=== PATIENT | female | born 1955 | race Caucasian/White ===

== ENCOUNTER → 2020-02-21 10:46 | Outpatient (BNVA) | payer BC, SELFPAY | PROVIDERS: Visit Provider Advanced Practice Midwife | DX: Z76.89 Persons encountering health services in other specified circumstances (principal) ==

== ENCOUNTER 2020-05-15 06:44 | Outpatient (REF) | payer MEDICARE, SELFPAY ==
--- NOTE | 2020-05-15 07:03 | XR_ITS ---
EXAMINATION: XR CERVICAL SPINE CLINICAL INFORMATION: Neck pain. COMPARISON: None TECHNIQUE: 6 views of the cervical spine, inclusive of flexion and extension views, were obtained. FINDINGS: There is maintained cervical lordosis. The vertebral heights, alignment and disc heights are normal. There is no visible acute fracture, dislocation or subluxation seen. The neural foramina are patent bilaterally. The prevertebral and paravertebral soft tissues are normal. XR/XR cervical spine w flex/ext IMPRESSION: Unremarkable cervical spine exam.
[2020-05-15 07:10] LABS: MANUAL DIFF FLAG NO
[2020-05-15 07:16] LABS: Glucose Urine UA NEG (NEG); Leukocyte Esterase Urine 1+ (NEG); Nitrite Urine NEG (NEG); PH 6.5 (5.0-8.0); Urine Blood TRACE (NEG); Urine Ketones NEG (NEG); Urine Protein NEG (NEG-TRACE)
[2020-05-15 07:17] LABS: Appearance Urine HAZY; Color Urine YELLOW
[2020-05-15 07:18] LABS: Basophils Absolute Auto 0.1 X10*3/uL (0.0-0.2); Basophils Percent Auto 0.9 % (0-2); Eosinophils Absolute Auto 0.1 X10*3/uL (0.0-0.4); Eosinophils Percent Auto 1.5 % (0-4); Hematocrit 37.8 % (37-47); Hemoglobin 11.9 g/dl (12.0-16.0); Imm Gran Abs Auto 0.03 X10*3/uL (0.00-0.03); Imm Gran Pct Auto 0.6 % (0.0-0.4); Immature Retic Fraction 10.3 % (3.0-15.9); Lymphocytes Absolute Auto 1.9 X10*3/uL (1.2-4.9); Lymphocytes Percent Auto 34.8 % (20-40); Mean Corpuscular HGB Conc 31.5 g/dl (31.0-35.0); Mean Corpuscular Hemoglobin 27.8 pg (27.0-33.0); Mean Corpuscular Volume 88.3 fL (80-98); Mean Platelet Volume 10.4 fL (9.4-12.3); Monocytes Absolute Auto 0.6 X10*3/uL (0.1-1.2); Monocytes Percent Auto 11.7 % (2-11); Neutrophils Absolute Auto 2.7 X10*3/uL (2.0-8.3); Neutrophils Percent Auto 50.5 % (45-73); Platelet Count 218 X10*3/uL (160-400); Red Blood Count 4.28 X10*6/uL (4.20-5.50); Red Cell Distribution Width 13.2 % (11.0-16.0); Retic HGB Equivalent 32.8 pg (30.0-35.0); Reticulocyte Percent 1.6 % (0.5-1.8); Reticulocytes Absolute 0.067 X10*6/uL (0.026-0.095); White Blood Count 5.3 X10*3/uL (4.8-10.8)
[2020-05-15 07:35] LABS: Bacteria Urine TRACE /LPF; RBC Urine 0-2 /HPF (0); Squamous Epithelial Cell Urine 3+ /LPF; WBC Urine 0-2 /HPF (0-4)
[2020-05-15 07:52] LABS: Alanine Aminotransferase 15 U/L (0-31); Albumin Level 4.5 g/dL (3.5-5.0); Alkaline Phosphatase 70 U/L (39-117); Anion Gap 12 (12-20); Aspartate Amino Transferase 13 U/L (5-31); Bilirubin Total 0.5 mg/dL (0.0-1.0); Blood Urea Nitrogen 16 mg/dL (9-16); Calcium 9.2 mg/dL (8.4-10.2); Carbon Dioxide 27 mmol/L (22-29); Chloride 106 mmol/L (96-108); Cholesterol 223 mg/dL; Estimated Glomerular Filt Rate > 60; Glucose Random 84 mg/dL (60-115); HDL Cholesterol 88 mg/dL; Iron 112 mcg/dL (30-160); LDL Cholesterol Calculated 122 mg/dl; Percent Iron Saturation 28 % (15-50); Potassium 4.3 mmol/l (3.3-5.1); Sodium 141 mmol/L (135-145); Total Iron Binding Capacity 404 mcg/dL (228-428); Total Protein 7.1 g/dL (6.5-8.0); Triglycerides 68 mg/dL; Unsaturated Iron Binding 292 ug/dL
[2020-05-15 08:02] LABS: Ferritin 69 ng/mL (10-250); Free T4 (Free Thyroxine) 1.04 ng/dL (0.71-1.85); Thyroid Stimulating Hormone 3.48 uIU/mL (0.32-4.0); Vitamin D 25-OH Total 99.9 ng/mL (>30)
[2020-05-15 08:23] LABS: Folate > 20.0 ng/mL (> or = 4.0); Vitamin B12 611 pg/mL (200-900)
== END 2020-05-15 06:45 | disposition home or self-care (01) ==
LOC: HO.LAB 06:44
PROVIDERS: Visit Provider Internal Medicine
DX: M54.2 Cervicalgia (principal); E78.00 Pure hypercholesterolemia, unspecified
CPT/HCPCS: 36415; 72052; 80053; 80061; 81001; 82306; 82607; 82728; 82746; 83540; 84439; 84443; 85025; 85045

== ENCOUNTER 2020-06-08 09:42 | Outpatient (REF) | payer MEDICARE, SELFPAY ==
[2020-06-11 01:47] LABS: HPV mRNA E6/E7 rflx Not Detected (Not Detected)
== END 2020-06-08 09:43 | disposition home or self-care (01) ==
LOC: HO.LAB 09:42
PROVIDERS: PCP Internal Medicine; Visit Provider Advanced Practice Midwife
DX: Z01.419 Encounter for gynecological examination (general) (routine) without abnormal findings (principal); Z78.0 Asymptomatic menopausal state; Z11.51 Encounter for screening for human papillomavirus (HPV)
CPT/HCPCS: 36415; 87624; 88142

== ENCOUNTER 2020-06-15 09:21 | Outpatient (REF) | payer MEDICARE, BC, SELFPAY ==
--- NOTE | ~2020-06-15 | MR_ITS ---
EXAMINATION: MR BRAIN WITHOUT CONTRAST CLINICAL INFORMATION: Headache. COMPARISON: None available. TECHNIQUE: Multiplanar, multisequence imaging of the brain was performed without intravenous contrast. FINDINGS: There is no acute infarction, mass, hemorrhage, or extra-axial collection. The ventricles, sulci, and basilar cisterns are normal in size and configuration. The cerebellar tonsils are normally positioned above the foramen magnum. The brain parenchyma signal is essentially normal. The flow voids of the major intracranial arteries appear intact. The bones and extracranial soft tissues are unremarkable. MR/MR head/brain wo con IMPRESSION: No acute infarct, mass lesion, intracranial hemorrhage, or evidence of hydrocephalus.
== END 2020-06-15 09:22 | disposition home or self-care (01) ==
LOC: HO.MRI 09:21
PROVIDERS: Visit Provider Internal Medicine
DX: R51.9 Headache, unspecified (principal)
CPT/HCPCS: 70551

== ENCOUNTER → 2020-06-16 15:00 | Outpatient (BNV) | payer MEDICARE, BC, SELFPAY | PROVIDERS: PCP Internal Medicine; Visit Provider Internal Medicine Medical Oncology | DX: D51.9 Vitamin B12 deficiency anemia, unspecified (principal); Z85.3 Personal history of malignant neoplasm of breast | CPT/HCPCS: 99213; 99214; 99443 ==

== ENCOUNTER 2020-09-04 11:31 | Outpatient (REF) | payer MEDICARE, SELFPAY | END 2020-09-04 11:32 | disposition home or self-care (01) | LOC: HO.LNP 11:31 | PROVIDERS: Visit Provider Hospitalist | DX: R30.0 Dysuria (principal) | CPT/HCPCS: 87086; 87147 ==

== ENCOUNTER 2020-09-06 12:30 | Emergency (ER) | payer MEDICARE, SELFPAY ==
--- NOTE | ~2020-09-06 | US_ITS ---
EXAMINATION: US ABDOMEN LIMITED CLINICAL INFORMATION: Right upper quadrant pain. Question acute cholecystitis.. COMPARISON: CT abdomen 09/14/2017 TECHNIQUE: Real-time imaging of the right upper quadrant abdominal viscera. FINDINGS: PANCREAS: Normal. LIVER: Normal. The liver is normal in size. The liver contour is normal. Parenchymal echogenicity is normal. No focal hepatic lesion. There is no intrahepatic biliary duct dilatation seen. GALLBLADDER: Normal. The gallbladder is physiologically distended without evidence of stones, sludge, polyps, wall thickening or pericholecystic fluid. COMMON BILE DUCT: Normal in caliber measuring 0.2 cm in diameter. RIGHT KIDNEY: Normal. No hydronephrosis. No renal calculi or focal parenchymal lesions. The kidney measures 10.2 cm in maximum dimension. FREE FLUID: None. US/US abdomen limited IMPRESSION: 1. No evidence of cholelithiasis or cholecystitis. 2. Otherwise unremarkable study.
[2020-09-06 12:33] VITALS: BP 135/77; PULSE 84; RESP 18; TEMP 36.8; O2SAT 100; BMI 26.9
[2020-09-06 12:53] LABS: Appearance Urine CLEAR; Color Urine YELLOW; Glucose Urine UA NEG (NEG); Leukocyte Esterase Urine NEG (NEG); Nitrite Urine NEG (NEG); PH 5.5 (5.0-8.0); Specific Gravity - Urine 1.025 (1.005-1.025); Urine Blood 1+ (NEG); Urine Ketones 5 MG/DL (NEG); Urine Protein NEG (NEG-TRACE)
[2020-09-06 13:07] LABS: Mucus Urine 1+ /LPF; Squamous Epithelial Cell Urine 1+ /LPF; WBC Urine 0-2 /HPF (0-4)
[2020-09-06 13:25] VITALS: BP 135/74; PULSE 80; RESP 18; O2SAT 100
--- NOTE | 2020-09-06 13:26 | ED.ABDPAIN ---
HPI - Abdominal Pain General Chief Complaint: Abdominal Pain Stated Complaint: abd pain Time Seen by Provider: 09/06/20 13:20 Source: patient Mode of arrival: ambulatory Limitations: no limitations History of Present Illness HPI narrative: 65-year-old female with a past medical history of right breast carcinoma status post lumpectomy status post chemotherapy/radiation, anemia, anxiety, high cholesterol, IBS, osteoarthritis Seen here at walk-in on September 04 for UTI symptoms and had a urine culture which showed contamination. She was given a prescription for Cipro but she did not start this. She was waiting for the urine culture to come back. The patient has had symptoms of intermittent abdominal pain, epigastric burning, indigestion, ?cotton mouth , nausea for 1-2 weeks. She feels like this is a reoccurrence of her GI Justin. She called her glove cuffer and ear nose and throat doctor and has appointment for September 29 (ENT) and 10/16(GI) as well as her PCP 10/28. She tells me she has continued symptoms and feels like it is getting worse so she came to the emergency department. She did restart some leftover nystatin on September 03 but feels like this has not helped her symptoms. She was seen at the walk-in on September 04 because she felt like she was having some lower pelvic pressure and some low back pain and felt like she might have a UTI. She feels like those symptoms today are resolved and denies any urinary symptoms, fevers, chills, vomiting, diarrhea, constipation. Related Data Home Medications Medication Instructions Recorded Confirmed cetirizine 10 mg capsule 10 mg PO DAILY PRN 05/14/20 09/04/20 cholecalciferol (vitamin D3) 50 50 mcg PO DAILY 05/14/20 09/04/20 mcg (2,000 unit) capsule cyanocobalamin (vitamin B-12) 1,000 mcg PO DAILY 05/14/20 09/04/20 1,000 mcg capsule folic acid 1 mg tablet 1 mg PO DAILY 05/14/20 09/04/20 inositol 324 mg tablet 4 tab PO DAILY 05/14/20 09/04/20 cimetidine 200 mg tablet 200 mg PO QIDACHS 09/04/20 09/04/20 Previous Rx's Medication Instructions Recorded lorazepam 0.5 mg tablet 0.5 mg PO BEDTIME PRN 30 Days #30 05/14/20 tab ciprofloxacin HCl 500 mg tablet 500 mg PO BID #14 tab 09/04/20 Allergies Allergy/AdvReac Type Severity Reaction Status Date / Time doxycycline [DOXYCYCLINE] Allergy Severe UNKNOWN, ? Verified 09/04/20 09:57 hearing problem poison teresa extract Allergy Severe SEVERE RASH Verified 09/04/20 09:57 [POISON TERESA] Sulfa (Sulfonamide Allergy Intermediate RASH PT Verified 09/04/20 09:57 Antibiotics) STATES [SULFA (SULFONAMIDE TOOK ANTIBIOTICS)] BACTRIM WITHOUT REACTION penicillin G Allergy Unknown rash Verified 09/04/20 09:57 Penicillins [PENICILLINS] Allergy Unknown RASH Verified 09/04/20 09:57 Review of Systems Review of Systems Yes all other systems are reviewed and are negative Constitutional: Reports no additional constitutional complaints, Denies body ache(s), Denies chills, Denies fever(s), Denies headache(s) and Denies weakness Eyes: Reports no additional eye complaints and Denies change in vision Reports system reviewed and no additional complaints, except as documented, Reports halitosis, Denies dizziness, Denies headache(s), Denies nasal congestion, Denies nasal discharge and Denies neck pain Cardiovascular: Reports no additional cardiovascular complaints, Denies chest pain, Denies leg edema and Denies dyspnea Respiratory: Reports no additional respiratory complaints, Denies cough and Denies dyspnea Gastrointestinal: Reports no additional gastrointestinal complaints, Reports abdominal pain, Denies diarrhea, Reports nausea and Denies vomiting Genitourinary: Reports no additional female genitourinary complaints and Denies urinary incontinence Musculoskeletal: Reports no additional musculoskeletal complaints, Denies back pain, Denies arthralgias, Denies joint swelling, Denies neck pain, Denies numbness and Denies tingling Skin/Breast: Reports system reviewed and no additional complaints, except as docu and Denies rash Reports system reviewed and no additional complaints, except as documented, Denies Abnormal speech present, Denies dizziness, Denies headache(s), Denies numbness, Denies tingling and Denies weakness Physical Exam Vital Signs: Vital Signs: Last Vital Signs Temp 98.2 F 09/06/20 12:33 Pulse 80 09/06/20 13:25 Resp 18 09/06/20 13:25 BP 135/74 09/06/20 13:25 Pulse Ox 100 09/06/20 13:25 Body Mass Index 26.9 Const: General: cooperative, healthy appearing, comfortable and no acute distress Orientation/consciousness: patient oriented x3 Limitations: no limitations HENMT: Head: Yes normal to inspection Ears: hearing grossly normal bilaterally and TM's normal bilaterally General nose exam: Normal external nose present Face and sinus: Yes normal facial exam Mouth: Normal oral and palatal mucosa present Mouth/tongue images: 1. white placques Throat: Yes posterior oropharynx normal, Yes tonsils normal and Yes uvula midline Eyes: General: appearance normal, both eyes and all related structures Pupils: Equal, round and reactive pupils present Neck: Neck: Yes normal visual inspection, Yes full ROM, Yes no lymphadenopathy and Yes no meningeal signs Chest: Chest palpation & inspection: normal inspection of the chest Resp: Effort & Inspection: normal respiratory effort Auscultation: clear to auscultation bilaterally Cardio: Rate: regular rate Rhythm: regular rhythm Peripheral pulses: Peripheral pulses 2+ throughout GI: Other: No rebound or guarding Patient does point to her epigastric and right upper quadrant area which she tells me she has some discomfort in this area however I am unable to elicit any real tenderness on exam. Inspection: Yes normal to inspection Palpation (GI): Soft to palpation Auscultation: normal bowel sounds Back/Spine/Pelvis: Thoracic/Lumbar Spine: thoracic and lumbar spine normal to inspection Skin: General skin exam: no rashes or lesions noted Neuro: General: patient oriented x3, no meningeal signs, no focal motor deficits and normal sensation to monofilament Cranial nerves: Yes Equal, round and reactive pupils present Cognition (Neuro): normal cognition Speech: No Abnormal speech present Gait exam (Neuro): Normal gait present Motor exam (neuro): 5/5 motor strength present throughout Extrem: General: Yes normal to inspection, Yes no pedal edema and Yes no calf tenderness Course Course Course Narrative: 65 year old female here with complaints of intermittent abdominal pain with associated nausea, halitosis for 1-2 weeks in the setting of a history of GI Justin. Did restart some nystatin p.o. 3 days ago but has having continued symptoms. Has follow-up appointments with her GI, ENT and PCP in September but feels like she cannot wait that long. On exam she does have some reports of tenderness in the epigastric and right upper quadrant area but no significant rebound or guarding. Had some UTI symptoms this week but they seem resolved. Will check labs, EKG due to age, UA, abdominal ultrasound. 1530-labs unremarkable. UA negative. EKG shows no ischemic changes. Abdominal ultrasound negative. Patient has a constellation of symptoms that she relates to her history of GI justin. She feels like she is having a recurrence. I do feel like this is less likely as the patient is not currently immunocompromised and has not had chemotherapy in greater than 10 years. She would like to be treated prophylactically while pending her appointment with GI and ear nose and throat. However after discussion my attending we do not feel like this is appropriate at this time. I did recommend that she call for sooner appointment than her scheduled appointments in September if she feel like she needs to be seen sooner. I do not feel like there is any acute abdominal pathology going on causing her symptoms. Her test today were reviewed with her. I did review worrisome signs and symptoms such as severe sudden abdominal pain with associated vomiting or fever. Comfortable discharge home. MDM - Abdominal Pain MDM Narrative Medical decision making narrative: Cholecystitis, gallstones, GERD, gastritis, UTI, GI Justin Medical Records Attestation: I reviewed the patient's medical records. Lab Data Attestation: I reviewed the patient's lab results. Result diagrams: 09/06/20 14:19 09/06/20 14:19 Labs: Lab Results 09/06/20 09/06/20 09/06/20 Range/Units 12:47 14:19 14:19 WBC 6.0 (4.8-10.8) X10*3/uL RBC 4.35 (4.20-5.50) X10*6/uL Hgb 12.7 (12.0-16.0) g/dl Hct 38.8 (37-47) % MCV 89.2 (80-98) fL MCH 29.2 (27.0-33.0) pg MCHC 32.7 (31.0-35.0) g/dl RDW 13.2 (11.0-16.0) % Plt Count 198 (160-400) X10*3/uL MPV 10.4 (9.4-12.3) fL Immature Gran % (Auto) 0.2 (0.0-0.4) % Neut % (Auto) 66.6 (45-73) % Lymph % (Auto) 22.2 (20-40) % Troup % (Auto) 9.8 (2-11) % Eos % (Auto) 0.5 (0-4) % Baso % (Auto) 0.7 (0-2) % Lymph # (Auto) 1.3 (1.2-4.9) X10*3/uL Troup # (Auto) 0.6 (0.1-1.2) X10*3/uL Eos # (Auto) 0.0 (0.0-0.4) X10*3/uL Baso # (Auto) 0.0 (0.0-0.2) X10*3/uL Abs Immat Gran (auto) 0.01 (0.00-0.03) X10*3/uL Absolute Neuts (auto) 4.0 (2.0-8.3) X10*3/uL Absolute Nucleated RBC 0.000 (0.0-0.012) X10*3/uL Nucleated RBC % (auto) 0.0 (0.0-0.2) /100WBC Sodium 140 (135-145) mmol/L Potassium 3.7 (3.3-5.1) mmol/L Chloride 107 (96-108) mmol/L Carbon Dioxide 22 (22-29) mmol/L Anion Gap 15 (12-20) BUN 12 (9-16) mg/dL Creatinine 0.82 (0.5-1.4) mg/dL Estim Creat Clear Calc 66.1 Estimated GFR > 60 Random Glucose 86 (60-115) mg/dL Calcium 9.4 (8.4-10.2) mg/dL Magnesium 2.1 (1.6-2.6) mg/dL Total Bilirubin 0.6 (0.0-1.0) mg/dL Direct Bilirubin 0.2 (0.0-0.5) mg/dL AST 14 (5-31) U/L ALT 17 (0-31) U/L Alkaline Phosphatase 67 (39-117) U/L Total Protein 7.1 (6.5-8.0) g/dL Albumin 4.6 (3.5-5.0) g/dL Lipase 56 (8-78) U/L Urine Color YELLOW Urine Appearance CLEAR Urine pH 5.5 (5.0-8.0) Ur Specific [place] 1.025 (1.005-1.025) Urine Protein NEG (NEG-TRACE) MG/DL Urine Glucose (UA) NEG (NEG) MG/DL Urine Ketones 5 (NEG) MG/DL Urine Blood 1+ H (NEG) Urine Nitrite NEG (NEG) Ur Leukocyte Esterase NEG (NEG) Urine RBC 1-4 (0) /HPF Urine WBC 0-2 (0-4) /HPF Ur Squamous Epith Cells 1+ /LPF Urine Bacteria NONE /LPF Urine Mucus 1+ /LPF 09/06/20 Range/Units 14:19 WBC (4.8-10.8) X10*3/uL RBC (4.20-5.50) X10*6/uL Hgb (12.0-16.0) g/dl Hct (37-47) % MCV (80-98) fL MCH (27.0-33.0) pg MCHC (31.0-35.0) g/dl RDW (11.0-16.0) % Plt Count (160-400) X10*3/uL MPV (9.4-12.3) fL Immature Gran % (Auto) (0.0-0.4) % Neut % (Auto) (45-73) % Lymph % (Auto) (20-40) % Troup % (Auto) (2-11) % Eos % (Auto) (0-4) % Baso % (Auto) (0-2) % Lymph # (Auto) (1.2-4.9) X10*3/uL Troup # (Auto) (0.1-1.2) X10*3/uL Eos # (Auto) (0.0-0.4) X10*3/uL Baso # (Auto) (0.0-0.2) X10*3/uL Abs Immat Gran (auto) (0.00-0.03) X10*3/uL Absolute Neuts (auto) (2.0-8.3) X10*3/uL Absolute Nucleated RBC (0.0-0.012) X10*3/uL Nucleated RBC % (auto) (0.0-0.2) /100WBC Sodium (135-145) mmol/L Potassium (3.3-5.1) mmol/L Chloride (96-108) mmol/L Carbon Dioxide (22-29) mmol/L Anion Gap (12-20) BUN (9-16) mg/dL Creatinine (0.5-1.4) mg/dL Estim Creat Clear Calc Estimated GFR Random Glucose (60-115) mg/dL Calcium (8.4-10.2) mg/dL Magnesium (1.6-2.6) mg/dL Total Bilirubin (0.0-1.0) mg/dL Direct Bilirubin (0.0-0.5) mg/dL AST (5-31) U/L ALT (0-31) U/L Alkaline Phosphatase (39-117) U/L Total Protein (6.5-8.0) g/dL Albumin (3.5-5.0) g/dL Lipase (8-78) U/L Urine Color STRAW Urine Appearance CLEAR Urine pH 6.0 (5.0-8.0) Ur Specific [place] 1.010 (1.005-1.025) Urine Protein NEG (NEG-TRACE) MG/DL Urine Glucose (UA) NEG (NEG) MG/DL Urine Ketones NEG (NEG) MG/DL Urine Blood 1+ H (NEG) Urine Nitrite NEG (NEG) Ur Leukocyte Esterase NEG (NEG) Urine RBC 1-4 (0) /HPF Urine WBC 0 (0-4) /HPF Ur Squamous Epith Cells 1+ /LPF Urine Bacteria NONE /LPF Urine Mucus /LPF Imaging Data US - abdomen: Attestation: I personally reviewed and interpreted this imaging study as follows: Radiologist's impression: [address] [id number] ReportSigned Patient: Keiry Martini MMR#: [id number]: 5Acct:[id number]/Sex: 65 / FADM Date: 09/06/20Loc: Mickie Srivastava: Ordering Physician: HALIMA ENGEL NP Date of Service: 09/06/20 Procedure(s): US abdomen limited Accession Number(s): [id number] cc: HALIMA ENGEL NP~ EXAMINATION: US ABDOMEN LIMITED CLINICAL INFORMATION: Right upper quadrant pain. Question acute cholecystitis.. COMPARISON: CT abdomen 09/14/2017 TECHNIQUE: Real-time imaging of the right upper quadrant abdominal viscera. FINDINGS: PANCREAS: Normal. LIVER: Normal. The liver is normal in size. The liver contour is normal. Parenchymal echogenicity is normal. No focal hepatic lesion. There is no intrahepatic biliary duct dilatation seen. GALLBLADDER: Normal. The gallbladder is physiologically distended without evidence of stones, sludge, polyps, wall thickening or pericholecystic fluid. COMMON BILE DUCT: Normal in caliber measuring 0.2 cm in diameter. RIGHT KIDNEY: Normal. No hydronephrosis. No renal calculi or focal parenchymal lesions. The kidney measures 10.2 cm in maximum dimension. FREE FLUID: None. US/US abdomen limited IMPRESSION: 1. No evidence of cholelithiasis or cholecystitis. 2. Otherwise unremarkable study. ECG Data Attestation: I personally reviewed and interpreted this ECG as follows: ECG interpretation date: 09/06/20 ECG interpretation time: 14:09 Interpretation: Sinus bradycardia with a rate of 57, nonspecific ST changes, normal WI, normal QRS, normal QTC Discharge Plan Discharge Clinical Impression: Abdominal pain Patient Disposition: Home, Self-Care Instructions: Abdominal Pain (ED) Additional Instructions: Call Dr Kamara's office tomorrow for a sooner appointment Your ultrasound, blood work and urine testing all looked excellent today. It sounds like you need a repeat endoscopy. Prescriptions: No Action cyanocobalamin (vitamin B-12) 1,000 mcg capsule 1,000 mcg PO DAILY RF: 0 cholecalciferol (vitamin D3) 50 mcg (2,000 unit) capsule 50 mcg PO DAILY RF: 0 inositol 324 mg tablet 4 tab PO DAILY RF: 0 folic acid 1 mg tablet 1 mg PO DAILY RF: 0 Zyrtec 10 mg capsule 10 mg PO DAILY PRN (Reason: Allergic Symptoms) RF: 0 lorazepam 0.5 mg tablet 0.5 mg PO BEDTIME PRN (Reason: agitation) 30 Days Qty: 30 RF: 0 cimetidine [Tagamet HB] 200 mg tablet 200 mg PO QIDACHS RF: 0 ciprofloxacin HCl [Cipro] 500 mg tablet 500 mg PO BID Qty: 14 RF: 0 Referrals: Josh Kamara [Physician] - 2 days Interventions: ED Discharge Assessment Last Done: 09/06/20 15:35 Discharge Date/Time: 09/06/20 15:35 [facility] Past Medical History Attestation statement: The following information was validated with the patient. Source: old records reviewed and nursing notes reviewed Medical History Anemia Anxiety Ascending aorta dilatation Hx of breast cancer Hypercholesterolemia Immunodeficiency disorder Irritable bowel syndrome Osteoarthritis Overweight (BMI 25.0-29.9) Vitamin B12 deficiency Surgical History History of arthroscopy of left knee Hx of section Hx of mastectomy Hx of tubal ligation Family History Family History Mother Diabetes Arthritis Father HTN (hypertension) Dementia COPD (chronic obstructive pulmonary disease) Skin cancer Social History Social History Alcohol intake: never Smoking Status: Never smoker Smoked in Last 30 Days: No Use of substances other than those prescribed or required for medical reasons: No Advance Directives: No Advance Directives Information Provided: Yes Sexual orientation: Straight/Heterosexual Gender identity: female
--- NOTE | 2020-09-06 13:43 | ECG_ITS ---
Test Reason : ABD PAIN Blood Pressure : / mmHG Vent. Rate : 057 BPM Atrial Rate : 057 BPM P-R Int : 142 ms QRS Dur : 090 ms QT Int : 458 ms P-R-T Axes : 043 -19 056 degrees QTc Int : 445 ms Sinus bradycardia RSR' or QR pattern in V1 suggests right ventricular conduction delay Otherwise normal EKG When compared with ECG of 05-JUN-2015 05:57, No significant change was found Referred By: Madeleine Chavez Electronically Signed By:DEVON PEACOCK
[2020-09-06 14:23] LABS: MANUAL DIFF FLAG NO
[2020-09-06 14:24] LABS: Basophils Percent Auto 0.7 % (0-2); Eosinophils Percent Auto 0.5 % (0-4); Hematocrit 38.8 % (37-47); Hemoglobin 12.7 g/dl (12.0-16.0); Imm Gran Abs Auto 0.01 X10*3/uL (0.00-0.03); Imm Gran Pct Auto 0.2 % (0.0-0.4); Lymphocytes Absolute Auto 1.3 X10*3/uL (1.2-4.9); Lymphocytes Percent Auto 22.2 % (20-40); Mean Corpuscular HGB Conc 32.7 g/dl (31.0-35.0); Mean Corpuscular Hemoglobin 29.2 pg (27.0-33.0); Mean Corpuscular Volume 89.2 fL (80-98); Mean Platelet Volume 10.4 fL (9.4-12.3); Monocytes Absolute Auto 0.6 X10*3/uL (0.1-1.2); Monocytes Percent Auto 9.8 % (2-11); Neutrophils Percent Auto 66.6 % (45-73); Platelet Count 198 X10*3/uL (160-400); Red Blood Count 4.35 X10*6/uL (4.20-5.50); Red Cell Distribution Width 13.2 % (11.0-16.0)
[2020-09-06 14:25] LABS: Glucose Urine UA NEG (NEG); Leukocyte Esterase Urine NEG (NEG); Nitrite Urine NEG (NEG); Urine Blood 1+ (NEG); Urine Ketones NEG (NEG); Urine Protein NEG (NEG-TRACE)
[2020-09-06 14:32] LABS: Appearance Urine CLEAR; Color Urine STRAW
[2020-09-06 14:53] LABS: Alanine Aminotransferase 17 U/L (0-31); Albumin Level 4.6 g/dL (3.5-5.0); Alkaline Phosphatase 67 U/L (39-117); Anion Gap 15 (12-20); Aspartate Amino Transferase 14 U/L (5-31); Bilirubin Direct 0.2 mg/dL (0.0-0.5); Bilirubin Total 0.6 mg/dL (0.0-1.0); Blood Urea Nitrogen 12 mg/dL (9-16); Calcium 9.4 mg/dL (8.4-10.2); Carbon Dioxide 22 mmol/L (22-29); Chloride 107 mmol/L (96-108); Creatinine Clr Calc Pharmacy 66.1; Estimated Glomerular Filt Rate > 60; Glucose Random 86 mg/dL (60-115); Lipase 56 U/L (8-78); Magnesium 2.1 mg/dL (1.6-2.6); Potassium 3.7 mmol/L (3.3-5.1); Sodium 140 mmol/L (135-145); Total Protein 7.1 g/dL (6.5-8.0)
[2020-09-06 14:54] LABS: Squamous Epithelial Cell Urine 1+ /LPF; WBC Urine 0 /HPF (0-4)
== END 2020-09-06 15:35 | disposition home or self-care (01) ==
PROVIDERS: Nurse Practitioner Family; Emergency Provider Emergency Medicine Emergency Medical Services; PCP Internal Medicine
DX: R10.13 Epigastric pain (principal); R11.0 Nausea; Z79.899 Other long term (current) drug therapy
CPT/HCPCS: 36415; 76705; 80048; 80076; 81001; 83690; 83735; 85025; 93005; 99284

== ENCOUNTER 2020-09-10 12:20 | Outpatient (REF) | payer MEDICARE, SELFPAY ==
--- NOTE | ~2020-09-10 | XR_ITS ---
EXAMINATION: BILATERAL HAND X-RAY CLINICAL INFORMATION: Pain COMPARISON: None TECHNIQUE: 3 views of each hand FINDINGS: Bone alignment is normal. No fracture or dislocation is seen. There is bilateral osteopenia. There is bilateral arthritis at the first PENITENTIARY joints, left greater than right. Joint spaces are otherwise normal. Soft tissues are normal. XR/XR hand RT min 3V IMPRESSION: Osteopenia. Bilateral arthritis at the first PENITENTIARY joints, left greater than right.
--- NOTE | ~2020-09-10 | XR_ITS ---
EXAMINATION: BILATERAL HAND X-RAY CLINICAL INFORMATION: Pain COMPARISON: None TECHNIQUE: 3 views of each hand FINDINGS: Bone alignment is normal. No fracture or dislocation is seen. There is bilateral osteopenia. There is bilateral arthritis at the first ALF joints, left greater than right. Joint spaces are otherwise normal. Soft tissues are normal. XR/XR hand LT min 3V IMPRESSION: Osteopenia. Bilateral arthritis at the first ALF joints, left greater than right.
[2020-09-10 14:22] LABS: Baso%MD 0.7 %; Eos%MD 1.2 %; Hematocrit 38.8 % (37-47); Hemoglobin 12.5 g/dl (12.0-16.0); IG%MD 0.3 %; Lymph%MD 31.1 %; Mean Corpuscular HGB Conc 32.2 g/dl (31.0-35.0); Mean Corpuscular Hemoglobin 28.9 pg (27.0-33.0); Mean Corpuscular Volume 89.8 fL (80-98); Mean Platelet Volume 10.4 fL (9.4-12.3); Mono%MD 9.6 %; Neut%MD 57.1 %; Platelet Count 223 X10*3/uL (160-400); Red Blood Count 4.32 X10*6/uL (4.20-5.50); Red Cell Distribution Width 13.3 % (11.0-16.0); White Blood Count 5.9 X10*3/uL (4.8-10.8)
[2020-09-10 14:41] LABS: C Reactive Protein 0.09 mg/dL (< or = 0.50); Rheumatoid Factor < 15.0 IU/mL (<15.0)
[2020-09-10 14:59] LABS: Thyroid Stimulating Hormone 1.43 uIU/mL (0.32-4.0)
[2020-09-10 15:20] LABS: Band Neutrophils Percent 0 % (3-5); Lymphocytes Absolute Manual 1.7 X10*3/uL (0.6-4.8); Lymphocytes Percent Manual 28 % (20-40); Monocytes Absolute Manual 0.5 X10*3/uL (0.0-1.2); Monocytes Percent Manual 9 % (2-11); Neutrophils Absolute Manual 3.7 X10*3/uL (2.2-7.9); Neutrophils Percent Manual 63 % (45-73); RBC Morphology NOTED
[2020-09-10 15:21] LABS: Acanthocytes 2+ (3-5) /OIF; Large Platelet PRESENT; Platelet Estimate NORMAL (NORMAL); Platelet Morphology Comment NOTED
[2020-09-10 15:39] LABS: Erythrocyte Sedimentation Rate 14 MM/HR (0-20)
[2020-09-11 05:26] LABS: Lyme Abs Screen <0.90 index
[2020-09-11 13:56] LABS: Anti Nuclear Antibody Screen NEGATIVE (NEGATIVE)
[2020-09-11 20:02] LABS: Cyclic Citrullinated Peptide <16 UNITS
== END 2020-09-10 12:21 | disposition home or self-care (01) ==
LOC: HO.LAB 12:20
PROVIDERS: PCP Internal Medicine; Visit Provider Student in an Organized Health Care Education/Training Program
DX: M25.50 Pain in unspecified joint (principal)
CPT/HCPCS: 36415; 73130; 84443; 85007; 85027; 85652; 86038; 86039; 86140; 86200; 86431; 86617; 86618; 99202

== ENCOUNTER 2020-09-16 08:43 | Outpatient (REF) | payer MEDICARE, SELFPAY | END 2020-09-16 08:44 | disposition home or self-care (01) | LOC: HO.LNP 08:43 | PROVIDERS: Visit Provider Internal Medicine | DX: R10.13 Epigastric pain (principal) | CPT/HCPCS: 87338 ==

== ENCOUNTER 2020-09-29 15:48 | Outpatient (REF) | payer MEDICARE, SELFPAY | END 2020-09-29 15:49 | disposition home or self-care (01) | LOC: HO.LNP 15:48 | PROVIDERS: Visit Provider Otolaryngology | DX: B37.0 Candidal stomatitis (principal) | CPT/HCPCS: 87102; 87106 ==

== ENCOUNTER 2020-10-05 11:24 | Day surgery (SDC) | payer MEDICARE, SELFPAY ==
--- NOTE | 2020-10-02 08:11 | P.CONAN_ITS ---
Documented by User: Donna Sofía 10/02/20 08:19 HPI - Anesthesia Eval Consult details Narrative: 65yo F for Upper Endoscopy PMFSH Active Problems Active Problems: All Active Problems (Updated 09/10/20 @ 12:23 by Adan Sanchez MD) Polyarthralgia (Acute) Epigastric abdominal pain (Acute) Dysuria (Acute) Right lower quadrant pain (Acute) Osteoarthritis (Acute) B12 deficiency (Acute) Occipital headache (Acute) Neck pain (Acute) Hx of breast cancer (Acute) Fatigue (Acute) Hypercholesterolemia (Acute) Overweight (BMI 25.0-29.9) (Acute) Past Medical History Medical History Anemia Anxiety Ascending aorta dilatation Hx of breast cancer Hypercholesterolemia Immunodeficiency disorder Irritable bowel syndrome Osteoarthritis Overweight (BMI 25.0-29.9) Vitamin B12 deficiency Family History Family History Mother Diabetes Arthritis Father HTN (hypertension) Dementia COPD (chronic obstructive pulmonary disease) Skin cancer Surgical History Surgical History History of arthroscopy of left knee Hx of section Hx of mastectomy Hx of tubal ligation Social History Social History Alcohol intake: never Patient Tobacco Use Status: Never used Tobacco Use of substances other than those prescribed or required for medical reasons: No Have you been hit, kicked, punched, or otherwise hurt by someone within the past year? If so, by whom?: No Are you DNR?: No Advance Directives: No Advance Directives Information Provided: Yes Sexual orientation: Straight/Heterosexual Gender identity: female Meds Allergies Allergy/AdvReac Type Severity Reaction Status Date / Time doxycycline [DOXYCYCLINE] Allergy Severe UNKNOWN, ? Verified 10/05/20 12:26 hearing problem poison teresa extract Allergy Severe SEVERE RASH Verified 10/05/20 12:26 [POISON TERESA] Sulfa (Sulfonamide Allergy Intermediate RASH PT Verified 10/05/20 12:26 Antibiotics) STATES [SULFA (SULFONAMIDE TOOK ANTIBIOTICS)] BACTRIM WITHOUT REACTION Penicillins [PENICILLINS] Allergy Unknown RASH Verified 10/05/20 12:26 Home Medications Medication Instructions Recorded Confirmed Last Taken Type cetirizine 10 mg capsule 10 mg PO DAILY PRN 05/14/20 09/09/20 Unknown History cholecalciferol (vitamin D3) 50 50 mcg PO DAILY 05/14/20 09/09/20 Unknown History mcg (2,000 unit) capsule cyanocobalamin (vitamin B-12) 1,000 mcg PO DAILY 05/14/20 09/09/20 Unknown History 1,000 mcg capsule folic acid 1 mg tablet 1 mg PO DAILY 05/14/20 09/09/20 Unknown History inositol 324 mg tablet 4 tab PO DAILY 05/14/20 09/09/20 Unknown History acetaminophen 650 mg 1,300 mg PO Q12H PRN 09/10/20 Unknown History tablet,extended release Exam Exam Date and Time: October 02, 2020 0811 Narrative Narrative: 06/2019 Mild dilated ascending aorta @ 3.9cm EF 60-65% Nml valves Nml RV sys function No pericardial effusion EKG 2020 Vent. Rate : 057 BPM Atrial Rate : 057 BPM P-R Int : 142 ms QRS Dur : 090 ms QT Int : 458 ms P-R-T Axes : 043 -19 056 degrees QTc Int : 445 ms Sinus bradycardia RSR' or QR pattern in V1 suggests right ventricular conduction delay Otherwise normal EKG When compared with ECG of 05-JUN-2015 05:57, No significant change was found Assessment and Plan Assessment Anesthesia Assessment: Chart Reviewed Documented by User: Ronnie Singleton MD 10/05/20 13:02 [facility] Past Medical History Medical History Anemia Anxiety Ascending aorta dilatation Hx of breast cancer Hypercholesterolemia Immunodeficiency disorder Irritable bowel syndrome Osteoarthritis Overweight (BMI 25.0-29.9) Vitamin B12 deficiency Family History Family History Mother Diabetes Arthritis Father HTN (hypertension) Dementia COPD (chronic obstructive pulmonary disease) Skin cancer Surgical History Surgical History History of arthroscopy of left knee Hx of section Hx of mastectomy Hx of tubal ligation Social History Social History Alcohol intake: never Patient Tobacco Use Status: Never used Tobacco Use of substances other than those prescribed or required for medical reasons: No Have you been hit, kicked, punched, or otherwise hurt by someone within the past year? If so, by whom?: No Are you DNR?: No Advance Directives: No Advance Directives Information Provided: Yes Sexual orientation: Straight/Heterosexual Gender identity: female Meds Allergies Allergy/AdvReac Type Severity Reaction Status Date / Time doxycycline [DOXYCYCLINE] Allergy Severe UNKNOWN, ? Verified 10/05/20 12:26 hearing problem poison teresa extract Allergy Severe SEVERE RASH Verified 10/05/20 12:26 [POISON TERESA] Sulfa (Sulfonamide Allergy Intermediate RASH PT Verified 10/05/20 12:26 Antibiotics) STATES [SULFA (SULFONAMIDE TOOK ANTIBIOTICS)] BACTRIM WITHOUT REACTION Penicillins [PENICILLINS] Allergy Unknown RASH Verified 10/05/20 12:26 Home Medications Medication Instructions Recorded Confirmed Last Taken Type cetirizine 10 mg capsule 10 mg PO DAILY PRN 05/14/20 09/09/20 Unknown History cholecalciferol (vitamin D3) 50 50 mcg PO DAILY 05/14/20 09/09/20 Unknown History mcg (2,000 unit) capsule cyanocobalamin (vitamin B-12) 1,000 mcg PO DAILY 05/14/20 09/09/20 Unknown History 1,000 mcg capsule folic acid 1 mg tablet 1 mg PO DAILY 05/14/20 09/09/20 Unknown History inositol 324 mg tablet 4 tab PO DAILY 05/14/20 09/09/20 Unknown History acetaminophen 650 mg 1,300 mg PO Q12H PRN 09/10/20 Unknown History tablet,extended release Exam Airway Mallampati Class: I TM Dist: >3cm Neck ROM: Full Loose/Missing/Broken Teeth: No Heart: RRR Lungs: NL Assessment and Plan Assessment Anesthesia Assessment: Anesthesia Plan Discussed and Chart Reviewed Final Anesthetic Review NPO: Yes ASA Class: III Final Preanesthetic Review: No Changes in Pt Med Stat, Meds/Allgs Chart Reviewed, Consent Obtained/Reviewed and Anes Risks/Benef Reviewed Patient Risk: Intermediate Procedure Risk: Low Anesthetic Plan Anesthetic Plan: MAC: Disposition: Standard PACU
[2020-10-05 12:23] VITALS: BP 116/68; PULSE 89; RESP 18; TEMP 36.7; O2SAT 99; BMI 27.3
[2020-10-05] MEDS: Lactated Ringers 1,000 ML 100 ML IVCONT (12:42)
[2020-10-05 14:13] VITALS: BP 103/57; PULSE 76; RESP 16; TEMP 36.2; O2SAT 99
--- NOTE | 2020-10-05 14:14 | P.BOP_ITS ---
Brief Operative Note Date of Service: 10/05/20 Pre-op diagnosis: GERD, abdominal pain Post-op diagnosis: other (Mild antral gastritis, Hiatal hernia, GERD, Gastric polyps) Procedure: EGD with biopsies Surgeon: Josh Kamara Anesthesia: MAC Was an Volunteer Services Director used for this Procedure?: No Estimated blood loss (mL): 4.0 Pathology: other (A. Gastric antrum B. EG Junction at 35cm C. Gastric polyps) Condition: stable Disposition: PACU
[2020-10-05 14:28] VITALS: BP 106/60; PULSE 67; RESP 18; O2SAT 100
--- NOTE | 2020-10-05 23:24 | OP_ITS ---
SURGEON: Josh Kamara MD INDICATIONS: The patient presents for evaluation of reflux and abdominal pain. Full consent has been obtained from her for this, including risks of bleeding and perforation. PREOPERATIVE DIAGNOSIS: POSTOPERATIVE DIAGNOSIS: PROCEDURE PERFORMED: Esophagogastroduodenoscopy with biopsy. ESTIMATED BLOOD LOSS: COMPLICATIONS: ANESTHESIA: Monitored anesthesia care. ASSISTANTS: SPECIMENS: PREOPERATIVE DIAGNOSES: Reflux and abdominal pain. POSTOPERATIVE DIAGNOSES: Reflux and abdominal pain, hiatal hernia, gastric polyps, mild gastritis. DESCRIPTION OF PROCEDURE: The patient was placed in the left lateral decubitus position. The Olympus video gastroscope was passed in the posterior oropharynx and upper esophagus under direct vision. The scope was passed slowly into the distal esophagus. The gastroesophageal junction appeared minimally irregular at 35 cm consistent with reflux, but no definitive evidence of Cardozo's esophagus and there was no esophagitis. The scope entered into the stomach. There was a small hiatal hernia. The scope was advanced to pylorus and duodenum was cannulated to the descending portion. The duodenum including the bulb appeared normal without mass or ulceration. The scope was withdrawn back in the stomach. The gastric antrum and body appeared normal other than some mild gastric erythema. Biopsies were obtained. There was good peristalsis. The scope was retroflexed visualizing the proximal stomach carefully, which appeared normal, without any sign of mass or ulceration, other than several hyperplastic appearing gastric polyps. Two of these were biopsied. The scope was straightened out and withdrawn back into the esophagus. Biopsies were obtained at the EG junction at 35 cm. Proximal to this, the esophageal mucosa appeared normal. Scope was withdrawn from the patient. She tolerated the procedure well and was returned to recovery area in stable condition. IMPRESSION: 1. Small hiatal hernia. 2. Gastric polyps. 3. Rule out gastritis. 4. Gastroesophageal reflux. PLAN: The results of biopsies will be checked. At this point, she has been feeling fairly well and definitely improved compared to about a month ago when she was seen originally in the ER. She has been advised to try to avoid aspirin and NSAIDs for at least a week, but long-term if possible. She may very well had either significant gastritis or ulcer disease initially that led to her ER visit with abdominal pain. At this point, I advised her that would be best to try to observe things off medication to see how she does and things do seem to be significantly better. However, I did advise her to resume pantoprazole if her reflux or abdominal pain worsens. She was given a prescription by Dr. Gonzalez recently for Diflucan, but I advised her that I do not think she needs to use that in my opinion. If things are stable, she will see me in 1 or 2 months for a followup visit. Even if H pylori is present in the gastric biopsies, I would not necessarily treat that depending upon her clinical course. This has been discussed with the patient and her in detail. MD AVINASH Squires/MICHEAL / [phone]
== END 2020-10-05 15:25 | disposition home or self-care (01) ==
PROVIDERS: PCP Internal Medicine; Visit Provider Internal Medicine
PROC: 0DJ08ZZ Inspection of Upper Intestinal Tract, Via Natural or Artificial Opening Endoscopic (ICD-10-PCS; CPT 43235; principal; 2020-10-05 12:40)
DX: K21.9 Gastro-esophageal reflux disease without esophagitis (principal); K29.50 Unspecified chronic gastritis without bleeding; K44.9 Diaphragmatic hernia without obstruction or gangrene; K58.9 Irritable bowel syndrome, unspecified; K31.7 Polyp of stomach and duodenum; D64.9 Anemia, unspecified; Z85.3 Personal history of malignant neoplasm of breast; Z90.11 Acquired absence of right breast and nipple; Z79.899 Other long term (current) drug therapy; Z88.0 Allergy status to penicillin; Z88.1 Allergy status to other antibiotic agents; Z88.2 Allergy status to sulfonamides
CPT/HCPCS: 43239; 88305; 88342

== ENCOUNTER → 2020-10-13 15:37 | Outpatient (BNVA) | payer MEDICARE, SELFPAY | PROVIDERS: PCP Physician Assistant; Visit Provider Student in an Organized Health Care Education/Training Program | DX: M25.50 Pain in unspecified joint (principal) | CPT/HCPCS: 99212 ==

== ENCOUNTER 2020-12-30 13:20 | Outpatient (REF) | payer MEDICARE, SELFPAY ==
--- NOTE | ~2020-12-30 | MM_ITS ---
EXAMINATION: MM SCREENING DIGITAL BREAST TOMOSYNTHESIS, LEFT CLINICAL INFORMATION: Right mastectomy for breast cancer, 2010. Due for yearly. COMPARISON: Mammography: 10/22/2019, 07/20/2018, 06/30/2017 TECHNIQUE: Digital breast tomosynthesis is performed in both the craniocaudal and mediolateral oblique views along with computer-aided detection (CAD). Synthesized 2D images are generated from the tomosynthesis. Additional exaggerated left CC view is provided. FINDINGS: There are scattered areas of fibroglandular density (ACR BI-RADS breast composition Category b). Breast tissue composition borders on heterogeneously dense. There are no significant masses, abnormal calcifications, or other abnormalities. Parenchymal pattern is similar to prior exams. The axilla and skin contours are unremarkable. No significant changes. MM/MM tomosynthesis screening LT IMPRESSION: No mammographic evidence of malignancy. ASSESSMENT: BI-RADS 1: Negative RECOMMENDATION: Routine annual mammography screening. This patient's information was entered into a reminder system with a target due date for their next mammogram.
== END 2020-12-30 13:21 | disposition home or self-care (01) ==
LOC: HO.MAMMO 13:20
PROVIDERS: Visit Provider Internal Medicine
DX: Z12.31 Encounter for screening mammogram for malignant neoplasm of breast (principal)
CPT/HCPCS: 77063; 77067

== ENCOUNTER 2021-06-09 09:31 | Outpatient (REF) | payer MEDICARE, SELFPAY ==
--- NOTE | ~2021-06-09 | MM_ITS ---
EXAMINATION: BONE DENSITOMETRY CLINICAL INDICATION: Asymptomatic menopausal state. COMPARISON: Previous BD dated 04/04/2019 and baseline BD dated 12/20/2007. TECHNIQUE: Using a [employer] DXA System (software version: 13.1) manufactured by [employer], dual-energy x-ray absorptiometry was performed of the lumbar spine and left hip. The images are of good technical quality. Summary results are attached. FINDINGS: AP SPINE L1-L4: Current: BMD 1.118 g/cm2, Z-score 0.8, T-score -0.5, normal, 3.6% increase from previous, 15.7% decrease from baseline (<5% change is not significant). Prior: BMD 1.079 g/cm2. Baseline: BMD 1.326 g/cm2. LEFT FEMUR, NECK: Current: BMD 0.724 g/cm2, Z-score -0.9, T-score -2.3, osteopenia. Prior: BMD 0.769 g/cm2. Baseline: BMD 0.888 g/cm2. LEFT FEMUR, TOTAL: Current: BMD 0.821 g/cm2, Z-score -0.4, T-score -1.5, osteopenia, 0.1% decrease from previous, 14.4% decrease from baseline (<5% change is not significant). Prior: BMD 0.822 g/cm2. Baseline: BMD 0.959 g/cm2. IDENTIFIED RISK FACTORS: Menopause. HISTORY OF FRACTURE: None listed. MEDICATIONS: Calcium supplements or multivitamin, vitamin D. MM/XR DEXA axial skeleton IMPRESSION: 1. DIAGNOSIS: Osteopenia based on the lowest T-score value of -2.3 in the femoral neck applying World Health Organization criteria. 2. 10-YEAR FRACTURE RISK PREDICTION, FRAX: Major osteoporotic fracture (clinical spine, forearm, hip or shoulder) 12.2%. Hip fracture 2.3%. 3. Treatment Recommendations: NOF guidelines recommend consideration for treatment in postmenopausal women and men age 50 and older presenting with the following: -A hip or vertebral (clinical or morphometric) fracture. -T-score less than or equal to -2.5 at the femoral neck or spine after appropriate evaluation to exclude secondary causes. -Low bone mass at the hip or spine and a 10-year fracture probability by FRAX of greater than or equal to 3% for hip fracture or greater than or equal to 20% for major osteoporotic fracture based on the [place] adapted WHO algorithm. 4. Other Recommendations: All treatment decisions require clinical judgment and consideration of individual patient factors, including patient preferences, comorbidities, previous drug use, risk factors not captured in the FRAX model (e.g. frailty, falls, vitamin D deficiency, increased bone turnover, interval significant decline in bone density) and possible under or overestimation of fracture risk by FRAX. Additional medical evaluation for secondary cause of low bone mineral density may be appropriate. FUTURE SCAN RECOMMENDATION: People with diagnosed cases of osteoporosis or at high risk for fracture should have regular bone mineral density tests. For patients eligible for Medicare, routine testing is allowed once every 2 years. The testing frequency can be increased to one year for patients who have rapidly progressing disease, those who are receiving or discontinuing medical therapy to restore bone mass, or have additional risk factors.
== END 2021-06-09 09:32 | disposition home or self-care (01) ==
LOC: HO.MAMMO 09:31
PROVIDERS: Visit Provider Internal Medicine
DX: Z13.820 Encounter for screening for osteoporosis (principal); M85.80 Other specified disorders of bone density and structure, unspecified site; Z78.0 Asymptomatic menopausal state; Z79.899 Other long term (current) drug therapy
CPT/HCPCS: 77080

== ENCOUNTER → 2021-06-14 09:27 | Outpatient (BNVA) | payer MEDICARE, SELFPAY | PROVIDERS: PCP Internal Medicine; Visit Provider Advanced Practice Midwife | DX: N95.2 Postmenopausal atrophic vaginitis (principal) | CPT/HCPCS: 99212 ==

== ENCOUNTER 2021-06-22 01:58 | Emergency (ER) | payer MEDICARE, SELFPAY ==
--- NOTE | ~2021-06-22 | CT_ITS ---
EXAMINATION: CT ABDOMEN AND PELVIS WITHOUT CONTRAST CLINICAL INFORMATION: Right lower pelvic pain COMPARISON: 09/14/2017 TECHNIQUE: Multidetector volumetric imaging was performed from the superior aspect of the liver through the pubic symphysis. Sagittal and coronal reformatted images were obtained on the technologist's workstation. This CT examination was performed using dose optimization techniques as appropriate, variously including the following: *Automated exposure control *Adjustment of mA and/or kV according to patient size (this includes techniques or standardized protocols for targeted exams where dose is matched to indication/reason for exam; i.e. extremities or head) *Use of iterative reconstruction technique DLP: 579 mGy-cm FINDINGS: LUNG BASES: The visualized lung bases are unremarkable. LIVER, GALLBLADDER, AND BILIARY TREE: The liver is normal in size, shape, and attenuation. No focal hepatic lesion or biliary ductal dilatation is present. The gallbladder is unremarkable with no evidence of radiopaque gallstones, gallbladder wall thickening, or obvious pericholecystic inflammatory changes. PANCREAS: Unremarkable. SPLEEN: Unremarkable. ADRENAL GLANDS: Unremarkable. KIDNEYS AND URETERS: The kidneys are normal in size, shape, and attenuation. No hydronephrosis, hydroureter, or calculi seen. No perinephric stranding. BLADDER: Unremarkable. GASTROINTESTINAL TRACT: The stomach is unremarkable. Normal caliber small bowel. No obstruction. Normal appendix. Colonic diverticulosis which is greatest at the sigmoid colon. No diverticulitis. No free air or free fluid. ABDOMINAL WALL: No significant hernia is appreciated. LYMPH NODES: Normal. VASCULAR: Unremarkable. PELVIC VISCERA: The uterus and adnexa are unremarkable. OSSEOUS STRUCTURES: Unremarkable. CT/CT abdomen pelvis wo con IMPRESSION: No acute findings of the abdomen or pelvis. No inflammatory changes. No hydronephrosis or nephrolithiasis. Normal appendix. Fleischner guidelines were followed.
[2021-06-22 02:05] VITALS: BP 148/65; PULSE 68; RESP 18; TEMP 36.5; O2SAT 100; BMI 27.4
[2021-06-22 02:14] LABS: Appearance Urine CLEAR; Color Urine STRAW; Glucose Urine UA NEG (NEG); Leukocyte Esterase Urine NEG (NEG); Nitrite Urine NEG (NEG); PH 6.5 (5.0-8.0); UACC Culture Trigger NO; Urine Blood TRACE (NEG); Urine Ketones NEG (NEG); Urine Protein NEG (NEG-TRACE)
[2021-06-22 02:20] LABS: Calcium Phosphate Crystals Ur TRACE /LPF; RBC Urine 0 /HPF (0); Squamous Epithelial Cell Urine TRACE /LPF; WBC Urine 0 /HPF (0-4)
--- NOTE | 2021-06-22 03:19 | PC.NURSE ---
Assumed care of pt at 0315. Pt resting in bed, in NAD, respirations even and non-labored. Dispo TBD
--- NOTE | 2021-06-22 04:39 | ED.FEMALEGU ---
HPI - Female Genitourinary General Chief complaint: Urogenital-Female Stated complaint: pelvic pain Time Seen by Provider: 06/22/21 02:25 Source: patient Mode of arrival: ambulatory History of Present Illness HPI Narrative: 66-year-old female with significant vaginal atrophy and dryness who states that she underwent a pelvic exam on 06/14 and then afterwards began experiencing lower pelvic discomfort but last night has become far worse and patient states that she got up to go to the bathroom and after she emptied her bladder she had significant right lower quadrant/pelvic pain and has been intense nature but not associated with fever, chills, nausea, vomiting the patient does report urinary frequency. She denies any other urinary symptoms such as pain or burning. Related Data Home Medications Medication Instructions Recorded Confirmed cholecalciferol (vitamin D3) 50 50 mcg PO DAILY 05/14/20 05/19/21 mcg (2,000 unit) capsule folic acid 1 mg tablet 1 mg PO DAILY 05/14/20 05/19/21 inositol 324 mg tablet 4 tab PO DAILY 05/14/20 05/19/21 acetaminophen 650 mg 1,300 mg PO Q12H PRN 09/10/20 05/19/21 tablet,extended release (Tylenol 8 Hour) calcium carbonate 600 mg calcium 600 mg PO DAILY 06/14/21 (1,500 mg) tablet Previous Rx's Medication Instructions Recorded lorazepam 0.5 mg tablet 0.5 mg PO BEDTIME PRN 30 Days #30 05/14/20 tab nystatin 100,000 unit/mL oral 1 ml PO DAILY PRN 20 Days #473 ml 09/09/20 suspension Allergies Allergy/AdvReac Type Severity Reaction Status Date / Time doxycycline [DOXYCYCLINE] Allergy Severe UNKNOWN, ? Verified 06/22/21 02:09 hearing problem poison teresa extract Allergy Severe SEVERE RASH Verified 06/22/21 02:09 [POISON TERESA] Sulfa (Sulfonamide Allergy Intermediate RASH PT Verified 06/22/21 02:09 Antibiotics) STATES [SULFA (SULFONAMIDE TOOK ANTIBIOTICS)] BACTRIM WITHOUT REACTION cortisone Allergy Unknown Hives Verified 06/22/21 02:09 Penicillins [PENICILLINS] Allergy Unknown RASH Verified 06/22/21 02:09 Review of Systems Review of Systems: Pertinent positives and negatives as stated in HPI 10 point review of systems is otherwise negative. [facility] Past Medical History Source: nursing notes reviewed Medical History Anemia Anxiety Ascending aorta dilatation Dysuria Epigastric abdominal pain Esophagitis Hx of breast cancer Hypercholesterolemia Immunodeficiency disorder Irritable bowel syndrome Osteoarthritis Overweight (BMI 25.0-29.9) Right lower quadrant pain Vitamin B12 deficiency Surgical History History of arthroscopy of left knee History of colonoscopy Hx of section Hx of mastectomy Hx of tubal ligation Family History Family History Mother Diabetes Arthritis Father HTN (hypertension) Dementia COPD (chronic obstructive pulmonary disease) Skin cancer Maternal Grandfather Glaucoma Social History Social History Housing: Apartment Alcohol intake: never Patient Tobacco Use Status: Never used Tobacco e-Cigarette/Vaping Use: Never Used Second Hand Smoke Exposure: No Advance Directives: No service: No Current occupational status: retired Sexual orientation: Straight/Heterosexual Gender identity: Female Physical Exam Vital Signs: Vital Signs: Last Vital Signs Temp 97.7 F 06/22/21 02:05 Pulse 68 06/22/21 02:05 Resp 18 06/22/21 02:05 BP 148/65 H 06/22/21 02:05 Pulse Ox 100 06/22/21 02:05 BMI result Body Mass Index 27.4 VITAL SIGNS: Reviewed. GENERAL: Well developed, well nourished, in no acute distress. HEAD: Normocephalic/atraumatic EYES: PERRLA, EOMI OROPHARYNX: no oral lesions noted, posterior pharynx clear LUNGS: Normal breath sounds. SpO2<100> CARDIOVASCULAR: Regular rate and rhythm without noted murmurs ABDOMEN: Soft, non-tender, non-distended with bowel sounds NEUROLOGIC: Alert and oriented x 4. Course Course Course Narrative: 66-year-old female with history and clinical presentation slightly suggestive of renal colic, less likely appendicitis and doubt perforation. Review of urinalysis negative for evidence of infection. Review of all investigations negative for acute findings, conducted PVR which was less than 100 no evidence of infection, renal stone, appendicitis. Diagnosis of exclusion at this time is interstitial cystitis which was discussed with patient at bedside. Combination analgesics were provided and then patient was discharged home in stable condition. MDM - Female Genitourinary Lab Data Labs: Lab Results 06/22/21 Range/Units 02:09 Urine Color STRAW Urine Appearance CLEAR Urine pH 6.5 (5.0-8.0) Ur Specific [place] 1.010 (1.005-1.025) Urine Protein NEG (NEG-TRACE) MG/DL Urine Glucose (UA) NEG (NEG) MG/DL Urine Ketones NEG (NEG) MG/DL Urine Blood TRACE (NEG) Urine Nitrite NEG (NEG) Ur Leukocyte Esterase NEG (NEG) Urine RBC 0 (0) /HPF Urine WBC 0 (0-4) /HPF Ur Squamous Epith Cells TRACE /LPF Calcium Phosphate Cryst TRACE /LPF Urine Bacteria NONE /LPF Discharge Plan Discharge Clinical Impression: Cystitis, interstitial Patient Disposition: Home, Self-Care Instructions: Pelvic Pain in Women (ED), Interstitial Cystitis (ED) Additional Instructions: Recommend [id number] Tylenol and ibuprofen as needed for pain control. I recommend using a heating pad as well. Please follow-up with your primary care provider and/or your engraver machine. Return to the ER for worsening symptoms. Prescriptions: No Action cholecalciferol (vitamin D3) 50 mcg (2,000 unit) capsule 50 mcg PO DAILY 0RF inositol 324 mg tablet 4 tab PO DAILY 0RF folic acid 1 mg tablet 1 mg PO DAILY 0RF lorazepam 0.5 mg tablet 0.5 mg PO BEDTIME PRN (Reason: agitation) 30 Days Qty: 30 0RF nystatin 100,000 unit/mL suspension 1 ml PO DAILY PRN (Reason: mouth irritation) 20 Days Qty: 473 0RF Rx Instructions: swish and swallow calcium carbonate 600 mg calcium (1,500 mg) tablet 600 mg PO DAILY 0RF acetaminophen [Tylenol 8 Hour] 650 mg tablet extended release 1,300 mg PO Q12H PRN (Reason: Pain) 0RF Referrals: Po,Willard Simpson MD [Primary Care Provider] - 2 days
[2021-06-22] MEDS: Acetaminophen 325 MG TABLET 975 MG PO (06:26)
[2021-06-22] MEDS: Ibuprofen 400 MG TABLET PO (06:26)
== END 2021-06-22 06:38 | disposition home or self-care (01) ==
PROVIDERS: Emergency Provider Student in an Organized Health Care Education/Training Program; PCP Internal Medicine
DX: N30.10 Interstitial cystitis (chronic) without hematuria (principal); R10.2 Pelvic and perineal pain
CPT/HCPCS: 74176; 81001; 99284

== ENCOUNTER 2021-07-12 08:58 | Outpatient (REF) | payer MEDICARE, SELFPAY ==
[2021-07-12 16:08] LABS: Appearance Urine CLEAR; Color Urine YELLOW; Glucose Urine UA NEG (NEG); Leukocyte Esterase Urine 3+ (NEG); Nitrite Urine NEG (NEG); PH 5.5 (5.0-8.0); UACC Culture Trigger YES; Urine Blood TRACE (NEG); Urine Ketones 15 MG/DL (NEG); Urine Protein NEG (NEG-TRACE)
[2021-07-12 16:32] LABS: Bacteria Urine 1+ /LPF; Squamous Epithelial Cell Urine 1+ /LPF
[2021-07-13 14:09] LABS: BV Int Neg Control Negative (Negative); BV Int Pos Control Positive (Positive)
== END 2021-07-12 08:59 | disposition home or self-care (01) ==
LOC: HO.LAB 08:58
PROVIDERS: PCP Internal Medicine; Visit Provider Advanced Practice Midwife
DX: R10.2 Pelvic and perineal pain (principal); N90.89 Other specified noninflammatory disorders of vulva and perineum; N89.8 Other specified noninflammatory disorders of vagina
CPT/HCPCS: 81001; 81003; 87086; 87147; 87480; 87510; 87660; 99212

== ENCOUNTER → 2021-07-19 11:07 | Outpatient (BNVA) | payer MEDICARE, SELFPAY | PROVIDERS: PCP Internal Medicine; Visit Provider Advanced Practice Midwife | DX: N30.10 Interstitial cystitis (chronic) without hematuria (principal); N90.89 Other specified noninflammatory disorders of vulva and perineum | CPT/HCPCS: 99212 ==

== ENCOUNTER → 2021-07-27 07:58 | Outpatient (BNVA) | payer MEDICARE, SELFPAY | PROVIDERS: Visit Provider Obstetrics & Gynecology | DX: L25.9 Unspecified contact dermatitis, unspecified cause (principal) | CPT/HCPCS: 99212 ==

== ENCOUNTER → 2021-09-20 08:59 | Outpatient (BNVA) | payer MEDICARE, SELFPAY | PROVIDERS: PCP Internal Medicine | DX: B37.3 Candidiasis of vulva and vagina (principal) | CPT/HCPCS: 99202 ==

== ENCOUNTER → 2021-10-13 07:38 | Outpatient (REF) | payer MEDICARE, SELFPAY ==
--- NOTE | 2021-10-13 07:41 | CA_ITS ---
Transthoracic Echocardiogram Patient (Last, First, Middle): Keiry Martini M Gender: Female Date of : 1955 Age: 66 Procedure Date: 10/13/2021 Procedure Type: Transthoracic Echocardiogram Location: OP Height: 162.56 cm Weight: 72.58 kg BSA: 1.78 m2 Heart Rate: 47 bpm BP: 117 / 60 mmHg Maintenance Operator: SB Referring MD: Willard Jerome MD [employer]: Duy Esteves MD Symptoms: I77.810 - Thoracic aortic ectasia Study Quality: Technically Difficult ECG Rhythm: Bradycardia Conclusions: - 1. Normal LV systolic function with normal filling pattern 2. Normal cardiac valvular Doppler 3. Normal RV systolic pressure 4. No pericardial effusion Findings Left Ventricle Normal left ventricular size, thickness, and systolic function. The visually estimated ejection fraction is between 60-65%. Spectral Doppler is indicative of a normal filling pattern. Peak GLS is -23%, within normal limits Right Ventricle Normal right ventricular cavity size and systolic function. Atria Both atria are normal in size. There is lipomatous hypertrophy of the interatrial septum. There is no evidence of interatrial shunt. Aortic Valve The aortic valve structure and function is likely normal. There is no aortic valve stenosis. There is no aortic valve regurgitation. Mitral Valve Normal mitral valve structure and function. There is trace mitral valve regurgitation. There is no mitral valve stenosis. Pulmonic Valve The pulmonic valve was not well visualized. Tricuspid Valve Likely normal tricuspid valve structure and function. There is trace tricuspid valve regurgitation. The right ventricular systolic pressure is normal. The right ventricular systolic pressure is 23 mmHg. Normal right atrial pressure. There is no evidence of pulmonary hypertension. Great Vessels The aorta was not well visualized. The pulmonary artery was not well visualized. Venous The inferior vena cava is normal in size and collapses greater than 50% with inspiration. Pericardium/Pleural There is no evidence of pericardial effusion. Prior Study Comparison Changes noted compared to prior study dated: 07/05/2019. ascending aorta not well visualized on this study. Consider alternative imaging such as CTA of thoracic aorta Measurements 2D Linear Measurements IVSd: 0.67 0.6-0.9/0.6-1.0 cm LVIDd: 4.55 3.9-5.3/4.2-5.9 cm LVIDd Index: 2.56 2.4-3.2/2.2-3.1 cm/m2 LVIDs: 2.73 2.0-3.6 cm LVPWd: 0.69 0.7-1.1 cm Ao Root: 3.00 2.1-3.5 cm LA Diam: 3.50 2.7-3.8/3.0-4.0 cm LAIDs Index: 1.97 1.5-2.3 cm/m2 LV Mass: 116.83 67-162/88-224 g LV Mass Index: 65.63 43-95/49-115 g/m2 LVOT Diam: 2.20 3.0+(-)1.3 cm 2D Systolic Function EF 4C: 66.30 >55% EF 2C: 66.20 >55% EF BiP: 65.10 >55% Mitral Valve MV Pk E: 0.95 MV PK A: 0.74 MV Decel Time: 228.00 E/A: 1.30 E'Lateral: 11.10 E'Medial: 9.03 E/E' Med: 10.50 E/E' Lat: 8.60 PHT: 67.00 MVA PHT: 3.28 Decel [place]: 4.16 Aortic Valve AoV Pk Harris: 1.26 AoV Mn Harris: 0.88 AoV VTI: 0.28 AoV Pk Grad: 6.00 Aov Mn Grad: 4.00 SAEED Cont.VTI: 2.73 LVOT LVOT Pk Harris: 1.03 LVOT Mn Harris: 0.60 LVOT VTI: 0.20 LVOT Pk Grad: 4.00 LVOT Mn Grad: 2.00 LVOT Diam: 2.20 LVOT Area: 3.80 Diastolic Function MV Pk E: 0.95 MV Pk A: 0.74 E/A: 1.30 E'Medial: 9.03 E/E' Med: 10.50 E' Laterial: 11.10 E/E' Lat: 8.60 Right Ventricle TAPSE (mm): 29.30 TVS' Harris: 12.10 Tricuspid Valve TR Pk Harris: 2.23 TR Pk Grad: 20.00 RA Press: 3.00 RVSP: 23.00 Great Vessels Aorta Ao Root-2D: 3.00 2.0-3.7 cm Sinus of Valsalva: 3.00 2.0-3.5 cm Ao Asc: 3.40 2.1-3.4 cm Ao Arch: 3.50 Ao Desc: 2.00 Abd Aorta: 1.81 Pulmonary Valve PV Pk Harris: 0.76 Peak PV Grad: 2.00 Updated in Other Vendor System with Status of Final Duy Esteves MD electronically signed on 10/13/2021 4:06:34 PM with status of Final
== END ==
LOC: HO.CARD 07:38
PROVIDERS: PCP Internal Medicine; Visit Provider Internal Medicine
DX: I77.810 Thoracic aortic ectasia (principal)
CPT/HCPCS: 93306; 93356

== ENCOUNTER → 2021-11-05 08:31 | Outpatient (BNVA) | payer MEDICARE, SELFPAY | PROVIDERS: PCP Internal Medicine | DX: B37.3 Candidiasis of vulva and vagina (principal); N39.0 Urinary tract infection, site not specified | CPT/HCPCS: Q3014 ==

== ENCOUNTER → 2021-11-19 09:21 | Outpatient (REF) | payer MEDICARE, SELFPAY ==
--- NOTE | 2021-11-19 09:24 | CA_ITS ---
Transthoracic Echocardiogram Limited Patient (Last, First, Middle): Keiry Martini M Gender: Female Date of : 1955 Age: 66 Procedure Date: 11/19/2021 Procedure Type: Transthoracic Echocardiogram Limited Location: OP Height: 162.56 cm Weight: 70.31 kg BSA: 1.76 m2 Heart Rate: bpm BP: 118 / 60 mmHg Admissions Clerk: Referring MD: Willard Jerome MD Symptoms: I77.810 - Thoracic aortic ectasia Study Quality: Fair ECG Rhythm: Sinus Conclusions: - Normal left ventricular size and systolic function. There is mildly increased left ventricular wall thickness. The visually estimated ejection fraction is between 60-65%. Findings Left Ventricle Normal left ventricular size and systolic function. There is mildly increased left ventricular wall thickness. The visually estimated ejection fraction is between 60-65%. There is no evidence of regional wall motion abnormalities. Diastolic function is indeterminate on the basis of available data. Right Ventricle Normal right ventricular cavity size and systolic function. Great Vessels There is mild dilatation of the sino tubular ridge measuring 3.70 cm and mild dilatation of the ascending aorta measuring 3.30 cm. Venous The inferior vena cava is normal in size and collapses greater than 50% with inspiration. Pericardium/Pleural There is no evidence of pericardial effusion. Prior Study Comparison No significant change compared to prior study dated: 10/13/2021. Measurements 2D Linear Measurements IVSd: 0.93 0.6-0.9/0.6-1.0 cm LVIDd: 4.34 3.9-5.3/4.2-5.9 cm LVIDd Index: 2.47 2.4-3.2/2.2-3.1 cm/m2 LVIDs: 2.85 2.0-3.6 cm LVPWd: 0.95 0.7-1.1 cm Ao Root: 3.70 2.1-3.5 cm LA Diam: 2.90 2.7-3.8/3.0-4.0 cm LAIDs Index: 1.65 1.5-2.3 cm/m2 LV Mass: 165.73 67-162/88-224 g LV Mass Index: 94.17 43-95/49-115 g/m2 Great Vessels Aorta Ao Root-2D: 3.70 2.0-3.[address] [place]: 3.70 1.7-3.4 cm Ao Asc: 3.30 2.1-3.4 cm Updated in Other Vendor System with Status of Final Ozzy Arroyo MD electronically signed on 11/21/2021 12:40:51 PM with status of Final
== END ==
LOC: HO.CARD 09:21
PROVIDERS: Visit Provider Internal Medicine
DX: I77.810 Thoracic aortic ectasia (principal)
CPT/HCPCS: 93308

== ENCOUNTER 2022-01-18 09:36 | Outpatient (REF) | payer MEDICARE, SELFPAY ==
--- NOTE | ~2022-01-18 | MM_ITS ---
EXAMINATION: MM SCREENING DIGITAL BREAST TOMOSYNTHESIS, LEFT CLINICAL INFORMATION: Screening. Asymptomatic. Right mastectomy, 2009. COMPARISON: Mammography: 12/30/2020 10/22/2019, 07/20/2018, 06/30/2017, 06/28/2016, 06/23/2015 TECHNIQUE: Digital breast tomosynthesis is performed in both the craniocaudal and mediolateral oblique views along with computer-aided detection (CAD). Synthesized 2D images are generated from the tomosynthesis. FINDINGS: There are scattered areas of fibroglandular density (ACR BI-RADS breast composition Category b). There are no significant masses, abnormal calcifications, or other abnormalities. Parenchymal pattern is similar to prior studies. Breast tissue composition borders on heterogeneously dense. There is no developing density or architectural abnormality. The axilla and skin contours are unremarkable. No significant changes. MM/MM tomosynthesis screening LT IMPRESSION: No mammographic evidence of malignancy. ASSESSMENT: BI-RADS 1: Negative RECOMMENDATION: Routine annual mammography screening. This patient's information was entered into a reminder system with a target due date for their next mammogram.
== END 2022-01-18 09:37 | disposition home or self-care (01) ==
LOC: HO.MAMMO 09:36
PROVIDERS: PCP Internal Medicine; Visit Provider Internal Medicine
DX: Z12.31 Encounter for screening mammogram for malignant neoplasm of breast (principal)
CPT/HCPCS: 77063; 77067

== ENCOUNTER 2022-01-20 06:33 | Outpatient (REF) | payer MEDICARE, SELFPAY ==
[2022-01-20 08:29] LABS: Cholesterol 233 mg/dL; HDL Cholesterol 83 mg/dL; LDL Cholesterol Calculated 137 mg/dl; Triglycerides 68 mg/dL
[2022-01-20 08:47] LABS: Free T4 (Free Thyroxine) 0.96 ng/dL (0.71-1.85); Vitamin D 25-OH Total 72.8 ng/mL (>30)
[2022-01-20 09:23] LABS: Folate > 20.0 ng/mL (> or = 4.0); Vitamin B12 613 pg/mL (200-900)
[2022-01-20 12:53] LABS: Alanine Aminotransferase 12 U/L (0-31); Albumin Level 4.5 g/dL (3.5-5.0); Alkaline Phosphatase 69 U/L (39-117); Anion Gap 18 (12-20); Aspartate Amino Transferase 16 U/L (5-31); Bilirubin Total 0.7 mg/dL (0.0-1.0); Blood Urea Nitrogen 13 mg/dL (9-16); Calcium 9.5 mg/dL (8.4-10.2); Carbon Dioxide 23 mmol/L (22-29); Chloride 105 mmol/L (96-108); Estimated Glomerular Filt Rate > 60; Glucose Random 83 mg/dL (60-115); Potassium 4.5 mmol/L (3.3-5.1); Sodium 141 mmol/L (135-145)
[2022-01-20 13:13] LABS: Vitamin D 25-OH Total 74.8 ng/mL (>30)
[2022-01-22 09:07] LABS: CA 27.29 19 U/mL (<38)
== END 2022-01-20 06:34 | disposition home or self-care (01) ==
LOC: HO.LAB 06:33
PROVIDERS: Absent Provider Internal Medicine Medical Oncology; PCP Internal Medicine; Visit Provider Internal Medicine
DX: E78.00 Pure hypercholesterolemia, unspecified (principal); Z85.3 Personal history of malignant neoplasm of breast
CPT/HCPCS: 36415; 80053; 80061; 82306; 82607; 82746; 84439; 84443; 86300

== ENCOUNTER → 2022-02-03 13:16 | Outpatient (BNVA) | payer MEDICARE, SELFPAY | PROVIDERS: PCP Internal Medicine; Visit Provider Obstetrics & Gynecology | DX: N95.2 Postmenopausal atrophic vaginitis (principal) | CPT/HCPCS: 99212 ==

== ENCOUNTER 2022-05-30 10:48 | Outpatient (REF) | payer MEDICARE, SELFPAY ==
[2022-05-30 11:48] LABS: Appearance Urine Clear; Color Urine Yellow; Glucose Urine UA Negative (Negative); Leukocyte Esterase Urine Small (1+) (Negative); Nitrite Urine Negative (Negative); PH 7.5 (5.0-9.0); Specific Gravity - Urine 1.015 (1.005-1.025); UMIC TRIGGER UACC YES; Urine Blood Negative (Negative); Urine Ketones Negative (Negative); Urine Protein Negative (Neg-Trace)
[2022-05-30 11:51] LABS: Bacteria Urine None Seen (None Seen); Hyaline Casts Urine 0-2 /LPF (0-2); Squamous Epithelial Cell Urine 0-2 /HPF (0-2); UACC Culture Trigger YES
== END 2022-05-30 10:49 | disposition home or self-care (01) ==
LOC: HO.LAB 10:48
PROVIDERS: PCP Internal Medicine; Visit Provider Internal Medicine
DX: N39.0 Urinary tract infection, site not specified (principal)
CPT/HCPCS: 81001; 87086

== ENCOUNTER → 2022-08-01 12:52 | Outpatient (BNVA) | payer MEDICARE, SELFPAY | PROVIDERS: PCP Internal Medicine; Visit Provider Surgery Vascular Surgery | DX: I73.00 Raynaud's syndrome without gangrene (principal) | CPT/HCPCS: 99202 ==

== ENCOUNTER 2022-08-25 11:56 | Outpatient (REF) | payer MEDICARE, SELFPAY ==
[2022-08-25 12:12] LABS: MANUAL DIFF FLAG NO
[2022-08-25 12:57] LABS: Basophils Percent Auto 0.6 % (0-2); Eosinophils Absolute Auto 0.1 X10*3/uL (0.0-0.4); Eosinophils Percent Auto 0.7 % (0-4); Hematocrit 37.7 % (37.0-47.0); Hemoglobin 12.1 g/dl (12.0-16.0); Imm Gran Abs Auto 0.03 X10*3/uL (0.00-0.03); Imm Gran Pct Auto 0.4 % (0.0-0.4); Lymphocytes Absolute Auto 1.9 X10*3/uL (1.2-4.9); Lymphocytes Percent Auto 27.8 % (20-40); Mean Corpuscular HGB Conc 32.1 g/dl (31.0-35.0); Mean Corpuscular Hemoglobin 28.1 pg (27.0-33.0); Mean Corpuscular Volume 87.5 fL (80.0-98.0); Mean Platelet Volume 10.9 fL (9.4-12.3); Monocytes Absolute Auto 0.8 X10*3/uL (0.1-1.2); Neutrophils Absolute Auto 4.1 x10*3/uL (2.0-8.3); Neutrophils Percent Auto 59.5 % (45-73); Platelet Count 247 X10*3/uL (160-400); Red Blood Count 4.31 X10*6/uL (4.20-5.50); Red Cell Distribution Width 13.2 % (11.0-16.0); White Blood Count 6.8 X10*3/uL (4.8-10.8)
[2022-08-25 13:30] LABS: Alanine Aminotransferase 11 U/L (0-31); Albumin Level 4.6 g/dL (3.5-5.0); Alkaline Phosphatase 74 U/L (39-117); Anion Gap 15 (12-20); Aspartate Amino Transferase 16 U/L (5-31); Bilirubin Total 0.6 mg/dL (0.0-1.0); Blood Urea Nitrogen 13 mg/dL (9-16); Calcium 10.2 mg/dL (8.4-10.2); Carbon Dioxide 24 mmol/L (22-29); Chloride 104 mmol/L (96-108); Cholesterol 278 mg/dL; Estimated Glomerular Filt Rate > 60; Glucose Random 84 mg/dL (60-115); HDL Cholesterol 91 mg/dL; LDL Cholesterol Calculated 172 mg/dl; Potassium 4.3 mmol/L (3.3-5.1); Sodium 139 mmol/L (135-145); Total Protein 7.1 g/dL (6.5-8.0); Triglycerides 75 mg/dL
[2022-08-25 14:02] LABS: Folate 15.6 ng/mL (> or = 4.0); Free T4 (Free Thyroxine) 0.92 ng/dL (0.71-1.85); Thyroid Stimulating Hormone 3.15 uIU/mL (0.32-4.0); Vitamin B12 614 pg/mL (200-900); Vitamin D 25-OH Total 85.5 ng/mL (>30)
== END 2022-08-25 11:57 | disposition home or self-care (01) ==
LOC: HO.LAB 11:56
PROVIDERS: PCP Internal Medicine; Visit Provider Internal Medicine
DX: E78.00 Pure hypercholesterolemia, unspecified (principal); M85.80 Other specified disorders of bone density and structure, unspecified site; E55.9 Vitamin D deficiency, unspecified
CPT/HCPCS: 36415; 80053; 80061; 82306; 82607; 82746; 84439; 84443; 85025

== ENCOUNTER → 2023-01-12 12:42 | Outpatient (REF) | payer MEDICARE, SELFPAY ==
--- NOTE | 2023-01-12 12:44 | CA_ITS ---
Transthoracic Echocardiogram Patient (Last, First, Middle): Keiry Martini M Gender: Female Date of : 1955 Age: 67 Procedure Date: 01/12/2023 Procedure Type: Transthoracic Echocardiogram Location: OP Height: 162.56 cm Weight: 76.66 kg BSA: 1.82 m2 Heart Rate: 54 bpm BP: 130 / 62 mmHg Tearoom Host: SB Referring MD: Willard Jerome MD Symptoms: I77.810 - Thoracic aortic ectasia Study Quality: Fair but adequate ECG Rhythm: Bradycardia Conclusions: - The left ventricular systolic function is hyperdynamic. The visually estimated ejection fraction is >70%. - No obvious valvular pathology seen on this study. Findings Left Ventricle Normal left ventricular cavity size. There is normal left ventricular wall thickness. The left ventricular systolic function is hyperdynamic. The visually estimated ejection fraction is >70%. There is no evidence of regional wall motion abnormalities. Diastolic function is normal for age. Right Ventricle Normal right ventricular cavity size and systolic function. Atria Both atria are normal in size. Aortic Valve There is a normal trileaflet aortic valve. There is no aortic valve stenosis. There is no aortic valve regurgitation. Mitral Valve The mitral valve appears normal. There is trace mitral valve regurgitation. There is no mitral valve stenosis. Pulmonic Valve The pulmonic valve is likely normal. Tricuspid Valve There is no tricuspid valve regurgitation. Tricuspid regurgitation envelope is inadequate for calculation of right ventricular systolic pressure. Great Vessels The asc aorta and aortic arch are normal in size. Venous The inferior vena cava is normal in size and collapses greater than 50% with inspiration. Pericardium/Pleural There is no evidence of pericardial effusion. Prior Study Comparison No significant change compared to prior study dated: 11/19/2021. Recommendations, Care & Conclusions No obvious valvular pathology seen on this study. Measurements 2D Linear Measurements IVSd: 0.85 0.6-0.9/0.6-1.0 cm LVIDd: 4.55 3.9-5.3/4.2-5.9 cm LVIDd Index: 2.50 2.4-3.2/2.2-3.1 cm/m2 LVIDs: 2.36 2.0-3.6 cm LVPWd: 0.74 0.7-1.1 cm LA Diam: 3.60 2.7-3.8/3.0-4.0 cm LAIDs Index: 1.98 1.5-2.3 cm/m2 LV Mass: 142.30 67-162/88-224 g LV Mass Index: 78.19 43-95/49-115 g/m2 LVOT Diam: 2.30 3.0+(-)1.3 cm 2D Systolic Function EF 4C: 71.60 >55% EF 2C: 74.80 >55% EF BiP: 73.70 >55% Mitral Valve MV Pk E: 0.99 MV PK A: 0.87 MV Decel Time: 228.00 E/A: 1.10 E'Lateral: 9.36 E'Medial: 7.72 E/E' Med: 12.80 E/E' Lat: 10.50 PHT: 67.00 MVA PHT: 3.28 Decel [place]: 4.32 Aortic Valve AoV Pk Harris: 1.41 AoV Pk Grad: 8.00 SAEED: 3.55 LVOT LVOT Pk Harris: 1.19 LVOT Mn Harris: 0.79 LVOT VTI: 0.28 LVOT Pk Grad: 6.00 LVOT Mn Grad: 3.00 LVOT Diam: 2.30 LVOT Area: 4.15 Diastolic Function MV Pk E: 0.99 MV Pk A: 0.87 E/A: 1.10 E'Medial: 7.72 E/E' Med: 12.80 E' Laterial: 9.36 E/E' Lat: 10.50 Right Ventricle TAPSE (mm): 29.10 TVS' Harris: 11.70 Tricuspid Valve RA Press: 3.00 Great Vessels Aorta Sinus of Valsalva: 3.10 2.0-3.5 cm Ao Asc: 3.40 2.1-3.4 cm Ao Arch: 3.60 Pulmonary Veins Pulm Vein S/D 0.90 Pulmonary Valve PV Pk Harris: 0.75 Peak PV Grad: 2.00 Updated in Other Vendor System with Status of Final Valentino Schmitz MD electronically signed on 01/13/2023 8:39:13 AM with status of Final
== END ==
LOC: HO.CARD 12:42
PROVIDERS: PCP Internal Medicine; Visit Provider Internal Medicine
DX: I77.810 Thoracic aortic ectasia (principal)
CPT/HCPCS: 93306

== ENCOUNTER → 2023-01-12 12:44 | Outpatient (BNV) | payer MEDICARE, SELFPAY | PROVIDERS: PCP Internal Medicine; Visit Provider Internal Medicine | DX: I77.810 Thoracic aortic ectasia (principal) | CPT/HCPCS: 93306 ==

== ENCOUNTER 2023-01-24 10:14 | Outpatient (REF) | payer MEDICARE, SELFPAY ==
[2023-01-24 13:13] LABS: Free T4 (Free Thyroxine) 0.89 ng/dL (0.71-1.85)
== END 2023-01-24 10:15 | disposition home or self-care (01) ==
LOC: HO.MAMMO 10:14
PROVIDERS: PCP Internal Medicine; Visit Provider Internal Medicine
DX: Z12.31 Encounter for screening mammogram for malignant neoplasm of breast (principal); R94.6 Abnormal results of thyroid function studies
CPT/HCPCS: 36415; 77063; 77067; 84439; 84443

== ENCOUNTER → 2023-01-24 10:30 | Outpatient (BNV) | payer MEDICARE, SELFPAY | PROVIDERS: PCP Internal Medicine; Visit Provider Radiology Diagnostic Radiology | DX: Z12.31 Encounter for screening mammogram for malignant neoplasm of breast (principal); Z90.11 Acquired absence of right breast and nipple | CPT/HCPCS: 77063; 77067 ==

== ENCOUNTER 2023-01-25 10:12 | Outpatient (AMB) | payer MEDICARE, SELFPAY ==
[2023-01-25 10:17] VITALS: BP 124/70; PULSE 75; O2SAT 99; BMI 29.3
--- NOTE | 2023-01-25 10:17 | MHC.PC.OV ---
Vital Signs 01/25/23 10:17 Height 5 ft 4 in Weight 171 lb BMI 29.3 BP 124/70 Blood Pressure Location Lt brachial Position Sitting Pulse 75 Pulse Source Pulse Oximeter Pulse Oximetry (%) 99 Oxygen Delivery Method Room Air Intake Visit Reasons: 5mth f/u Case Investigator: Not Required per policy Accompanied by: Self / Same As Patient Allergies doxycycline [DOXYCYCLINE] Allergy (Severe, Verified 01/25/23 10:18) UNKNOWN, ? hearing problem poison teresa extract [POISON TERESA] Allergy (Severe, Verified 01/25/23 10:18) SEVERE RASH Penicillins [PENICILLINS] Allergy (Unknown, Verified 01/25/23 10:18) RASH Medication List - Last Reconciled 01/25/23 by Willard Jerome MD acetaminophen ER (Tylenol 8 Hour) 1,300 mg PO Q12H PRN betamethasone valerate 0.1% 1 appl topical TID PRN calcium carbonate 600 mg PO DAILY cholecalciferol (vitamin D3) 50 mcg PO DAILY cyanocobalamin (vitamin B-12) 1,000 mcg PO DAILY estradiol 0.01%(0.1mg/gram) (Estrace) pea sized amount per urethra daily; 30 days ferrous sulfate (FeroSul) 325 mg PO DAILY fluconazole (Diflucan) 150 mg PO ONCE 1 day folic acid 1 mg PO DAILY garlic 50 mg PO DAILY halobetasol propionate 0.05% 1 appl topical DAILY inositol 4 tabs PO DAILY mastectomy bra (bra, mastectomy) As Directed [PROBIOTIC 2 caps PO BID] Tobacco use date assessed: 06/15/22 Fall risk assessment: No Falls in past year Last assessed Fall Risk: 01/25/23 Dental Screening Dental Screen Date: 01/25/23 Did you have a dental visit in the last 12 months?: Yes Did you have a dental problem in the last 6 months where you did not have access to dental care?: No Was dental information given to patient?: Patient has dentist HPI 5mth f/u HPI Details 67-year-old overweight female with hypercholesterolemia history of breast cancer ascending aorta dilatation Raynaud's coming in for follow-up. Last seen in July 2022. Colonoscopy is up-to-date mammogram is due this month Pap smear is upt o-date. Last echocardiogram December 2022 left ventricular ejection fraction is 70% problem if justin and recetnly found a probiotic that attacks this - (online call)- change in diet - gained weight and knows [facility] Medical History Yeast infection involving the vagina and surrounding area Esophagitis Epigastric abdominal pain Dysuria Right lower quadrant pain Neck pain Fatigue Osteoarthritis Vitamin B12 deficiency Hypercholesterolemia Overweight (BMI 25.0-29.9) Ascending aorta dilatation Immunodeficiency disorder Irritable bowel syndrome Anxiety Anemia Hx of breast cancer Surgical History H/O rotator cuff surgery History of colonoscopy History of arthroscopy of left knee Hx of tubal ligation Hx of section Hx of mastectomy Family History Mother Diabetes Arthritis Father HTN (hypertension) Dementia COPD (chronic obstructive pulmonary disease) Skin cancer Maternal Grandfather Glaucoma Social History Household Members: Spouse Housing: Apartment Are you a primary toddler caregiver to a significant other at home: No Do you presently have visiting nurse or other home services: No Alcohol intake: current Alcohol intake frequency: does not drink Patient Tobacco Use Status: Never used Tobacco Years Smoked: history of marijuana uses e-Cigarette/Vaping Use: Never Used Second Hand Smoke Exposure: No service: No Current occupational status: retired Sexual orientation: Straight/Heterosexual Gender identity: Female Cognitive needs: No Hearing needs: No Vision needs: Yes (glasses) Questionnaire PHQ-9 Over the last 2 weeks, how often have you been bothered by any of the following problems? 1. Little interest or pleasure in doing things: not at all 2. Feeling down, depressed, or hopeless: not at all 3. Trouble falling or staying asleep, or sleeping too much: not at all 4. Feeling tired or having little energy: not at all 5. Poor appetite or overeating: not at all 6. Feeling bad about yourself - or that you are a failure or have let yourself or your family down: not at all 7. Trouble concentrating on things, such as reading the newspaper or watching television: not at all 8. Moving or speaking so slowly that other people could have noticed. Or the opposite - being so fidgety or restless that you have been moving around a lot more than usual: not at all 9. Thoughts that you would be better off or of hurting yourself in some way: not at all Total score: 0 Depression Screening Interpretation: Negative 06304 - PHQ-9 Billing: Yes Source: Developed by Drs. Josh Vivar, Ernie Claudio and colleagues, with an educational brigette from [employer]. Thrive Questionnaire Date Thrive assessed: 06/15/22 AUDIT C Alcohol Use Questionnaire (AUDIT-C) 1. How often do you have a drink containing alcohol?: Monthly or less 2. How many drinks containing alcohol do you have on a typical day when you are drinking?: 1 or 2 3. How often do you have six or more drinks on one occasion?: Never Total Score: 1 Score Reviewed/Action Taken: No FLOWER-7 AMB Questionnaire FLOWER-7 Date FLOWER - 7 assessed: 05/20/22 Source: Developed by Drs. Josh Vivar, Becka Holder, Ernie Aguilera and colleagues, with an educational brigette from [employer]. Physical exam (Primary Care) Vital Signs: Last Vital Signs Pulse 75 01/25/23 10:17 BP 124/70 01/25/23 10:17 Pulse Ox 99 01/25/23 10:17 Oxygen Delivery Method Room Air 01/25/23 10:17 BMI result Body Mass Index 29.3 Tobacco/Smoking Status: Tobacco use Status Tobacco use date assessed 06/15/22 01/25/23 10:24 Patient Tobacco Use Status Never used Tobacco 01/25/23 10:24 e-Cigarette/Vaping Use Never Used 01/25/23 10:24 PHQ-9: PHQ-9 Score PHQ-9: Total score 0 01/25/23 10:24 Depression Screening Interpretation: Negative Thrive Assessment: Date of Thrive Assessment Date Thrive assessed 06/15/22 01/25/23 10:24 Const General: alert; No acute distress Eyes Conjunctivae: conjunctivae normal Resp Auscultation: clear to auscultation bilaterally Cardio Rate: regular rate Rhythm: regular rhythm GI Inspection: Yes normal to inspection Extrem General: Yes normal to inspection and No edema Assessment and Plan Assessment & Plan (1) Ascending aorta dilatation: Comment: 307 July 2018, echo 60-65% June 2019 65-70% grade 1 diastolic dysfunction mild dilatation ascending aorta 3.9 cm stressed negative June 2018, October 2021 3.7 to 3.8 cm Code(s): I77.810 - Thoracic aortic ectasia Plan: December 2022 echocardiogram same size at 3.4. 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 Avoid fried foods, chicken skin, eggs, butter margarine, pastries and meat. Be it pork or beef they have a lot of cholesterol LDL goal of less than 130 (4) Overweight (BMI 25.0-29.9): Code(s): E66.3 - Overweight Plan: Diet and exercise Orders: Orders Complete Blood Count Auto Diff 5 Months E78.00 - Pure hypercholesterolemia, unspecified Free T4 (Free Thyroxine) 5 Months E78.00 - Pure hypercholesterolemia, unspecified Vitamin B12 and Folate 5 Months E78.00 - Pure hypercholesterolemia, unspecified Magnesium 5 Months E78.00 - Pure hypercholesterolemia, unspecified Phosphorus 5 Months E78.00 - Pure hypercholesterolemia, unspecified Comprehensive Met. Panel 5 Months E78.00 - Pure hypercholesterolemia, unspecified Lipid Panel 5 Months E78.00 - Pure hypercholesterolemia, unspecified Thyroid Stimulating Hormone 5 Months E78.00 - Pure hypercholesterolemia, unspecified Coding Level of Care Code Est Pt Level 4 (56266) Diagnoses Ascending aorta dilatation I77.810 Hx of breast cancer Z85.3 Hypercholesterolemia E78.00 Overweight (BMI 25.0-29.9) E66.3
== END 2023-01-25 11:10 | disposition home or self-care (01) ==
PROVIDERS: Visit Provider Internal Medicine
DX: I77.810 Thoracic aortic ectasia (principal); Z85.3 Personal history of malignant neoplasm of breast; E78.00 Pure hypercholesterolemia, unspecified; E66.3 Overweight
CPT/HCPCS: 99214

== ENCOUNTER 2023-07-11 09:58 | Emergency (ER) | payer MEDICARE, SELFPAY ==
--- NOTE | ~2023-07-11 | US_ITS ---
EXAMINATION: US ABDOMEN LIMITED CLINICAL INFORMATION: Pain. COMPARISON: CT abdomen pelvis dated 06/22/2021. TECHNIQUE: Real-time imaging of the right upper quadrant abdominal viscera. FINDINGS: PANCREAS: Normal. LIVER: The liver is normal in size. The liver contour is normal. Parenchymal echogenicity is normal. No focal hepatic lesion. There is no intrahepatic biliary duct dilatation seen. GALLBLADDER: The gallbladder is physiologically distended without evidence of stones, sludge, polyps, wall thickening or pericholecystic fluid. COMMON BILE DUCT: Normal in caliber measuring 0.3 cm in diameter. RIGHT KIDNEY: No hydronephrosis. No renal calculi or focal parenchymal lesions. The kidney measures 10 cm in maximum dimension. FREE FLUID: None. US/US abdomen limited IMPRESSION: Normal right upper quadrant ultrasound.
[2023-07-11 10:21] VITALS: BP 139/76; PULSE 89; RESP 16; TEMP 37.1; O2SAT 100; BMI 28.8
[2023-07-11 10:36] LABS: MANUAL DIFF FLAG NO
[2023-07-11 10:43] LABS: Basophils Absolute Auto 0.1 X10*3/uL (0.0-0.2); Basophils Percent Auto 0.8 % (0-2); Eosinophils Percent Auto 0.5 % (0-4); Hemoglobin 12.4 g/dl (12.0-16.0); Imm Gran Abs Auto 0.04 X10*3/uL (0.00-0.03); Imm Gran Pct Auto 0.5 % (0.0-0.4); Lymphocytes Absolute Auto 1.6 X10*3/uL (1.2-4.9); Lymphocytes Percent Auto 20.2 % (20-40); Mean Corpuscular HGB Conc 32.6 g/dl (31.0-35.0); Mean Corpuscular Hemoglobin 28.1 pg (27.0-33.0); Mean Platelet Volume 10.1 fL (9.4-12.3); Monocytes Absolute Auto 0.6 X10*3/uL (0.1-1.2); Monocytes Percent Auto 8.1 % (2-11); Neutrophils Absolute Auto 5.4 x10*3/uL (2.0-8.3); Neutrophils Percent Auto 69.9 % (45-73); Platelet Count 245 X10*3/uL (160-400); Red Blood Count 4.42 X10*6/uL (4.20-5.50); Red Cell Distribution Width 13.1 % (11.0-16.0); White Blood Count 7.8 X10*3/uL (4.8-10.8)
[2023-07-11 10:49] LABS: Anion Gap 11 (12-20); Blood Urea Nitrogen 9 mg/dL (9-16); Calcium 9.7 mg/dL (8.4-10.2); Carbon Dioxide 26 mmol/L (22-29); Chloride 107 mmol/L (96-108); Creatinine Clr Calc Pharmacy 74.6; Estimated Glomerular Filt Rate > 60; Glucose Random 96 mg/dL (60-115); Potassium 4.1 mmol/L (3.3-5.1); Sodium 140 mmol/L (135-145)
[2023-07-11 16:53] LABS: Appearance Urine Clear; Color Urine Yellow; Glucose Urine UA Negative (Negative); Leukocyte Esterase Urine Negative (Negative); Nitrite Urine Negative (Negative); PH 5.5 (5.0-9.0); Specific Gravity - Urine 1.015 (1.005-1.025); UMIC TRIGGER UACC YES; Urine Blood Trace (Negative); Urine Ketones 40 mg/dL (Negative); Urine Protein Negative (Neg-Trace)
[2023-07-11 17:10] LABS: Bacteria Urine None Seen (None Seen); Hyaline Casts Urine 0-2 /LPF (0-2); Squamous Epithelial Cell Urine 0-2 /HPF (0-2); WBC Urine 0-5 /HPF (0-5)
[2023-07-11 18:47] VITALS: BP 128/75; PULSE 75; RESP 18; TEMP 36.6; O2SAT 100
--- NOTE | 2023-07-11 19:44 | ED.GENADULT ---
HPI - General Adult General Chief complaint: General Medical Stated complaint: Abd pain, chills, fatigue Time Seen by Provider: 07/11/23 18:55 Source: patient, RN notes reviewed and old records reviewed Mode of arrival: ambulatory Limitations: no limitations History of Present Illness HPI narrative: 68-year-old female with past medical history significant for history of breast cancer status post treatment 14 years ago, peptic ulcer disease, iron deficiency anemia presents for evaluation abdominal pain, diarrhea. She reports that her symptoms have been going on for about the last 4 or 5 days Patient reports that she had oral surgery about a week ago and was given a mouthwash to use afterwards which was antiseptic She did not get any systemic antibiotic pills. She reports that she has a frequent episode of oral candidiasis since being treated for cancer She feels as though she may have episode of candidiasis as she has a film on her tongue Patient reports that she sees her research aide next week Patient reports a history of section x2 but denies any other abdominal surgeries She reports that she had black stool for the last few days but has been taking iron pills No other complaints or concerns at this time Related Data Home Medications Medication Instructions Recorded Confirmed cholecalciferol (vitamin D3) 50 50 mcg PO DAILY 05/14/20 01/25/23 mcg (2,000 unit) capsule inositol 324 mg tablet 4 tab PO DAILY 05/14/20 01/25/23 acetaminophen 650 mg 1,300 mg PO Q12H PRN Pain 09/10/20 01/25/23 tablet,extended release (Tylenol 8 Hour) calcium carbonate 600 mg calcium 600 mg PO DAILY 06/14/21 01/25/23 (1,500 mg) tablet PROBIOTIC 2 cap PO BID 08/18/21 01/25/23 cyanocobalamin (vitamin B-12) 1,000 mcg PO DAILY 08/18/21 01/25/23 1,000 mcg capsule ferrous sulfate 325 mg (65 mg 325 mg PO DAILY 08/18/21 01/25/23 iron) tablet (FeroSul) garlic 100 mg tablet 50 mg PO DAILY 01/20/22 01/25/23 halobetasol propionate 0.05 % 1 appl topical DAILY 01/12/23 01/25/23 topical cream Previous Rx's Medication Instructions Recorded betamethasone valerate 0.1 % 1 appl topical TID PRN skin 07/12/21 topical cream irritation #45 grams estradiol 0.01% (0.1 mg/gram) See Rx Instructions .Route DAILY 11/05/21 vaginal cream (Estrace) complicated uti 30 days #42.5 grams fluconazole 150 mg tablet 150 mg PO ONCE 1 day #1 tab 05/30/22 (Diflucan) folic acid 1 mg tablet 1 mg PO DAILY #90 tabs 07/21/22 mastectomy bra (bra, mastectomy) #6 ea 01/12/23 nystatin 100,000 unit/mL oral 500,000 unit (5 mL) buccal QID 14 07/11/23 suspension days #280 mL Allergies Allergy/AdvReac Type Severity Reaction Status Date / Time doxycycline [DOXYCYCLINE] Allergy Severe UNKNOWN, ? Verified 01/25/23 10:18 hearing problem poison teresa extract Allergy Severe SEVERE RASH Verified 01/25/23 10:18 [POISON TERESA] Penicillins [PENICILLINS] Allergy Unknown RASH Verified 01/25/23 10:18 Review of Systems Constitutional: Constitutional: Denies body ache(s), Denies chills and Denies fever(s) Eyes: Eyes: Denies blurry vision ENT: Reports mouth lesions, Denies mouth pain, Reports odynophagia and Reports sore throat Cardiovascular: Cardiovascular: Denies chest pain and Denies dyspnea Respiratory: Respiratory: Denies cough and Denies dyspnea Gastrointestinal: Gastrointestinal: Denies abdominal pain, Denies melena, Denies hematochezia, Denies diarrhea, Reports loose stools, Denies nausea, Reports odynophagia and Denies vomiting Musculoskeletal: Musculoskeletal: Denies back pain Integumentary/Breasts: Skin/Breast: Denies rash PMF Past Medical History Medical History Yeast infection involving the vagina and surrounding area Esophagitis Epigastric abdominal pain Dysuria Right lower quadrant pain Neck pain Fatigue Osteoarthritis Vitamin B12 deficiency Hypercholesterolemia Overweight (BMI 25.0-29.9) Ascending aorta dilatation Immunodeficiency disorder Irritable bowel syndrome Anxiety Anemia Hx of breast cancer Surgical History H/O rotator cuff surgery History of colonoscopy History of arthroscopy of left knee Hx of tubal ligation Hx of section Hx of mastectomy Family History Family History Mother Diabetes Arthritis Father HTN (hypertension) Dementia COPD (chronic obstructive pulmonary disease) Skin cancer Maternal Grandfather Glaucoma Social History Social History Household Members: Spouse Housing: Apartment Are you a primary veterinarian laboratory animal care to a significant other at home: No Do you presently have visiting nurse or other home services: No Alcohol intake: current Alcohol intake frequency: does not drink Patient Tobacco Use Status: Never used Tobacco Years Smoked: history of marijuana uses e-Cigarette/Vaping Use: Never Used Second Hand Smoke Exposure: No Advance Directives: No Advance Directives Information Provided: No service: No Current occupational status: retired Sexual orientation: Straight/Heterosexual Gender identity: Female Cognitive needs: No Hearing needs: No Vision needs: Yes (glasses) Physical Exam ED Vital Signs: Vital Signs - 24 hr 07/11/23 10:21 07/11/23 18:47 Temperature 98.7 F 97.8 F Pulse Rate 89 75 Respiratory Rate 16 18 Blood Pressure 139/76 128/75 Pulse Oximetry 100 100 Oxygen Delivery Method Room Air Room Air BMI result Body Mass Index 28.8 Const General: healthy appearing, comfortable, no acute distress, alert and awake Nutritional Appearance: well nourished Orientation/consciousness: patient oriented x3 HENMT Other: There is a whitish to yellow film covering tongue, no evidence of retropharyngeal edema Head: Yes normocephalic and Yes atraumatic Eyes Eyelids: Yes eyelids normal Conjunctivae: conjunctivae normal Sclerae: sclerae normal Corneas: corneas normal Pupils: Equal, round and reactive pupils present EOM: EOMs intact bilaterally Neck Neck: Yes full ROM Resp Effort & Inspection: normal respiratory effort, able to speak in complete sentences and not labored GI Other: No tenderness in the right upper quadrant Inspection: No distended Palpation (GI): Soft to palpation, not firm, nontender, no guarding and not rigid Skin General skin exam: elasticity normal Neuro General: patient oriented x3 Cranial nerves: Yes Equal, round and reactive pupils present and Yes Bilaterally intact EOM present Cognition (Neuro): normal cognition Extrem Other: Moving all extremities well without any obvious deformities Medical Decision Making Medical Decision Making MDM Narrative: 60 old female presents for evaluation of multiple complaints. She complains of a white coating on her tongue which is evident on exam. She has a history of oral candidiasis. Also complains of epigastric/right upper quadrant abdominal pain with diarrhea. She has no significant tenderness to right upper quadrant. However given her reported symptoms and chills began ultrasound to rule out cholecystitis. She has no leukocytosis. I added on LFTs. Chemistries within normal limits Differential Diagnosis Differential Diagnoses: The differential diagnosis associated with the presentation includes Oral candidiasis Thrush Abdominal pain Biliary colic Cholelithiasis Acute cholecystitis Lab Data MDM Lab Attestation statement: I reviewed the patient's lab results. No leukocytosis or anemia. Normal platelet count. No electrolyte abnormalities. 07/11/23 10:32 07/11/23 10:32 Labs: Lab Results 07/11/23 07/11/23 Range/Units 10:32 16:43 WBC 7.8 (4.8-10.8) X10*3/uL RBC 4.42 (4.20-5.50) X10*6/uL Hgb 12.4 (12.0-16.0) g/dl Hct 38.0 (37.0-47.0) % MCV 86.0 (80.0-98.0) fL MCH 28.1 (27.0-33.0) pg MCHC 32.6 (31.0-35.0) g/dl RDW 13.1 (11.0-16.0) % Plt Count 245 (160-400) X10*3/uL MPV 10.1 (9.4-12.3) fL Immature Gran % (Auto) 0.5 H (0.0-0.4) % Neut % (Auto) 69.9 (45-73) % Lymph % (Auto) 20.2 (20-40) % [place] % (Auto) 8.1 (2-11) % Eos % (Auto) 0.5 (0-4) % Baso % (Auto) 0.8 (0-2) % Lymph # (Auto) 1.6 (1.2-4.9) X10*3/uL [place] # (Auto) 0.6 (0.1-1.2) X10*3/uL Eos # (Auto) 0.0 (0.0-0.4) X10*3/uL Baso # (Auto) 0.1 (0.0-0.2) X10*3/uL Abs Immat Gran (auto) 0.04 H (0.00-0.03) X10*3/uL Absolute Neuts (auto) 5.4 (2.0-8.3) x10*3/uL Absolute Nucleated RBC 0.000 (0.0-0.012) X10*3/uL Nucleated RBC % (auto) 0.0 (0.0-0.2) /100WBC Sodium 140 (135-145) mmol/L Potassium 4.1 (3.3-5.1) mmol/L Chloride 107 (96-108) mmol/L Carbon Dioxide 26 (22-29) mmol/L Anion Gap 11 L (12-20) BUN 9 (9-16) mg/dL Creatinine 0.72 (0.5-1.4) mg/dL Estim Creat Clear Calc 74.6 Estimated GFR > 60 Random Glucose 96 (60-115) mg/dL Calcium 9.7 (8.4-10.2) mg/dL Total Bilirubin 0.3 (0.0-1.0) mg/dL Direct Bilirubin 0.1 (0.0-0.5) mg/dL AST 14 (5-31) U/L ALT 10 (0-31) U/L Alkaline Phosphatase 78 (39-117) U/L Total Protein 7.4 (6.5-8.0) g/dL Albumin 4.3 (3.5-5.0) g/dL Lipase 33 (8-78) U/L Urine Color Yellow Urine Appearance Clear Urine pH 5.5 (5.0-9.0) Ur Specific [place] 1.015 (1.005-1.025) Urine Protein Negative (Neg-Trace) mg/dL Urine Glucose (UA) Negative (Negative) mg/dL Urine Ketones 40 (Negative) mg/dL Urine Blood Trace H (Negative) Urine Nitrite Negative (Negative) Ur Leukocyte Esterase Negative (Negative) Urine RBC 3-5 H (0-2) /HPF Urine WBC 0-5 (0-5) /HPF Ur Squamous Epith Cells 0-2 (0-2) /HPF Urine Bacteria None Seen (None Seen) Hyaline Casts 0-2 (0-2) /LPF Radiology Impression Discussion of test interpretation with radiology: I have reviewed the radiologist's reading. (Normal right upper quadrant ultrasound) Discharge Plan Discharge Clinical Impression: Candidiasis of mouth, Abdominal pain Patient Disposition: Home, Self-Care Instructions: Oral Candidiasis (ED) Additional Instructions: Your workup in the ER today was reassuring. Next this includes your blood work. You are not anemic. Your ultrasound did not show any evidence of gallstones or gallbladder thickening. You were given a dose of Diflucan to treat oral candidiasis. Take the nystatin as prescribed. Follow-up with your primary doctor Prescriptions: New nystatin 100,000 unit/mL suspension 500,000 unit buccal QID 14 Days Qty: 280 0RF Rx Instructions: Swish for several minutes and then swallow No Action betamethasone valerate 0.1 % cream 1 appl topical TID PRN (Reason: skin irritation) Qty: 45 0RF fluconazole [Diflucan] 150 mg tablet 150 mg PO ONCE 1 Days Qty: 1 0RF garlic 100 mg Tablet 50 mg PO DAILY folic acid 1 mg tablet 1 mg PO DAILY Qty: 90 4RF halobetasol propionate 0.05 % Cream 1 appl TOPICAL DAILY (DME) bra, mastectomy Crystals Qty: 6 6RF Rx Instructions: As Directed cholecalciferol (vitamin D3) 50 mcg (2,000 unit) capsule 50 mcg PO DAILY inositol 324 mg tablet 4 tab PO DAILY PROBIOTIC 2 cap PO BID cyanocobalamin (vitamin B-12) 1,000 mcg capsule 1,000 mcg PO DAILY ferrous sulfate [FeroSul] 325 mg (65 mg iron) tablet 325 mg PO DAILY calcium carbonate 600 mg calcium (1,500 mg) tablet 600 mg PO DAILY acetaminophen [Tylenol 8 Hour] 650 mg tablet extended release 1,300 mg PO Q12H PRN (Reason: Pain) estradiol [Estrace] 0.01 % (0.1 mg/gram) cream See Rx Instructions .Route DAILY 30 Days Qty: 42.5 0RF Rx Instructions: pea sized amount per urethra daily;
[2023-07-11 19:46] LABS: Alanine Aminotransferase 10 U/L (0-31); Albumin Level 4.3 g/dL (3.5-5.0); Alkaline Phosphatase 78 U/L (39-117); Aspartate Amino Transferase 14 U/L (5-31); Bilirubin Direct 0.1 mg/dL (0.0-0.5); Bilirubin Total 0.3 mg/dL (0.0-1.0); Lipase 33 U/L (8-78); Total Protein 7.4 g/dL (6.5-8.0)
[2023-07-11] MEDS: Fluconazole 150 MG TABLET PO (20:58)
== END 2023-07-11 21:01 | disposition home or self-care (01) ==
PROVIDERS: Physician Assistant; Emergency Provider Emergency Medicine; PCP Internal Medicine
DX: B37.0 Candidal stomatitis (principal); R10.9 Unspecified abdominal pain; Z79.899 Other long term (current) drug therapy
CPT/HCPCS: 36415; 76705; 80048; 80076; 81001; 83690; 85025; 99284

== ENCOUNTER 2023-07-25 09:23 | Outpatient (AMB) | payer MEDICARE, SELFPAY ==
[2023-07-25 09:25] VITALS: BP 122/66; PULSE 70; BMI 29.0
--- NOTE | 2023-07-25 09:25 | A.OFFPC_ITS ---
Vital Signs 07/25/23 09:25 Height 5 ft 4 in Weight 169 lb 0.4 oz BMI 29.0 BP 122/66 Blood Pressure Location Lt brachial Position Sitting Pulse 70 Pulse Source Pulse Oximeter Oxygen Delivery Method Room Air Intake Visit Reasons: 6 Months F/U-cholesterol Intake Note: Patient is here to follow up on 6 months Health And Safety Advisor Required: No Allergies doxycycline [DOXYCYCLINE] Allergy (Severe, Verified 07/25/23 09:44) UNKNOWN, ? hearing problem poison teresa extract [POISON TERESA] Allergy (Severe, Verified 07/25/23 09:44) SEVERE RASH Penicillins [PENICILLINS] Allergy (Unknown, Verified 07/25/23 09:44) RASH Medication List - Last Reconciled 07/25/23 by Willard Jerome MD betamethasone valerate 0.1% 1 appl topical TID PRN calcium carbonate 600 mg PO DAILY cholecalciferol (vitamin D3) 50 mcg PO DAILY estradiol 0.01%(0.1mg/gram) (Estrace) pea sized amount per urethra daily; 30 days fluconazole (Diflucan) 100 mg PO DAILY folic acid 1 mg PO DAILY garlic 50 mg PO DAILY inositol 4 tabs PO DAILY mastectomy bra (bra, mastectomy) As Directed mastectomy bra (bra, mastectomy) As Directed [PROBIOTIC 2 caps PO BID] Prosthesis, breast (Breast prosthesis) As Directed Tobacco use date assessed: 07/25/23 Fall risk assessment: No Falls in past year Last assessed Fall Risk: 07/25/23 HPI 6 Months F/U-cholesterol HPI Details 68-year-old overweight female with a his tory of breast cancer(right mastectomy chemo and radiation) March 2010 ascending aorta dilatation 3.4 cm December 2022 hypercholesterolemia coming in for follow-up. Last seen in December 2022. Mammogram is up-to-date bone density is due had it in June 2021 showing osteopenia. Patient follows up with Hematology-Oncology seen in June 2023. [facility] Medical History (Updated 07/25/23 @ 09:58 by Willard Jerome MD) Abdominal pain Yeast infection involving the vagina and surrounding area Esophagitis Epigastric abdominal pain Dysuria Right lower quadrant pain Neck pain Fatigue Osteoarthritis Vitamin B12 deficiency Hypercholesterolemia Overweight (BMI 25.0-29.9) Ascending aorta dilatation Immunodeficiency disorder Irritable bowel syndrome Anxiety Anemia Hx of breast cancer Surgical History H/O rotator cuff surgery History of colonoscopy History of arthroscopy of left knee Hx of tubal ligation Hx of section Hx of mastectomy Family History Mother Diabetes Arthritis Father HTN (hypertension) Dementia COPD (chronic obstructive pulmonary disease) Skin cancer Maternal Grandfather Glaucoma Social History Household Members: Spouse Housing: Apartment Are you a primary patient care director to a significant other at home: No Do you presently have visiting nurse or other home services: No Alcohol intake: current Alcohol intake frequency: does not drink Patient Tobacco Use Status: Never used Tobacco Years Smoked: history of marijuana uses e-Cigarette/Vaping Use: Never Used Second Hand Smoke Exposure: No service: No Current occupational status: retired Sexual orientation: Straight/Heterosexual Gender identity: Female Cognitive needs: No Hearing needs: No Vision needs: Yes (glasses) Questionnaire Thrive Questionnaire Date Thrive assessed: 06/15/22 FLOWER-7 AMB Questionnaire FLOWER-7 Date FLOWER - 7 assessed: 05/20/22 Source: Developed by Drs. Josh Vivar, Becka Holedr, Ernie Aguilera and colleagues, with an educational brigette from [employer]. Physical exam (Primary Care) Vital Signs: Oxygen Delivery Method Room Air 07/25/23 09:25 Tobacco/Smoking Status: Tobacco use Status Tobacco use date assessed 07/25/23 07/25/23 09:26 Patient Tobacco Use Status Never used Tobacco 07/25/23 09:26 e-Cigarette/Vaping Use Never Used 07/25/23 09:26 Thrive Assessment: Date of Thrive Assessment Date Thrive assessed 06/15/22 07/25/23 09:26 Const General: alert; No acute distress Eyes Conjunctivae: conjunctivae normal Resp Auscultation: clear to auscultation bilaterally Cardio Rate: regular rate Rhythm: regular rhythm GI Inspection: Yes normal to inspection Extrem General: Yes normal to inspection and No edema Assessment and Plan Assessment & Plan (1) Hx of breast cancer: Comment: March 2010 right modified radical mastectomy 1.5 cm grade 3 infiltrating ductal carcinoma with lymphovascular invasion estrogen and progesterone receptors negative but HER/abraham (+) 1 of 11 axillary nodes positive for Mets adeno CA 4.5 cm identified on MRI Code(s): Z85.3 - Personal history of malignant neoplasm of breast Plan: Patient continues to follow-up with Hematology-Oncology (2) Hypercholesterolemia: Code(s): E78.00 - Pure hypercholesterolemia, unspecified Plan: Avoid fried foods, chicken skin, eggs, butter margarine, pastries and meat. Be it pork or beef they have a lot of cholesterol LDL goal of less than 130 and triglyceride of less than 150 (3) Osteopenia: Comment: June 2021 Code(s): M85.80 - Other specified disorders of bone density and structure, unspecified site Plan: Bone density is due (4) Candidiasis of mouth: Comment: recurrent Code(s): B37.0 - Candidal stomatitis Plan: takes oral diflucan and nystatin swish and swallow as needed (5) Rotator cuff arthropathy of right shoulder: Comment: 02/17/2022 Dr. Luna Code(s): M12.811 - Other specific arthropathies, not elsewhere classified, right shoulder Orders: Orders XR DEXA axial skeleton Today M81.0 - Age-related osteoporosis without current pathological fracture, M85.80 - Other specified disorders of bone density and structure, unspecified site PT Evaluation and Treatment Today M12.811 - Other specific arthropathies, not elsewhere classified, right shoulder Coding Level of Care Code Est Pt Level 4 (59744) Diagnoses Hx of breast cancer Z85.3 Hypercholesterolemia E78.00 Osteopenia M85.80 Candidiasis of mouth B37.0 Rotator cuff arthropathy of right shoulder M12.811
== END 2023-07-25 10:10 | disposition home or self-care (01) ==
PROVIDERS: PCP Internal Medicine; Visit Provider Internal Medicine
DX: E78.00 Pure hypercholesterolemia, unspecified (principal); Z85.3 Personal history of malignant neoplasm of breast; M85.80 Other specified disorders of bone density and structure, unspecified site; B37.0 Candidal stomatitis; M12.811 Other specific arthropathies, not elsewhere classified, right shoulder
CPT/HCPCS: 99214

== ENCOUNTER 2023-08-10 10:27 | Outpatient (REF) | payer MEDICARE, SELFPAY ==
--- NOTE | ~2023-08-10 | MM_ITS ---
EXAMINATION: BONE DENSITOMETRY CLINICAL INDICATION: Age-related osteoporosis without current pathological fracture. COMPARISON: Previous BD dated 06/09/2021 and baseline BD dated 12/20/2007. TECHNIQUE: Using a [employer] DXA System (software version: 13.1) manufactured by [employer], dual-energy x-ray absorptiometry was performed of the lumbar spine and left hip. The images are of good technical quality. Summary results are attached. FINDINGS: LEFT FEMUR, NECK: Current: BMD 0.727 g/cm2, Z-score -0.9, T-score -2.2, osteopenia. Prior: BMD 0.724 g/cm2. Baseline: BMD 0.888 g/cm2. LEFT FEMUR, TOTAL: Current: BMD 0.782 g/cm2, Z-score -0.7, T-score -1.8, osteopenia, 4.8% decrease from previous, 18.5% decrease from baseline (<5% change is not significant). Prior: BMD 0.821 g/cm2. Baseline: BMD 0.959 g/cm2. AP SPINE L1-L4: Current: BMD 1.009 g/cm2, Z-score -0.2, T-score -1.4, osteopenia, 9.7% decrease from previous, 23.9% decrease from baseline (<5% change is not significant). Prior: BMD 1.118 g/cm2. Baseline: BMD 1.326 g/cm2. IDENTIFIED RISK FACTORS: Menopause, osteoporosis, glucocorticoid (chronic). HISTORY OF FRACTURE: None listed. MEDICATIONS: Vitamin D. MM/XR DEXA axial skeleton IMPRESSION: 1. DIAGNOSIS: Osteopenia based on the lowest T-score value of -2.2 in the femoral neck applying World Health Organization criteria. 2. 10-YEAR FRACTURE RISK PREDICTION, FRAX: Major osteoporotic fracture (clinical spine, forearm, hip or shoulder) 19.7%. Hip fracture 4.6%. 3. Treatment Recommendations: NOF guidelines recommend consideration for treatment in postmenopausal women and men age 50 and older presenting with the following: -A hip or vertebral (clinical or morphometric) fracture. -T-score less than or equal to -2.5 at the femoral neck or spine after appropriate evaluation to exclude secondary causes. -Low bone mass at the hip or spine and a 10-year fracture probability by FRAX of greater than or equal to 3% for hip fracture or greater than or equal to 20% for major osteoporotic fracture based on the [place] adapted WHO algorithm. 4. Other Recommendations: All treatment decisions require clinical judgment and consideration of individual patient factors, including patient preferences, comorbidities, previous drug use, risk factors not captured in the FRAX model (e.g. frailty, falls, vitamin D deficiency, increased bone turnover, interval significant decline in bone density) and possible under or overestimation of fracture risk by FRAX. Additional medical evaluation for secondary cause of low bone mineral density may be appropriate. FUTURE SCAN RECOMMENDATION: People with diagnosed cases of osteoporosis or at high risk for fracture should have regular bone mineral density tests. For patients eligible for Medicare, routine testing is allowed once every 2 years. The testing frequency can be increased to one year for patients who have rapidly progressing disease, those who are receiving or discontinuing medical therapy to restore bone mass, or have additional risk factors.
== END 2023-08-10 10:28 | disposition home or self-care (01) ==
LOC: HO.MAMMO 10:27
PROVIDERS: Absent Provider Internal Medicine Medical Oncology; PCP Internal Medicine; Visit Provider Internal Medicine
DX: Z13.820 Encounter for screening for osteoporosis (principal); M81.0 Age-related osteoporosis without current pathological fracture; M85.80 Other specified disorders of bone density and structure, unspecified site; Z78.0 Asymptomatic menopausal state
CPT/HCPCS: 77080

== ENCOUNTER 2023-12-27 11:27 | Emergency (ER) | payer MEDICARE, SELFPAY ==
[2023-12-27] VITALS (7 sets, daily range): BP systolic 115–150; BP diastolic 55–64; PULSE 57–83; RESP 12–19; TEMP 36.4–36.8; O2SAT 100; BMI 28.7
--- NOTE | ~2023-12-27 | XR_ITS ---
EXAMINATION: XR CHEST CLINICAL INFORMATION: Shortness of breath COMPARISON: Chest radiograph 06/05/2015 TECHNIQUE: Frontal view of the chest was obtained. FINDINGS: The lungs are adequately expanded. No focal consolidation. No pleural effusions, edema or pneumothorax. The cardio mediastinal silhouette is within normal limits. No acute osseous abnormality. XR/XR chest 1V IMPRESSION: No acute pulmonary disease. Electronically signed by: Amish Mendez MD 12/27/2023 01:33 PM EDT
--- NOTE | 2023-12-27 11:30 | ECG_ITS ---
Test Reason : SOB Blood Pressure : / mmHG Vent. Rate : 067 BPM Atrial Rate : 067 BPM P-R Int : 110 ms QRS Dur : 090 ms QT Int : 424 ms P-R-T Axes : 027 -33 039 degrees QTc Int : 448 ms Sinus rhythm with short NH Left axis deviation RSR' or QR pattern in V1 suggests right ventricular conduction delay Abnormal ECG When compared with ECG of 06-SEP-2020 14:09, No significant change was found Referred By: Shaista Cline Electronically Signed By:INDIRA SMALL
--- NOTE | 2023-12-27 11:30 | ED.GENADULT ---
HPI - General Adult General Chief complaint: General Medical Stated complaint: SOB-dizziness Time Seen by Provider: 12/27/23 14:34 History of Present Illness ED Provider: Wanda SALAZAR narrative: 68-year-old female with past medical history breast cancer status post radiation therapy ascending aorta dilation presenting for intermittent shortness of breath and palpitations. Patient states that she is experiencing approximately 6 weeks of intermittent shortness of breath primarily with exertion and palpitations. She denies chest pain, weakness, headaches, neck pain. She was told coming to the ED by her PCP who she has an upcoming upcoming appointment with. Related Data Home Medications ?Medication ?Instructions ?Recorded ?Confirmed cholecalciferol (vitamin D3) 50 50 mcg PO DAILY 05/14/20 07/25/23 mcg (2,000 unit) capsule inositol 324 mg tablet 4 tab PO DAILY 05/14/20 07/25/23 calcium carbonate 600 mg PO DAILY 06/14/21 07/25/23 PROBIOTIC 2 cap PO BID 08/18/21 07/25/23 garlic 100 mg tablet 50 mg PO DAILY 01/20/22 07/25/23 Previous Rx's ?Medication ?Instructions ?Recorded betamethasone valerate 0.1 % 1 appl topical TID PRN skin 07/12/21 topical cream irritation #45 grams estradiol 0.01% (0.1 mg/gram) See Rx Instructions .Route DAILY 11/05/21 vaginal cream (Estrace) complicated uti 30 days #42.5 grams folic acid 1 mg tablet 1 mg PO DAILY #90 tabs 07/21/22 Prosthesis, breast (Breast #1 ea 07/13/23 prosthesis) fluconazole 100 mg tablet 100 mg PO DAILY #7 tabs 07/13/23 (Diflucan) mastectomy bra (bra, mastectomy) #6 ea 07/13/23 mastectomy bra (bra, mastectomy) #6 ea 07/13/23 Allergies Allergy/AdvReac Type Severity Reaction Status Date / Time doxycycline [DOXYCYCLINE] Allergy Severe UNKNOWN, ? Verified 12/27/23 11:34 hearing problem poison teresa extract Allergy Severe SEVERE RASH Verified 12/27/23 11:34 [POISON TERESA] Penicillins [PENICILLINS] Allergy Unknown RASH Verified 12/27/23 11:34 Review of Systems Review of Systems: Patient endorses intermittent shortness of breath and palpitation She denies chest pain, abdominal pain, nausea, vomiting, head pain, fevers, chills, dysuria, hematuria Yes all other systems are reviewed and are negative PMFSH Past Medical History Medical History (Updated 12/27/23 @ 19:19 by Woody Muñoz MD) Abdominal pain Yeast infection involving the vagina and surrounding area Esophagitis Epigastric abdominal pain Dysuria Right lower quadrant pain Neck pain Fatigue Osteoarthritis Vitamin B12 deficiency Hypercholesterolemia Overweight (BMI 25.0-29.9) Ascending aorta dilatation Immunodeficiency disorder Irritable bowel syndrome Anxiety Anemia Hx of breast cancer Surgical History H/O rotator cuff surgery History of colonoscopy History of arthroscopy of left knee Hx of tubal ligation Hx of section Hx of mastectomy Family History Family History Mother Diabetes Arthritis Father HTN (hypertension) Dementia COPD (chronic obstructive pulmonary disease) Skin cancer Maternal Grandfather Glaucoma Social History Social History Household Members: Spouse Housing: Apartment Are you a primary furnace caretaker to a significant other at home: No Do you presently have visiting nurse or other home services: No Alcohol intake: current Alcohol intake frequency: does not drink Patient Tobacco Use Status: Never used Tobacco Years Smoked: history of marijuana uses Smoked in Last 30 Days: No e-Cigarette/Vaping Use: Never Used Second Hand Smoke Exposure: No Use of substances other than those prescribed or required for medical reasons: No Advance Directives: No Advance Directives Information Provided: No Do you have a plan to hurt others: No Plan service: No Current occupational status: retired Sexual orientation: Straight/Heterosexual Gender identity: Female Cognitive needs: No Hearing needs: No Vision needs: Yes (glasses) Physical Exam ED Vital Signs: Vital Signs - 24 hr 12/27/23 11:30 12/27/23 11:32 12/27/23 12:38 Temperature 98 F 98.2 F Pulse Rate 77 83 61 Respiratory Rate 19 16 Blood Pressure 150/63 H 130/61 115/64 Pulse Oximetry 100 100 Oxygen Delivery Method Room Air Room Air 12/27/23 13:57 12/27/23 13:58 12/27/23 14:06 Temperature Pulse Rate 66 79 77 Respiratory Rate 12 Blood Pressure 116/55 L 116/62 116/62 Pulse Oximetry 100 Oxygen Delivery Method Room Air 12/27/23 19:43 Temperature 97.6 F Pulse Rate 57 Respiratory Rate 15 Blood Pressure 120/55 L Pulse Oximetry 100 Oxygen Delivery Method Room Air BMI result Body Mass Index 28.7 No focal neurologic deficits appreciated, normal S1-S2 regular rate and rhythm, lungs clear to auscultation bilaterally, abdomen is soft nontender nondistended, no lower extremity edema patient Bedside echo showing 3.8 cm aortic root. Patient states that this is stable Course Course Course Narrative: This is an RME done by [facility]: Additional HPI, ROS, PE not included below will be deferred to primary provider. 68 year old female with hx of palpitations, breast cancer, AAA presenting with concerns of sob x few weeks. Denies cp, pain, nausea, vomiting, vision changes, hx of blood clots, smoking. Denies recent sick contacts. Appearance: Alert.? Oriented X3.? No acute cardiopulmonary distress.? Head: Normocephalic, atraumatic, no step-offs or deformities Neck: Normal inspection.? Neck supple.? CVS: Pulses normal.? Respiratory: No respiratory distress.? Abdomen: Soft and nontender.? Skin: ? Normal skin color. Extremities: 5/5 strength to bilateral upper and lower extremities Neuro: Oriented X 3.? No motor deficit.? No sensory deficit. Medical Decision Making Medical Decision Making [facility] Narrative: I am concerned for the following; electrolyte/metabolic disturbance, volume overload, allergies, asthma, arrhythmia Less likely PE, ACS/angina Patient's lab work was unremarkable and her bedside echo did not show a dilated IVC or enlarged RVs. The patient's aortic root is stable and she did not have a pericardial effusion nor does she have significant B-lines Patient's troponins are I instructed her to follow up with her pcp and gave her return precautions Differential Diagnosis Differential Diagnoses: The differential diagnosis associated with the presentation includes Allergies, asthma, palpitation, arrhythmia Lab Data [facility] Lab Attestation statement: I reviewed the patient's lab results. Normal BNP, H&H stable, BMP unremarkable 12/27/23 11:46 12/27/23 11:46 Labs: Lab Results 12/27/23 12/27/23 12/27/23 Range/Units 11:46 14:08 15:19 WBC 6.1 (4.8-10.8) X10*3/uL RBC 4.18 L (4.20-5.50) X10*6/uL Hgb 11.9 L (12.0-16.0) g/dl Hct 35.7 L (37.0-47.0) % MCV 85.4 (80.0-98.0) fL MCH 28.5 (27.0-33.0) pg MCHC 33.3 (31.0-35.0) g/dl RDW 13.3 (11.0-16.0) % Plt Count 245 (160-400) X10*3/uL MPV 10.3 (9.4-12.3) fL Immature Gran % (Auto) 0.7 H (0.0-0.4) % Neut % (Auto) 57.2 (45-73) % Lymph % (Auto) 29.0 (20-40) % Mccone % (Auto) 11.1 H (2-11) % Eos % (Auto) 1.3 (0-4) % Baso % (Auto) 0.7 (0-2) % Lymph # (Auto) 1.8 (1.2-4.9) X10*3/uL Mccone # (Auto) 0.7 (0.1-1.2) X10*3/uL Eos # (Auto) 0.1 (0.0-0.4) X10*3/uL Baso # (Auto) 0.0 (0.0-0.2) X10*3/uL Abs Immat Gran (auto) 0.04 H (0.00-0.03) X10*3/uL Absolute Neuts (auto) 3.5 (2.0-8.3) x10*3/uL Absolute Nucleated RBC 0.000 (0.0-0.012) X10*3/uL Nucleated RBC % (auto) 0.0 (0.0-0.2) /100WBC D-Dimer High Sensitivty < 150 NG/ML Sodium 139 (135-145) mmol/L Potassium 3.9 (3.3-5.1) mmol/L Chloride 108 (96-108) mmol/L Carbon Dioxide 21 L (22-29) mmol/L Anion Gap 14 (12-20) BUN 11 (9-16) mg/dL Creatinine 0.76 (0.5-1.4) mg/dL Estim Creat Clear Calc 70.6 Estimated GFR > 60 Random Glucose 93 (60-115) mg/dL Calcium 9.8 (8.4-10.2) mg/dL Magnesium 2.0 (1.6-2.6) mg/dL Total Bilirubin 0.4 (0.0-1.0) mg/dL AST 15 (5-31) U/L ALT 10 (0-31) U/L Alkaline Phosphatase 79 (39-117) U/L Troponin I High Sens < 2.7 (<3.5-17.0) ng/L B-Natriuretic Peptide 85 (<100) pg/mL Total Protein 7.1 (6.5-8.0) g/dL Albumin 4.2 (3.5-5.0) g/dL TSH 1.66 (0.32-4.0) uIU/mL Urine Color Yellow Urine Appearance Clear Urine pH 7.5 (5.0-9.0) Ur Specific [place] 1.010 (1.005-1.025) Urine Protein Negative (Neg-Trace) mg/dL Urine Glucose (UA) Negative (Negative) mg/dL Urine Ketones Trace (Negative) mg/dL Urine Blood Negative (Negative) Urine Nitrite Negative (Negative) Ur Leukocyte Esterase Trace H (Negative) Urine RBC 0-2 (0-2) /HPF Urine WBC 0-5 (0-5) /HPF Ur Squamous Epith Cells 0-2 (0-2) /HPF Urine Bacteria None Seen (None Seen) Hyaline Casts 0-2 (0-2) /LPF Influenza Type A (PCR) NEGATIVE (Negative) Influenza Type B (PCR) NEGATIVE (Negative) RSV RNA Qual (PCR) NEGATIVE (Negative) SARS-CoV-2 RNA (RT-PCR) NEGATIVE (Negative) 12/27/23 Range/Units 19:21 WBC (4.8-10.8) X10*3/uL RBC (4.20-5.50) X10*6/uL Hgb (12.0-16.0) g/dl Hct (37.0-47.0) % MCV (80.0-98.0) fL MCH (27.0-33.0) pg MCHC (31.0-35.0) g/dl RDW (11.0-16.0) % Plt Count (160-400) X10*3/uL MPV (9.4-12.3) fL Immature Gran % (Auto) (0.0-0.4) % Neut % (Auto) (45-73) % Lymph % (Auto) (20-40) % Mccone % (Auto) (2-11) % Eos % (Auto) (0-4) % Baso % (Auto) (0-2) % Lymph # (Auto) (1.2-4.9) X10*3/uL Mccone # (Auto) (0.1-1.2) X10*3/uL Eos # (Auto) (0.0-0.4) X10*3/uL Baso # (Auto) (0.0-0.2) X10*3/uL Abs Immat Gran (auto) (0.00-0.03) X10*3/uL Absolute Neuts (auto) (2.0-8.3) x10*3/uL Absolute Nucleated RBC (0.0-0.012) X10*3/uL Nucleated RBC % (auto) (0.0-0.2) /100WBC D-Dimer High Sensitivty NG/ML Sodium (135-145) mmol/L Potassium (3.3-5.1) mmol/L Chloride (96-108) mmol/L Carbon Dioxide (22-29) mmol/L Anion Gap (12-20) BUN (9-16) mg/dL Creatinine (0.5-1.4) mg/dL Estim Creat Clear Calc Estimated GFR Random Glucose (60-115) mg/dL Calcium (8.4-10.2) mg/dL Magnesium (1.6-2.6) mg/dL Total Bilirubin (0.0-1.0) mg/dL AST (5-31) U/L ALT (0-31) U/L Alkaline Phosphatase (39-117) U/L Troponin I High Sens < 2.7 (<3.5-17.0) ng/L B-Natriuretic Peptide (<100) pg/mL Total Protein (6.5-8.0) g/dL Albumin (3.5-5.0) g/dL TSH (0.32-4.0) uIU/mL Urine Color Urine Appearance Urine pH (5.0-9.0) Ur Specific [place] (1.005-1.025) Urine Protein (Neg-Trace) mg/dL Urine Glucose (UA) (Negative) mg/dL Urine Ketones (Negative) mg/dL Urine Blood (Negative) Urine Nitrite (Negative) Ur Leukocyte Esterase (Negative) Urine RBC (0-2) /HPF Urine WBC (0-5) /HPF Ur Squamous Epith Cells (0-2) /HPF Urine Bacteria (None Seen) Hyaline Casts (0-2) /LPF Influenza Type A (PCR) (Negative) Influenza Type B (PCR) (Negative) RSV RNA Qual (PCR) (Negative) SARS-CoV-2 RNA (RT-PCR) (Negative) Independent Interpretation I performed an independent interpretation of an: EKG and Plain X-Ray Interpretation: EKG similar to prior with no ischemic changes. Patient's x-ray not showing vascular congestion Radiology Impression Discussion of test interpretation with radiology: I have reviewed the radiologist's reading. Radiologist Impression: Negative chest x-ray Discharge Plan Discharge Clinical Impression: Palpitations Patient Disposition: Home, Self-Care Additional Instructions: Please follow-up with your primary care physician in regards to your recent visit to the emergency department. He should be seen in the next week If you develop any new or worsening symptoms please seek immediate medical attention or return to this emergency department Prescriptions: No Action betamethasone valerate 0.1 % cream 1 appl topical TID PRN (Reason: skin irritation) Qty: 45 0RF garlic 100 mg Tablet 50 mg PO DAILY folic acid 1 mg tablet 1 mg PO DAILY Qty: 90 4RF (DME) bra, mastectomy Crystals Qty: 6 3RF Rx Instructions: As Directed (DME) Breast prosthesis Kit Qty: 1 0RF Rx Instructions: As Directed (DME) bra, mastectomy Crystals Qty: 6 6RF Rx Instructions: As Directed fluconazole [Diflucan] 100 mg Tablet 100 mg PO DAILY Qty: 7 4RF cholecalciferol (vitamin D3) 50 mcg (2,000 unit) capsule 50 mcg PO DAILY inositol 324 mg tablet 4 tab PO DAILY PROBIOTIC 2 cap PO BID calcium carbonate 600 mg calcium (1,500 mg) tablet 600 mg PO DAILY estradiol [Estrace] 0.01 % (0.1 mg/gram) cream See Rx Instructions .Route DAILY 30 Days Qty: 42.5 0RF Rx Instructions: pea sized amount per urethra daily; Interventions: ED Discharge Assessment Last Done: 12/27/23 19:43 Discharge Date/Time: 12/27/23 19:47 Print Language: Lithuanian
[2023-12-27 11:51] LABS: MANUAL DIFF FLAG NO
[2023-12-27 12:01] LABS: D Dimer High Sensitivity < 150 NG/ML
[2023-12-27 12:07] LABS: Basophils Percent Auto 0.7 % (0-2); Eosinophils Absolute Auto 0.1 X10*3/uL (0.0-0.4); Eosinophils Percent Auto 1.3 % (0-4); Hematocrit 35.7 % (37.0-47.0); Hemoglobin 11.9 g/dl (12.0-16.0); Imm Gran Abs Auto 0.04 X10*3/uL (0.00-0.03); Imm Gran Pct Auto 0.7 % (0.0-0.4); Lymphocytes Absolute Auto 1.8 X10*3/uL (1.2-4.9); Mean Corpuscular HGB Conc 33.3 g/dl (31.0-35.0); Mean Corpuscular Hemoglobin 28.5 pg (27.0-33.0); Mean Corpuscular Volume 85.4 fL (80.0-98.0); Mean Platelet Volume 10.3 fL (9.4-12.3); Monocytes Absolute Auto 0.7 X10*3/uL (0.1-1.2); Monocytes Percent Auto 11.1 % (2-11); Neutrophils Absolute Auto 3.5 x10*3/uL (2.0-8.3); Neutrophils Percent Auto 57.2 % (45-73); Platelet Count 245 X10*3/uL (160-400); Red Blood Count 4.18 X10*6/uL (4.20-5.50); Red Cell Distribution Width 13.3 % (11.0-16.0); White Blood Count 6.1 X10*3/uL (4.8-10.8)
[2023-12-27 12:10] LABS: Alanine Aminotransferase 10 U/L (0-31); Albumin Level 4.2 g/dL (3.5-5.0); Alkaline Phosphatase 79 U/L (39-117); Anion Gap 14 (12-20); Aspartate Amino Transferase 15 U/L (5-31); Bilirubin Total 0.4 mg/dL (0.0-1.0); Blood Urea Nitrogen 11 mg/dL (9-16); Calcium 9.8 mg/dL (8.4-10.2); Carbon Dioxide 21 mmol/L (22-29); Chloride 108 mmol/L (96-108); Creatinine Clr Calc Pharmacy 70.6; Estimated Glomerular Filt Rate > 60; Glucose Random 93 mg/dL (60-115); Potassium 3.9 mmol/L (3.3-5.1); Sodium 139 mmol/L (135-145); Total Protein 7.1 g/dL (6.5-8.0)
[2023-12-27 12:14] LABS: Troponin-I High Sensitivity < 2.7 ng/L (<3.5-17.0)
--- NOTE | 2023-12-27 13:09 | PC.NURSE ---
Pt. on manager monitoring at this time.
[2023-12-27 14:17] LABS: Appearance Urine Clear; Color Urine Yellow; Glucose Urine UA Negative (Negative); Leukocyte Esterase Urine Trace (Negative); Nitrite Urine Negative (Negative); PH 7.5 (5.0-9.0); UMIC TRIGGER UACC YES; Urine Blood Negative (Negative); Urine Ketones Trace mg/dL (Negative); Urine Protein Negative (Neg-Trace)
[2023-12-27 14:27] LABS: Bacteria Urine None Seen (None Seen); Hyaline Casts Urine 0-2 /LPF (0-2); RBC Urine 0-2 /HPF (0-2); Squamous Epithelial Cell Urine 0-2 /HPF (0-2); WBC Urine 0-5 /HPF (0-5)
[2023-12-27 15:46] LABS: B Type Natriuretic Peptide 85 pg/mL (<100)
[2023-12-27 15:59] LABS: TSH reflex Free T4 1.66 uIU/mL (0.32-4.0)
[2023-12-27 16:02] LABS: Influenza A PCR NEGATIVE (Negative); Influenza B PCR NEGATIVE (Negative); Resp Syncy Virus RNA Qual PCR NEGATIVE (Negative); SARS COV2 PCR INHOUSE NEGATIVE (Negative)
[2023-12-27 20:06] LABS: Troponin-I High Sensitivity < 2.7 ng/L (<3.5-17.0)
== END 2023-12-27 19:47 | disposition home or self-care (01) ==
PROVIDERS: Physician Assistant; Emergency Provider Student in an Organized Health Care Education/Training Program; PCP Internal Medicine
DX: R00.2 Palpitations (principal); R06.02 Shortness of breath; E78.00 Pure hypercholesterolemia, unspecified; Z79.899 Other long term (current) drug therapy; Z03.818 Encounter for observation for suspected exposure to other biological agents ruled out
CPT/HCPCS: 0241U; 36415; 71045; 80053; 81001; 83735; 83880; 84443; 84484; 85025; 85379; 93005; 99283; 99284

== ENCOUNTER 2024-01-29 09:59 | Outpatient (REF) | payer MEDICARE, SELFPAY ==
--- NOTE | ~2024-01-29 | MM_ITS ---
EXAMINATION: MM SCREENING DIGITAL BREAST TOMOSYNTHESIS, BILATERAL CLINICAL INFORMATION: Screening. Asymptomatic. Status post right mastectomy. COMPARISON: Mammography: This study is compared with prior exams dating back to TECHNIQUE: Digital breast tomosynthesis is performed in both the craniocaudal and mediolateral oblique views along with computer-aided detection (CAD). Synthesized 2D images are generated from the tomosynthesis. FINDINGS: The breasts are heterogeneously dense, which may obscure small masses (ACR BI-RADS breast composition Category c). There are no significant masses, abnormal calcifications, or other abnormalities. MM/MM tomosynthesis screening LT IMPRESSION: No mammographic evidence of malignancy. ASSESSMENT: BI-RADS BI-RADS 1 - Negative RECOMMENDATION: Routine annual mammography screening. 1 year F/U This examination should not preclude the clinical evaluation of a suspicious palpable abnormality. This patient's information was entered into a reminder system with a target due date for their next mammogram. Electronically signed by: Stefania Woods DO 01/29/2024 03:10 PM EDT
== END 2024-01-29 10:00 | disposition home or self-care (01) ==
LOC: HO.MAMMO 09:59
PROVIDERS: PCP Internal Medicine; Referring Provider Internal Medicine Medical Oncology; Visit Provider Internal Medicine
DX: Z12.31 Encounter for screening mammogram for malignant neoplasm of breast (principal)
CPT/HCPCS: 77063; 77067

== ENCOUNTER → 2024-01-29 10:15 | Outpatient (BNV) | payer MEDICARE, SELFPAY | PROVIDERS: PCP Internal Medicine; Referring Provider Internal Medicine Medical Oncology; Visit Provider Internal Medicine | DX: Z12.31 Encounter for screening mammogram for malignant neoplasm of breast (principal) | CPT/HCPCS: 77063; 77067 ==

== ENCOUNTER 2024-01-31 09:22 | Outpatient (AMB) | payer MEDICARE, SELFPAY ==
--- NOTE | 2024-01-31 09:24 | MHC.PC.OV ---
Vital Signs 01/31/24 09:26 Height 5 ft 4 in Weight 75.75 kg BMI 28.7 BP 118/80 Blood Pressure Location Lt brachial Position Sitting Pulse 84 Pulse Source Pulse Oximeter Pulse Oximetry (%) 97 Oxygen Delivery Method Room Air Intake Visit Reasons: Cholesterol Intake Note: Patient here for a follow up Cholesteral Mobile Home Laborer Required: No Accompanied by: Self / Same As Patient Allergies doxycycline [DOXYCYCLINE] Allergy (Severe, Verified 01/31/24 09:27) UNKNOWN, ? hearing problem poison teresa extract [POISON TERESA] Allergy (Severe, Verified 01/31/24 09:27) SEVERE RASH Penicillins [PENICILLINS] Allergy (Unknown, Verified 01/31/24 09:27) RASH Tobacco use date assessed: 07/25/23 Fall risk assessment: No Falls in past year Last assessed Fall Risk: 01/31/24 Dental Screening Dental Screen Date: 01/31/24 Did you have a dental visit in the last 12 months?: Yes Did you have a dental problem in the last 6 months where you did not have access to dental care?: No Was dental information given to patient?: Patient has dentist HPI Cholesterol HPI Details 68-year-old overweight female with a history of breast cancer(right mastectomy March 2010) hypercholesterolemia osteopenia coming in for follow-up. Last seen in June 2023. Patient's last colonoscopy was 2018. Mammogram 01/19/2024 bone density 08/19/2023. Hematology-Oncology notes appreciated January 14 . Recently had some problems with shortness of breath on exertion in palpitations was referred to Cardiology. Patient had an ER visit in December 26 for shortness of breath dizziness diagnosis of palpitations. Echocardiogram December last yearThe left ventricular systolic function is hyperdynamic. The visually estimated ejection fraction is >70%. - No obvious valvular pathology seen on this study. has been walking Qd - but one day humid felt sob, haivng skipped beats feeling. Patient states that she has been feeling anxious regarding the political climate of the country. Count patient down that this is something that she should not internalized. PAtient will be seing Cardiology today. [facility] Medical History (Updated 01/31/24 @ 09:39 by Willard Jerome MD) Abdominal pain Yeast infection involving the vagina and surrounding area Esophagitis Epigastric abdominal pain Dysuria Right lower quadrant pain Neck pain Fatigue Osteoarthritis Vitamin B12 deficiency Hypercholesterolemia Overweight (BMI 25.0-29.9) Ascending aorta dilatation Immunodeficiency disorder Irritable bowel syndrome Anxiety Anemia Hx of breast cancer Surgical History H/O rotator cuff surgery History of colonoscopy History of arthroscopy of left knee Hx of tubal ligation Hx of section Hx of mastectomy Family History Mother Diabetes Arthritis Father HTN (hypertension) Dementia COPD (chronic obstructive pulmonary disease) Skin cancer Maternal Grandfather Glaucoma Social History Household Members: Spouse Housing: Apartment Are you a primary interior plant caretaker to a significant other at home: No Do you presently have visiting nurse or other home services: No Alcohol intake: current Alcohol intake frequency: does not drink Patient Tobacco Use Status: Never used Tobacco Years Smoked: history of marijuana uses e-Cigarette/Vaping Use: Never Used Second Hand Smoke Exposure: No service: No Current occupational status: retired Sexual orientation: Straight/Heterosexual Gender identity: Female Cognitive needs: No Hearing needs: No Vision needs: Yes (glasses) Questionnaire PHQ-9 Over the last 2 weeks, how often have you been bothered by any of the following problems? 1. Little interest or pleasure in doing things: not at all 2. Feeling down, depressed, or hopeless: not at all 3. Trouble falling or staying asleep, or sleeping too much: not at all 4. Feeling tired or having little energy: not at all 5. Poor appetite or overeating: not at all 6. Feeling bad about yourself - or that you are a failure or have let yourself or your family down: not at all 7. Trouble concentrating on things, such as reading the newspaper or watching television: not at all 8. Moving or speaking so slowly that other people could have noticed. Or the opposite - being so fidgety or restless that you have been moving around a lot more than usual: not at all 9. Thoughts that you would be better off or of hurting yourself in some way: not at all Total score: 0 Source: Developed by Drs. Josh Vivar, Becka Holder, Ernie Aguilera and colleagues, with an educational brigette from [employer]. Thrive Questionnaire Date Thrive assessed: 01/31/24 I am a: Patient What is your living situation today?: I have a steady place to live Within the past 12 months, did the food you bought not last and you didn't have the money to get more?: Never true Within the past 12 months, did you worry whether your food would run out before you got money to buy more?: Never true Do you have trouble paying for medicines?: No Do you have trouble getting transportation to medical appointments?: No Do you have trouble paying your heating and electricity bill?: No Do you have trouble taking care of your child, family member or friend?: No Do you have trouble with day-to-day activities such as bathing, preparing meals, shopping, managing finances, etc.?: No Are you currently unemployed and looking for a job?: No Are you interested in more education?: No Please select the resources that you would like help with: None Currently or been in a relationship where the following occur: No concerns reported THRIVE Score: 0 AUDIT C Alcohol Use Questionnaire (AUDIT-C) 1. How often do you have a drink containing alcohol?: Monthly or less 2. How many drinks containing alcohol do you have on a typical day when you are drinking?: 1 or 2 3. How often do you have six or more drinks on one occasion?: Never Total Score: 1 FLOWER-7 AMB Questionnaire FLOWER-7 Date FLOWER - 7 assessed: 01/31/24 Feeling nervous, anxious, or on edge: 0 = Not at all Not being able to stop or control worryin = Not at all Worrying too much about different things: 0 = Not at all Trouble relaxin = Not at all Being so restless that it is hard to sit still: 0 = Not at all Becoming easily annoyed or irritable: 0 = Not at all Feeling afraid as if something awful might happen: 0 = Not at all Total FLOWER-7 score (0-4 normal; 5-9 mild; 10-14 moderate; 15-21 severe): 0 Source: Developed by Drs. Josh Vivar, Becka Holder, Ernie Aguilera and colleagues, with an educational brigette from [employer]. Physical exam (Primary Care) Vital Signs: Last Vital Signs Pulse 84 01/31/24 09:26 BP 118/80 01/31/24 09:26 Pulse Ox 97 01/31/24 09:26 Oxygen Delivery Method Room Air 01/31/24 09:26 BMI result Body Mass Index 28.7 Tobacco/Smoking Status: Tobacco use Status Tobacco use date assessed 07/25/23 01/31/24 09:30 Patient Tobacco Use Status Never used Tobacco 01/31/24 09:30 e-Cigarette/Vaping Use Never Used 01/31/24 09:30 PHQ-9: PHQ-9 Score PHQ-9: Total score 0 01/31/24 09:42 Thrive Assessment: Date of Thrive Assessment Date Thrive assessed 01/31/24 01/31/24 09:30 Currently or been in a relationship where the following occur: No concerns reported Const General: alert; No acute distress Eyes Conjunctivae: conjunctivae normal Resp Auscultation: clear to auscultation bilaterally Cardio Rate: regular rate Rhythm: regular rhythm GI Inspection: Yes normal to inspection Extrem General: Yes normal to inspection and No edema Office Procedures Flu Questionnaire Does the patient have a severe egg allergy?: No Immunizations Fluarix Triv [id number] (PF) 45 mcg (15 mcg x 3)/0.5 mL IM syringe Performing Provider: Willard Jerome MD [facility] [place] [facility] Documented (not given) by: KAVITA Soto on 01/31/24 09:56 Reason Not Given: Not Given Coding Level of Care Code Est Pt Level 4 (91190) Diagnoses Hx of breast cancer Z85.3 Hypercholesterolemia E78.00 Overweight (BMI 25.0-29.9) E66.3 Palpitations R00.2 Assessment & Plan Assessment & Plan (1) Hx of breast cancer: Comment: March 2010 right modified radical mastectomy 1.5 cm grade 3 infiltrating ductal carcinoma with lymphovascular invasion estrogen and progesterone receptors negative but HER/abraham (+) 1 of 11 axillary nodes positive for Mets adeno CA 4.5 cm identified on MRI Code(s): Z85.3 - Personal history of malignant neoplasm of breast Category: Medical Plan: Patient continues to follow-up with Hematology-Oncology in up-to-date with mammogram. (2) Hypercholesterolemia: Code(s): E78.00 - Pure hypercholesterolemia, unspecified Category: Medical Plan: Avoid fried foods, chicken skin, eggs, butter margarine, pastries and meat. Be it pork or beef they have a lot of cholesterol LDL goal of less than 130 and triglyceride of less than 150. Patient declines any cholesterol medication (3) Overweight (BMI 25.0-29.9): Code(s): E66.3 - Overweight Category: Medical Plan: Diet and exercise (4) Palpitations: Code(s): R00.2 - Palpitations Category: Medical Plan: Patient was in the emergency room for this workup has been negative. Patient is scheduled to see Cardiology today Orders: Orders Influenza [id number] Immunization Today Z23 - Encounter for immunization Medications: New Fluarix Triv [id number] (PF) (flu vacc [id number] 6mos up(PF)) 0.5 mL IM ONCE 0.5 mL 0RF NS Z23 - Encounter for immunization
[2024-01-31 09:26] VITALS: BP 118/80; PULSE 84; O2SAT 97; BMI 28.7
== END 2024-01-31 09:53 | disposition home or self-care (01) ==
PROVIDERS: PCP Internal Medicine; Visit Provider Internal Medicine
DX: Z23 Encounter for immunization (principal)

== ENCOUNTER → 2024-01-31 09:22 | Outpatient (BNVA) | payer MEDICARE, SELFPAY | PROVIDERS: PCP Internal Medicine; Visit Provider Internal Medicine | DX: R00.2 Palpitations (principal); R06.02 Shortness of breath; E78.00 Pure hypercholesterolemia, unspecified; E66.3 Overweight; Z85.3 Personal history of malignant neoplasm of breast | CPT/HCPCS: 90471; 99212 ==

== ENCOUNTER 2024-01-31 13:22 | Outpatient (AMB) | payer MEDICARE, SELFPAY ==
--- NOTE | 2024-01-31 13:23 | MHC.OFFVIS ---
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 hearing problem poison teresa extract [POISON TERESA] Allergy (Severe, Verified 01/31/24 09:27) SEVERE RASH Penicillins [PENICILLINS] Allergy (Unknown, Verified 01/31/24 09:27) RASH Medication List - Last Reconciled 01/31/24 by Duy Esteves MD betamethasone valerate 0.1% 1 appl topical TID PRN calcium carbonate 600 mg PO DAILY cholecalciferol (vitamin D3) 50 mcg PO DAILY estradiol 0.01%(0.1mg/gram) (Estrace) pea sized amount per urethra daily; 30 days fluconazole (Diflucan) 100 mg PO DAILY PRN folic acid 1 mg PO DAILY garlic 50 mg PO DAILY inositol 4 tabs PO DAILY mastectomy bra (bra, mastectomy) As Directed mastectomy bra (bra, mastectomy) As Directed [PROBIOTIC 2 caps PO BID] Prosthesis, breast (Breast prosthesis) As Directed HPI Comments Details: Thank you for referring Keiry in cardiology consultation today for shortness of breath and palpitation. She is a pleasant 68-year-old female with possible mild thoracic aortic enlargement, question atrial fibrillation by EKG many years ago, no recurrence since then, breast cancer status post treatment. Most recent echocardiogram from last year showed normal LV systolic function and normal cardiac valvular Dopplers with maybe trivial mitral regurgitation. Patient is concerned about her heart health. Recently she said when she was walking in hot weather she had developed shortness of breath and subsequently a vagal reaction. She says she has had vasovagal reaction after blood draws and has had syncopal episodes related to it. She was also started noticing orthostatic lightheadedness especially when she gets up suddenly at nighttime. She drinks about a L of water a day. Does not much liberalize salt. Her she started noticing significant symptoms of skipped heartbeats and strong heartbeats, she calls them PVCs although there has been never been a diagnosis. She denies any prolonged irregular heartbeat or palpitations. No exertional chest pain. No orthopnea, PND, leg edema. [facility] Medical History Abdominal pain Yeast infection involving the vagina and surrounding area Esophagitis Epigastric abdominal pain Dysuria Right lower quadrant pain Neck pain Fatigue Osteoarthritis Vitamin B12 deficiency Hypercholesterolemia Overweight (BMI 25.0-29.9) Ascending aorta dilatation Immunodeficiency disorder Irritable bowel syndrome Anxiety Anemia Hx of breast cancer Surgical History H/O rotator cuff surgery History of colonoscopy History of arthroscopy of left knee Hx of tubal ligation Hx of section Hx of mastectomy Family History Mother Diabetes Arthritis Father HTN (hypertension) Dementia COPD (chronic obstructive pulmonary disease) Skin cancer Maternal Grandfather Glaucoma Social History Household Members: Spouse Housing: Apartment Are you a primary home health care physician to a significant other at home: No Do you presently have visiting nurse or other home services: No Alcohol intake: current Alcohol intake frequency: does not drink Patient Tobacco Use Status: Never used Tobacco Years Smoked: history of marijuana uses e-Cigarette/Vaping Use: Never Used Second Hand Smoke Exposure: No service: No Current occupational status: retired Sexual orientation: Straight/Heterosexual Gender identity: Female Cognitive needs: No Hearing needs: No Vision needs: Yes (glasses) Review of Systems Const Denies chills, Denies daytime sleepiness, Denies fatigue, Denies fever(s), Denies frequent falls, Denies poor appetite, Denies snoring, Denies stops breathing during sleep, Denies weakness, Denies weight gain and Denies weight loss Eyes Denies loss of vision ENT Denies dizziness and Denies hearing loss Card Denies chest pain, Denies claudication, Denies leg edema, Denies lightheadedness, Denies palpitations, Denies dyspnea, Denies dyspnea on exertion and Denies orthopnea Resp Denies cough, Denies excessive phlegm production, Denies dyspnea, Denies dyspnea on exertion, Denies snoring and Denies wheezing GI Denies abdominal pain, Denies hematochezia, Denies change in bowel habits, Denies nausea and Denies vomiting Denies urinary frequency and Denies dysuria Musc Denies arthralgias, Denies muscle weakness, Denies numbness and Denies other (frequent falls) Skin/Breast Denies nail changes and Denies rash Neuro Denies Abnormal speech present, Denies dizziness, Denies frequent falls, Denies loss of vision, Denies memory loss, Denies numbness and Denies weakness Psych Denies depression and Denies memory loss Endo Denies fatigue and Denies palpitations Robert/Lymph Reports easy bruising and Reports other (anemia) Aller/Immun Denies wheezing Physical Exam Vital Signs: Last Vital Signs Pulse 68 01/31/24 13:24 BP 122/68 01/31/24 13:24 BMI result Body Mass Index 29.1 Const General: cooperative, comfortable, no acute distress, alert and awake Nutritional Appearance: average body habitus Orientation/consciousness: patient oriented x3 Limitations: no limitations HEENT Head: Yes normocephalic and Yes atraumatic Neck Neck: Yes trachea midline, Yes supple and Yes no JVD Resp Effort & Inspection: normal respiratory effort Auscultation: clear to auscultation bilaterally Cardio Jugular venous distension: no JVD Palpation: normal PMI Rate: regular rate Rhythm: regular rhythm Heart sounds: S1 normal heart sound present, S2 normal heart sound present, no click, no gallops, no murmurs and no rubs GI Percussion: Yes normal to percussion Skin General skin exam: no rashes or lesions noted Neuro General: patient oriented x3 and no focal motor deficits Speech: No Abnormal speech present Extrem General: Yes no clubbing, cyanosis or edema Psych Appearance: grossly normal Assessment & Plan Assessment & Plan (1) Palpitations: Code(s): R00.2 - Palpitations Category: Medical Plan: Patient with symptoms of palpitation which are highly symptomatic although happening sporadically. Symptoms are not frequent. However she is bothered by the symptoms. Will suggest a treadmill stress test, see below to assess for structural heart disease. Her echocardiogram does not show any significant LV systolic RV systolic dysfunction. Most likely PACs or PVCs. However will obtain to week Holter monitor to further assess for it. She has had reported history of atrial fibrillation although there has been no clinical recurrence. Two week Holter monitor should further elucidate if any occurrence of atrial fibrillation. (2) SOB (shortness of breath) on exertion: Code(s): R06.02 - Shortness of breath Category: Medical Plan: Shortness of breath on exertion with normal echocardiogram. Myocardial ischemia needs to be ruled out. Will suggest a stress echocardiogram to assess for the same. Further treatment based on the finding. Will follow up in the clinic otherwise in 1 year's time, sooner p.r.n.. Medications: Changed From fluconazole (Diflucan) 100 mg PO DAILY 7 tabs 4RF To fluconazole (Diflucan) 100 mg PO DAILY PRN Coding Level of Care Code New Pt Level 4 (80157) Diagnoses Palpitations R00.2 SOB (shortness of breath) on exertion R06.02
[2024-01-31 13:24] VITALS: BP 122/68; PULSE 68; BMI 29.1
== END 2024-01-31 14:04 | disposition home or self-care (01) ==
PROVIDERS: PCP Internal Medicine; Visit Provider Internal Medicine Cardiovascular Disease
DX: R00.2 Palpitations (principal); R06.02 Shortness of breath
CPT/HCPCS: 99213

== ENCOUNTER 2024-02-02 07:51 | Outpatient (REF) | payer MEDICARE, SELFPAY ==
[2024-02-02 08:14] LABS: MANUAL DIFF FLAG NO
[2024-02-02 08:39] LABS: Basophils Absolute Auto 0.1 X10*3/uL (0.0-0.2); Eosinophils Absolute Auto 0.1 X10*3/uL (0.0-0.4); Eosinophils Percent Auto 1.8 % (0-4); Hematocrit 38.3 % (37.0-47.0); Hemoglobin 12.3 g/dl (12.0-16.0); Imm Gran Abs Auto 0.03 X10*3/uL (0.00-0.03); Imm Gran Pct Auto 0.6 % (0.0-0.4); Lymphocytes Absolute Auto 1.7 X10*3/uL (1.2-4.9); Lymphocytes Percent Auto 33.6 % (20-40); Mean Corpuscular HGB Conc 32.1 g/dl (31.0-35.0); Mean Platelet Volume 10.3 fL (9.4-12.3); Monocytes Absolute Auto 0.5 X10*3/uL (0.1-1.2); Monocytes Percent Auto 9.4 % (2-11); Neutrophils Absolute Auto 2.7 x10*3/uL (2.0-8.3); Neutrophils Percent Auto 53.6 % (45-73); Platelet Count 246 X10*3/uL (160-400); Red Cell Distribution Width 13.4 % (11.0-16.0); White Blood Count 5.1 X10*3/uL (4.8-10.8)
[2024-02-02 09:18] LABS: Alanine Aminotransferase 11 U/L (0-31); Albumin Level 4.4 g/dL (3.5-5.0); Alkaline Phosphatase 77 U/L (39-117); Anion Gap 12 (12-20); Aspartate Amino Transferase 15 U/L (5-31); Bilirubin Total 0.6 mg/dL (0.0-1.0); Blood Urea Nitrogen 12 mg/dL (9-16); Calcium 9.5 mg/dL (8.4-10.2); Carbon Dioxide 26 mmol/L (22-29); Chloride 107 mmol/L (96-108); Cholesterol 250 mg/dL (<200); Estimated Glomerular Filt Rate > 60; Glucose Random 89 mg/dL (60-115); HDL Cholesterol 94 mg/dL (>40); LDL Cholesterol Calculated 140 mg/dL (<100); Magnesium 2.1 mg/dL (1.6-2.6); Phosphorus 3.8 mg/dL (2.7-4.5); Potassium 4.1 mmol/L (3.3-5.1); Sodium 141 mmol/L (135-145); Total Protein 7.4 g/dL (6.5-8.0); Triglycerides 82 mg/dL (<150)
[2024-02-02 09:25] LABS: Free T4 (Free Thyroxine) 0.97 ng/dL (0.71-1.85); Thyroid Stimulating Hormone 3.96 uIU/mL (0.32-4.0)
[2024-02-02 09:36] LABS: Folate 9.9 ng/mL (> or = 4.0); Vitamin B12 377 pg/mL (200-900)
== END 2024-02-02 07:52 | disposition home or self-care (01) ==
LOC: HO.LAB 07:51
PROVIDERS: PCP Internal Medicine; Visit Provider Internal Medicine
DX: Z23 Encounter for immunization (principal); E78.00 Pure hypercholesterolemia, unspecified
CPT/HCPCS: 36415; 80053; 80061; 82607; 82746; 83735; 84100; 84439; 84443; 85025; 90471; 90656

== ENCOUNTER 2024-02-02 10:13 | Outpatient (AMB) | payer MEDICARE, SELFPAY ==
--- NOTE | 2024-02-02 10:18 | AM.OFFVISNUR ---
Intake Visit Reasons: flu shot Allergies doxycycline [DOXYCYCLINE] Allergy (Severe, Verified 01/31/24 09:27) UNKNOWN, ? hearing problem poison teresa extract [POISON TERESA] Allergy (Severe, Verified 01/31/24 09:27) SEVERE RASH Penicillins [PENICILLINS] Allergy (Unknown, Verified 01/31/24 09:27) RASH Office Procedures Flu Questionnaire Does the patient have a severe egg allergy?: No Does the patient have severe life threatening allergies?: No Does the patient have a fever or illness today?: No Has the patient ever had Guillain-Coram Syndrome?: No Has the patient ever had any past reaction to a flu shot?: No Assessment & Plan Assessment & Plan Orders: Orders Influenza [id number] Immunization Today Z23 - Encounter for immunization Medications: New Fluarix Triv [id number] (PF) (flu vacc [id number] 6mos up(PF)) 0.5 mL IM ONCE 0.5 mL 0RF NS Z23 - Encounter for immunization
== END 2024-02-02 10:20 | disposition home or self-care (01) ==
PROVIDERS: PCP Internal Medicine; Visit Provider Internal Medicine
DX: Z23 Encounter for immunization (principal)

== ENCOUNTER → 2024-03-25 10:55 | Outpatient (REF) | payer MEDICARE, SELFPAY ==
--- NOTE | 2024-03-25 11:00 | HM_ITS ---
* Total monitoring time 4 days. * Underlying rhythm is sinus with an average rate of 71/Min. * Rare supraventricular ectopy. * Rare ventricular ectopy. * No significant pauses or high-grade AV blocks. * Patient markers used with and without arrhythmia. * Diary symptoms of PVC related to PACs, PVC MTDD
--- NOTE | 2024-03-25 11:00 | CA_ITS ---
Acquisition Time: 2024-03-25 11:20:01 Total Exercise Time: 00:01:54 Test Indications: sob, palputations Medications: see h Protocol: MADIHA Max HR: 164 BPM 108% of Pred: 151 BPM Max BP: 152/080 mmHG Max Work Load: 4.3 METS Exercise stress Test with exercise 1 min 54 secs of Madiha Protocol, achieving 107% MPHR, with request to stop due to fatigue, with isolated PVCs and atrial runs, brief, with normotensive and brisk chronotropic response to exercise, without EKG changes meeting criteria for ischemia. Echo images obtained by tech at rest and immediately post peak exercise. Definity contrast used. Test reviewed with Dr. Schmitz. Referred By: Duy Esteves Overread By: PANDA SHELTON
== END ==
LOC: HO.CARD 10:55
PROVIDERS: PCP Internal Medicine; Visit Provider Internal Medicine Cardiovascular Disease
DX: R00.2 Palpitations (principal)
CPT/HCPCS: 93246; 93350; Q9957

== ENCOUNTER → 2024-03-25 11:00 | Outpatient (BNV) | payer MEDICARE, SELFPAY | PROVIDERS: PCP Internal Medicine; Visit Provider Nurse Practitioner Family | DX: I49.3 Ventricular premature depolarization (principal); I49.1 Atrial premature depolarization | CPT/HCPCS: 93016; 93018; 93244; 93350; 93352 ==

== ENCOUNTER 2024-05-23 09:22 | Outpatient (AMB) | payer MEDICARE, SELFPAY ==
--- NOTE | 2024-05-23 09:28 | A.OFFPC_ITS ---
Vital Signs 05/23/24 09:30 Height 5 ft 4 in Weight 174 lb BMI 29.9 BP 110/68 Blood Pressure Location Lt brachial Position Sitting Pulse 81 Pulse Source Pulse Oximeter Temp 97.1 F Temp Source Skin Pulse Oximetry (%) 96 Oxygen Delivery Method Room Air Intake Visit Reasons: Lower Back Pain after Chiro visit Intake Note: Patient is here to follow up on lower back pain after Chiropractor visit. Housing And Residence Life Director Required: No Rail Signal Designer: Not Required per policy Accompanied by: Self / Same As Patient Allergies doxycycline [DOXYCYCLINE] Allergy (Severe, Verified 05/23/24 09:29) UNKNOWN, ? hearing problem poison teresa extract [POISON TERESA] Allergy (Severe, Verified 05/23/24 09:29) SEVERE RASH Penicillins [PENICILLINS] Allergy (Unknown, Verified 05/23/24 09:29) RASH Medication List - Last Reconciled 05/23/24 by Paula Taveras PA-C betamethasone valerate 0.1% 1 appl topical TID PRN calcium carbonate 600 mg PO DAILY cholecalciferol (vitamin D3) 50 mcg PO DAILY estradiol 0.01%(0.1mg/gram) (Estrace) pea sized amount per urethra daily; 30 days fluconazole (Diflucan) 100 mg PO DAILY PRN folic acid 1 mg PO DAILY garlic 50 mg PO DAILY inositol 4 tabs PO DAILY mastectomy bra (bra, mastectomy) As Directed mastectomy bra (bra, mastectomy) As Directed [PROBIOTIC 2 caps PO BID] Prosthesis, breast (Breast prosthesis) As Directed Tobacco use date assessed: 05/23/24 Fall risk assessment: No Falls in past year Last assessed Fall Risk: 05/23/24 Dental Screening Dental Screen Date: 05/23/24 Did you have a dental visit in the last 12 months?: Yes Did you have a dental problem in the last 6 months where you did not have access to dental care?: No Was dental information given to patient?: Patient has dentist HPI Lower Back Pain after Chiro visit HPI Details 69-year-old female with past medical his tory of breast cancer (right mastectomy 03/2010), hypercholesterolemia, osteopenia seen 01/[address] Jerome coming in for acute problem.? In review of the notes, patient was seen by Cardiology 01/2024 shortness of breath and palpitations recommending 2 week Holter monitor and exercise stress test.? Stress test was completed 03/2024 was normal, Holter monitor was also normal. Patient tells us today she has been going to the chiropractor for the last 30 years without issue. Three weeks ago she had an adjustment from a different chiropractor than she normally sees and they did a hip and low back adjustment. Since the adjustment she has been having low back pain that radiates to the right hip and down the right leg. She does have a history of osteopenia and is concerned about possible fracture. She was seen by her routine chiropractor after this adjustment and was informed he did not do the adjustment appropriately. She has been unable to walk because it irritates the low back pain since the adjustment. [facility] Medical History Abdominal pain Yeast infection involving the vagina and surrounding area Esophagitis Epigastric abdominal pain Dysuria Right lower quadrant pain Neck pain Fatigue Osteoarthritis Vitamin B12 deficiency Hypercholesterolemia Overweight (BMI 25.0-29.9) Ascending aorta dilatation Immunodeficiency disorder Irritable bowel syndrome Anxiety Anemia Hx of breast cancer Surgical History H/O rotator cuff surgery History of colonoscopy History of arthroscopy of left knee Hx of tubal ligation Hx of section Hx of mastectomy Family History Mother Diabetes Arthritis Father HTN (hypertension) Dementia COPD (chronic obstructive pulmonary disease) Skin cancer Maternal Grandfather Glaucoma Social History (Updated 05/23/24 @ 09:34 by KAVITA Brush) Household Members: Spouse Housing: Apartment Are you a primary resident care spec to a significant other at home: No Do you presently have visiting nurse or other home services: No Alcohol intake: current Alcohol intake frequency: holidays/special occasions only Patient Tobacco Use Status: Never used Tobacco Years Smoked: history of marijuana uses e-Cigarette/Vaping Use: Never Used Second Hand Smoke Exposure: No service: No Current occupational status: retired Sexual orientation: Straight/Heterosexual Gender identity: Female Cognitive needs: No Hearing needs: No Vision needs: Yes (glasses) Questionnaire PHQ-9 Over the last 2 weeks, how often have you been bothered by any of the following problems? 1. Little interest or pleasure in doing things: not at all 2. Feeling down, depressed, or hopeless: not at all 3. Trouble falling or staying asleep, or sleeping too much: not at all 4. Feeling tired or having little energy: not at all 5. Poor appetite or overeating: not at all 6. Feeling bad about yourself - or that you are a failure or have let yourself or your family down: not at all 7. Trouble concentrating on things, such as reading the newspaper or watching television: not at all 8. Moving or speaking so slowly that other people could have noticed. Or the opposite - being so fidgety or restless that you have been moving around a lot more than usual: not at all 9. Thoughts that you would be better off or of hurting yourself in some way: not at all Total score: 0 Depression Screening Interpretation: Negative Depression Screening Done: Yes Source: Developed by Drs. Josh Vivar, Becka Holder, Ernie Aguilera and colleagues, with an educational brigette from [employer]. Thrive Questionnaire Date Thrive assessed: 05/23/24 I am a: Patient What is your living situation today?: I have a steady place to live Within the past 12 months, did the food you bought not last and you didn't have the money to get more?: Never true Within the past 12 months, did you worry whether your food would run out before you got money to buy more?: Never true Do you have trouble paying for medicines?: No Do you have trouble getting transportation to medical appointments?: No Do you have trouble paying your heating and electricity bill?: No Do you have trouble taking care of your child, family member or friend?: No Do you have trouble with day-to-day activities such as bathing, preparing meals, shopping, managing finances, etc.?: No Are you currently unemployed and looking for a job?: No Are you interested in more education?: No Please select the resources that you would like help with: None Currently or been in a relationship where the following occur: No concerns r eported THRIVE Score: 0 AUDIT C Alcohol Use Questionnaire (AUDIT-C) 1. How often do you have a drink containing alcohol?: Never Total Score: 0 FLOWER-7 AMB Questionnaire FLOWER-7 Date FLOWER - 7 assessed: 05/23/24 Feeling nervous, anxious, or on edge: 0 = Not at all Not being able to stop or control worryin = Not at all Worrying too much about different things: 0 = Not at all Trouble relaxin = Not at all Being so restless that it is hard to sit still: 0 = Not at all Becoming easily annoyed or irritable: 0 = Not at all Feeling afraid as if something awful might happen: 0 = Not at all Total FLOWER-7 score (0-4 normal; 5-9 mild; 10-14 moderate; 15-21 severe): 0 Source: Developed by Drs. Josh Vivar, Becka Holder, Ernie Aguilera and colleagues, with an educational brigette from [employer]. Review of Systems Const Denies body aches, Denies chills, Denies fever(s) and Denies poor appetite Eyes Reports no additional complaints ENT Reports no additional complaints Card Denies chest pain and Denies dyspnea Resp Denies dyspnea GI Details: No involuntary loss of stool Denies abdominal pain, Denies constipation, Denies diarrhea, Denies nausea and Denies vomiting Details: No involuntary loss of urine Musc Reports abnormal gait and Reports back pain (Radiates to right hip and down right leg) Skin/Breast Reports system reviewed and no additional complaints, except as documented Neuro Reports abnormal gait Psych Reports no additional complaints Physical exam (Primary Care) Vital Signs: Last Vital Signs Temp 97.1 F 05/23/24 09:30 Pulse 81 05/23/24 09:30 BP 110/68 05/23/24 09:30 Pulse Ox 96 05/23/24 09:30 Oxygen Delivery Method Room Air 05/23/24 09:30 BMI result Body Mass Index 29.9 Tobacco/Smoking Status: Tobacco use Status Tobacco use date assessed 05/23/24 05/23/24 09:35 Patient Tobacco Use Status Never used Tobacco 05/23/24 09:35 e-Cigarette/Vaping Use Never Used 05/23/24 09:35 PHQ-9: PHQ-9 Score PHQ-9: Total score 0 05/23/24 09:35 Depression Screening Interpretation: Negative Thrive Assessment: Date of Thrive Assessment Date Thrive assessed 05/23/24 05/23/24 09:35 Currently or been in a relationship where the following occur: No concerns reported Const General: cooperative, healthy appearing, comfortable and no acute distress Orientation/consciousness: patient oriented x3 HENMT Head: Yes normocephalic Ears: hearing grossly normal bilaterally General nose exam: Normal external nose present Eyes General: appearance normal, both eyes and all related structures Conjunctivae: conjunctivae normal Neck Neck: Yes full ROM and Yes no lymphadenopathy Resp Effort & Inspection: normal respiratory effort Auscultation: clear to auscultation bilaterally, no crackles, no rales, no rhonchi and no wheezes Cardio Rate: regular rate Rhythm: regular rhythm Back/Spine/Pelvis Other: Very mild tenderness to palpation over lumbar spine Skin General skin exam: no rashes or lesions noted Neuro General: patient oriented x3 Gait exam (Neuro): Normal gait present Extrem General: Yes normal to inspection, Yes full ROM and No edema Psych Affect: normal affect Attitude: cooperative Insight: Good insight present (Psych) Judgement: Good judgement present (Psych) Coding Level of Care Code Est Pt Level 3 (21493) Diagnoses Right hip pain M25.551 Low back pain M54.50 Assessment & Plan Assessment & Plan (1) Right hip pain: Code(s): M25.551 - Pain in right hip Category: Medical Plan: Patient having right hip pain since adjustment by chiropractor. We will order for hip x-ray to look for fracture. Advised patient if x-ray is negative likely muscular or nerve irritation to use heating pads, Tylenol and ibuprofen as needed for pain. (2) Low back pain: Code(s): M54.50 - Low back pain, unspecified Category: Medical Plan: Patient complaining of low back pain since chiropractor adjustment. She does have a history of osteopenia and is concerned for acute fracture. Ordered for lumbar spine x-ray for further evaluation. Advised patient if x-ray is negative likely muscular or nerve irritation to use heating pads, Tylenol and ibuprofen as needed for pain and activity as tolerated. Plan This note was constructed using voice recognition software. While every effort has been made to ensure accuracy and hydraulic modeling engineer, still areas may have been included sometimes these areas may affect the content or meeting of the given symptoms. Total time spent caring for the patient today was 20 minutes. This includes time spent before the visit reviewing the chart, time spent during the visit, and time spent after the visit and documentation. Orders: Orders XR hip RT min 2V Today M25.551 - Pain in right hip XR lumbar spine 2-3V Today M54.50 - Low back pain, unspecified
[2024-05-23 09:30] VITALS: BP 110/68; PULSE 81; TEMP 36.2; O2SAT 96; BMI 29.9
== END 2024-05-23 10:01 | disposition home or self-care (01) ==
PROVIDERS: PCP Internal Medicine
DX: M25.551 Pain in right hip (principal); M54.50 Low back pain, unspecified

== ENCOUNTER 2024-05-23 09:22 | Outpatient (REF) | payer MEDICARE, SELFPAY ==
--- NOTE | ~2024-05-23 | XR_ITS ---
EXAMINATION: XR HIP, RIGHT CLINICAL INFORMATION: M25.551 - Pain in right hip COMPARISON: None available. Correlation made with CT abdomen and pelvis 06/22/2021. TECHNIQUE: Two views of the right hip. FINDINGS: Normal bone mineralization. No fracture, dislocation, or suspicious bone lesion. Normal alignment of the right hip joint. Mild changes of osteoarthrosis within the right hip joint without significant joint space loss. Femoral head is normal in contour without evidence of AVN. Mild enthesopathy of the greater trochanter, and more significant enthesopathy of the gluteal insertions upon the iliac bone. No soft tissue abnormalities. XR/XR hip RT min 2V IMPRESSION: 1. No acute findings right hip. Mild osteoarthrosis. 2. Right Gluteal and greater trochanter enthesopathy. Electronically signed by: Mark Damico MD 05/23/2024 11:07 AM [facility]
--- NOTE | ~2024-05-23 | XR_ITS ---
EXAMINATION: XR LUMBOSACRAL SPINE CLINICAL INFORMATION: M54.50 - Low back pain, unspecified COMPARISON: None available. Correlation made with CT abdomen and pelvis 06/22/2021. TECHNIQUE: Three views of the lumbosacral spine. FINDINGS: There is normal bone mineralization. No fracture, compression deformity, subluxation, or suspicious bone lesion. There is a minimal right convex scoliosis of the thoracolumbar junction. There is a normal lordosis. There is normal sagittal alignment. Minimal disc space degeneration diffusely, most significant at L5-S1. Normal facet alignment. No pars defects. Mild facet degeneration L4-S1. Sacrum appears intact with SI joint mild degenerative changes. No soft tissue abnormalities. XR/XR lumbar spine 2-3V IMPRESSION: 1. No acute findings of the lumbar spine. 2. Mild degenerative spondylosis. Electronically signed by: Mark Damico MD 05/23/2024 11:09 AM [facility]
== END 2024-05-23 09:23 | disposition home or self-care (01) ==
LOC: HO.XRAY 09:22
PROVIDERS: PCP Internal Medicine
DX: M25.551 Pain in right hip (principal); M54.50 Low back pain, unspecified
CPT/HCPCS: 72100; 73502; 96127; 99212

== ENCOUNTER 2024-05-31 10:10 | Outpatient (REF) | payer MEDICARE, SELFPAY ==
--- OUTSIDE RECORDS SUMMARY | 2024-05-31 10:50 | XMS_ITS | Encounter Summary ---
Author Organization [facility] Address [phone] [place] [address] Care Team Providers Care Missing Persons Investigator Name Role Phone Jackeline Bourne APPAREL SALES LEADER Unavailable [phone] Willard Jerome MD Primary Care Provider [phone] Encounter Details Date Type Department Care Team (Late st Contact Info) Description 01/16/2020 Ancillary Orders [facility],Outside Imaging [address] [place] [address] System, Provider Not In, PhD Partners [address] [address] Social History Tobacco Use Types Packs/Day Years Used Date Smoking Tobacco: Never Assessed Sex and Gender Information Value Date Recorded Sex Assigned at Not on file Gender Identity Not on file Sexual Orientation Not on file documented as of this encounter Plan of Treatment Not on file documented as of this encounter Results * XR SPINE OUTSIDE(NO INTERPRETATION) (12/19/2019 12:00 AM EDT) Narrative SYSTEMGENERATED, DOCUMENTATION - 01/16/2020 1:50 PM EDT This study is for PACS storage only and not for interpretation. Provider Not In System PhD IMG OUTSIDE I MARIUSZ W/OUT INTERPRETATION documented in this encounter Visit Diagnoses Not on filedocumented in this encounter Care Teams Missing Persons Investigator Relationship Specialty Start Date End Date Willard Jerome MD [address] [place] [address] PCP - General 12/27/19 Jackeline Bourne NP [facility] [place] [phone] Historical LMR Provider 02/15/17 2 documented as of this encounter Additional Source Comments The information contained in this document represents components of the legal health record. It is not the complete legal health record.[facility]
--- OUTSIDE RECORDS SUMMARY | 2024-05-31 10:50 | XMS_ITS | Encounter Summary ---
Author Organization [facility] Address [phone] [facility] [place] [address] Care Team Providers Care Refinery Process Engineer Name Role Phone StefefnJackeline Damir ERVIN Unavailable [phone] PoWillard MD Primary Care Provider [phone] Encounter Details Date Type Department Care Team (Latest Contact Info) Description 07/27/2020 Ancillary Orders Virtual Department [address] [place] [address] Jo Ann Romo NP [address] [address] [email or web address] Pain in both hands; Hx of osteoarthritis Social History Tobacco Use Types Packs/Day Years Used Date Smoking Tobacco: Never Smokeless Tobacco: Never Sex and Gender Information Value Date Recorded Sex Assigned at Not on file Gender Identity Not on file Sexual Orientation Not on file documented as of this encounter Plan of Treatment Not on file documented as of this encounter Results * XR HAND 3 OR MORE VIEWS (BILATERAL) (07/28/2020 11:30 AM EDT) Anatomical Region Laterality Modality Hand Left Computed Radiogr aphy 07/28/2020 11:3 8 AM EDT Impressions 07/28/2020 11:39 AM EDT Moderate diffuse osteopenia without evidence of arthritis. Narrative 07/28/2020 11:39 AM EDT HISTORY: ??As above. COMPARISON: None. BILATERAL HAND RADIOGRAPH FINDINGS: 3 images obtained of each hand. Moderate diffuse osteopenia. No fracture or malalignment. Joint spaces are preserved. No erosions, destructive or suspicious bone lesions. No soft tissue swelling. Procedure Note Mao Starks MD - 07/28/2020 HISTORY: As above. COMPARISON: None. BILATERAL HAND RADIOGRAPH FINDINGS: 3 images obtained of each hand. Moderate diffuse osteopenia. No fracture or malalignment. Joint spaces arepreserved. No erosions, destructive or suspicious bone lesions. No softtissue swelling. IMPRESSION: Moderate diffuse osteopenia without evidence of arthritis. Jo Ann Romo NP IMG XR UPPER EXTREMI TY documented in this encounter Visit Diagnoses Diagnosis Pain in both hands Hx of osteoarthritis Pain in both hands Hx of osteoarthritis documented in this encounter Care Teams Refinery Process Engineer Relationship Specialty Start Date End Date Po, Willard Nash MD [address] [place] [address] PCP - General 12/27/19 Jackeline Bourne NP [address] [place] [phone] Historical LMR Provider 02/15/17 2 documented as of this encounter Additional Source Comments The information contained in this document represents components of the legal health record. It is not the complete legal health record.[facility]
--- OUTSIDE RECORDS SUMMARY | 2024-05-31 10:51 | XMS_ITS | Clinical Summary ---
Author Organization [facility] Address [phone] [facility] [place] [address] Care Team Providers Care Librarian Head Name Role Phone Willard Jerome MD Primary Care Provider [phone] Allergies Active Allergy Reactions Criticality Noted Date Comments Doxycycline Hyclate 09/29/2021 Penicillins Rash Medium 01/15/2020 Medications Medication Sig Dispensed Refills Start Date End Date Status Medication-Free TextIndications:Katelynn da peritonitis,Candex Take 1 capsule by mouth daily. Pure justin OTC Indications: Justin yeast infection of abdominal cavity lining, Candex Active folic acid (FOLVITE) 1 MG tablet Take 1 mg by mouth daily. Active ascorbic acid, vitamin C, (VITAMIN C) 250 MG tablet Take 250 mg by mouth daily. Active Medication-Free Text Take 4 capsules by mouth daily. Bone Grow Calcium + Vit C, D, K, Magnesium Active cholecalciferol (VITAMIN D3) 2,000 unit capsule Take 4,000 Units by mouth 2 (two) times a day. Active Medication-Free TextIndications:Promo wesly T cells Take 2 capsules by mouth 2 (two) times a day. IP-6 + Inositol Indications: Promotes T cells Active acetaminophen (TYLENOL) 325 mg tablet Take 650 mg by mouth every 6 (six) hours as needed for mild pain. 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 Not on alexx e 08/26/2022 Are you concerned about learning? Not on file 08/26/2022 No 08/26/2022 No 08/26/2022 Digital Access Answer Date Recorded No 09/24/2022 No 09/24/2022 No 09/24/2022 Reliable internet access at home? Not on file 09/24/2022 Device with a working camera? Not on file Sex and Gender Information Value Date Recorded Sex Assigned at Not on file Gender Identity Not on file Sexual Orientation Not on file Last Filed Vital Signs Vital Sign Reading Time Taken Comments Blood Pressure 128/76 03/14/2013 3:10 AM EST Pulse 84 03/14/2013 3:10 AM EST Temperature - - Respiratory Rate - - Oxygen Saturation - - Inhaled Oxygen Concentration - - Weight 72.1 kg (159 lb) 09/29/2021 11:23 AM EDT Height 162.6 cm (5' 4 ) 09/29/2021 11:23 AM EDT Body Mass Index 27.29 09/29/2021 11:23 AM EDT Plan of Treatment Health Maintenance Due Date Last Done Comments LIPID PANEL 1955 DEPRESSION SCREENING 1967 HEPATITIS B SCREENING 1973 HEPATITIS C SCREENING 1973 SCREENING FOR DIABETES 1990 MAMMOGRAM 1995 COLOGUARD 2000 FIT TEST 2000 FOBT 2000 SIGMOIDOSCOPY 2000 VIRTUAL COLONOSCOPY 2000 PNEUMOCOCCAL VACCINES (50+ years) (1 of 1 - PCV) 2005 ZOSTER VACCINES (1 of 2) 2005 OSTEOPOROSIS SCREENING INITI AL (ONE-TIME) 2020 INFLUENZA VACCINE (#1) 2023 0, 02/22/2019 COVID-19 VACCINE (3 - 2023-2 5 season) 2023 07/24/2020, 07/03/2020 COLONOSCOPY 02/06/2029 02/06/2019 COLORECTAL CANCER SCREENING 02/06/2029 Adult Td,Tdap Booster 12/17/2029 12/18/2019 , 11/28/2019 RSV VACCINE (1 - 1-dose 75+ series) 2030 SMOKING STATUS SCREENING (On ce After 26 Yrs) Completed 09/29/2021 HEPATITIS A VACCINES Aged Out No long er eligible based on patient's age to complete this topic HEPATITIS B VACCINES Aged Out No long er eligible based on patient's age to complete this topic HIB VACCINES Aged Out No longer eligi ble based on patient's age to complete this topic MENINGOCOCCAL VACCINES (ACWY) Aged Out No longer eligible based on patient's age to complete this topic Medical Devices Not on file Care Teams Librarian Head Relationship Specialty Start Date End Date Willard Jerome MD [address] [place] [address] PCP - General 12/27/19 Additional Source Comments The information contained in this document represents components of the legal health record. It is not the complete legal health record.[facility]
[2024-05-31 10:53] LABS: Appearance Urine Clear; Color Urine Yellow; Glucose Urine UA Negative (Negative); Leukocyte Esterase Urine Trace (Negative); Nitrite Urine Negative (Negative); UMIC TRIGGER UACC YES; Urine Blood Negative (Negative); Urine Ketones Negative (Negative); Urine Protein Negative (Neg-Trace)
[2024-05-31 11:15] LABS: Bacteria Urine None Seen (None Seen); Hyaline Casts Urine 0-2 /LPF (0-2); RBC Urine 0-2 /HPF (0-2); Squamous Epithelial Cell Urine 0-2 /HPF (0-2); WBC Urine 0-5 /HPF (0-5)
== END 2024-05-31 10:11 | disposition home or self-care (01) ==
LOC: HO.LAB 10:10
PROVIDERS: PCP Internal Medicine; Visit Provider Internal Medicine
DX: R39.9 Unspecified symptoms and signs involving the genitourinary system (principal)
CPT/HCPCS: 81001

== ENCOUNTER 2024-09-09 06:19 | Day surgery (SDC) | payer MEDICARE, SELFPAY ==
--- OUTSIDE RECORDS SUMMARY | 2024-08-02 13:50 | XMS_ITS | Encounter Summary ---
Author Organization [facility] Address [address] [place] [address] Phone Care Team Providers Care Poker Supervisor Name Role Phone Jackeline Bourne GEOGRAPHIC INFORMATION SYSTEMS ENGINEER Unavailable [phone] PoWillard MD Primary Care Provider Encounter Details Date Type Department Care Team (Latest Contact Info) Description 07/27/2020 Ancillary Orders Virtual Department [address] [place] [address] Jo Ann Romo NP [address] [address] [email or web address] Pain in both hands; Hx of osteoarthritis Social History Tobacco Use Types Packs/Day Years Used Date Smoking Tobacco: Never Smokeless Tobacco: Never Sex and Gender Information Value Date Recorded Sex Assigned at Not on file Gender Identity Not on file Sexual Orientation Not on file documented as of this encounter Plan of Treatment Upcoming Encounters Date Type Department Care Team (Late st Contact Info) Description 09/26/2024 10:00 AM EDT Office Visit [facility] [address] [place] [address] Arsenio Zambrano MD [address] [place] [address] [facility] [place] [address] documented as of this encounter Results * [...] osteoarthritis documented in this encounter Care Teams Poker Supervisor Relationship Specialty Start Date End Date Willard Jerome MD [address] [place] [address] PCP - General 12/27/19 Jackeline Bourne NP [address] [place] [phone] Historical LMR Provider 02/15/17 2 documented as of this encounter Additional Source Comments The information contained in this document represents components of the legal health record. It is not the complete legal health record.[facility]
--- OUTSIDE RECORDS SUMMARY | 2024-08-02 13:50 | XMS_ITS | Patient Health Record ---
[facility] Address [address] [place] [address] Care Team Providers Care Edi Manager Name Role Phone Willard Jerome Primary Care Provider Jorge Blackwell Unavailable [phone] Allergies Allergen (clinical drug ingredient) Drug/Non Drug Allergy documented on EMR Reaction Allergy Type Onset Date Status amoxicillin Amoxicillin Unknown Drug Allergy Act jeane Reason For Referral No Information Medications Medication SIG (Take, Route, Fr equency, Duration) Notes Start Date End Date Status Nystatin Not-Taking Calcium Active Inositol Active Vitamin D Active Nitro-Bid 2 % as directed Transder mal apply bid to toes for 30 days 06/09/2022 Active Antibiotic Not-Takin g Social History Tobacco Use: Social History Observation Description Date Details (start date - stop date) Never Smoker NA - NA Tobacco Use/Smoking Question Answer Notes Are you a: nonsmoker Additional Findings: Tobacco Non-User Current no n-smoker Alcohol Screen Question Answer Notes Did you have a drink contain ing alcohol in the past year? Yes How often did you have a dri nk containing alcohol in the past year? Monthly or less (1 point) How many drinks did you have on a typical day when you were drinking in the past year? 1 or 2 drinks (0 point) Points 1 Interpretation Negative Tobacco use other than smoking: Question Answer Notes Are you an other tobacco user? No Problems Problem Type SNOMED Code ICD Code Onset Dates Problem Status W/U Status Risk Notes Problem Acquired hammer toe of right foot (52163744432023 05) Other hammer toe(s) (acquired), right foot (M20.41) Active confirmed Problem Acquired hammer toe of left foot (99957183663972 03) Other hammer toe(s) (acquired), left foot (M20.42) Active confirmed Problem 840192583 Raynaud's disease without gangrene (I73.00) Active confirmed Plan Of Treatment No Information Insurance Providers Payer Name Payer Address Payer Phone Subscriber Number Group Number Insured Name Patient Relationship to Insured Coverage Start Date Coverage End Date Medicare National Govt Svcs Inc [address] [place] [address] [id number] Susanna yLowellKeiry Self - patient is the insured [employer] [address] [place] [address] [id number] 1 Susanna y, Keiry Self - patient is the insured Medical (General) History Medical History History ICD Code Anemia Arthritis Cancer Reflux ( GERD) Warts Measles Mumps Chicken pox Osteopenia vagal /fainting/blackouts Surgical History Surgery Date(Month/Year) section 1973, orthoscopy knee 1997 right mastectomy 2010 R rotator cuff tear repair 02/16/2022
--- OUTSIDE RECORDS SUMMARY | 2024-08-02 13:50 | XMS_ITS | Patient Health Record ---
Author Organization [facility] Address [address] [place] [address] Care Team Providers Care Social Sciences Instructor Name Role Phone Willard Jerome MD Primary Care Provider Josh Maldonado [phone] Allergies Allergen (clinical drug ingredient) Drug/Non Drug Allergy documented on EMR Reaction Allergy Type Onset Date Status PCN (uncoded) Unknown Allergy Active Reason For Referral No Information Medications Medication SIG (Take, Route, Fr equency, Duration) Notes Start Date End Date Status Franklin 3 Active Vitamin C Active Vitamin D 2000 UNIT 1 capsule Orally Onc e a day for 30 day(s) Active Inositol Active Garlic Active Immunizations Vaccine Route Administration Date Status Comme nts Influenza Unknown 01/30/2020 Administered Influenza Unknown 10/09/2018 Refused Problems Problem Type SNOMED Code ICD Code Onset Dates Problem Status W/U Status Risk Notes Problem 67294830 Epigastric pain (R10.13) Active confirmed Problem 060471680 Encounter for screening for malignant neoplasm of colon (Z12.11) Active confirmed Problem History of polyp of colon (situation) (754893612) Personal history of colonic polyps (Z86.010) Active confirmed Problem 778863076630311 Preprocedural examination (Z01.818) Active confirmed Problem 7144354 Chronic gastriti s without bleeding, unspecified gastritis type (K29.50) Active confirmed Problem 976158810 Gastroesophageal reflux disease, unspecified whether esophagitis present (K21.9) Active confirmed Vital Signs Blood pressure diastolic 00 mm Hg 05/09/2024 Height 64.75 in 05/09/2024 Blood pressure systolic 00 mm Hg 05/09/2024 Weight 176 lbs 05/09/2024 BMI 29.51 kg/m2 05/09/2024 Encounters Encounter Location Date Provider Diagnosis [facility] [address] [place] [address] 05/09/2024 Josh Kamara Encounter for screen ing for malignant neoplasm of colon Z12.11 ; Gastroesophageal reflux disease, unspecified whether esophagitis present K21.9 ; Preprocedural examination Z01.818 and Personal history of colonic polyps Z86.010 [facility] [address] [place] [address] 12/20/2023 Josh Kamara Assessments Encounter Date Diagnosis (ICD Code) Assessment Notes Treatment Notes Treatment Clinical Notes Section Notes 05/09/2024 Encounter for screening for malignant neoplasm of colon (ICD-10 - Z12.11) Stop the fish oil for 1 week before the colonoscopy Overall, Yamilka appears quite well. Her reflux seems to be very stable without any chronic acid suppression. Her previous upper endoscopy did not reveal any worrisome or significant findings. She is not having any worrisome upper GI complaints such as dysphagia or anorexia. As such, I advised her that I do not think she needs any further upper endoscopies at this time and she should just continue to use lasd-dqn-evonsi r antacids on a p.r.n. basis. I did recommend a followup colonoscopy for further screening given the history of tubular adenomas removed in 2019. We did review the rationale for that in regard to colon cancer prevention. Full consent is obtained for this, including risks of bleeding and perforation. The procedure will be done with monitored anesthesia care. She was given the below instructions regarding adjustment of her medication for the procedure. Yamilka was comfortable with this plan. Thank you again for allowing me to participate in Yamilka's care. I shall continue to keep you advised of her progress. 05/09/2024 Gastroesophageal reflux disease, unspecified whether esophagitis present (ICD-10 - K21.9) Overall, Yamilka appears quite well. Her reflux seems to be very stable without any chronic acid suppression. Her previous upper endoscopy did not reveal any worrisome or significant findings. She is not having any worrisome upper GI complaints such as dysphagia or anorexia. As such, I advised her that I do not think she needs any further upper endoscopies at this time and she should just continue to use gail-nxw-klyfeg r antacids on a p.r.n. basis. I did recommend a followup colonoscopy for further screening given the history of tubular adenomas removed in 2019. We did review the rationale for that in regard to colon cancer prevention. Full consent is obtained for this, including risks of bleeding and perforation. The procedure will be done with monitored anesthesia care. She was given the below instructions regarding adjustment of her medication for the procedure. Yamilka was comfortable with this plan. Thank you again for allowing me to participate in Yamilka's care. I shall continue to keep you advised of her progress. 05/09/2024 Preprocedural examination (ICD-10 - Z01.818) Overall, Yamilka appears quite well. Her reflux seems to be very stable without any chronic acid suppression. Her previous upper endoscopy did not reveal any worrisome or significant findings. She is not having any worrisome upper GI complaints such as dysphagia or anorexia. As such, I advised her that I do not think she needs any further upper endoscopies at this time and she should just continue to use oerh-tbl-umbgmv r antacids on a p.r.n. basis. I did recommend a followup colonoscopy for further screening given the history of tubular adenomas removed in 2019. We did review the rationale for that in regard to colon cancer prevention. Full consent is obtained for this, including risks of bleeding and perforation. The procedure will be done with monitored anesthesia care. She was given the below instructions regarding adjustment of her medication for the procedure. Yamilka was comfortable with this plan. Thank you again for allowing me to participate in Yamilka's care. I shall continue to keep you advised of her progress. 05/09/2024 Personal history of colonic polyps (ICD-10 - Z86.010) Overall, Yamilka appears quite well. Her reflux seems to be very stable without any chronic acid suppression. Her previous upper endoscopy did not reveal any worrisome or significant findings. She is not having any worrisome upper GI complaints such as dysphagia or anorexia. As such, I advised her that I do not think she needs any further upper endoscopies at this time and she should just continue to use svyp-wba-bbdtze r antacids on a p.r.n. basis. I did recommend a followup colonoscopy for further screening given the history of tubular adenomas removed in 2019. We did review the rationale for that in regard to colon cancer prevention. Full consent is obtained for this, including risks of bleeding and perforation. The procedure will be done with monitored anesthesia care. She was given the below instructions regarding adjustment of her medication for the procedure. Yamilka was comfortable with this plan. Thank you again for allowing me to participate in Yamilka's care. I shall continue to keep you advised of her progress. Plan Of Treatment Pending Test Test Name Order Date H PYLORI AG, STOOL 09/15/2020 Future Test Test Name Order Date COLONOSCOPY 10/09/2018 UPPER GI ENDOSCOPY 10/01/2020 COLONOSCOPY 05/09/2024 Next Appt Details Provider Name:Josh Kamara , 09/09/2024 07:30:00 AM, [address] [place] [address] , [place], [place], [id number], Insurance Providers Payer Name Payer Address Payer Phone Subscriber Number Group Number Insured Name Patient Relationship to Insured Coverage Start Date Coverage End Date MEDICARE OF [place] [address] [place] [address] [phone] [id number] YAMILKA REYES Self - patient is the insured [employer] ATT[employer] CLAIMS [address] [place] [address] [id number] YAMILKA REYES Self - patient is the insured Medical (General) History Medical History History ICD Code Colonoscopy 05-06-2009 and in 2002 except for diverticulosis and internal hemorrhoids Breast cancer-- right mastec lee, lymph node dissection, chemotherapy and radiation treatment--[id number] GERD--EGD's in 1999 and 2004-bx neg for celiac disease, small HH Denies NC,DM,CVA,Lung disease,renal dise ase Fibromyalgia Colonoscopy in 01/2019 with small tubula r adenomas removed Stool specimen was negative for H. pylor i antigen in Aug, 2020 Shanon parapsilosis 09/29/2020--Dr. Hudson knapp EGD-09/2020 small HH without esophagitis nor Cardozo's, mild gastritis-neg. Hylori, gastric polyps slightly enlarged heart valve - dr. cindy ceballos Surgical History Surgery Date(Month/Year) Breast cancer with right mastectomy as a molly 2 C-sections Left knee surgery
--- OUTSIDE RECORDS SUMMARY | 2024-08-02 13:50 | XMS_ITS | Encounter Summary ---
Author Organization [facility] Address [address] [place] [address] Phone Care Team Providers Care End Stapler Name Role Phone Jackeline Bourne LOFTSMAN/WOMAN Unavailable [phone] PoWillard MD Primary Care Provider [phone] Encounter Details Date Type Department Care Team (Late st Contact Info) Description 01/16/2020 Ancillary Orders [facility],Outside Imaging [address] [place] [address] System, Provider Not In, PhD [address] [address] Social History Tobacco Use Types Packs/Day Years Used Date Smoking Tobacco: Never Assessed Sex and Gender Information Value Date Recorded Sex Assigned at Not on file Gender Identity Not on file Sexual Orientation Not on file documented as of this encounter Plan of Treatment Upcoming Encounters Date Type Department Care Team (Late Contact Info) Description 09/26/2024 10:00 AM EDT Office Visit [facility] [address] [place] [address] Arsenio Zambrano MD [address] [place] [address] [facility] [place] [address] documented as of this encounter Results * XR SPINE OUTSIDE(NO INTERPRETATION) (12/19/2019 12:00 AM EDT) Narrative SYSTEMGENERATED, DOCUMENTATION - 01/16/2020 1:50 PM EDT This study is for PACS storage only and not for interpretation. Provider Not In System PhD IMG OUTSIDE I MARIUSZ W/OUT INTERPRETATION documented in this encounter Visit Diagnoses Not on filedocumented in this encounter Care Teams End Stapler Relationship Specialty Start Date End Date Willard Jerome MD [address] [place] [address] PCP - General 12/27/19 Jackeline Bourne NP [facility] [place] [address] Historical LMR Provider 02/15/17 2 documented as of this encounter Additional Source Comments The information contained in this document represents components of the legal health record. It is not the complete legal health record.[facility]
--- OUTSIDE RECORDS SUMMARY | 2024-08-02 13:51 | XMS_ITS ---
Author Organization [facility] Address [address] [place] [address] Care Team Providers Care Condominium Property Manager Name Role Phone Willard Jerome MD Primary Care Provider Josh Maldonado [phone] Allergies Allergen (clinical drug ingredient) Drug/Non Drug Allergy documented on EMR Reaction Allergy Type Onset Date Status PCN (uncoded) Unknown Allergy Active REASON FOR VISIT Patient presents today for a colon recall/egd? Medications Medication SIG (Take, Route, Fr equency, Duration) Notes Start Date End Date Status Wynne 3 Active Vitamin C Active Vitamin D 2000 UNIT 1 capsule Orally Onc e a day for 30 day(s) Active Inositol Active Garlic Active Problems Problem Type SNOMED Code ICD Code Onset Dates Problem Status W/U Status Risk Notes Problem History of polyp of colon (situation) (134133957) Personal history of colonic polyps (Z86.010) Active confirmed Vital Signs Blood pressure systolic 00 mm Hg 05/09/19 25 Blood pressure diastolic 00 mm Hg 025 Height 64.75 in 05/09/2024 Weight 176 lbs 05/09/2024 BMI 29.51 kg/m2 05/09/2024 Encounters Encounter Location Date Provider Diagnosis [facility] [address] [place] [address] 05/09/2024 Josh Kamara Encounter for screen ing for malignant neoplasm of colon Z12.11 ; Gastroesophageal reflux disease, unspecified whether esophagitis present K21.9 ; Preprocedural examination Z01.818 and Personal history of colonic polyps Z86.010 Assessments Encounter Date Diagnosis (ICD Code) Assessment [...] and she should just continue to use hddx-fmj-tmtond r antacids on a p.r.n. basis. I [...] and she should just continue to use trcv-cam-qweatt r antacids on a p.r.n. basis. I [...] and she should just continue to use tixn-tsq-ulzqci r antacids on a p.r.n. basis. I [...] and she should just continue to use evsc-sdl-sjlxew r antacids on a p.r.n. basis. I [...] advised of her progress. Plan Of Treatment Treatment Notes Assessment Notes Encounter for screening for malignant neoplasm of colon Stop the fish oil for 1 week before the colonoscopy Future Test Test Name Order Date COLONOSCOPY 05/09/2024 Next Appt Details Follow Up: prn, Reason: Provider Name:Josh Antunez Asad , 09/09/2024 07:30:00 AM, [address] [place] [address] , [place], [place], [phone], Progress Notes * YAMILKA CURRIE MDOB: (69 yo F)Acc No.[id number]:05/09/2024 Progress Notes Patient:?BUCK CURRIE Inocencio Antunez Provider:?Josh Kamara MD :1955???Age:69 Y???Sex:Female D ate:05/09/2024 Address:[address], [facility] Pcp:Willard Jerome MD Subjective: * Chief Complaints: * ???Patient presents today fo r a colon recall/egd? * HPI: ???incontinence:? I saw Yamilka in consultation today in regard to her underlying history of gastroesophageal reflux, personal history of tubular adenomas of the colon, and need for colorectal cancer screening. ?I last saw Yamilka in 2020 for followup after her upper endoscopy and intermittent reflux. Since that time she has been doing well. She describes occasional symptoms of reflux which respond well to mxdp-dze-fibfbhj medication. She has not needed to be on any daily acid suppression. She enjoys a good appetite and denies any significant heartburn, dysphagia, early satiety, nausea, nor vomiting. She denies any abdominal pain, jaundice, nor unintentional weight loss. There is no known family history of colorectal cancer. She reports that her bowel movements have been regular and without any signs of bleeding. Her last colonoscopy in 2019 revealed some small tubular adenomas that were removed. * ROS:?General/Constitutional:?Change in appetite?denies.?Chills?denies.?Fatigue?denies.?Ophthalmologic:?Patient denies? Negative..?ENT:?Patient denies?Negative..?Respiratory:?Patient denies?No coughing/hemoptysis..?Cardiovascular:?Patient denies? No chest pain/orthopnea..?Gastrointestinal:?Comments?See HPI for details.?Genitourinary:?Patient denies? No dysuria/hematuria..?Musculoskeletal:?Patient denies? No specific arthralgias/myalgias..?Skin:?Patient denies?No rash/pruritus..?Neurologic:?Patient denies? No headaches/seizures..?Psychiatric:?Patient denies?Negative..? * Medical History:? * Surgical History:?Breast can cer with right mastectomy as above 2 C-sections Left knee surgery * Hospitalization/Major Diagno stic Procedure:?No Hospitalization History. * Family History:?Father: dece ased, diverticulitis with colon resection, diagnosed with HTN (hypertension).?Mother: .? There is no family history of colorectal cancer nor ulcer disease. * Social History:?Tobacco Use:?Tobacco Use/Smoking?Are you a: nonsmoker.?Drugs/Alcohol:?Alcohol Screen?Points: 1, Interpretation: Negative.?Miscellaneous:?Marital status: . Occupation: retired. ???She does not smoke nor use any significant amounts of alcohol. * Medications:?TakingInositol Garlic Vitamin C Wynne 3 Vitamin D 2000 UNIT Capsule 1 capsule Orally Once a dayTaking Inositol Taking Garlic Taking Vitamin C Taking Wynne 3 Taking Vitamin D 2000 UNIT Capsule 1 capsule Orally Once a dayDiscontinuedMulti Vitamin/Minerals - Tablet as directed Orally QDPantoprazole Sodium 40 MG Tablet Delayed Release TAKE 1 TABLET BY MOUTH EVERY DAY Orally Once a dayMedication List reviewed and reconciled with the patientDiscontinued Multi Vitamin/Minerals - Tablet as directed Orally QDDiscontinued Pantoprazole Sodium 40 MG Tablet Delayed Release TAKE 1 TABLET BY MOUTH EVERY DAY Orally Once a dayMedication List reviewed and reconciled with the patient * Allergies:?PCNyes[Allergies Verified] Objective: * Vitals:?Wt: 176 lbs, Ht: 64. 75 in, BMI:29.51 Index, BP: 00/00 mm Hg. * Examination: ???General Examination: ?GENERAL APPEARANCE:?pleasant, well nourished, well developed, in no acute distress.?EYES:?sclera non-icteric.?ORAL CAVITY:?mucosa moist.?NECK/THYROID:?no cervical lymphadenopathy, neck supple.?SKIN:?nonjaundiced, no spider angiomata..?HEART:?S1, S2 normal.?LUNGS:?clear to auscultation bilaterally.?ABDOMEN:?normal bowel sounds, no guarding or rigidity, no hepatosplenomegaly, no masses palpable, soft, nontender, nondistended..?EXTREMITIES:?no edema.?NEUROLOGIC:?alert and oriented.? Assessment: * Assessment: 1.?Gastroesophageal reflux d isease, unspecified whether esophagitis present - K21.9 (Primary)?2.?Encounter for screening for malignant neoplasm of colon - Z12.11?3.?Preprocedural examination - Z01.818?4.?Personal history of colonic polyps - Z86.010? Overall, Yamilka appears qu ite well. Her reflux seems to be very [...] and she should just continue to use oxlc-isw-sxbwbut antacids on a p.r.n. basis. I did [...] to keep you advised of her progress. Plan: * Treatment: Notes: Stop the fish oil for 1 week before the colonoscopy??2.?Personal history of colonic polyps?Procedure: COLONOSCOPY (Ordered for 05/09/2024)* with MACsched for 09/09/24 at 7:30 ammiralax * Procedure Codes:?3017F COLOR ECTAL CA SCREEN DOC [id number] TOBACCO [id number] BP SCR NOT PRFRM REC REASON NOS * Preventive Medicine:? ??Counseling:?Care goal follow-up plan:?Above Normal BMI Follow-up?Giving encouragement to exercise,?BMI management provided?Yes.? ??Urinary Incontinence:?Urinary Incontinence?Assessment:?Absent,?Plan of care documented:?No, reason not specified.? ??Screenings:?Fall Risk Screening?Fall Risk Assessment:?No falls in the past year,?Screening:?No falls in the past year,?Assessment:?Not performed, no reason specified,?Plan of Care:?Not documented, no reason specified.? * Follow Up:?prn * * Sign off status: Completed true * Provider:?Josh Kamara MD Date:? 025 Generated for Jaycob frey/Brett/Meñoitting on:?08/02/2024 01:50 PM EDT History and Physical Notes * HPI (History of Present Illness) Category Sub-Category Detail Notes Category Not es incontinence I saw Yamilka in consultation today in regard to her underlying history of gastroesophageal reflux, personal history of tubular adenomas of the colon, and need for colorectal cancer screening. I last saw Yamilka in 2020 for followup after her upper endoscopy and intermittent reflux. Since that time she has been doing well. She describes occasional symptoms of reflux which respond well to fbvd-hjq-fagmffw medication. She has not needed to be on any daily acid suppression. She enjoys a good appetite and denies any significant heartburn, dysphagia, early satiety, nausea, nor vomiting. She denies any abdominal pain, jaundice, nor unintentional weight loss. There is no known family history of colorectal cancer. She reports that her bowel movements have been regular and without any signs of bleeding. Her last colonoscopy in 2019 revealed some small tubular adenomas that were removed. Examination Category Sub-Category Detail Notes Category Not es General Examination GENERAL APPEARANCE: pleasant , well nourished, well developed, in no acute distress EYES: sclera non-icteric NECK/THYROID: no cervical lymphade nopathy, neck supple HEART: S1, S2 normal LUNGS: clear to auscultatio n bilaterally ABDOMEN: normal bowel sounds, no guarding or rigidity, no hepatosplenomegaly, no masses palpable, soft, nontender, nondistended. NEUROLOGIC: alert and oriented SKIN: nonjaundiced, no spi iban angiomata. EXTREMITIES: no edema ORAL CAVITY: mucosa moist
--- OUTSIDE RECORDS SUMMARY | 2024-08-02 13:51 | XMS_ITS | Clinical Summary ---
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 Encounters Date Type Department Care Team Description 06/25/2024 Orders Only [facility] Orthopedics & Sports Medicine [address] [place] [id number] Padma Marrero MA Left knee pain (Primary Dx) from Last 3 Months Social History Tobacco Use Types Packs/Day Years [...] 09/29/2021 11:23 AM EDT Plan of Treatment Upcoming Encounters Date Type Department Care Team (Late st Contact Info) Description 09/26/2024 10:00 AM EDT Office Visit [facility] Orthopedics & Sports Medicine [address] [place] [address] Arsenio Zambrano MD [address] [place] [address] Orthopedics & Sports Medicine, [place] [address] Health Maintenance Due Date Last Done Comments LIPID PANEL 1955 DEPRESSION SCREENING 1967 HEPATITIS C SCREENING 1973 SCREENING FOR DIABETES 1990 MAMMOGRAM 1995 COLOGUARD 2000 COLONOSCOPY 2000 COLORECTAL CANCER SCREENING 2000 FIT TEST 2000 FOBT 2000 SIGMOIDOSCOPY 2000 VIRTUAL COLONOSCOPY 2000 PNEUMOCOCCAL VACCINES (50+ years) (1 of 1 - PCV) 2005 ZOSTER VACCINES (1 of 2) 2005 OSTEOPOROSIS SCREENING INITI AL (ONE-TIME) 2020 INFLUENZA VACCINE (#1) 2023 0, 02/22/2019 COVID-19 VACCINE (3 - 2023-2 5 season) 2023 07/24/2020, 07/03/2020 Adult Td,Tdap Booster 12/17/2029 12/18/2019 , 11/28/2019 [...] Medical Devices Not on file Care Teams Staff Engineer Relationship Specialty Start Date End Date Willard Jerome MD [address] [place] [id number] PCP - General 12/27/19 Additional Source Comments The information contained in this document represents components of the legal health record. It is not the complete legal health record.[facility]
--- OUTSIDE RECORDS SUMMARY | 2024-08-02 13:51 | XMS_ITS ---
Author [facility] Address [address] [place] [address] Care Team Providers Care Direct Care Specialist Name Role Phone Willard Jerome Primary Care Provider Jorge Blackwell Unavailable [phone] Allergies Allergen (clinical drug ingredient) Drug/Non Drug Allergy documented on EMR Reaction Allergy Type Onset Date Status amoxicillin Amoxicillin Unknown Drug Allergy Act jeane REASON FOR VISIT Last Visit PCP 02/20, Skin problem Medications Medication SIG (Take, Route, Fr equency, Duration) Notes Start Date End Date Status Nystatin Not-Taking Calcium Active Inositol Active Nitro-Bid 2 % as directed Transder mal apply bid to toes for 30 days 06/09/2022 Active Antibiotic Not-Takin g Vitamin D Active Social History Tobacco Use: Social History Observation [...] Are you an other tobacco user? 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 Assessments Encounter Date Diagnosis (ICD Code) Assessment Notes Treatment Notes Treatment Clinical Notes Section Notes 03/15/2023 Skin disease (ICD-10 - L98.9) 03/15/2023 Pain in left toe(s) (ICD-10 - M79.675) 03/15/2023 Pain in right toe(s) (ICD-10 - M79.674) 03/15/2023 Raynaud's disease without gangrene (ICD-10 - I73.00) 03/15/2023 Ingrowing nail (ICD-10 - L60.0) 03/15/2023 Eccrine poroma (ICD-10 - 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pt couldn't tolerate the nitrobid--caused skin rxn.?Severity/Quality:?moderate.?Ingrown toenail:?Nature:?tenderness.?Location:?Great toe, Right foot.?Duration:?several weeks.?Onset/Cause:?unknown.?Course:?intermittent.?Aggrevated by:?any pressure.? * ROS:?General/Constitutional:?Nausea?denies.?Vomiting?denies.?Hunger Thirst?denies.?Loss appetite?denies.?Chills?denies.?Fatigue?denies.?Fever?denies.?Night Sweats?denies.?Unexplained weight loss?denies.?Unexplained weight gain?denies.?HEENTM:?Dentures?denies.?Dizziness?denies.?Glasses/contacts?denies.?Retinopathy?de nies.?Blurred/double vision?denies.?TMJ?denies.?Discharge/drainage?denies.?Implants?denies.?Sore throat?denies.?Dental implants?denies.?Hard of hearing ?denies.?Difficulty chewing/swallowing/speaking?denies.?Nose bleeds?denies.?Sore mouth?denies.?Respiratory:?On Oxygen?denies.?Pneumonia/pleurisy?denies.?Bronchitis?denies.?Emphysema?denies.?C oughing?denies.?Cough blood?denies.?Shortness of breath?denies.?Wheezing?denies.?Cardiovascular:?Pacemaker?denies.?MVP?denies.?WPW?denies.?CHF?denies.?Heart attack?denies.?Septal defect?denies.?Rapid beat?denies.?Chest pain ?denies.?Atrial Fib.?denies.?Murmur/Palpitations?denies.?Gastrointestinal:?Hemorrhoids?denies.?Stomach/Abdominal pain?denies.?Dark blood stool?denies.?Irritable bowel ?denies.?Constipation?denies.?Diarrhea?denies.?Hematology:?Swelling?denies.?Clots?denies.?Varicose Veins?denies.?Bruising?denies.?Bleeding problem?denies.?Genitourinary:?Blood urine?denies.?Frequent/Painfu/urination/bladder control?denies.?Kidney stones?denies.?Infection (UTI)?denies.?Nephropathy?denies.?sex trans dis (STD)?denies.?Prostate?denies.?Musculoskeletal:?Hammertoes?denies.?Bunions?denies.?Back Pain?denies.?Muscle Cramps/ Resting?denies.?Muscle cramps / walking?denies.?Generalized aches and pains?denies.?Weakness?denies.?Integ.:?Gunter?denies.?Scars?denies.?Corns/calluses?denies.?Ingrown nails?denies.?Painful nails?denies.?Open Sores?denies.?Rashes?denies.?Neurologic:?Difficulty sleeping?denies.?Brain disorder?denies.?Numbness?denies.?Balance trouble?denies.?Confusion?denies.?Fainting/blackouts?denies.?Tingling?denies.?Tr emors?denies.? * Medical History:? * Surgical History:? s ection 1974,76orthoscopy knee 1998right mastectomy 2010R rotator cuff tear repair 02/16/2022 * Hospitalization/Major Diagno stic Procedure:?Denies Past Hospitalization * Family History:?Mother: dece ased, diagnosed with Family history of arthritis, Diabetic - NIDDM.?Father: , cancer skin, diagnosed with Family history of arthritis, Unspecified essential hypertension.? * Social History:?Tobacco Use:?Tobacco Use/Smoking?Are you a:?nonsmoker ?Additional Findings: Tobacco Non-User?Current non-smoker ?Tobacco use other than smoking?Are you an other tobacco user??No ???Drugs/Alcohol:?Drugs?Have you used drugs other than those for medical reasons in the past 12 months??No ?Alcohol Screen?Did you have a drink containing alcohol in the past year??Yes ?How often did you have a drink containing alcohol in the past year??Monthly or less (1 point) ?How many drinks did you have on a typical day when you were drinking in the past year??1 or 2 drinks (0 point) ?Points?1 ?Interpretation?Negative ???Miscellaneous:?Caffeine: yes, frequency:, 3 cups per day. ?Children: yes, 2. ?Exercise: yes, walking,Streching, PT R shoulder. ?Marital status: . 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 * Medications:?TakingCalcium I nositol Vitamin D Nitro-Bid 2 % Ointment as directed Transdermal apply bid to toesTaking Calcium Taking Inositol Taking Vitamin D Taking Nitro-Bid 2 % Ointment as directed Transdermal apply bid to toesNot-Taking/PRNAntibiotic Nystatin Medication List reviewed and reconciled with the patientNot-Taking/PRN Antibiotic Not-Taking/PRN Nystatin Medication List reviewed and reconciled with the patient * Allergies:?Amoxicillinyes[Al tom Verified] Objective: * Vitals:?Ht: 5ft 3in, Wt:167, BMI:29.58, Shoe size:9.5, BP:120/68 mm Hg. * Examination: ???General Examination: ?GENERAL APPEARANCE:?pleasant, alert, well nourished, well developed, well hydrated, with good attention to hygene/body habitus, and in no acute distress.?ORIENTED:?person,place, and time.?Neurological: ?SENSORY:?neurological exam reveals intact sensorium, pain sensation normal, vibration sensation intact, pinprick sensation is normal in the lower extremities, anesthesia, burning, tingling, B/L.?Vascular: ?DP PULSES:? 05/04, B/L.?PT PULSES:? 05/04, B/L.?CAPILLARY FILL TIME:? delayed, all digits, B/L.?SKIN TEMPERTURE GRADIENT OF THE LOWER EXTERMITIES:? decreased, cool to cold, proximal to distal, B/L.?HAIR GROWTH/TEXTURE/ELASTICITY/TURGOR:? decreased, B/L.?Dermatologic: ?SKIN FINDINGS:? Skin exam reveals Keratotic lesion(s) located at, Dorsal, PIPJ, T9, SUB MTH (s), 2, 5 with multiple eccrine poroma chong.?Orthopedic: ?MUSCLE STRENGTH:?5/5 all groups in a symmetrical fashion , B/L.?DIGITAL DEFORMITIES:? Digital contracture, PIPJ, 2-5 B/L, reducable with WB, or to push-up test, no over, nor underlapping.? 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 Plan: * Treatment: * Procedure Codes:? * Preventive Medicine:? ??Counseling:?Discussion:?-14: Office or other outpatient visit for the evaluation and management of an established patient, which required a medically appropriate history and/or examination and MODERATE level of DECISION MAKING for: 1 OR MORE CHRONIC PROBLEM(S) THATS WORSENING, 2 STABLE CHRONIC PROBLEMS, A NEWLY DIAGNOSED PROBLEM WITH UNCERTAIN PROGNOSIS, AN ACUTE COMPLICATED INJURY WITH MULTIPLE TREATMENT OPTIONS, OR AN ACUTE PROBLEM WITH ACCOMPANYING SYSTEMIC SYMPTOMS, THAT POSE(S) A MODERATE RISK OF MORBIDITY. THIS CONDITION MAY ALSO INCLUDE RX DRUG MANAGEMENT, OR A DECISON FOR MINOR SURGERY. The visit on the day of the encounter encompassed interpreting the data and educating the patient as to the nature of their condition, treatment options available according to their individual PMH, meds, allergies, and overall health/living conditions, as well as any potential risks or complications that may occur from a failure to adhere to, and participate in, the recommended course of therapy. The discussion included a complete verbal, and/or written explanation of the examination results, any x-rays taken, the proposed diagnosis, and outline of the treatment plan. A schedule for future care needs was also explained. The patient verbalized an understanding of the instructions at this time and agreed to be an active participant in their treatment. If the patient should think of any questions or concerns after the visit, I have encouraged the patient to call the office; pt to use vaseline to ing nail t5 and call prn na, continue with tx for raynauds.? * Follow Up:?prn * Images: * Sign off status: Completed true * Provider:?Jorge Lozano DPM Date:? 023 Generated for Jaycob frey/Brett/Monse on:?08/02/2024 01:50 PM EDT History and Physical Notes * HPI (History of Present Illness) Category Sub-Category Detail Notes Category Not es Ingrown toenail Duration: several weeks Nature: tenderness Location: Great toe, Right adam t Aggravated by: any pressure Onset/Cause: unknown Course: intermittent Skin problems Nature: aching, tender, tender, ach ing Location: Bottom, Forefoot, B/ L Duration: unknown Onset/Cause: unknown Course: worse Aggravated by: any pressure Treatments: pt couldn't tolerate the nitrobid--caused skin rxn Severity/Quality: moderate Examination Category Sub-Category Detail Notes Category Not es Neurological SENSORY: neurological exa m reveals intact sensorium, pain sensation normal, vibration sensation intact, pinprick sensation is normal in the lower extremities, anesthesia, burning, tingling, B/L Dermatologic SKIN FINDINGS: Skin exam reveal s Keratotic lesion(s) located at, Dorsal, PIPJ, T9, SUB MTH (s), 2, 5 with multiple eccrine poroma chong Orthopedic DIGITAL DEFORMITIES: Digital con tracture, PIPJ, 2-5 B/L, reducable with WB, or to push-up test, no over, nor underlapping MUSCLE STRENGTH: 5/5 all groups in a symmetrical fashion , B/L General Examination GENERAL APPEARANCE: pleasant , alert, well nourished, well developed, well hydrated, with good attention to hygene/body habitus, and in no acute distress ORIENTED: person,place, and ti me Vascular DP PULSES (B): 1/4, B/L PT PULSES (B): 1/4, B/L CAPILLARY FILL TIME: delayed, all digits , B/L TEMPERTURE GRADIENT (C): decreased, cool to cold, proximal to distal, B/L TROPHIC CONDITION-TEXTURE/ELASTICITY/TURGOR/HAIR GROWTH (B): decreased, B/L
--- OUTSIDE RECORDS SUMMARY | 2024-08-02 13:51 | XMS_ITS ---
Author Organization [facility] Address [address] [place] [phone] Care Team Providers Care Child Care Director Name Role Phone Willard Jerome MD Primary Care Provider Josh Maldonado [phone] REASON FOR VISIT clearing throat/mucus in throat/ heartburn Medications Medication SIG (Take, Route, Frequency, Duration) Notes Start Date End Date Status Pantoprazole Sodium 40 MG TAKE 1 TABLET BY MOUTH EVERY DAY Orally Once a day for 90 days Active Encounters Encounter Location Date Provider Diagnosis [facility] [address] [place] [phone] 12/20/2023 Josh Kamara Plan Of Treatment Medication Medication Name Sig Start Date Stop Date Notes Pantoprazole Sodium 40 MG TAKE 1 TABLET BY MOUTH EVERY DAY Orally Once a day for 90 days Next Appt Details Provider Name:Josh Kamara , 09/09/2024 07:30:00 AM, [address] [place] [address], [phone], Progress Notes * YAMILKA CURRIE MDOB: (68 yo F)Acc No.[id number]:12/20/2023 Patient:?BUCK CURRIE :1955???Age:68 Y???Sex:Female Address:[address], [place] [address] * Refills? Refill Pantoprazole Sodium Tablet Delayed Release, 40 MG, Orally, 90 Tablet, TAKE 1 TABLET BY MOUTH EVERY DAY, Once a day, 90 days, Refills=3 * true * Date:? Generated for Jaycob frey/Brett/Monse on:?08/02/2024 01:50 PM EDT
[2024-09-05 13:13] VITALS: BMI 29.5
--- NOTE | 2024-09-06 09:02 | P.CONAN_ITS ---
Documented by User: Donna Gore NP 09/06/24 09:09 HPI - Anesthesia Eval Consult details Narrative: 69yo F for Colonoscopy [facility] [place] Cardiology eval for palps, ? TAA - nml echo stress PMFSH Active Problems Active Problems: All Active Problems Low back pain (Acute) Right hip pain (Acute) SOB (shortness of breath) on exertion (Acute) Palpitations (Acute) Osteopenia (Acute) Raynauds disease (Acute) Preop exam for internal medicine (Acute) Atrophic vaginitis (Acute) TSH elevation (Acute) Left sided abdominal pain (Acute) Rotator cuff arthropathy of right shoulder (Acute) Shanon parapsilosis infection (Acute) Contact dermatitis (Acute) Adult general medical exam (Acute) Post-menopausal (Acute) Hearing impairment (Acute) Polyarthralgia (Acute) Osteoarthritis (Acute) B12 deficiency (Acute) Occipital headache (Acute) Yeast infection involving the vagina and surrounding area (Acute) Ascending aorta dilatation (Acute) Hx of breast cancer (Acute) Hypercholesterolemia (Acute) Overweight (BMI 25.0-29.9) (Acute) Past Medical History Medical History (Updated 09/09/24 @ 06:35 by Ciarra Black RN) GERD (gastroesophageal reflux disease) Abdominal pain Yeast infection involving the vagina and surrounding area Esophagitis Epigastric abdominal pain Dysuria Right lower quadrant pain Neck pain Fatigue Osteoarthritis Vitamin B12 deficiency Hypercholesterolemia Overweight (BMI 25.0-29.9) Ascending aorta dilatation Immunodeficiency disorder Irritable bowel syndrome Anxiety Anemia Hx of breast cancer Family History Family History Mother Diabetes Arthritis Father HTN (hypertension) Dementia COPD (chronic obstructive pulmonary disease) Skin cancer Maternal Grandfather Glaucoma Surgical History Surgical History History of esophagogastroduodenoscopy (EGD) H/O rotator cuff surgery History of colonoscopy History of arthroscopy of left knee Hx of tubal ligation Hx of section Hx of mastectomy Social History Social History Household Members: Spouse Housing: Apartment Are you a primary career professional to a significant other at home: No Do you presently have visiting nurse or other home services: No Alcohol intake: current Alcohol intake frequency: holidays/special occasions only Patient Tobacco Use Status: Never used Tobacco Years Smoked: history of marijuana uses e-Cigarette/Vaping Use: Never Used Second Hand Smoke Exposure: No Use of substances other than those prescribed or required for medical reasons: Yes Substance Use Type Other:: gummies for sleep/pain Are you DNR?: No Advance Directives: No Advance Directives Information Provided: Yes service: No Current occupational status: retired Sexual orientation: Straight/Heterosexual Gender identity: Female Cognitive needs: No Hearing needs: No Vision needs: Yes (glasses) Meds Allergies Allergy/AdvReac Type Severity Reaction Status Date / Time doxycycline [DOXYCYCLINE] Allergy Severe UNKNOWN, ? Verified 07/11/24 10:01 hearing problem poison teresa extract Allergy Severe SEVERE RASH Verified 07/11/24 10:01 [POISON TERESA] Penicillins [PENICILLINS] Allergy Unknown RASH Verified 07/11/24 10:01 Home Medications ?Medication ?Instructions ?Recorded ?Confirmed ?Last Taken ?Type cholecalciferol (vitamin D3) 50 50 mcg PO DAILY 05/14/20 09/05/24 09/02/24 History mcg (2,000 unit) capsule inositol 324 mg tablet 4 tab PO DAILY 05/14/20 09/05/24 09/02/24 History calcium carbonate 600 mg PO DAILY 06/14/21 09/05/24 09/02/24 History PROBIOTIC 2 cap PO BID 08/18/21 07/11/24 Unknown History garlic 100 mg tablet 50 mg PO DAILY 01/20/22 09/05/24 09/02/24 History fluconazole 100 mg tablet 100 mg PO DAILY PRN candisiasis 01/31/24 09/05/24 Unknown History (Diflucan) famotidine 20 mg tablet 20 mg PO DAILY 09/09/24 09/09/24 Unknown History Exam Height,Weight and Vital Signs: Height 5 ft 4.75 in Weight 79.832 kg Narrative Narrative: Stress ECHO 2023 Protocol: TA Max HR: 164 BPM 108% of Pred: 151 BPM Max BP: 152/080 mmHG Max Work Load: 4.3 METS Exercise stress Test with exercise 1 min 54 secs of Ta Protocol, achieving 107% MPHR, with request to stop due to fatigue, with isolated PVCs and atrial runs, brief, with normotensive and brisk chronotropic response to exercise, without EKG changes meeting criteria for ischemia. Echo images obtained by tech at rest and immediately post peak exercise. Definity contrast used. Test reviewed with Dr. Schmitz. Exercise stress echocardiogram reviewed. At rest, there is normal LVEF and wall motion. Images obtained after peak exercise do no show any evidence of wall motion abnormality. There is normal decrease in end-systolic volumes. No evidence of exercise induced diastolic dysfunction or pulmonary hypertension. Overall, study does not show any ischemia, diastolic dysfunction or pulmonary hypertension at the attained workload. Holter 2023 * Total monitoring time 4 days. * Underlying rhythm is sinus with an average rate of 71/Min. * Rare supraventricular ectopy. * Rare ventricular ectopy. * No significant pauses or high-grade AV blocks. * Patient markers used with and without arrhythmia. * Diary symptoms of PVC related to PACs, PVC EKG 2023 Vent. Rate : 067 BPM Atrial Rate : 067 BPM P-R Int : 110 ms QRS Dur : 090 ms QT Int : 424 ms P-R-T Axes : 027 -33 039 degrees QTc Int : 448 ms Sinus rhythm with short PA Left axis deviation RSR' or QR pattern in V1 suggests right ventricular conduction delay Abnormal ECG When compared with ECG of 06-SEP-2020 14:09, No significant change was found Assessment and Plan Assessment Anesthesia Assessment: Chart Reviewed Documented by User: John Weiss MD 09/09/24 07:32 [facility] Past Medical History Medical History (Updated 09/09/24 @ 06:35 by Ciarra Black RN) GERD (gastroesophageal reflux disease) Abdominal pain Yeast infection involving the vagina and surrounding area Esophagitis Epigastric abdominal pain Dysuria Right lower quadrant pain Neck pain Fatigue Osteoarthritis Vitamin B12 deficiency Hypercholesterolemia Overweight (BMI 25.0-29.9) Ascending aorta dilatation Immunodeficiency disorder Irritable bowel syndrome Anxiety Anemia Hx of breast cancer Family History Family History Mother Diabetes Arthritis Father HTN (hypertension) Dementia COPD (chronic obstructive pulmonary disease) Skin cancer Maternal Grandfather Glaucoma Family history of problems with anesthesia: No Surgical History Surgical History History of esophagogastroduodenoscopy (EGD) H/O rotator cuff surgery History of colonoscopy History of arthroscopy of left knee Hx of tubal ligation Hx of section Hx of mastectomy History of Problems with Anesthesia: No Social History Social History Household Members: Spouse Housing: Apartment Are you a primary career professional to a significant other at home: No Do you presently have visiting nurse or other home services: No Alcohol intake: current Alcohol intake frequency: holidays/special occasions only Patient Tobacco Use Status: Never used Tobacco Years Smoked: history of marijuana uses e-Cigarette/Vaping Use: Never Used Second Hand Smoke Exposure: No Use of substances other than those prescribed or required for medical reasons: Yes Substance Use Type Other:: gummies for sleep/pain Are you DNR?: No Advance Directives: No Advance Directives Information Provided: Yes service: No Current occupational status: retired Sexual orientation: Straight/Heterosexual Gender identity: Female Cognitive needs: No Hearing needs: No Vision needs: Yes (glasses) Meds Allergies Allergy/AdvReac Type Severity Reaction Status Date / Time doxycycline [DOXYCYCLINE] Allergy Severe UNKNOWN, ? Verified 07/11/24 10:01 hearing problem poison teresa extract Allergy Severe SEVERE RASH Verified 07/11/24 10:01 [POISON TERESA] Penicillins [PENICILLINS] Allergy Unknown RASH Verified 07/11/24 10:01 Home Medications ?Medication ?Instructions ?Recorded ?Confirmed ?Last Taken ?Type cholecalciferol (vitamin D3) 50 50 mcg PO DAILY 05/14/20 09/05/24 09/02/24 History mcg (2,000 unit) capsule inositol 324 mg tablet 4 tab PO DAILY 05/14/20 09/05/24 09/02/24 History calcium carbonate 600 mg PO DAILY 06/14/21 09/05/24 09/02/24 History PROBIOTIC 2 cap PO BID 08/18/21 07/11/24 Unknown History garlic 100 mg tablet 50 mg PO DAILY 01/20/22 09/05/24 09/02/24 History fluconazole 100 mg tablet 100 mg PO DAILY PRN candisiasis 01/31/24 09/05/24 Unknown History (Diflucan) famotidine 20 mg tablet 20 mg PO DAILY 09/09/24 09/09/24 Unknown History Exam Airway Mallampati Class: II TM Dist: <=3cm Neck ROM: Full Loose/Missing/Broken Teeth: No Heart: ok Lungs: ok Assessment and Plan Assessment Anesthesia Assessment: Anesthesia Plan Discussed Final Anesthetic Review Family History of Problems with Anesthesia: No History of Problems with Anesthesia: No NPO: Yes ASA Class: III Final Preanesthetic Review: No Changes in Pt Med Stat, Meds/Allgs Chart Reviewed, Consent Obtained/Reviewed and Anes Risks/Benef Reviewed Patient Risk: Intermediate Procedure Risk: Low Anesthetic Plan Anesthetic Plan: MAC: and Agree w/ Assess. and Plan Disposition: Standard PACU
[2024-09-09 06:36] VITALS: BMI 29.2
[2024-09-09 06:43] VITALS: BP 124/68; PULSE 79; RESP 15; TEMP 36.4; O2SAT 99
[2024-09-09] MEDS: Lactated Ringers 1,000 ML 100 ML IVCONT (06:55)
--- NOTE | 2024-09-09 08:29 | P.BOP_ITS ---
Brief Operative Note Date of Service: 09/09/24 Pre-op diagnosis: Screening Post-op diagnosis: other (Diverticulosis) Procedure: Colonoscopy to the cecum Surgeon: Josh Kamara MD Anesthesia: MAC Was an Laboratory Technician used for this Procedure?: No Estimated blood loss (mL): 0 Pathology: none sent Condition: stable Disposition: PACU
[2024-09-09 08:30] VITALS: BP 87/46; PULSE 60; RESP 16; TEMP 36.5; O2SAT 98
[2024-09-09 08:40] VITALS: BP 95/51; PULSE 69; RESP 20; O2SAT 100
--- NOTE | 2024-09-09 09:44 | OP_ITS ---
DATE OF SERVICE: 09/09/2024 SURGEON: Josh Kamara MD INDICATIONS: The patient presents for evaluation of colorectal cancer screening and personal history of tubular adenoma of the colon. Full consent has been obtained from her for this, including risks of bleeding and perforation. PREOPERATIVE DIAGNOSIS: POSTOPERATIVE DIAGNOSIS: Colorectal cancer screening and personal history of tubular adenoma of the colon, diverticulosis, internal hemorrhoids. PROCEDURE PERFORMED: Colonoscopy to the cecum. ESTIMATED BLOOD LOSS: COMPLICATIONS: ANESTHESIA: Medication used, monitored anesthesia care. ASSISTANTS: SPECIMENS: PREOPERATIVE DIAGNOSES: Colorectal cancer screening and personal history of tubular adenoma of the colon. DESCRIPTION OF PROCEDURE: The patient was placed in the left lateral decubitus position. The digital rectal exam revealed no abnormalities. The Olympus video pediatric colonoscope was entered into the rectum and advanced easily to the cecum. Once in the cecum, I did identify normal-appearing cecal pouch with appendiceal orifice and a normal-appearing ileocecal valve. There was transillumination of light deep in the right lower quadrant the entire cecum and ileocecal valve appeared normal. The scope was slowly withdrawn assessing all mucosal surfaces carefully. Preparation was excellent. I did not visualize any sign of polyps, colitis, nor angiodysplasia. There was a mild amount of sigmoid diverticulosis. In the rectum, scope was retroflexed visualizing internal hemorrhoids, but no other pathology. The rectal mucosa appeared normal. Scope was straightened and withdrawn from the patient. She tolerated the procedure well and was returned to the recovery area in stable condition. IMPRESSION: 1. Diverticulosis. 2. Internal hemorrhoids. PLAN: Given her previous history of tubular adenoma, I would recommend a followup coloscopy in 5 years. She will otherwise see me on a p.r.n. basis. MD AVINASH Squires/MICHEAL / [id number]
== END 2024-09-09 09:08 | disposition home or self-care (01) ==
PROVIDERS: PCP Internal Medicine; Visit Provider Internal Medicine
PROC: 0DJD8ZZ Inspection of Lower Intestinal Tract, Via Natural or Artificial Opening Endoscopic (ICD-10-PCS; CPT 45378; principal; 2024-09-09 07:30)
DX: Z12.11 Encounter for screening for malignant neoplasm of colon (principal); Z86.0101 Personal history of adenomatous and serrated colon polyps; K57.30 Diverticulosis of large intestine without perforation or abscess without bleeding; K64.8 Other hemorrhoids; K21.9 Gastro-esophageal reflux disease without esophagitis; Z85.3 Personal history of malignant neoplasm of breast; Z90.11 Acquired absence of right breast and nipple; Z92.21 Personal history of antineoplastic chemotherapy; Z92.3 Personal history of irradiation; Z79.899 Other long term (current) drug therapy; M79.7 Fibromyalgia; Z98.890 Other specified postprocedural states; Z88.0 Allergy status to penicillin
CPT/HCPCS: G0105; J2003; J2704

== ENCOUNTER 2024-09-30 14:00 | Outpatient (REF) | payer MEDICARE, SELFPAY ==
[2024-09-30 14:17] LABS: MANUAL DIFF FLAG NO
[2024-09-30 14:56] LABS: Basophils Percent Auto 0.2 % (0-2); Eosinophils Percent Auto 0.2 % (0-4); Hematocrit 36.7 % (37.0-47.0); Hemoglobin 12.1 g/dl (12.0-16.0); Imm Gran Abs Auto 0.17 X10*3/uL (0.00-0.03); Imm Gran Pct Auto 1.6 % (0.0-0.4); Immature Retic Fraction 12.1 % (3.0-15.9); Lymphocytes Absolute Auto 2.2 X10*3/uL (1.2-4.9); Lymphocytes Percent Auto 20.7 % (20-40); Mean Corpuscular Hemoglobin 28.1 pg (27.0-33.0); Mean Corpuscular Volume 85.3 fL (80.0-98.0); Mean Platelet Volume 10.4 fL (9.4-12.3); Monocytes Absolute Auto 1.2 X10*3/uL (0.1-1.2); Monocytes Percent Auto 11.4 % (2-11); Neutrophils Percent Auto 65.9 % (45-73); Platelet Count 301 X10*3/uL (160-400); Red Cell Distribution Width 13.5 % (11.0-16.0); Retic HGB Equivalent 32.7 pg (30.0-35.0); Reticulocyte Percent 1.7 % (0.5-1.8); Reticulocytes Absolute 0.072 X10*6/uL (0.026-0.095); White Blood Count 10.7 X10*3/uL (4.8-10.8)
[2024-09-30 15:00] LABS: Appearance Urine Clear; Color Urine Yellow; Glucose Urine UA Negative (Negative); Leukocyte Esterase Urine Small (1+) (Negative); Nitrite Urine Negative (Negative); PH 6.5 (5.0-9.0); Specific Gravity - Urine 1.015 (1.005-1.025); UMIC TRIGGER UACC YES; Urine Blood Trace (Negative); Urine Ketones Negative (Negative); Urine Protein Negative (Neg-Trace)
[2024-09-30 15:02] LABS: Bacteria Urine 1+ (None Seen); Hyaline Casts Urine 0-2 /LPF (0-2); RBC Urine 0-2 /HPF (0-2); Squamous Epithelial Cell Urine 0-2 /HPF (0-2); UACC Culture Trigger YES; WBC Urine 21-50 /HPF (0-5)
--- OUTSIDE RECORDS SUMMARY | 2024-09-30 15:19 | XMS_ITS | Data Portability ---
Author Organization [facility], [facility] Address [address] [place] [address] Assessment No assessment recorded. Plan of Treatment Reminders Order Date Submit Date Provider Last Modified By Organization Details Last Modified Time Details Appointments PT INITIAL EVAL 2024 01:30P M Hector Lennon, PT Not available Not available Not available PT FOLLOW-UP 2024 09:30A M Marlene Cherry, AIRCRAFT PAINTER APPRENTICE Not available Not available Not available PT FOLLOW-UP 2024 08:00A M Hector Lennon, PT Not available Not available Not available PT FOLLOW-UP 2024 09:30A M Marlene Cherry, AIRCRAFT PAINTER APPRENTICE Not available Not available Not available PT FOLLOW-UP 2024 09:30A M Marlene Cherry, AIRCRAFT PAINTER APPRENTICE Not available Not available Not available PT FOLLOW-UP 2024 09:30A M Marlene Cherry, AIRCRAFT PAINTER APPRENTICE Not available Not available Not available PT FOLLOW-UP 2024 09:30A M Marlene Cherry, AIRCRAFT PAINTER APPRENTICE Not available Not available Not available PT FOLLOW-UP 2024 10:00A M Hector Lennon, PT Not available Not available Not available PT FOLLOW-UP 2024 10:00A M Marlene Cherry, AIRCRAFT PAINTER APPRENTICE Not available Not available Not available PT FOLLOW-UP 2024 10:00A M Marlene Cherry, AIRCRAFT PAINTER APPRENTICE Not available Not available Not available PT FOLLOW-UP 2024 10:00A M Marlene Cherry, AIRCRAFT PAINTER APPRENTICE Not available Not available Not available PT FOLLOW-UP 2024 10:00A M Marlene Cherry, AIRCRAFT PAINTER APPRENTICE Not available Not available Not available PT FOLLOW-UP 2024 10:00A M Marlene Cherry, AIRCRAFT PAINTER APPRENTICE Not available Not available Not available Lab None recorded. Referral None recorded. Procedures None recorded. Surgeries None recorded. Imaging XR, knee, 4 or more view - new eval left knee pain room 1 2024 025 [email or web address] [facility], [address], [facility] [address], [place], [address], 08/13/2024 12:51:04 MRI, knee, w/o contrast - Left knee mri no contrast r/o MMT 2024 025 [facility] ([facility]), [address], [place], [address], 08/15/2024 12:28:49 Medication Orders None recorded. Patient TargetsNo targets recorded. Patient InstructionsNo instructions recorded. Reason for Referral None Reported. Results Created Date Observation Date Name Description Value Unit Range Abnormal Flag Note LastModifiedBy Organization Detail LastModifiedTime 08/10/1908/09/2024 XR, knee, 4 or more view [email or web address] ?Encry pted=s hAaTro YD8dLq bEUv6g %2BXZw aYqtaq 0bqfl% 2Fg9IQ a4ajBk vP9nXo QUaueC m3YtLR FvZlgJ [place] HZtai3 5m6439 AC0KqY 3iDUKG hKiQtr MwF INTERFACE [facility] [address], [place], [address], 08/09/2024 10:40:49 08/10/19 25 08/09/2024 XR, knee, 4 or more view [email or web address] ?Encry pted=s hAaTro YD8dLq bEUv6g %2BXZw aYqtaq 0bqfl% 2Fg9IQ a4ajBk vP9nXo QUaueC m3YtLR FvZlgJ JJ8mAn HZtai3 1i1063 AC0KqY 3iDUKG hKiQtr MwF INTERFACE [facility] [address], [place], [address], 08/09/2024 10:40:50 08/16/19 25 08/15/2024 MRI, knee, w/o contr ast [facility] Access ion Number : [id number] Patien t Name: Sp Mccabe en Medica l Record Number : [id number] Date of : 1954 Date of Exam: 2024 Referr ing Physic aysha: Rj Pascual en NEOS [address], [address] [facility], [place] [address] Exam: MR Knee (C-) CPT 21950 - Left Room Descri ption: [facility] Verio 3.0T MR Knee (C-) CPT 05575 CLINIC AL INDICA TION: Reason For Exam: M25.36 2 - Other instab ility, left knee, , Left knee mri no contra st r/o MMT Reason For Exam: M25.36 2 - Other instab ility, left knee, , Left knee mri no contra st r/o MMT Left latera l knee pain. Prior histor y of knee arthro scopy in the TECHNI QUE: MRI of the left knee was perfor med withou t intrav enous contra st. COMPAR ADRIEN: None FINDIN GS: Joint effusi on: No joint effusi on is presen t. Hoffa' s fat pad is unrema rkable . Mckeon' s cyst. Menisc i: Discoi d latera l menisc us. No eviden ce of menisc al tear. Tendon s and ligame nts: The ACL and PCL are intact . The collat eral ligame nts are intact . The ilioti bial band is unrema rkable . The extens or mechan ism is intact . Tendin osis of the medial gastro cnemiu s at its femora l insert ion with some surrou nding soft tissue edema. Articu lar cartil age: The articu lar cartil age is normal in thickn ess. No focal defect s are seen. Bone: The bone and bone marrow are normal limits . IMPRES FLOYD: Discoi d latera l menisc us. No eviden ce of menisc al tear or ligame ntous injury Medial gastro cnemiu s tendin osis at the femora l insert ion with surrou nding edema I, Rajesh Loja rd, MD, have review ed the images and report and concur with the reside nt, Esme spears, domingo clement. Electr onical ly Signed By: Rajesh [email or web address] [facility] ([facility]) [address] [place], [address], 08/16/2024 11:25:15 08/16/1908/15/2024 imagi ng inter preta tion No observ ation record ed. [email or web address] 1 [facility] [address] [place], [address], 08/19/2024 09:55:59 Result Notes None recorded. Problems Name Problem SNOMED Code Status Onset Date Resolution Date Notes Provider Name and Address Organization Details Recorded Time Pain of left knee joint 7433944811839 07 Active 2024 KAYLIA L'HEUREUX [facility], [facility] 5 10:30:31 Instability of joint of left knee 7123402360629 106 Active 2024 KAYLIA L'HEUREUX [facility], [facility] 5 11:06:40 Problem Notes None recorded. Medical Equipment None Reported. Allergies Allergen ID Allergen Name Allergen Category Reaction Reaction Severity Criticality Documentation Date Start Date Code Code System Note Provider Name and Address Organization Details Recorded Time 735211 Product containin g penicilli n (product) medicatio n Not available Not available Not available 08/09/2024 50153 8001 SNOMED KAYLIA L'HEUREUX [facility], [facility] 5 10:26:45 54126 doxycycli ne hyclate medicatio n Not available Not available Not available 07/03/20232020 12583 RxNorm Not Available [facility] 12:08:38 Medications Name Sig Start Date Stop Date Status Note LastModified by Organization Details LastModified Time fluconazole 100 mg tablet TAKE 1 TABLET BY MOUTH EVERY DAY active Not Available Not Available No t Available clotrimazol e 10 mg elizabet DISSOLVE 1 TABLET BY MOUTH 3 TIMES A DAY active Not Available Not Available No t Available nystatin 100,000 unit/mL oral suspension TAKE 5 MLS BUCCALLY 4 TIMES A DAY FOR 14 DAYS SWISH FOR SEVERAL MINUTES AND THEN SWALLOW active Not Available Not Available No t Available clobetasol 0.05 % topical cream APPLY TO AFFECTED AREA TWICE A DAY 2024 active Not Available Not Available Not Avai lable triamcinolo ne acetonide 0.1 % topical cream APPLY ONCE DAILY TO AFFECTED AREAS OF RASH ON TRUNK FOR 2-3 WEEKS. active Not Available Not Available No t Available pseudoephed rine-guaife nesin ER 80-700 mg tablet,exte nded release Q4-6H 08/09 completed Statu s: 'Curr ent'; Not Available Not Available Not Available triamcinolo ne acetonide 0.1 % topical ointment APPLY LESS THAN A LENTIL SIZE TO THE AFFECTED AREA 3 NIGHTS PER WEEK 08/09 completed Not Available Not Available Not Available estradiol 0.01% (0.1 mg/gram) vaginal cream APPLY SMALL PEA SIZE OF CREAM EXTERNALL Y TO AFFECTED AREA LABIA AND VAGINAL OPENING 3 NIGHTS A WEEK. active Not Available Not Available No t Available Restasis 0.05 % eye drops in a dropperette INSTILL 1 DROP INTO BOTH EYES TWICE A DAY active Not Available Not Available No t Available oxycodone HCl-oxycodo ne-ASA as directed 1 TABLET Q 4 HOURS PRN PAIN DO NOT DRIVE WHILE TAKING THIS MEDICATIO N 08/09 completed Statu s: 'Curr ent'; Not Available Not Available Not Available Xdemvy 0.25 % eye drops active Not Available Not Available Not Available Vitals Date Recorded Body height Body mass index (BMI) Body weight Provider Name and Address Organization Details Last Updated DateTime 08/09/2024 162.56 cm 30.9 kg/m2 19123.63 g YSABEL BARBOSA [place] - [facility] 08/09/2024 10:26:31 Social History Question Answer Notes LastModified by Organizat ion Details LastModified Time Tobacco Smoking Status Never Smoker YSABEL fitzgerald [place] - [facility] 08/09/2024 10:29:45 What Is Your Relationship Status? [email or web address] Information not available 08/09/2024 Sex: Unknown Functional Status Question Answer Note LastModified by Organizat ion Details LastModified Time Do you use any illicit or recreational drugs? No Information not available 08/09/2024 Do you or have you ever used any other forms of tobacco or nicotine? No Information not available 08/09/2024 What is your level of alcohol consumption? None Information not available 08/09/2024 Mental Status None recorded. Family History Nothing Reported. Medical History Condition Response Allergies/Hayfever N Coronary Artery Disease N Anxiety/Depression N Breathing or lung disorders N Emphysema N Nerve Disorders N Thyroid Problems N COPD N Pacemaker N Anemia Y Kidney/Bladder Problems N Vascular Disease N Heart Trouble N Heart Attack ([place]) N Gastrointestinal Disease N Cholesterol N Diabetes N Autoimmune disease N Inflammatory Joint disease N Bleeding Disorder N Orthotics N Arthritis Y Seizures/Epilepsy N Blood Clot N AIDS/HIV N Congestive Heart Failure (CHF) N Acid Reflux (GERD) N Cancer Y Stroke N Asthma N Circulation Problems N Peripheral Vascular Disease N Sleep Apnea N Hepatitis N Heart Disease N Rheumatoid Arthritis N Arrhythmia N Pulmonary Embolism N Headaches N Fibromyalgia N Hypertension N Osteoporosis N Gynecological HistoryNo gynecological history recorded. Obstetrics History GPAL:G 0 P 0 0 0 0 Past Encounters Encounter ID Performer Location Encounter Start Date Encounter Closed Date Diagnosis/Indication Diagnosis SNOMED-CT Code Diagnosis ICD10 Code Diagnosis Note [id number] [facility] [address] [place] [address] 08/09/2024 09:41:20 08/26/2024 13:52:43 Pain of left knee joint 7465723411 65866 M25.562 Instabilit y of joint of left knee 5325250251 063411 M25.362 Reviewed patient's imaging and exam findings in detail with her. She has no substantia l degenerati ve changes noted on her radiograph s. Had an acute onset with tearing sensation to the left knee with subsequent positive provocativ e testing and increased pain with twisting and pivoting activities raising concern for medial meniscus tear. She is focally tender along the medial meniscus. Recommende d hinged knee brace for stability purposes to prevent any future buckling episodes. Follow-up for MRI review to review results and to discuss further treatment options. In the meantime encouraged low-impact exercise program with swimming or stationary biking. Use hinged knee brace with increased activity. Oral anti-infla mmatories over-the-c ounter as needed. All questions and concerns were addressed and answered. Health Concerns Section Related Observation LastModified by Organization Detai ls LastModified Time None Recorded Concern Status LastModified by Organization Details LastModified Time None Recorded Advance Directives Directive None Recorded Payers Encounter Date Sequence Insurance Name Policy Number Policy Fall Covered Member ID Fall Member ID Guarantor Name 08/09/2024 2 [place] [id number] Keiry Martini [id number] Keiry Martini 08/09/2024 1 [place] [employer] Keiry Martini [id number] Keiry Martini Notes Date Note Type Note Provider Name and Address Organization Details Recorded Time 08/09/2024 text/html I am seeing the patient under the general supervision of Dr. Cortes who was available but who did not see the patient. HPI:Patient is a 69 year old female who presents today with chief complaint of left knee pain. She reports pain starting 2 months ago when she stood up from a seated position and she felt a tearing sensation to the knee. She feels like it was deep within the joint. She describes a tightness in the knee. She localizes the pain to the anterior knee. She has difficulty flexing the knee and crossing her leg over her other leg. Denies any catching, locking or buckling. She has pain which is worse with getting up from a seated or sedentary position. Stairs also bother her. She has no pain with walking in a straight line. She does have increased pain with twisting and pivoting. DIAGNOSTIC IMAGIN view left knee radiographs were ordered, obtained and independently reviewed by myself during today's visit at [facility] and demonstrate well-preserved tricompartmental joint spaces. No fracture or dislocation. Patella tracking centrally in the groove. Impression:Normal left knee radiographs Kathy Pascual PA-C [address] [facility] [address], [place], [address], [facility] - [facility] 08/09/2024 11:52:29 OBGyn Episode No OBEpisode recorded.
[2024-09-30 16:25] LABS: Folate 12.5 ng/mL (> or = 4.0); Vitamin B12 434 pg/mL (200-900)
[2024-09-30 17:17] LABS: Alanine Aminotransferase 18 U/L (0-31); Albumin Level 4.6 g/dL (3.5-5.0); Alkaline Phosphatase 75 U/L (39-117); Anion Gap 15 (12-20); Aspartate Amino Transferase 15 U/L (5-31); Bilirubin Total 0.3 mg/dL (0.0-1.0); Blood Urea Nitrogen 17 mg/dL (9-16); Calcium 9.5 mg/dL (8.4-10.2); Carbon Dioxide 24 mmol/L (22-29); Chloride 106 mmol/L (96-108); Estimated Glomerular Filt Rate > 60; Glucose Random 98 mg/dL (60-115); Iron 78 mcg/dL (30-160); Percent Iron Saturation 21 % (15-50); Potassium 3.5 mmol/L (3.3-5.1); Sodium 141 mmol/L (135-145); Total Iron Binding Capacity 380 mcg/dL (228-428); Total Protein 7.4 g/dL (6.5-8.0); Unsaturated Iron Binding 302 ug/dL
[2024-09-30 17:34] LABS: Ferritin 65 ng/mL (10-250); Free T4 (Free Thyroxine) 0.96 ng/dL (0.71-1.85); Thyroid Stimulating Hormone 3.68 uIU/mL (0.32-4.0); Vitamin D 25-OH Total 46.6 ng/mL (>30)
== END 2024-09-30 14:01 | disposition home or self-care (01) ==
LOC: HO.LAB 14:00
PROVIDERS: PCP Internal Medicine; Visit Provider Internal Medicine
DX: E78.00 Pure hypercholesterolemia, unspecified (principal); R30.0 Dysuria; R39.9 Unspecified symptoms and signs involving the genitourinary system
CPT/HCPCS: 36415; 80053; 81001; 81003; 82306; 82607; 82728; 82746; 83540; 84439; 84443; 85025; 85045; 87086; 87088; 87186

== ENCOUNTER 2024-10-10 10:50 | Outpatient (REF) | payer MEDICARE, SELFPAY ==
[2024-10-10 11:35] LABS: Appearance Urine Clear; Color Urine Yellow; Glucose Urine UA Negative (Negative); Leukocyte Esterase Urine Negative (Negative); Nitrite Urine Negative (Negative); Specific Gravity - Urine 1.015 (1.005-1.025); Urine Blood Negative (Negative); Urine Ketones Negative (Negative); Urine Protein Negative (Neg-Trace)
--- OUTSIDE RECORDS SUMMARY | 2024-10-10 12:45 | XMS_ITS | Data Portability ---
Author Organization [facility], [facility] Address [address] [place] [address] Assessment No assessment recorded. Plan of Treatment Reminders Order Date Submit Date Provider Last Modified By Organization Details Last Modified Time Details Appointments PT INITIAL EVAL 2024 01:30P M Hector Lennon, PT Not available Not available Not available PT FOLLOW-UP 2024 09:30A M Marlene Cherry, IMPORT SPECIALIST Not available Not available Not available PT FOLLOW-UP 2024 08:00A M Hector Lennon, PT Not available Not available Not available PT FOLLOW-UP 2024 09:30A M Marlene Cherry, IMPORT SPECIALIST Not available Not available Not available PT FOLLOW-UP 2024 09:30A M Marlene Cherry, IMPORT SPECIALIST Not available Not available Not available PT FOLLOW-UP 2024 09:30A M Marlene Cherry, IMPORT SPECIALIST Not available Not available Not available PT FOLLOW-UP 2024 09:30A M Marlene Cherry, IMPORT SPECIALIST Not available Not available Not available PT FOLLOW-UP 2024 10:00A M Hector Lennon, PT Not available Not available Not available PT FOLLOW-UP 2024 10:00A M Marlene Cherry, IMPORT SPECIALIST Not available Not available Not available PT FOLLOW-UP 2024 10:00A M Marlene Cherry, IMPORT SPECIALIST Not available Not available Not available PT FOLLOW-UP 2024 10:00A M Marlene Cherry, IMPORT SPECIALIST Not available Not available Not available PT FOLLOW-UP 2024 10:00A M Marlene Cherry, IMPORT SPECIALIST Not available Not available Not available PT FOLLOW-UP 2024 10:00A M Marlene Cherry, IMPORT SPECIALIST Not available Not available Not available Lab None recorded. Referral None recorded. Procedures None recorded. Surgeries None recorded. Imaging XR, knee, 4 or more view - new eval left knee pain room 1 2024 025 [email or web address] [facility] Office, [address], [facility] [address], [place], [address], 08/13/2024 12:51:04 MRI, knee, w/o contrast - Left knee mri no contrast r/o MMT 2024 025 [facility] ([facility]), [address], [place], [address], 08/15/2024 12:28:49 Medication Orders None recorded. Patient TargetsNo targets recorded. Patient InstructionsNo instructions recorded. Reason for Referral None Reported. Results Created Date Observation Date Name Description Value Unit Range Abnormal Flag Note LastModifiedBy Organization Detail LastModifiedTime 08/10/1908/09/2024 XR, knee, 4 or more view [email or web address] ?Encry pted=s hAaTro YD8dLq bEUv6g %2BXZw aYqtaq 0bqfl% 2Fg9IQ a4ajBk vP9nXo QUaueC m3YtLR FvZlgJ JJ8Gays HZtai3 0p0556 AC0KqY 3iDUKG hKiQtr MwF INTERFACE [facility] [address], [place], [address], 08/09/2024 10:40:49 08/10/19 25 08/09/2024 XR, knee, 4 or more view [email or web address] ?Encry pted=s hAaTro YD8dLq bEUv6g %2BXZw aYqtaq 0bqfl% 2Fg9IQ a4ajBk vP9nXo QUaueC m3YtLR FvZlgJ JJ8mAn HZtai3 7f0013 AC0KqY 3iDUKG hKiQtr MwF INTERFACE [facility] [address], [place], [address], 08/09/2024 10:40:50 08/16/19 25 08/15/2024 MRI, knee, w/o contr ast [facility] Access ion Number : [id number] Patien t Name: Sp Mccabe en Medica l Record Number : [id number] Date of : 1954 Date of Exam: 2024 Referr ing Physic aysha: Rj Pascual en NEOS [address], [address] [facility], [place] [address] Exam: MR Knee (C-) CPT 66121 - Left Room Descri ption: [facility] Verio 3.0T MR Knee (C-) CPT 88487 CLINIC AL INDICA TION: Reason For Exam: [...] Electr onical ly Signed By: Rajesh [email or web address] [facility] ([facility]) [address] [place], [address], 08/16/2024 11:25:15 08/16/1908/15/2024 imagi ng inter preta tion No observ ation record ed. [email or web address] 1 [facility] [address] [place], [address], 08/19/2024 09:55:59 Result Notes None recorded. Problems Name Problem SNOMED Code Status Onset Date Resolution Date Notes Provider Name and Address Organization Details Recorded Time Pain of left knee joint 0273897601608 07 Active 2024 KAYLIA L'HEUREUX [facility], [facility] 5 10:30:31 Instability of joint of left knee 3588298370557 106 Active 2024 KAYLIA L'HEUREUX [facility] 5 11:06:40 Problem Notes None recorded. Medical Equipment None Reported. Allergies Allergen ID Allergen Name Allergen Category Reaction Reaction Severity Criticality Documentation Date Start Date Code Code System Note Provider Name and Address Organization Details Recorded Time 009042 Product containin g penicilli n (product) medicatio n Not available Not available Not available 08/09/2024 35268 8001 SNOMED KAYLIA L'HEUREUX [facility] 5 10:26:45 12468 doxycycli ne hyclate medicatio n Not available Not available Not available 07/03/20232020 21912 RxNorm Not Available [facility] 12:08:38 Medications Name Sig Start Date Stop [...] Updated DateTime 08/09/2024 162.56 cm 30.9 kg/m2 87122.63 g YSABEL BARBOSA [place] - [facility] 08/09/2024 10:26:31 Social History Question Answer Notes LastModified by Organizat ion Details LastModified Time Tobacco Smoking Status Never Smoker YSABEL fitzgerald [place] - [facility] 08/09/2024 10:29:45 What Is Your Relationship Status? [...] Disease N Heart Trouble N Heart Attack ([place]) N Gastrointestinal Disease N Cholesterol N Diabetes N Autoimmune disease N Bleeding Disorder N Inflammatory Joint disease N Orthotics N Arthritis Y Seizures/Epilepsy N [...] SNOMED-CT Code Diagnosis ICD10 Code Diagnosis Note [id number] D[facility] [address] [place] [address] 08/09/2024 09:41:20 08/26/2024 13:52:43 Pain of left knee joint 8249794116 94844 M25.562 Instabilit y of joint of left knee 5756272390 885716 M25.362 Reviewed patient's imaging and exam findings [...] Recorded Advance Directives Directive None Recorded Payers Insurance Date Sequence Insurance Name Policy Number Policy Fall Covered Member ID Fall Member ID Guarantor Name 08/26/2024 2 [place] [id number] Keiry Martini [id number] Keiry Martini 08/07/2024 1 [place] [employer] Keiry Martini [id number] Keiry Martini Notes Date Note Type [...] reviewed by myself during today's visit at [facility] and demonstrate well-preserved tricompartmental joint spaces. No fracture or dislocation. Patella tracking centrally in the groove. Impression:Normal left knee radiographs Kathy Pascual PA-C [address] [facility] [address], [place], [address], [facility] - [facility] 08/09/2024 11:52:29 OBGyn Episode No OBEpisode recorded.
== END 2024-10-10 10:51 | disposition home or self-care (01) ==
LOC: HO.LAB 10:50
PROVIDERS: PCP Internal Medicine; Visit Provider Internal Medicine
DX: R30.0 Dysuria (principal); E78.00 Pure hypercholesterolemia, unspecified
CPT/HCPCS: 81003

== ENCOUNTER 2024-10-17 16:02 | Outpatient (AMB) | payer MEDICARE, SELFPAY ==
[2024-10-17 16:09] VITALS: BP 102/78; PULSE 69; O2SAT 99; BMI 30.2
--- NOTE | 2024-10-17 16:09 | A.OFFPC_ITS ---
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 hearing problem poison teresa extract (POISON TERESA) Allergy (Severe, Verified 10/17/24 16:09) SEVERE RASH Penicillins (PENICILLINS) Allergy (Unknown, Verified 10/17/24 16:09) RASH Medication List - Last Reconciled 10/17/24 by Willard Jerome MD betamethasone valerate 0.1% 1 appl topical TID PRN calcium carbonate 600 mg PO DAILY cholecalciferol (vitamin D3) 50 mcg PO DAILY estradiol 0.01%(0.1mg/gram) (Estrace) pea sized amount per urethra daily; 30 days famotidine 20 mg PO DAILY garlic 50 mg PO DAILY inositol 4 tabs PO DAILY mastectomy bra (bra, mastectomy) As Directed mastectomy bra (bra, mastectomy) As Directed [PROBIOTIC 2 caps PO BID] Prosthesis, breast (Breast prosthesis) As Directed Tobacco use date assessed: 10/17/24 Fall risk assessment: No Falls in past year Last assessed Fall Risk: 10/17/24 Dental Screening Dental Screen Date: 10/17/24 Did you have a dental visit in the last 12 months?: Yes Did you have a dental problem in the last 6 months where you did not have access to dental care?: No Was dental information given to patient?: Patient has dentist HPI Annual PE HPI Details R knee injection Dr. Zambrano [facility] Medical History (Updated 10/17/24 @ 16:29 by Willard Jerome MD) GERD (gastroesophageal reflux disease) Abdominal pain Yeast infection involving the vagina and surrounding area Esophagitis Epigastric abdominal pain Dysuria Right lower quadrant pain Neck pain Fatigue Osteoarthritis Vitamin B12 deficiency Hypercholesterolemia Overweight (BMI 25.0-29.9) Ascending aorta dilatation Immunodeficiency disorder Irritable bowel syndrome Anxiety Anemia Hx of breast cancer Surgical History History of esophagogastroduodenoscopy (EGD) H/O rotator cuff surgery History of colonoscopy History of arthroscopy of left knee Hx of tubal ligation Hx of section Hx of mastectomy Family History Mother Diabetes Arthritis Father HTN (hypertension) Dementia COPD (chronic obstructive pulmonary disease) Skin cancer Maternal Grandfather Glaucoma Social History (Updated 10/17/24 @ 16:36 by Willard Jerome MD) Household Members: Spouse Housing: Apartment Are you a primary director of health care marketing to a significant other at home: No Do you presently have visiting nurse or other home services: No Alcohol intake: current Alcohol intake frequency: holidays/special occasions only Comment: 2x a year 2 drinks Patient Tobacco Use Status: Never used Tobacco Years Smoked: history of marijuana uses e-Cigarette/Vaping Use: Never Used Second Hand Smoke Exposure: No service: No Current occupational status: retired Sexual orientation: Straight/Heterosexual Gender identity: Female Cognitive needs: No Hearing needs: No Vision needs: Yes (glasses) Questionnaire PHQ-9 Over the last 2 weeks, how often have you been bothered by any of the following problems? 1. Little interest or pleasure in doing things: not at all 2. Feeling down, depressed, or hopeless: not at all 3. Trouble falling or staying asleep, or sleeping too much: not at all 4. Feeling tired or having little energy: not at all 5. Poor appetite or overeating: not at all 6. Feeling bad about yourself - or that you are a failure or have let yourself or your family down: not at all 7. Trouble concentrating on things, such as reading the newspaper or watching television: not at all 8. Moving or speaking so slowly that other people could have noticed. Or the opposite - being so fidgety or restless that you have been moving around a lot more than usual: not at all 9. Thoughts that you would be better off or of hurting yourself in some way: not at all Total score: 0 Depression Screening Interpretation: Negative Depression Screening Done: Yes Source: Developed by Drs. Josh Vivar, Becka Holder, Ernie Aguilera and colleagues, with an educational brigette from [employer]. Thrive Questionnaire Date Thrive assessed: 10/17/24 I am a: Patient What is your living situation today?: I have a steady place to live Within the past 12 months, did the food you bought not last and you didn't have the money to get more?: Never true Within the past 12 months, did you worry whether your food would run out before you got money to buy more?: Never true Do you have trouble paying for medicines?: No Do you have trouble getting transportation to medical appointments?: No Do you have trouble paying your heating and electricity bill?: No Do you have trouble taking care of your child, family member or friend?: No Do you have trouble with day-to-day activities such as bathing, preparing meals, shopping, managing finances, etc.?: No Are you currently unemployed and looking for a job?: No Are you interested in more education?: No Please select the resources that you would like help with: None Currently or been in a relationship where the following occur: No concerns reported THRIVE Score: 0 AUDIT C Alcohol Use Questionnaire (AUDIT-C) 1. How often do you have a drink containing alcohol?: Never 3. How often do you have six or more drinks on one occasion?: Never Total Score: 0 FLOWER-7 AMB Questionnaire FLOWER-7 Date FLOWER - 7 assessed: 10/17/24 Feeling nervous, anxious, or on edge: 0 = Not at all Not being able to stop or control worryin = Not at all Worrying too much about different things: 0 = Not at all Trouble relaxin = Not at all Being so restless that it is hard to sit still: 0 = Not at all Becoming easily annoyed or irritable: 0 = Not at all Feeling afraid as if something awful might happen: 0 = Not at all Total FLOWER-7 score (0-4 normal; 5-9 mild; 10-14 moderate; 15-21 severe): 0 Source: Developed by Drs. Josh Vivar, Becka Holder, Ernie Aguilera and colleagues, with an educational brigette from [employer]. Review of Systems Const Denies poor appetite and Denies weakness Eyes Denies no additional complaints ENT Reports Normal hearing present, Denies dizziness, Denies nasal congestion, Denies tinnitus and Denies sore throat Card Denies chest pain, Denies syncope, Denies rapid heart rate and Denies dyspnea Resp Denies cough and Denies dyspnea GI Denies change in stool character, Reports constipation, Denies diarrhea, Denies nausea and Denies vomiting Denies urinary frequency, Denies difficulty voiding and Denies dysuria Neuro Reports Normal hearing present, Denies confusion, Denies dizziness, Denies syncope and Denies weakness Psych Denies confusion Physical exam (Primary Care) Vital Signs: Last Vital Signs Pulse 69 10/17/24 16:09 BP 102/78 10/17/24 16:09 Pulse Ox 99 10/17/24 16:09 Oxygen Delivery Method Room Air 10/17/24 16:09 BMI result Body Mass Index 30.2 Tobacco/Smoking Status: Tobacco use Status Tobacco use date assessed 10/17/24 10/17/24 16:14 Patient Tobacco Use Status Never used Tobacco 10/17/24 16:36 e-Cigarette/Vaping Use Never Used 10/17/24 16:36 PHQ-9: PHQ-9 Score PHQ-9: Total score 0 10/17/24 16:28 Depression Screening Interpretation: Negative Thrive Assessment: Date of Thrive Assessment Date Thrive assessed 10/17/24 10/17/24 16:14 Currently or been in a relationship where the following occur: No concerns reported Const General: No confusion Orientation/consciousness: No confusion HENMT Head: Yes normocephalic Ears: external ears normal and TM's normal bilaterally Face and sinus: Yes normal facial exam Mouth: moist mucous membranes Throat: Yes tonsils normal Eyes Conjunctivae: conjunctivae normal Pupils: Equal, round and reactive pupils present and Pupil accommodation reflex normal Direct Ophthalmoscopy: normal light reflex Neck Neck: No lymphadenopathy Thyroid: Thyroid normal Chest Chest palpation & inspection: normal inspection of the chest Resp Effort & Inspection: normal respiratory effort and no audible wheezes Auscultation: clear to auscultation bilaterally, no crackles, no wheezes and lung sounds not diminished Cardio Rate: regular rate Rhythm: regular rhythm Peripheral pulses: radial pulses present and dorsalis pedis present GI Palpation (GI): no masses Auscultation: normal bowel sounds and normoactive bowel sounds Rectal Exam - Female: deferred Skin General skin exam: no rashes or lesions noted Rashes: no rashes Neuro General: No confusion Cranial nerves: Yes Equal, round and reactive pupils present and Yes Normal hearing present Cognition (Neuro): normal cognition Gait exam (Neuro): Normal gait present Motor exam (neuro): 5/5 motor strength present throughout Deep tendon reflexes (DTR's): Right brachioradialis reflex intensity grade: 2+, Left brachioradialis reflex intensity grade: 2+, Right patellar reflex intensity grade: 2+ and Left patellar reflex intensity grade: 2+ Extrem General: No edema Coding Level of Care Code Est Pt Prev Care >65y(82077) Diagnoses Annual physical exam Z00.00 Hx of breast cancer Z85.3 Overweight (BMI 25.0-29.9) E66.3 Osteopenia M85.80 Assessment & Plan Assessment & Plan (1) Annual physical exam: Code(s): Z00.00 - Encounter for general adult medical examination without abnormal findings Category: Medical Plan: Patient is advised to eat healthy, keep well hydrated, keep active and have adequate sleep. 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 estrogen and progesterone receptors negative but HER/abraham (+) 1 of 11 axillary nodes positive for Mets adeno CA 4.5 cm identified on MRI Code(s): Z85.3 - Personal history of malignant neoplasm of breast Category: Medical Plan: Continue to follow-up with Hematology-Oncology and up-to-date with mammogram (3) Overweight (BMI 25.0-29.9): Code(s): E66.3 - Overweight Category: Medical (4) Osteopenia: Comment: June 2021, July 2023 Code(s): M85.80 - Other specified disorders of bone density and structure, unspecified site Category: Medical Plan History of Present Illness The patient is a 69-year-old female presenting for an annual physical examination and wellness visit. She has a history of obesity and hypercholesterolemia, with her last cholesterol test in January 2024 showing an LDL of 140 mg/dL and total cholesterol of 250 mg/dL. The patient was diagnosed with breast cancer in 2009, and her last mammogram was conducted in December 2023. In August 2024, a colonoscopy revealed diverticular disease and internal hemorrhoids, with a recommendation for a follow-up in five years. She experiences orthopnea and follows up with hematology oncology, last seen on July 11, 2024. The patient reports right hip pain and low back pain, with imaging showing degenerative spondylosis and right hip enthesopathy with mild osteoarthritis. She received a cortisone injection in her knee for suspected cartilage tear, which has improved her symptoms. A Holter monitor in March showed sinus rhythm with premature ventricular contractions, and a stress test indicated normal ejection fraction without ischemia. Recent blood work on September 30, 2024, showed normal blood count, low normal potassium, and normal renal and liver function. The patient has a history of acid reflux, managed with [id number] medications, and a recent urinary tract infection that is resolving. She also reports hearing loss, specifically sound sensitivity deafness, and minor c ataracts noted during her recent eye examination. Health Maintenance - Colonoscopy in August 2024 showing diverticular disease and internal hemorrhoids, with a five-year follow-up recommended - Mammogram last conducted in December 2023 - Bone density screening in July 2023 - Regular follow-up with hematology oncology, last seen July 11, 2024 - Blood work on September 30, 2024, showing normal blood count and renal function - Vitamin D supplementation of 2000 IU daily - Engages in regular exercise, including biking at the [employer] Social History - Exercise: Engages in biking at the [employer] every other day and performs daily exercises - Alcohol use: Consumes alcohol infrequently, approximately twice a year - Smoking: Denies smoking history - Hearing: Reports sound sensitivity deafness and difficulty affording hearing aids Review of Systems - Cardiovascular: Reports palpitations, denies chest pain, syncope, or orthopnea - Respiratory: Denies dyspnea, cough, or wheezing - Gastrointestinal: Reports acid reflux, denies nausea, vomiting, or dysphagia - Genitourinary: Reports urinary frequency, denies dysuria or hematuria - Neurological: Denies dizziness, headaches, or balance issues - Musculoskeletal: Reports right hip pain, denies joint swelling or stiffness - Sensory: Reports hearing loss, denies visual disturbances Physical Exam General: Cooperative, healthy appearing, comfortable, no acute distress and well developed Orientation: Patient oriented x3 Limitations: No limitations Head: Normal to inspection Ears: Hearing grossly normal bilaterally, but patient reports sound sensitivity and difficulty hearing in noisy environments Nose: Normal external nose present Face and sinus: Normal facial exam Eyes: Appearance normal, both eyes and all related structures; patient reports minor cataracts Neck: Normal visual inspection and Yes full ROM Respiratory: Normal respiratory effort and able to speak in complete sentences. Clear to auscultation bilaterally Cardiovascular: Regular rate and rhythm. Normal S1 and S2; patient reports heart skips a lot but no chest pain or passing out GI: Normal to inspection. Soft to palpation and nontender; patient reports acid reflux and takes [id number] medication like Pepcid Skin: No rashes or lesions noted Neuro: Patient oriented x3 Extremities: Normal to inspection; patient reports right hip pain and low back pain, recent cortisone shot in knee, and degenerative spondylosis in lumbar spine. Results - Labs: Normal blood count, low normal potassium, normal renal and liver function (September 30, 2024) - Imaging: X-ray showing degenerative spondylosis and right hip enthesopathy with mild osteoarthritis - Cardiac: Holter monitor showing sinus rhythm with premature ventricular contractions, stress test with normal ejection fraction and no ischemia Plan The patient will continue to manage hypercholesterolemia with lifestyle modifications and regular monitoring of lipid levels. A follow-up mammogram is recommended to monitor for any recurrence of breast cancer. The patient should adhere to the five-year follow-up plan for colonoscopy to monitor diverticular disease and internal hemorrhoids. Orthopnea management will include regular follow-up with hematology oncology. The patient is advised to continue vitamin D supplementation and monitor potassium levels due to the low normal reading. For the right hip pain and low back pain, physical therapy and weight management are recommended to alleviate symptoms and prevent further degeneration. The patient should continue using [id number] medications for acid reflux and monitor urinary symptoms to ensure resolution of the urinary tract infection. Hearing aids should be considered for managing hearing loss, and regular eye examinations are advised to monitor cataracts. Patient was informed and verbally consented to the use of an ambient scribe for clinic note documentation during this visit. Discussion Notes During the visit, I discussed the importance of managing hypercholesterolemia through lifestyle changes and regular monitoring. We reviewed the need for follow-up mammograms and colonoscopies to monitor for breast cancer recurrence and diverticular disease, respectively. I advised the patient to continue vitamin D supplementation and monitor potassium levels. We discussed the management of orthopnea with regular follow-ups and the importance of physical therapy and weight management for hip and back pain. I recommended [id number] medications for acid reflux and monitoring urinary symptoms. We also discussed the potential benefits of hearing aids and regular eye examinations for cataracts. Patient Instructions - Continue lifestyle modifications to manage cholesterol levels. - Schedule follow-up mammogram and colonoscopy as recommended. - Take vitamin D supplements as prescribed and monitor potassium levels. - Engage in physical therapy and weight management for hip and back pain. - Use [id number]-[id number] medications for acid reflux and monitor urinary symptoms. - Consider hearing aids and schedule regular eye exams.
--- OUTSIDE RECORDS SUMMARY | 2024-10-17 16:56 | XMS_ITS | Data Portability ---
Author Organization [facility] Surgeons [facility], [facility] Address [address] [place] [address] Assessment No assessment recorded. Plan of Treatment Reminders Order Date Submit Date Provider Last Modified By Organization Details Last Modified Time Details Appointments PT INITIAL EVAL 2024 01:30P M Hector Lennon, PT Not available Not available Not available PT FOLLOW-UP 2024 09:30A M Marlene Cherry, CTRS Not available Not available Not available PT FOLLOW-UP 2024 08:00A M Hector Lennon, PT Not available Not available Not available PT FOLLOW-UP 2024 09:30A M Marlene Cherry, CTRS Not available Not available Not available PT FOLLOW-UP 2024 09:30A M Marlene Cherry, CTRS Not available Not available Not available PT FOLLOW-UP 2024 09:30A M Marlene Cherry, CTRS Not available Not available Not available PT FOLLOW-UP 2024 09:30A M Marlene Cherry, CTRS Not available Not available Not available PT FOLLOW-UP 2024 10:00A M Hector Lennon, PT Not available Not available Not available PT FOLLOW-UP 2024 10:00A M Marlene Cherry, CTRS Not available Not available Not available PT FOLLOW-UP 2024 10:00A M Marlene Cherry, CTRS Not available Not available Not available PT FOLLOW-UP 2024 10:00A M Marlene Cherry, CTRS Not available Not available Not available PT FOLLOW-UP 2024 10:00A M Marlene Cherry, CTRS Not available Not available Not available PT FOLLOW-UP 2024 10:00A M Marlene Cherry, CTRS Not available Not available Not available Lab None recorded. Referral None recorded. Procedures None recorded. Surgeries None recorded. Imaging XR, knee, 4 or more view - new eval left knee pain room 1 2024 025 [email or web address] [facility], [address], [facility] [address], [place], [address], 08/13/2024 12:51:04 MRI, knee, w/o contrast - Left knee mri no contrast r/o MMT 2024 025 [facility] ([employer]), [address], [place], [address], 08/15/2024 12:28:49 Medication Orders None recorded. Patient TargetsNo targets recorded. Patient InstructionsNo instructions recorded. Reason for Referral None Reported. Results Created Date Observation Date Name Description Value Unit Range Abnormal Flag Note LastModifiedBy Organization Detail LastModifiedTime 08/10/1908/09/2024 XR, knee, 4 or more view [email or web address]:/ [email or web address] ?Encry pted=s hAaTro YD8dLq bEUv6g %2BXZw aYqtaq 0bqfl% 2Fg9IQ a4ajBk vP9nXo QUaueC m3YtLR FvZlgJ JJ8Ashburn HZtai3 7d1025 AC0KqY 3iDUKG hKiQtr MwF INTERFACE [facility] [address], [place], [address], 08/09/2024 10:40:49 08/10/19 25 08/09/2024 XR, knee, 4 or more view http:/ [email or web address] ?Encry pted=s hAaTro YD8dLq bEUv6g %2BXZw aYqtaq 0bqfl% 2Fg9IQ a4ajBk vP9nXo QUaueC m3YtLR FvZlgJ JJ8mAn HZtai3 8i2011 AC0KqY 3iDUKG hKiQtr MwF INTERFACE [facility] [address], [place], [address], 08/09/2024 10:40:50 08/16/19 25 08/15/2024 MRI, knee, w/o contr ast [facility] Access ion Number : [id number] Patien t Name: Sp Mccabe en Medica l Record Number : [id number] Date of : 1954 Date of Exam: 2024 Referr ing Physic aysha: Rj Pascual en NEOS [address], [address] [facility], [place] [address] Exam: MR Knee (C-) CPT 70993 - Left Room Descri ption: [facility] Verio 3.0T MR Knee (C-) CPT 12789 CLINIC AL INDICA TION: Reason For Exam: [...] concur with the reside nt, Esme spears, dominog clement. Electr onical ly Signed By: Rajesh [email or web address] [facility] ([facility]) [address] [place], [address], 08/16/2024 11:25:15 08/16/19 25 08/15/2024 imagi ng inter preta tion No observ ation record ed. [email or web address] 1 [facility] [address] [place], [address], 08/19/2024 09:55:59 Result Notes Documentation Provider Name and Address Organization Details Recorded Time Xr, Knee, 4 Or More View : [email or web address] Encrypted=kmXvRdaAF5zHueU Uv6g%7INDqiMylzw7lkdt%2Fg 0XXr8ydFrsO8hCmWUjdoYt6Tc MFMeMohOCW5iIaRBuzb62x400 1EX6KfL7cBEWEgEtInpGuV Not Available [facility] 08/09/2024 10:40:49 Xr, Knee, 4 Or More View : [email or web address] Encrypted=wvVjYluCX4uTyiL Uv6g%5YTUkqOofsu5jgdo%2Fg 4KBz3dePvsZ8nMbGFpfyIp9Rv ABWfRynMSE2rHqFHyam77w311 7LW5ZsK4pNCFFhVfInrUgP Not Available [facility] 08/09/2024 10:40:51 Mri, Knee, W/o Contrast : [facility] Accession Number: [id number] Patient Name: Keiry Martini Date of : 1955 Date of Exam: 08-15-2024 Referring Physician: Kathy Pascual [address], [address] [place], [place] [address] Exam: MR Knee (C-) CPT 34971 - Left Room Description: [facility] 3.0T MR Knee (C-) CPT 07655 CLINICAL INDICATION: Reason For Exam: M25.362 - Other instability, left knee, , Left knee mri no contrast r/o MMT Reason For Exam: M25.362 - Other instability, left knee, , Left knee mri no contrast r/o MMT Left lateral knee pain. Prior history of knee arthroscopy in the TECHNIQUE: MRI of the left knee was performed without intravenous contrast. COMPARISON: None FINDINGS: Joint effusion: No joint effusion is present. Hoffa's fat pad is unremarkable. Mckeon's cyst. Menisci: Discoid lateral meniscus. No evidence of meniscal tear. Tendons and ligaments: The ACL and PCL are intact. The collateral ligaments are intact. The iliotibial band is unremarkable. The extensor mechanism is intact. Tendinosis of the medial gastrocnemius at its femoral insertion with some surrounding soft tissue edema. Articular cartilage: The articular cartilage is normal in thickness. No focal defects are seen. Bone: The bone and bone marrow are normal limits. IMPRESSION: Discoid lateral meniscus. No evidence of meniscal tear or ligamentous injury Medial gastrocnemius tendinosis at the femoral insertion with surrounding edema I, Rajesh Machado MD, have reviewed the images and report and concur with the resident, Esme Clemonss, findings. Electronically Signed By: Rajesh Pascual PA-C [address], [place], [address], [facility] - [facility] 08/16/2024 11:25:15 Problems Name Problem SNOMED Code Status Onset Date Resolution Date Notes Provider Name and Address Organization Details Recorded Time Pain of left knee joint 7772718283092 07 Active 2024 YSABEL fitzgerald [place] - [facility] 10:30:31 Instability of joint of left knee 0027822147899 106 Active 2024 KAYLIA L'HEUREUX [facility], [facility] 5 11:06:40 Problem Notes None recorded. Medical Equipment None Reported. Allergies Allergen ID Allergen Name Allergen Category Reaction Reaction Severity Criticality Documentation Date Start Date Code Code System Note Provider Name and Address Organization Details Recorded Time 381078 Product containin g penicilli n (product) medicatio n Not available Not available Not available 08/09/2024 14059 8001 SNOMED JESSICAYLORESTES L'HEUREUX [facility], [facility] 5 10:26:45 10560 doxycycli ne hyclate medicatio n Not available Not available Not available 07/03/20232020 32802 RxNorm Not Available [facility] 4 12:08:38 Medications Name Sig Start Date Stop [...] Updated DateTime 08/09/2024 162.56 cm 30.9 kg/m2 65030.63 g KAABDIAZIZ L'HEUREUX [facility] 08/09/2024 10:26:31 Social History Question Answer Notes LastModified by [employer] Details LastModified Time Tobacco Smoking Status Never Smoker KAABDIAZIZ L'HEUREUX [facility] 08/09/2024 10:29:45 What Is Your Relationship Status? Information not available 08/09/2024 Sex: Unknown Functional Status Question Answer Note LastModified by [employer] Details LastModified Time Do you use any [...] Response Allergies/Hayfever N Coronary Artery Disease N Breathing or lung disorders N Anxiety/Depression N Emphysema N Nerve Disorders N Thyroid Problems N COPD N Pacemaker N Anemia Y Kidney/Bladder Problems N Vascular Disease N Heart Trouble N Heart Attack ([place]) N Gastrointestinal Disease N Cholesterol N Diabetes [...] SNOMED-CT Code Diagnosis ICD10 Code Diagnosis Note [id number] Kathy Pascual PA-C [facility] [address] [place] [address] 08/09/2024 09:41:20 08/26/2024 13:52:43 Pain of left knee joint 2425139763 61930 M25.562 Instabilit y of joint of left knee 2667917000 240333 M25.362 Reviewed patient's imaging and exam findings [...] Name 08/26/2024 2 [place] [id number] Keiry Martini [id number] Keiry Martini 08/07/2024 1 [place] [employer] Keiry Martini [id number] Keiry Martini Notes Date Note Type [...] reviewed by myself during today's visit at [facility] and demonstrate well-preserved tricompartmental joint spaces. No fracture or dislocation. Patella tracking centrally in the groove. Impression:Normal left knee radiographs Kathy Pascual PA-C [address] [facility] [address], [place], [address], [facility] - [facility] 08/09/2024 11:52:29 OBGyn Episode No OBEpisode recorded.
== END 2024-10-17 16:51 | disposition home or self-care (01) ==
PROVIDERS: PCP Internal Medicine; Visit Provider Internal Medicine
DX: Z00.00 Encounter for general adult medical examination without abnormal findings (principal); Z85.3 Personal history of malignant neoplasm of breast; E66.3 Overweight; M85.80 Other specified disorders of bone density and structure, unspecified site

== ENCOUNTER → 2024-10-17 16:02 | Outpatient (BNVA) | payer MEDICARE, SELFPAY | PROVIDERS: PCP Internal Medicine; Visit Provider Internal Medicine | DX: Z00.00 Encounter for general adult medical examination without abnormal findings (principal); E66.3 Overweight; Z68.30 Body mass index [BMI] 30.0-30.9, adult; M85.80 Other specified disorders of bone density and structure, unspecified site; Z85.3 Personal history of malignant neoplasm of breast; Z71.3 Dietary counseling and surveillance | CPT/HCPCS: 99397 ==

== ENCOUNTER 2024-11-14 10:57 | Outpatient (REF) | payer MEDICARE, SELFPAY ==
--- OUTSIDE RECORDS SUMMARY | 2024-11-14 11:51 | XMS_ITS | Data Portability ---
Author Organization [place] - Reynaldo Zelaya [facility] Surgeons [facility], [facility] Address [address] [place] [address] Assessment No assessment recorded. Plan of Treatment Reminders Order Date Submit Date Provider Last Modified By Organization Details Last Modified Time Details Appointments None recorded. Lab None recorded. Referral None recorded. Procedures None recorded. Surgeries None recorded. Imaging XR, knee, 4 or more view - [facility] left knee pain room 1 2024 025 [facility], [address], [place], [address], 5 12:51:04 MRI, knee, w/o contrast - Left knee mri no contrast r/o MMT 2024 025 [facility] ([facility]), [address], [place], [address], 5 12:28:49 Medication Orders None recorded. Patient TargetsNo targets recorded. Patient InstructionsNo instructions recorded. Reason for Referral None Reported. Results Created Date Observation Date Name Description Value Unit Range Abnormal Flag Note LastModifiedBy Organization Detail LastModifiedTime 08/10/19 25 08/09/2024 XR, knee, 4 or more view http:/ [email or web address] ?Encry pted=s hAaTro YD8dLq bEUv6g %2BXZw aYqtaq 0bqfl% 2Fg9IQ a4ajBk vP9nXo QUaueC m3YtLR FvZlgJ JJ8mAn HZtai3 9h4917 AC0KqY 3iDUKG hKiQtr MwF INTERFACE [facility] [address], [place], [address], 08/09/2024 10:40:49 08/10/19 25 08/09/2024 XR, knee, 4 or more view http:/ [email or web address] ?Encry pted=s hAaTro YD8dLq bEUv6g %2BXZw aYqtaq 0bqfl% 2Fg9IQ a4ajBk vP9nXo QUaueC m3YtLR FvZlgJ JJ8mAn HZtai3 8u2803 AC0KqY 3iDUKG hKiQtr MwF INTERFACE [facility] [address], [place], [address], 08/09/2024 10:40:50 08/16/19 25 08/15/2024 MRI, knee, w/o contr ast [facility] Access ion Number : [id number] Patien t Name: Sp Mccabe en Medica l Record Number : [id number] Date of : 1954 Date of Exam: 2024 Referr ing Physic aysha: Rj Pascual en NEOS [address], [address] [facility] [address] Exam: MR Knee (C-) CPT 07569 - Left Room Descri ption: [facility] Verio 3.0T MR Knee (C-) CPT 84260 CLINIC AL INDICA TION: Reason For Exam: [...] images and report and concur with the honey nt, Esme spears, domingo clement. Electr onical ly Signed By: Rajesh [email or web address] [facility] ([facility]) [address], [place], [address], 08/16/2024 11:25:15 08/16/19 25 08/15/2024 imagi ng inter preta tion No observ ation record ed. nas 1 [facility] [address], [place], [address], 08/19/2024 09:55:59 Result Notes Documentation Provider Name and Address Organization Details Recorded Time Xr, Knee, 4 Or More View : [email or web address] Encrypted=yrDrUsqXD0eJyhE Uv6g%6WQGviGzepe3xnby%2Fg 3RPa2odDfkC2rSwKItrqOc0Kx JZYrMkkJKA3dDtBSeje96q298 3YV2WtD7lVQJCdUeTxzMoF Not Available [facility] 08/09/2024 10:40:49 Xr, Knee, 4 Or More View : [email or web address] Encrypted=vdMmYzjIT4jFvhQ Uv6g%7JYCacAizhq2rium%2Fg 9WCb2vbBajX9hNlEFsafOg7Tg XXCbAvjEPX5xJfXRfcw38g182 9AY2DkZ1pVMTVpBbWsnLnP Not Available [facility] 08/09/2024 10:40:51 Mri, Knee, W/o Contrast : [facility] Accession Number: [id number] Patient Name: Keiry Martini Date of : 1955 Date of Exam: 08-15-2024 Referring Physician: Kathy Pascual [address] [place], [place] [address], [address] [place] [address] Exam: MR Knee (C-) CPT 87114 - Left Room Description: [facility] 3.0T MR Knee (C-) CPT 24999 CLINICAL INDICATION: Reason For Exam: M25.362 - [...] report and concur with the resident, Esme Thornton, findings. Electronically Signed By: Rajesh Pascual PA-C [address] [facility] [address], [place], [address], [facility] 08/16/2024 11:25:15 Problems Name Problem SNOMED Code Status Onset Date Resolution Date Notes Provider Name and Address Organization Details Recorded Time Pain of left knee joint 9872050601636 07 Active 2024 KAYLIA L'HEUREUX [facility] 5 10:30:31 Instability of joint of left knee 9082744013386 106 Active 2024 KAYLIA L'HEUREUX [facility] 5 11:06:40 Problem Notes None recorded. Medical Equipment None Reported. Allergies Allergen ID Allergen Name Allergen Category Reaction Reaction Severity Criticality Documentation Date Start Date Code Code System Note Provider Name and Address Organization Details Recorded Time 656391 Product containin g penicilli n (product) medicatio n Not available Not available Not available 08/09/2024 79037 8001 SNOMED KAYLIA L'HEUREUX [facility], [facility] [place] [facility] 5 10:26:45 75890 doxycycli ne hyclate medicatio n Not available Not available Not available 07/03/20232020 37920 RxNorm Not Available [facility] 4 12:08:38 Medications Name Sig Start Date [...] Available clobetasol 0.05 % topical cream APPLY THIN FILM TO AFFECTED AREA 3 TIMES A WEEK. active Not Available Not Available No t Available sulfamethox azole 800 mg-trimetho prim 160 mg tablet TAKE 1 TABLET BY MOUTH TWICE A DAY active Not Available Not Available No t Available triamcinolo ne acetonide 0.1 % topical cream APPLY ONCE DAILY TO AFFECTED AREAS OF RASH ON TRUNK FOR 2-3 WEEKS. active Not Available Not Available No t Available pseudoephed rine-guevefe nesin ER 80-700 mg tablet,exte nded release [...] Not Available Not Available No t Available nitrofurant oin monohydrate /macrocryst als 100 mg capsule TAKE 1 TABLET ORALLY EVERY 12 HOURS FOR 7 DAYS MUST ADMINISTE R WITH A MEAL/FOOD active Not Available Not Available No t [...] Updated DateTime 08/09/2024 162.56 cm 30.9 kg/m2 97513.63 g YSABEL BARBOSA [facility] 08/09/2024 10:26:31 Social History Question Answer Notes LastModified by [employer] Details LastModified Time Tobacco Smoking Status Never Smoker YSABEL fitzgerald [facility] [place] [facility] 08/09/2024 10:29:45 What Is Your Relationship Status? Information not available 08/09/2024 Sex: Unknown Functional Status Question Answer Note LastModified by [employer] Details LastModified Time Do you use any illicit or recreational drugs? No Information not available 08/09/2024 Do you or have you ever used any other forms of tobacco or nicotine? No Information not available 08/09/2024 What is your level of alcohol consumption? None Information not available 08/09/2024 Mental Status None recorded. Family History Nothing Reported. Medical History Condition Response Coronary Artery Disease N Anxiety/Depression N Emphysema N COPD N Pacemaker N Vascular Disease N Heart Trouble N Gastrointestinal Disease N Autoimmune disease N Inflammatory Joint disease N Orthotics N Arthritis Y Blood Clot N Acid Reflux (GERD) N Cancer Y Stroke N Circulation Problems N Rheumatoid Arthritis N Arrhythmia N Headaches N Fibromyalgia N Allergies/Hayfever N Breathing or lung disorders N Nerve Disorders N Thyroid Problems N Kidney/Bladder Problems N Anemia Y Heart Attack ([place]) N Cholesterol N Diabetes N Bleeding Disorder N Seizures/Epilepsy N AIDS/HIV N Congestive Heart Failure (CHF) N Asthma N Peripheral Vascular Disease N Sleep Apnea N Hepatitis N Heart Disease N Pulmonary Embolism N Hypertension N Osteoporosis N Gynecological HistoryNo gynecological history recorded. Obstetrics History GPAL:G 0 P 0 0 0 0 Past Encounters Encounter ID Performer Location Encounter Start Date Encounter Closed Date Diagnosis/Indication Diagnosis SNOMED-CT Code Diagnosis ICD10 Code Diagnosis Note [id number] Kathy Pascual PA-C [facility] [address] [place] [address] 08/09/2024 09:41:20 08/26/2024 13:52:43 Pain of left knee joint 8550063656 12670 M25.562 Instabilit y of joint of left knee 3577170560 905311 M25.362 Reviewed patient's imaging and exam findings [...] Member ID Fall Member ID Guarantor Name 11/05/2024 2 [place] [id number] Keiry Martini [id number] Keiry Antunez Sadieonur 08/07/2024 1 [place] [employer] Keiry Martini [id number] Keiry Antunez Sadieonur Notes Date Note Type Note Provider Name [...] by myself during today's visit at [facility] and demonstrate well-preserved tricompartmental joint spaces. No fracture or dislocation. Patella tracking centrally in the groove. Impression:Normal left knee radiographs Kathy Pascual PA-C [address], [place], [address], [facility] - [facility] 08/09/2024 11:52:29 OBGyn Episode No OBEpisode recorded.
== END 2024-11-14 10:58 | disposition home or self-care (01) ==
LOC: HO.LNP 10:57
PROVIDERS: Visit Provider Otolaryngology
DX: B37.9 Candidiasis, unspecified (principal)
CPT/HCPCS: 87102; 87106

== ENCOUNTER 2025-01-06 10:06 | Outpatient (REF) | payer MEDICARE, SELFPAY ==
[2025-01-06 11:12] LABS: Appearance Urine Clear; Glucose Urine UA Negative (Negative); PH 6.5 (5.0-9.0); Specific Gravity - Urine 1.015 (1.005-1.025)
--- OUTSIDE RECORDS SUMMARY | 2025-01-06 11:55 | XMS_ITS | Clinical Summary ---
Author Organization [facility] Address [address] [place] [address] Phone Care Team Providers Care Photography Intern Name Role Phone Willard Jerome MD Primary Care Provider [phone] Allergies Active Allergy Reactions Criticality Noted Date Comments Doxycycline Hyclate 09/29/2021 Penicillins Rash Medium 01/15/2020 Medications Medication-Free TextIndications :Justin peritonitis,Can dex Take 1 capsule by mouth daily. Pure [...] 2 (two) times a day. Active Medication-Free TextIndications :Promotes T cells Take 2 capsules by mouth 2 (two) times a day. IP-6 + Inositol Indications: Promotes T cells Active acetaminophen (TYLENOL) 325 mg tablet Take 650 mg by mouth every 6 (six) hours as needed for mild pain. Active estradioL (ESTRACE) 0.01 % (0.1 mg/gram) vaginal cream APPLY SMALL PEA SIZE OF CREAM EXTERNALLY TO AFFECTED AREA LABIA AND VAGINAL OPENING 3 NIGHTS A WEEK. 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 Not on alexx e 08/26/2022 Are you concerned about learning? Not on file 08/26/2022 No 08/26/2022 No 08/26/2022 Digital Access Answer Date Recorded No 09/24/2022 No 09/24/2022 Reliable internet access at home? Not on file 09/24/2022 Device with a working camera? Not on file Comments Unknown Sex and Gender Information Value Date Recorded Sex Assigned at Not on file Legal Sex Female 9:55 PM EDT Gender Identity Not on file Sexual Orientation Not on file Last Filed Vital Signs Vital Sign Reading Time Taken Comments Blood Pressure 128/76 03/14/2013 3:10 AM EST Pulse 84 03/14/2013 3:10 AM EST Temperature - - Respiratory Rate - - Oxygen Saturation - - Inhaled Oxygen Concentration - - Weight 82.6 kg (182 lb) 09/26/2024 10:02 AM EDT Height 165.1 cm (5' 5 ) 09/26/2024 10:02 AM EDT Body Mass Index 30.29 09/26/2024 10:02 AM EDT Plan of Treatment Health Maintenance [...] VACCINES (1 of 2) 2005 OSTEOPOROSIS SCREENING INITIAL (ONE-TIME) 2020 INFLUENZA VACCINE (#1) 2024 4, 03/01/2023, 02/22/2022, Additional history exists COVID-19 VACCINE (2023- season) 2024 02/13/2024, 02/16/2023, 09/02/2022, Additional history exists Adult Td,Tdap Booster 12/17/2029 12/18/2019, 020 RSV VACCINE (1 - 1-dose 75+ series) 2030 SMOKING STATUS SCREENING (Once After 26 Yrs) Completed 09/29/2021 HEPATITIS A VACCINES Aged Out No long er eligible based on patient's age to complete this topic HIB VACCINES Aged Out No longer eligi ble based on patient's age to complete this topic MENINGOCOCCAL VACCINES (ACWY) Aged Out No longer eligible based on patient's age to complete this topic MENINGOCOCCAL VACCINES (B) Aged Out N o longer eligible based on patient's age to complete this topic Medical Devices Not on file Insurance [facility] MEDEX SUPPLEMENT MEDICARE PART A & B Abundance Generation CROSS MEDEX SUPPLEMENT MEDICARE PART A & B Abundance Generation CROSS MEDEX SUPPLEMENT MEDICARE PART A & B Abundance Generation CROSS MEDEX SUPPLEMENT MEDICARE PART A & B BLUE CROSS MEDEX SUPPLEMENT MEDICARE PART A & B [employer] MEDEX SUPPLEMENT MEDICARE PART A & B [employer] MEDEX SUPPLEMENT MEDICARE PART A & B [employer] MEDEX SUPPLEMENT MEDICARE PART A & B [employer] MEDEX SUPPLEMENT MEDICARE PART A & B Care Teams Photography Intern Relationship Specialty Start Date End Date Willard Jerome MD [address] [place] [address] [place] [id number] PCP - General 12/27/19 Additional Source Comments The information contained in this document represents components of the legal health record. It is not the complete legal health record.[facility]
--- OUTSIDE RECORDS SUMMARY | 2025-01-06 11:55 | XMS_ITS | Encounter Summary ---
Author Organization [facility] Address [address] [place] [address] Phone Care Team Providers Care Stone Processing Machine Operator Name Role Phone Jackeline Bourne STAFF OCCUPATIONAL THERAPIST Unavailable [phone] PoWillard MD Primary Care Provider [phone] Encounter Details Date Type Department Care Team (Latest Contact Info) Description 07/27/2020 Ancillary Orders Virtual Department 30 [place] [address] Jo Ann Romo NP [address] [address] jo [email or web address] Pain in both hands; Hx of osteoarthritis Social History Tobacco Use Types Packs/Day Years Used Date Smoking Tobacco: Never Smokeless Tobacco: Never Comments Unknown Sex and Gender Information Value [...] arthritis. Narrative 07/28/2020 11:39 AM EDT HISTORY: As above. COMPARISON: None. BILATERAL HAND [...] Moderate diffuse osteopenia without evidence of arthritis. us Jo Ann Romo NP IMG XR UPPER EXTREMITY Final R esult documented in this encounter Visit Diagnoses Diagnosis Pain in both hands Hx of osteoarthritis Pain in both hands Hx of osteoarthritis documented in this encounter Care Teams Stone Processing Machine Operator Relationship Specialty Start Date End Date Justus, Willard Nash MD [address] [place] [address] [place] [phone] PCP - General 12/27/19 Jackeline Bourne NP [address] [place] [phone] Historical LMR Provider 02/15/17 2 documented as of this encounter Additional Source Comments The information contained in this document represents components of the legal health record. It is not the complete legal health record.[facility]
--- OUTSIDE RECORDS SUMMARY | 2025-01-06 11:55 | XMS_ITS | Encounter Summary ---
Author Organization [facility] Address [address] [facility] [address] [place] [address] Phone Care Team Providers Care Flag Signaler Name Role Phone Jackeline Bourne WELCOME WAGON HOST/HOSTESS Unavailable [phone] Willard Jerome MD Primary Care Provider [phone] Encounter Details Date Type Department Care Team (Late st Contact Info) Description 01/16/2020 Ancillary Orders [facility],Outside Imaging 30 [place] [address] System, Provider Not In, [facility] [address] [address] Social History Tobacco Use Types Packs/Day Years Used Date Smoking Tobacco: Never Assessed Comments Unknown Sex and Gender Information Value [...] PACS storage only and not for interpretation. us Provider Not In System PhD IMG OUTSIDE IMAGING W /OUT INTERPRETATION Final Result documented in this encounter Visit Diagnoses Not on filedocumented in this encounter Care Teams Flag Signaler Relationship Specialty Start Date End Date Willard Jerome MD [address] [place] [address] PCP - General 12/27/19 Jackeline Bourne NP [address] [place] [phone] Historical LMR Provider 02/15/17 2 documented as of this encounter Additional Source Comments The information contained in this document represents components of the legal health record. It is not the complete legal health record.[facility]
== END 2025-01-06 10:07 | disposition home or self-care (01) ==
LOC: HO.LAB 10:06
PROVIDERS: PCP Internal Medicine; Visit Provider Internal Medicine
DX: R30.0 Dysuria (principal)
CPT/HCPCS: 81003

== ENCOUNTER 2025-01-08 10:17 | Outpatient (REF) | payer MEDICARE, SELFPAY ==
[2025-01-08 10:37] LABS: MANUAL DIFF FLAG NO
[2025-01-08 11:13] LABS: Hematocrit 38.3 % (37.0-47.0); Hemoglobin 12.2 g/dl (12.0-16.0); Imm Gran Abs Auto 0.03 X10*3/uL (0.00-0.03); Imm Gran Pct Auto 0.4 % (0.0-0.4); Lymphocytes Absolute Auto 1.6 X10*3/uL (1.2-4.9); Mean Corpuscular HGB Conc 31.9 g/dl (31.0-35.0); Mean Corpuscular Hemoglobin 28.0 pg (27.0-33.0); Mean Corpuscular Volume 88.0 fL (80.0-98.0); NRBC Abs Auto 0.000 X10*3/uL (0.0-0.012); NRBC Pct Auto 0.0 /100WBC (0.0-0.2); Platelet Count 244 X10*3/uL (160-400); Red Blood Count 4.35 X10*6/uL (4.20-5.50); White Blood Count 6.8 X10*3/uL (4.8-10.8)
[2025-01-08 11:55] LABS: Alanine Aminotransferase 12 U/L (0-31); Albumin Level 4.4 g/dL (3.5-5.0); Alkaline Phosphatase 66 U/L (39-117); Anion Gap 13 (12-20); Aspartate Amino Transferase 18 U/L (5-31); Blood Urea Nitrogen 11 mg/dL (9-16); Calcium 9.4 mg/dL (8.4-10.2); Carbon Dioxide 24 mmol/L (22-29); Chloride 108 mmol/L (96-108); Estimated Glomerular Filt Rate > 60; Iron 90 mcg/dL (30-160); Percent Iron Saturation 27 % (15-50); Potassium 4.3 mmol/L (3.3-5.1); Sodium 141 mmol/L (135-145); Total Iron Binding Capacity 339 mcg/dL (228-428); Total Protein 7.3 g/dL (6.5-8.0); Unsaturated Iron Binding 249 ug/dL
[2025-01-08 12:13] LABS: Ferritin 64 ng/mL (10-250)
--- OUTSIDE RECORDS SUMMARY | 2025-01-08 12:32 | XMS_ITS | Clinical Summary ---
Author Organization [facility] Address [address] [place] [address] Phone Care Team Providers Care Classification And Treatment Director Name Role Phone Willard Jerome MD Primary Care Provider [phone] Allergies Active Allergy Reactions Criticality Noted Date [...] topic Medical Devices Not on file Insurance [facility] MEDEX SUPPLEMENT MEDICARE PART A & B [employer] MEDEX SUPPLEMENT MEDICARE PART A & B [employer] MEDEX SUPPLEMENT MEDICARE PART A & B [employer] MEDEX SUPPLEMENT MEDICARE PART A & B BLUE CROSS MEDEX SUPPLEMENT MEDICARE PART A & B for; to (do) Centers MEDEX SUPPLEMENT MEDICARE PART A & B for; to (do) Centers MEDEX SUPPLEMENT MEDICARE PART A & B for; to (do) Centers MEDEX SUPPLEMENT MEDICARE PART A & B for; to (do) Centers MEDEX SUPPLEMENT MEDICARE PART A & B Care Teams Classification And Treatment Director Relationship Specialty Start Date End Date Willard Jerome MD [address] [place] [address] [place] [phone] PCP - General 12/27/19 Additional Source Comments The information contained in this document represents components of the legal health record. It is not the complete legal health record.[facility]
--- OUTSIDE RECORDS SUMMARY | 2025-01-08 12:32 | XMS_ITS | Encounter Summary ---
Author Organization [facility] Address [address] [place] [address] Phone Care Team Providers Care Information Systems Analyst Name Role Phone Jackeline Bourne PORTRAIT CONSULTANT Unavailable [phone] PoWillard MD Primary Care Provider [phone] Encounter Details Date Type Department Care Team (Latest Contact Info) Description 07/27/2020 Ancillary Orders Virtual Department 30 [place] [address] Jo Ann Romo NP [address] [address] jo [email or web address] Pain in both hands; Hx of osteoarthritis [...] lesions. No soft tissue swelling. Procedure Note aMo Starks MD - 07/28/2020 HISTORY: As above. [...] osteoarthritis documented in this encounter Care Teams Information Systems Analyst Relationship Specialty Start Date End Date Justus, Willard Nash MD [address] [place] [address] [place] [phone] PCP - General 12/27/19 Jackeline Bourne NP [address] [place] [phone] Historical LMR Provider 02/15/17 2 documented as of this encounter Additional Source Comments The information contained in this document represents components of the legal health record. It is not the complete legal health record.[facility]
--- OUTSIDE RECORDS SUMMARY | 2025-01-08 12:32 | XMS_ITS | Encounter Summary ---
Author Organization [facility] Address [address] [facility] [address] [place] [address] Phone Care Team Providers Care Pipe And Boiler Covers Supervisor Name Role Phone Jackeline Bourne SITE HEAD Unavailable [phone] Willard Jerome MD Primary Care Provider [phone] Encounter Details Date Type Department Care Team (Late st Contact Info) Description 01/16/2020 Ancillary Orders [facility],Outside Imaging 30 [place] [address] System, Provider Not In, [facility] [address] [address] Social History Tobacco Use Types Packs/Day Years [...] on filedocumented in this encounter Care Teams Pipe And Boiler Covers Supervisor Relationship Specialty Start Date End Date Willard Jerome MD [address] [place] [address] PCP - General 12/27/19 Jackeline Bourne NP [address] [place] [phone] Historical LMR Provider 02/15/17 2 documented as of this encounter Additional Source Comments The information contained in this document represents components of the legal health record. It is not the complete legal health record.[facility]
== END 2025-01-08 10:18 | disposition home or self-care (01) ==
LOC: HO.LAB 10:17
PROVIDERS: PCP Internal Medicine; Visit Provider Internal Medicine Medical Oncology
DX: Z85.3 Personal history of malignant neoplasm of breast (principal)
CPT/HCPCS: 36415; 80053; 82728; 83540; 85025

== ENCOUNTER 2025-01-16 15:37 | Outpatient (AMB) | payer MEDICARE, SELFPAY ==
--- NOTE | 2025-01-16 15:39 | A.OFFPC_ITS ---
Vital Signs 01/16/25 15:41 Height 5 ft 4 in Weight 177 lb 4 oz BMI 30.4 BP 112/74 Blood Pressure Location Lt brachial Position Sitting Pulse 69 Pulse Source Pulse Oximeter Temp 97.3 F Temp Source Temporal Artery Scan Pulse Oximetry (%) 97 Oxygen Delivery Method Room Air Intake Visit Reasons: f/u Allergies doxycycline (DOXYCYCLINE) Allergy (Severe, Verified 01/16/25 15:39) UNKNOWN, ? hearing problem poison teresa extract (POISON TERESA) Allergy (Severe, Verified 01/16/25 15:39) SEVERE RASH Penicillins (PENICILLINS) Allergy (Unknown, Verified 01/16/25 15:39) RASH Medication List - Last Reconciled 01/16/25 by Willard Jerome, betamethasone valerate 0.1% 1 appl topical TID PRN calcium carbonate 600 mg PO DAILY cholecalciferol (vitamin D3) 50 mcg PO DAILY estradiol 0.01%(0.1mg/gram) (Estrace) pea sized amount per urethra daily; 30 days famotidine 20 mg PO DAILY fluconazole 100 mg PO DAILY garlic 50 mg PO DAILY inositol 4 tabs PO DAILY mastectomy bra (bra, mastectomy) As Directed mastectomy bra (bra, mastectomy) As Directed nystatin 5 mL PO 3XD [PROBIOTIC 2 caps PO BID] Prosthesis, breast (Breast prosthesis) As Directed [synbiotic ] Tobacco use date assessed: 01/16/25 Fall risk assessment: No Falls in past year Last assessed Fall Risk: 01/16/25 Dental Screening Dental Screen Date: 01/16/25 Did you have a dental visit in the last 12 months?: Yes Did you have a dental problem in the last 6 months where you did not have access to dental care?: No Was dental information given to patient?: Patient has dentist HPI f/u HPI Details concern on shanon and ent has been treating-was started with diet, fluconazole, nystatin, -troches for the tongue. heat sensitivity of tongue, cause thirst. states once q 6 months having hypopigmentation. [facility] Medical History GERD (gastroesophageal reflux disease) Abdominal pain Yeast infection involving the vagina and surrounding area Esophagitis Epigastric abdominal pain Dysuria Right lower quadrant pain Neck pain Fatigue Osteoarthritis Vitamin B12 deficiency Hypercholesterolemia Overweight (BMI 25.0-29.9) Ascending aorta dilatation Immunodeficiency disorder Irritable bowel syndrome Anxiety Anemia Hx of breast cancer Surgical History History of esophagogastroduodenoscopy (EGD) H/O rotator cuff surgery History of colonoscopy History of arthroscopy of left knee Hx of tubal ligation Hx of section Hx of mastectomy Family History Mother Diabetes Arthritis Father HTN (hypertension) Dementia COPD (chronic obstructive pulmonary disease) Skin cancer Maternal Grandfather Glaucoma Social History Household Members: Spouse Housing: Apartment Are you a primary neurocritical care physician to a significant other at home: No Do you presently have visiting nurse or other home services: No Alcohol intake: current Alcohol intake frequency: holidays/special occasions only Comment: 2x a year 2 drinks Patient Tobacco Use Status: Never used Tobacco Years Smoked: history of marijuana uses e-Cigarette/Vaping Use: Never Used Second Hand Smoke Exposure: No service: No Current occupational status: retired Sexual orientation: Straight/Heterosexual Gender identity: Female Cognitive needs: No Hearing needs: No Vision needs: Yes (glasses) Questionnaire PHQ-9 Over the last 2 weeks, how often have you been bothered by any of the following problems? 1. Little interest or pleasure in doing things: not at all 2. Feeling down, depressed, or hopeless: not at all 3. Trouble falling or staying asleep, or sleeping too much: not at all 4. Feeling tired or having little energy: not at all 5. Poor appetite or overeating: not at all 6. Feeling bad about yourself - or that you are a failure or have let yourself or your family down: not at all 7. Trouble concentrating on things, such as reading the newspaper or watching television: not at all 8. Moving or speaking so slowly that other people could have noticed. Or the opposite - being so fidgety or restless that you have been moving around a lot more than usual: not at all 9. Thoughts that you would be better off or of hurting yourself in some way: not at all Total score: 0 Source: Developed by Drs. Josh Vivar, Becka B.Ernie Ortiz and colleagues, with an educational brigette from [employer]. Thrive Questionnaire Date Thrive assessed: 10/17/24 I am a: Patient What is your living situation today?: I have a steady place to live Within the past 12 months, did the food you bought not last and you didn't have the money to get more?: Never true Within the past 12 months, did you worry whether your food would run out before you got money to buy more?: Never true Do you have trouble paying for medicines?: No Do you have trouble getting transportation to medical appointments?: No Do you have trouble paying your heating and electricity bill?: No Do you have trouble taking care of your child, family member or friend?: No Do you have trouble with day-to-day activities such as bathing, preparing meals, shopping, managing finances, etc.?: No Are you currently unemployed and looking for a job?: No Are you interested in more education?: I choose not to answer this question Please select the resources that you would like help with: None Currently or been in a relationship where the following occur: No concerns reported THRIVE Score: 0 AUDIT C Alcohol Use Questionnaire (AUDIT-C) 1. How often do you have a drink containing alcohol?: Monthly or less 2. How many drinks containing alcohol do you have on a typical day when you are drinking?: 1 or 2 3. How often do you have six or more drinks on one occasion?: Never Total Score: 1 FLOWER-7 AMB Questionnaire FLOWER-7 Date FLOWER - 7 assessed: 10/17/24 Feeling nervous, anxious, or on edge: 0 = Not at all Not being able to stop or control worryin = Not at all Worrying too much about different things: 0 = Not at all Trouble relaxin = Not at all Being so restless that it is hard to sit still: 0 = Not at all Becoming easily annoyed or irritable: 0 = Not at all Feeling afraid as if something awful might happen: 0 = Not at all Total FLOWER-7 score (0-4 normal; 5-9 mild; 10-14 moderate; 15-21 severe): 0 Source: Developed by Drs. Josh Vivar, Ernie Claudio and colleagues, with an educational brigette from [employer]. Physical exam (Primary Care) Vital Signs: Last Vital Signs Temp 97.3 F 01/16/25 15:41 Pulse 69 01/16/25 15:41 BP 112/74 01/16/25 15:41 Pulse Ox 97 01/16/25 15:41 Oxygen Delivery Method Room Air 01/16/25 15:41 BMI result Body Mass Index 30.4 Tobacco/Smoking Status: Tobacco use Status Tobacco use date assessed 01/16/25 01/16/25 15:45 Patient Tobacco Use Status Never used Tobacco 01/16/25 15:45 e-Cigarette/Vaping Use Never Used 01/16/25 15:45 PHQ-9: PHQ-9 Score PHQ-9: Total score 0 01/16/25 16:09 Thrive Assessment: Date of Thrive Assessment Date Thrive assessed 10/17/24 01/16/25 15:45 Currently or been in a relationship where the following occur: No concerns reported Const General: alert; No acute distress Eyes Conjunctivae: conjunctivae normal Resp Auscultation: clear to auscultation bilaterally Cardio Rate: regular rate Rhythm: regular rhythm GI Inspection: Yes normal to inspection Extrem General: Yes normal to inspection and No edema Coding Level of Care Code Est Pt Level 4 (23222) Complex EM visit Add On G2211 Diagnoses Hx of breast cancer Z85.3 Ascending aorta dilatation I77.810 Hypercholesterolemia E78.00 Assessment & Plan Assessment & Plan (1) Hx of breast cancer: Comment: March 2010 right modified radical mastectomy 1.5 cm grade 3 infiltrating ductal carcinoma with lymphovascular invasion estrogen and progesterone receptors negative but HER/abraham (+) 1 of 11 axillary nodes positive for Mets adeno CA 4.5 cm identified on MRI Code(s): Z85.3 - Personal history of malignant neoplasm of breast Category: Medical Plan: Continue to follow-up with Hematology-Oncology and mammogram (2) Ascending aorta dilatation: Comment: 3.07 July 2018, echo 60-65% June 2019 65-70% grade 1 diastolic dysfunction mild dilatation ascending aorta 3.9 cm stressed negative June 2018October 2021 3.7 to 3.8 cm Code(s): I77.810 - Thoracic aortic ectasia Category: Medical Plan: Continue to monitor. (3) Hypercholesterolemia: Code(s): E78.00 - Pure hypercholesterolemia, unspecified Category: Medical Plan: Avoid fried foods, chicken skin, eggs, butter margarine, pastries and meat. Be it pork or beef they have a lot of cholesterol Plan History of Present Illness The patient is a 69-year-old female presenting for a follow-up visit and management of chronic conditions. The patient has a history of hypercholesterolemia, with the last cholesterol test in January 2024 showing an LDL of 140 mg/dL. There is no new cholesterol testing available at this time. The patient was diagnosed with breast cancer in 2009 and continues to follow up with hematology oncology. She had a mammogram in July 2023 and is advised to continue with annual screenings. The patient has an ascending aortic dilatation measured at 3.8 cm, which is considered mild. The last echocardiogram was performed in 2022, and a new one is planned to monitor the condition. 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 She experiences symptoms such as a coated tongue and digestive issues, which recur approximately every six months. The patient has tried dietary modifications and probiotics to manage the condition. The patient experiences leg cramps, particularly at night, and has been unable to tolerate magnesium supplements due to adverse effects. A blood test for magnesium levels has been requested to further investigate this issue. Health Maintenance - Annual mammogram recommended - Bone density test conducted in July 2023 - Colonoscopy last performed in 2018 Social History Review of Systems - Gastrointestinal: Reports digestive issues related to Shanon infection. - Musculoskeletal: Reports leg cramps, particularly at night. - Dermatological: Reports coated tongue and sensitivity changes. Physical Exam Results - Labs: Blood work from January 08 shows normal blood count, electrolytes, renal function, and blood sugar. - Labs: Last cholesterol test in January 2024 with LDL of 140 mg/dL. - Imaging: Last echocardiogram performed in 2022. Plan Patient was informed and verbally consented to the use of an ambient scribe for clinic note documentation during this visit. 1. Hypercholesterolemia The patient's hypercholesterolemia is being monitored, with the last LDL level recorded at 140 mg/dL in January 2024. There is no new cholesterol testing available at this time, and further management will be based on future test results. 2. History Of Breast Cancer The patient has a history of breast cancer diagnosed in 2009 and continues to follow up with hematology oncology. She is advised to continue with annual mammograms, with the last one performed in July 2023. 3. Ascending Aortic Dilatation The patient has an ascending aortic dilatation measured at 3.8 cm, which is considered mild. A new echocardiogram is planned to monitor the condition, as the last one was performed in 2022. 4. 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 She experiences symptoms such as a coated tongue and digestive issues, which recur approximately every six months. The patient has tried dietary modifications and probiotics to manage the condition. 5. Leg Cramps The patient experiences leg cramps, particularly at night, and has been unable to tolerate magnesium supplements due to adverse effects. A blood test for magnesium levels has been requested to further investigate this issue. Discussion Notes During the visit, we discussed the management of the patient's hypercholesterolemia, with plans to monitor cholesterol levels and adjust treatment as necessary based on future results. We also reviewed the patient's history of breast cancer and the importance of continuing annual mammograms. The patient was informed about the mild ascending aortic dilatation and the need for a follow-up echocardiogram. For the Shanon infection, we discussed the current treatment regimen and the potential need for further evaluation by an drilling and production superintendent. The patient was advised to monitor leg cramps and follow up on magnesium levels. Patient Instructions - Continue with annual mammograms and follow up with hematology oncology. - Monitor cholesterol levels and follow up with any new test results. - Schedule and attend the echocardiogram to monitor aortic dilatation. - Follow the current treatment plan for Shanon infection and consider seeing an drilling and production superintendent for further evaluation. - Monitor leg cramps and follow up on magnesium level testing. Orders: Orders Comprehensive Met. Panel Today E78.00 - Pure hypercholesterolemia, unspecified Free T4 (Free Thyroxine) Today E78.00 - Pure hypercholesterolemia, unspecified Vitamin B12 and Folate Today E78.00 - Pure hypercholesterolemia, unspecified Thyroid Stimulating Hormone Today E78.00 - Pure hypercholesterolemia, unspecified Magnesium Today B37.3 - Candidiasis of vulva and vagina CA echo transthoracic complete Today I77.810 - Thoracic aortic ectasia Lipid Panel Today E78.00 - Pure hypercholesterolemia, unspecified Vitamin D 25-OH Total Today E78.00 - Pure hypercholesterolemia, unspecified Referrals Allergy & Immunology Referral B37.3 - Candidiasis of vulva and vagina
[2025-01-16 15:41] VITALS: BP 112/74; PULSE 69; TEMP 36.3; O2SAT 97; BMI 30.4
--- OUTSIDE RECORDS SUMMARY | 2025-01-16 16:54 | XMS_ITS | Clinical Summary ---
Author Organization [facility] Address [address] [place] [address] Phone Care Team Providers Care Fence Installer Foreman Name Role Phone Willard Jerome MD Primary Care Provider [phone] Allergies Active Allergy Reactions Criticality Noted Date [...] topic Medical Devices Not on file Insurance [facility] MEDEX SUPPLEMENT MEDICARE PART A & B [employer] MEDEX SUPPLEMENT MEDICARE PART A & B [employer] MEDEX SUPPLEMENT MEDICARE PART A & B [employer] MEDEX SUPPLEMENT MEDICARE PART A & B [employer]UE [employer] MEDEX SUPPLEMENT MEDICARE PART A & B [employer] MEDEX SUPPLEMENT MEDICARE PART A & B [employer] MEDEX SUPPLEMENT MEDICARE PART A & B [employer] MEDEX SUPPLEMENT MEDICARE PART A & B [employer] MEDEX SUPPLEMENT MEDICARE PART A & B Care Teams Fence Installer Foreman Relationship Specialty Start Date End Date Willard Jerome MD [address] [place] [address] [place] [phone] PCP - General 12/27/19 Additional Source Comments The information contained in this document represents components of the legal health record. It is not the complete legal health record.[facility]
--- OUTSIDE RECORDS SUMMARY | 2025-01-16 16:54 | XMS_ITS | Encounter Summary ---
Author Organization [facility] Address [address] [place] [address] Phone Care Team Providers Care Inbound Sales Consultant Name Role Phone Jackeline Bourne MILL HELPER Unavailable [phone] PoWillard MD Primary Care Provider [phone] Encounter Details Date Type Department Care Team (Latest Contact Info) Description 07/27/2020 Ancillary Orders Virtual Department 30 [place] [address] Jo Ann Romo NP [address] [address] [email or web address] Pain in both hands; Hx of osteoarthritis [...] osteoarthritis documented in this encounter Care Teams Inbound Sales Consultant Relationship Specialty Start Date End Date Justus, Willard Nash MD [address] [place] [address] [place] [phone] PCP - General 12/27/19 Jackeline Bourne NP [address] [place] [phone] Historical LMR Provider 02/15/17 2 documented as of this encounter Additional Source Comments The information contained in this document represents components of the legal health record. It is not the complete legal health record.[facility]
--- OUTSIDE RECORDS SUMMARY | 2025-01-16 16:54 | XMS_ITS | Encounter Summary ---
Author Organization [facility] Address [address] [facility] [address] [place] [address] Phone Care Team Providers Care Mold Stacker Name Role Phone Jackeline Bourne FLUXER Unavailable [phone] Willard Jerome MD Primary Care Provider [phone] Encounter Details Date Type Department Care Team (Late st Contact Info) Description 01/16/2020 Ancillary Orders [facility],Outside Imaging [address] [place] [address] System, Provider Not In, [facility] [address] [address] Social History Tobacco Use Types Packs/Day Years [...] on filedocumented in this encounter Care Teams Mold Stacker Relationship Specialty Start Date End Date Willard Jerome MD [address] [place] [address] PCP - General 12/27/19 Jackeline Bourne NP [address] [place] [phone] Historical LMR Provider 02/15/17 2 documented as of this encounter Additional Source Comments The information contained in this document represents components of the legal health record. It is not the complete legal health record.[facility]
== END 2025-01-16 16:34 | disposition home or self-care (01) ==
LOC: HO.HMCH 15:38
PROVIDERS: PCP Internal Medicine; Visit Provider Internal Medicine
DX: Z85.3 Personal history of malignant neoplasm of breast (principal); I77.810 Thoracic aortic ectasia; E78.00 Pure hypercholesterolemia, unspecified

== ENCOUNTER → 2025-01-16 15:37 | Outpatient (BNVA) | payer MEDICARE, SELFPAY | PROVIDERS: PCP Internal Medicine; Visit Provider Internal Medicine | DX: I77.810 Thoracic aortic ectasia (principal); E78.00 Pure hypercholesterolemia, unspecified; Z85.3 Personal history of malignant neoplasm of breast | CPT/HCPCS: 96127; 99212 ==

== ENCOUNTER 2025-01-23 09:43 | Outpatient (AMB) | payer MEDICARE, SELFPAY ==
--- NOTE | 2025-01-23 09:51 | A.OFFVIS_ITS ---
Vital Signs 01/23/25 10:02 Height 5 ft 4 in Weight 178 lb 12.718 oz BMI 30.7 BP 115/74 Blood Pressure Location Lt brachial Position Sitting Pulse 64 Pulse Source Pulse Oximeter Pulse Oximetry (%) 99 Oxygen Delivery Method Room Air Intake Visit Reasons: Joint Pain/Ref By Dr. Alfaro Intake Note: Patient presents for joint pain. Patient c/o of neck pain, bilateral shoulder pa in, Rt elbow pain, biteral hand pain, RT hip pain, LF knee pain, RT ankle pain and bilateral feet pain. Patient has had these symptoms for a year. Patient stated she takes tylenol and is a shorth term. Takes emu cream for pain. Allergies doxycycline (DOXYCYCLINE) Allergy (Severe, Verified 01/23/25 10:01) UNKNOWN, ? hearing problem poison catracho extract (POISON CATRACHO) Allergy (Severe, Verified 01/23/25 10:01) SEVERE RASH Penicillins (PENICILLINS) Allergy (Unknown, Verified 01/23/25 10:01) RASH Medication List - Last Reconciled 01/23/25 by Jaja Wyman MD betamethasone valerate 0.1% 1 appl topical TID PRN calcium carbonate 600 mg PO DAILY cholecalciferol (vitamin D3) 50 mcg PO DAILY estradiol 0.01%(0.1mg/gram) (Estrace) pea sized amount per urethra daily; 30 days famotidine 20 mg PO DAILY fluconazole 100 mg PO DAILY garlic 50 mg PO DAILY inositol 4 tabs PO DAILY mastectomy bra (bra, mastectomy) As Directed mastectomy bra (bra, mastectomy) As Directed nystatin 5 mL PO 3XD [PROBIOTIC 2 caps PO BID] Prosthesis, breast (Breast prosthesis) As Directed [synbiotic ] HPI Comments Details: Patient is a 69 y.o. female with breast cancer status post radiation therapy (about 15 years ago, underwent lumpectomy, and Chemo with Taxol and Herceptin), ascending aorta dilation, Chronic esophageal candidiasis here today for evaluation of polyarthralgias. Has been evaluated in this practice back in 2010 but at that time labs were normal and there was no evidence of synovitis and so she was diagnosed with degenerative joint disease. Since then patient has been noticing a progression of her joint disease over the years. Current complaints include - Bilateral hands. 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 Has AM stiffness that lasts about 1 hour. Does hand exercises that help with her hands - Toes. Feet change color with the cold. Happens sporadically with the fingers as well - Neck and back pain with stiffness and muscle tension. Sees a chiropractor which helps but sometimes feels her body is out of alignment - Knees. Mainly the left knee. Has been evaluated by ortho and there is evidence of osteoarthritis but not significant. Currently in PT Notices worsening her symptoms with the change in weather or on hot/humid days Gets rashes at the side of her breasts bilaterally, prone to gettign hives. Alpine Patroller gave topical steroids Family history of EDS, osteoarthritis [facility] Medical History (Updated 01/23/25 @ 11:24 by Jaja Wyman MD) Polyarticular osteoarthritis GERD (gastroesophageal reflux disease) Abdominal pain Yeast infection involving the vagina and surrounding area Esophagitis Epigastric abdominal pain Dysuria Right lower quadrant pain Neck pain Fatigue Osteoarthritis Vitamin B12 deficiency Hypercholesterolemia Overweight (BMI 25.0-29.9) Ascending aorta dilatation Immunodeficiency disorder Irritable bowel syndrome Anxiety Anemia Hx of breast cancer Surgical History History of esophagogastroduodenoscopy (EGD) H/O rotator cuff surgery History of colonoscopy History of arthroscopy of left knee Hx of tubal ligation Hx of section Hx of mastectomy Family History Mother Diabetes Arthritis Father HTN (hypertension) Dementia COPD (chronic obstructive pulmonary disease) Skin cancer Maternal Grandfather Glaucoma Social History Household Members: Spouse Housing: Apartment Are you a primary resident care provider to a significant other at home: No Do you presently have visiting nurse or other home services: No Alcohol intake: current Alcohol intake frequency: holidays/special occasions only Comment: 2x a year 2 drinks Patient Tobacco Use Status: Never used Tobacco Years Smoked: history of marijuana uses e-Cigarette/Vaping Use: Never Used Second Hand Smoke Exposure: No service: No Current occupational status: retired Sexual orientation: Straight/Heterosexual Gender identity: Female Cognitive needs: No Hearing needs: No Vision needs: Yes (glasses) Review of Systems Const Details: Review of Systems Constitutional: Denies fever, chills, weight loss ENT: Denies vision changes, eye pain or eye redness, dental caries, dry mouth GI: Denies nausea, vomiting, diarrhea, abdominal pain, change in BM Pulm: Denies SOB, COBIAN, hemoptysis, wheezing Cards: Denies chest pain, palpitations Skin: Denies nail changes, photosensitivity, DRUM SANDER SETTER: Denies headaches, weakness, paresthesias, recurrent falls MSK: as per HPI All other systems reviewed and are unremarkable except noted above Physical Exam Exam Exam: Vital signs reviewed Physical Examination CONSTITUITIONAL Patient alert and cooperative. Well appearing and in no apparent painful distress MSK Hands * Right Hand: Able to make a fist. No swelling or tenderness to palpation of the MCPs, PIPs or DIPs. * Left Hand: Able to make a fist. No swelling or tenderness to palpation of the MCPs, PIPs or DIPs. * Herbedens nodes noted bilaterally * Positive 1st CMC grind tests Wrists * Right Wrist: Full ROM to flexion and extension. No swelling or TTP * Left Wrist: Full ROM to flexion and extension. No swelling or TTP Elbows * Right Elbow: Full ROM. No swelling or TTP. No TTP of the medial epicondyle. No TTP of the lateral epicondyle * Left Elbow: Full ROM. No swelling or TTP. No TTP of the medial epicondyle. No TTP of the lateral epicondyle Shoulders * Right shoulder: Full ROM. No swelling noted. TTP of the AC joint. No TTP of the subacromial bursa. No TTP of the posterior shoulder * Left shoulder: Full ROM. No swelling noted. No TTP of the AC joint. No TTP of the subacromial bursa. No TTP of the posterior shoulder Hips * Right hip: Good ROM. No pain elicited with hip flexion/internal rotation/external rotation * Left hip: Good ROM. No pain elicited with hip flexion/internal rotation/external rotation Hip bursa: No tenderness to palpation bilaterally Knees * Right knee: Full ROM. No swelling noted. No TTP of the knee joint line. No TTP of pes anserine bursa * Left knee: Full ROM. No swelling noted. No TTP of the knee joint line. TTP of pes anserine bursa. Ankles * Right ankle: Good ankle dorsiflexion and plantar flexion. No swelling. No TTP of the ankle joint. TTP over the lateral malleolus * Left ankle: Good ankle dorsiflexion and plantar flexion. No swelling. No TTP of the ankle joint Feet * Right foot: Negative squeeze test * Left foot: Negative squeeze test Tender points? * No tenderness to palpation of the bilateral trapezius, supraspinatus, anterior costochondral junctions, bilateral suboccipital muscle insertions SKIN No rashes Normal nailfold capillaroscopy Vital Signs: Last Vital Signs Pulse 64 01/23/25 10:02 BP 115/74 01/23/25 10:02 Pulse Ox 99 01/23/25 10:02 Oxygen Delivery Method Room Air 01/23/25 10:02 BMI result Body Mass Index 30.7 Results Reviewed Results Reviewed: Laboratory Tests 07/11/24 09/30/24 01/08/25 10:11 14:16 10:35 WBC 6.8 RBC 4.35 Hgb 12.2 Hct 38.3 Plt Count 244 ESR 26 H Sodium 141 Potassium 4.3 D Chloride 108 Carbon Dioxide 24 BUN 11 Creatinine 0.70 AST 18 ALT 12 25-OH Vitamin D Total 46.6 Laboratory Tests 07/11/24 10:11 Rheumatoid Factor < 13.0 JANN Screen NEGATIVE XR L Spine 05/2024 FINDINGS: There is normal bone mineralization. No fracture, compression deformity, subluxation, or suspicious bone lesion. There is a minimal right convex scoliosis of the thoracolumbar junction. There is a normal lordosis. There is normal sagittal alignment. Minimal disc space degeneration diffusely, most significant at L5-S1. Normal facet alignment. No pars defects. Mild facet degeneration L4-S1. Sacrum appears intact with SI joint mild degenerative changes. No soft tissue abnormalities. IMPRESSION: 1. No acute findings of the lumbar spine. 2. Mild degenerative spondylosis. XR Right Hip 05/2024 FINDINGS: Normal bone mineralization. No fracture, dislocation, or suspicious bone lesion. Normal alignment of the right hip joint. Mild changes of osteoarthrosis within the right hip joint without significant joint space loss. Femoral head is normal in contour without evidence of AVN. Mild enthesopathy of the greater trochanter, and more significant enthesopathy of the gluteal insertions upon the iliac bone. No soft tissue abnormalities. IMPRESSION: 1. No acute findings right hip. Mild osteoarthrosis. 2. Right Gluteal and greater trochanter enthesopathy. XR Bilateral Hands 08/2020 FINDINGS: Bone alignment is normal. No fracture or dislocation is seen. There is bilateral osteopenia. There is bilateral arthritis at the first SNF joints, left greater than right. Joint spaces are otherwise normal. Soft tissues are normal. XR/XR hand LT min 3V IMPRESSION: Osteopenia. Bilateral arthritis at the first SNF joints, left greater than right. DEXA 07/2023 FINDINGS: LEFT FEMUR, NECK: Current: BMD 0.727 g/cm2, Z-score -0.9, T-score -2.2, osteopenia. Prior: BMD 0.724 g/cm2. Baseline: BMD 0.888 g/cm2. LEFT FEMUR, TOTAL: Current: BMD 0.782 g/cm2, Z-score -0.7, T-score -1.8, osteopenia, 4.8% decrease from previous, 18.5% decrease from baseline (<5% change is not significant). Prior: BMD 0.821 g/cm2. Baseline: BMD 0.959 g/cm2. AP SPINE L1-L4: Current: BMD 1.009 g/cm2, Z-score -0.2, T-score -1.4, osteopenia, 9.7% decrease from previous, 23.9% decrease from baseline (<5% change is not significant). Prior: BMD 1.118 g/cm2. Baseline: BMD 1.326 g/cm2. FRAX 17/08 Assessment & Plan Assessment & Plan (1) Polyarticular osteoarthritis: Code(s): M15.9 - Polyosteoarthritis, unspecified Category: Medical Plan: #Polyarticular OA Patient is a 69-year-old female with a history of breast cancer now in remission. She was never on any hormone receptor replacement therapies such as tamoxifen. Here today for evaluation of polyarthralgias. Patient previously evaluated by Rheumatology in 2020 and there was no evidence of any autoimmune or connective tissue disorder. Again today on examination there is no evidence of synovitis and normal capillary dermoscopy. Her bilateral 1st CMC joints have a positive grind test indicative of osteo arthritis, she has crepitations on her knees and tenderness to palpation of the AC joint on the right shoulder (which was previously operated on for rotator cuff and biceps tendon repair) Recommending continued use of topical diclofenac, reviewed correct use, and copper compression gloves. No indication for immunosuppressive treatment. She did mention that she is concerned that she may have Dirk-Danlos syndrome however Rheumatology does not diagnosed Dirk-Danlos syndrome as this is a genetic disorder and she should seek genetic counseling for this Plan - Topical diclofenac 1% qid - Copper compression gloves - RTC prn (2) Osteopenia: Comment: DEXA 07/2023: AP Spine -1.4, Left femur neck -2.2, Left femur total -1.8. FRAX 19.7/4.6 DEXA 06/2021: AP Spine -0.5, Left femur neck -2.3, Left femur total -1.5. FRAX 12.2/2.3 Code(s): M85.80 - Other specified disorders of bone density and structure, unspecified site Category: Medical Qualifiers: Osteopenia location: multiple sites Qualified Code(s): M85.89 - Other specified disorders of bone density and structure, multiple sites Plan: #Osteopenia Patient with osteopenia as diagnosed on DEXA scan in 2021. Currently on vitamin-D and calcium supplementation and doing exercises. However despite this her repeat bone density in 2023 showed worsening bone density and elevated FRAX index. Based on this patient should be on bone strengthening agents such as alendronate however given her history of candidal esophageal infestation we will need to confirm with her GI if we can proceed with alendronate. Patient will confirms this and get back to us. If she can take alendronate I advised her to have either her primary or her OBGYN prescribe her alendronate if she can not take it then we will start either Prolia or IV Reclast Plan - Recommending alendronate but she will need to get approval from her GI - Continue Vit D and Calcium supplementation - Weight bearing exercises Plan I spent 60 minutes reviewing the record (Heme/ Onc notes and Rheum notes) and labs, taking a history, examining the patient, discussing the treatment plan, ordering diagnostic work up and documenting in the medical record Coding Level of Care Code New Pt Level 5 (48853) Diagnoses Polyarticular osteoarthritis M15.9 Osteopenia of multiple sites M85.89 Osteopenia location: multiple sites
[2025-01-23 10:02] VITALS: BP 115/74; PULSE 64; O2SAT 99; BMI 30.7
--- OUTSIDE RECORDS SUMMARY | 2025-01-23 11:32 | XMS_ITS | Clinical Summary ---
Author Organization [facility] Address [address] [place] [address] Phone Care Team Providers Care Human Relations Professor Name Role Phone Willard Jerome MD Primary Care Provider [phone] Allergies Active Allergy Reactions Criticality Noted Date [...] Devices Not on file Insurance [facility] MEDEX SUPPLEMENT MEDICARE PART A & B [employer] CROSS MEDEX SUPPLEMENT MEDICARE PART A & B [employer] CROSS MEDEX SUPPLEMENT MEDICARE PART A & B [employer] CROSS MEDEX SUPPLEMENT MEDICARE PART A & B [employer] MEDEX SUPPLEMENT MEDICARE PART A & B [employer] MEDEX SUPPLEMENT MEDICARE PART A & B [employer] MEDEX SUPPLEMENT MEDICARE PART A & B [employer] MEDEX SUPPLEMENT MEDICARE PART A & B [employer] MEDEX SUPPLEMENT MEDICARE PART A & B Care Teams Human Relations Professor Relationship Specialty Start Date End Date Willard Jerome MD [address] [place] [address] [place] [phone] PCP - General 12/27/19 Additional Source Comments The information contained in this document represents components of the legal health record. It is not the complete legal health record.[facility]
--- OUTSIDE RECORDS SUMMARY | 2025-01-23 11:32 | XMS_ITS | Encounter Summary ---
Author Organization [facility] Address [address] [place] [address] Phone Care Team Providers Care Dehydration Plant Operator Name Role Phone Jackeline Bourne BUSINESS UNIT MANAGER Unavailable [phone] PoWillard MD Primary Care Provider [phone] Encounter Details Date Type Department Care Team (Latest Contact Info) Description 07/27/2020 Ancillary Orders Virtual Department [address] [place] [address] Jo Ann Romo NP [address] [address] [email or web address] Pain in both hands; Hx of osteoarthritis [...] osteoarthritis documented in this encounter Care Teams Dehydration Plant Operator Relationship Specialty Start Date End Date Justus, Willard Nash MD [address] [place] [address] [place] [phone] PCP - General 12/27/19 Jackeline Bourne NP [address] [place] [phone] Historical LMR Provider 02/15/17 2 documented as of this encounter Additional Source Comments The information contained in this document represents components of the legal health record. It is not the complete legal health record.[facility]
--- OUTSIDE RECORDS SUMMARY | 2025-01-23 11:32 | XMS_ITS | Encounter Summary ---
Author Organization [facility] Address [address] [facility] [address] [place] [address] Phone Care Team Providers Care Hvac Sheet Metal Installer Name Role Phone Jackeline Bourne SERVER ASSISTANT Unavailable [phone] Willard Jerome MD Primary Care Provider [phone] Encounter Details Date Type Department Care Team (Late st Contact Info) Description 01/16/2020 Ancillary Orders [facility],Outside Imaging [address] [place] [address] System, Provider Not In, [facility] [address] [address] Social History Tobacco Use Types Packs/Day Years [...] on filedocumented in this encounter Care Teams Hvac Sheet Metal Installer Relationship Specialty Start Date End Date Willard Jerome MD [address] [place] [address] PCP - General 12/27/19 Jackeline Bourne NP [address] [place] [phone] Historical LMR Provider 02/15/17 2 documented as of this encounter Additional Source Comments The information contained in this document represents components of the legal health record. It is not the complete legal health record.[facility]
== END 2025-01-23 11:05 | disposition home or self-care (01) ==
LOC: HO.RHES 09:44
PROVIDERS: PCP Internal Medicine; Visit Provider Student in an Organized Health Care Education/Training Program
DX: M15.9 Polyosteoarthritis, unspecified (principal); M85.89 Other specified disorders of bone density and structure, multiple sites
CPT/HCPCS: 99205

== ENCOUNTER → 2025-01-23 09:43 | Outpatient (BNVA) | payer MEDICARE, SELFPAY | PROVIDERS: PCP Internal Medicine; Visit Provider Student in an Organized Health Care Education/Training Program | DX: M15.9 Polyosteoarthritis, unspecified (principal); M85.89 Other specified disorders of bone density and structure, multiple sites | CPT/HCPCS: 99202 ==

== ENCOUNTER 2025-01-30 06:59 | Outpatient (REF) | payer MEDICARE, SELFPAY ==
--- OUTSIDE RECORDS SUMMARY | 2025-01-30 07:01 | XMS_ITS | Encounter Summary ---
Author Organization [facility] Address [address] [place] [address] Phone Care Team Providers Care Supervisor Dock Name Role Phone Jackeline Bourne TECHNICAL PLANNER Unavailable [phone] PoWillard MD Primary Care Provider [phone] Encounter Details Date Type Department Care Team (Latest Contact Info) Description 07/27/2020 Ancillary Orders Virtual Department [address] [place] [address] Jo Ann Romo NP [address] [address] [email or web address] Pain in both hands; Hx of osteoarthritis [...] osteoarthritis documented in this encounter Care Teams Supervisor Dock Relationship Specialty Start Date End Date Justus, Willard Nash MD [address] [place] [address] [place] [phone] PCP - General 12/27/19 Jackeline Bourne NP [address] [place] [phone] Historical LMR Provider 02/15/17 2 documented as of this encounter Additional Source Comments The information contained in this document represents components of the legal health record. It is not the complete legal health record.[facility]
--- OUTSIDE RECORDS SUMMARY | 2025-01-30 07:02 | XMS_ITS | Clinical Summary ---
Author Organization [facility] Address [address] [place] [address] Phone Care Team Providers Care Head Of Digital Advertising & Integration Name Role Phone Willard Jerome MD Primary Care Provider [phone] Allergies Active Allergy Reactions Criticality Noted Date [...] Medical Devices Not on file Insurance [facility] MEDEX SUPPLEMENT MEDICARE PART A & B [employer] CROSS MEDEX SUPPLEMENT MEDICARE PART A & B [employer] CROSS MEDEX SUPPLEMENT MEDICARE PART A & B [employer] CROSS MEDEX SUPPLEMENT MEDICARE PART A & B [employer] MEDEX SUPPLEMENT MEDICARE PART A & B [employer] MEDEX SUPPLEMENT MEDICARE PART A & B [employer] MEDEX SUPPLEMENT MEDICARE PART A & B [employer] MEDEX SUPPLEMENT MEDICARE PART A & B [employer] MEDEX SUPPLEMENT MEDICARE PART A & B Care Teams Head Of Digital Advertising & Integration Relationship Specialty Start Date End Date Willard Jerome MD [address] [place] [address] [place] [phone] PCP - General 12/27/19 Additional Source Comments The information contained in this document represents components of the legal health record. It is not the complete legal health record.[facility]
--- OUTSIDE RECORDS SUMMARY | 2025-01-30 07:02 | XMS_ITS | Encounter Summary ---
Author Organization [facility] Address [address] [facility] [address] [place] [address] Phone Care Team Providers Care Billboard Erector Helper Name Role Phone Jackeline Bourne TOLL MECHANIC Unavailable [phone] Willard Jerome MD Primary Care Provider [phone] Encounter Details Date Type Department Care Team (Late st Contact Info) Description 01/16/2020 Ancillary Orders [facility],Outside Imaging [address] [place] [address] System, Provider Not In, [facility] [address] [address] Social History Tobacco Use Types Packs/Day Years [...] on filedocumented in this encounter Care Teams Billboard Erector Helper Relationship Specialty Start Date End Date Willard Jerome MD [address] [place] [address] PCP - General 12/27/19 Jackeline Bourne NP [address] [place] [phone] Historical LMR Provider 02/15/17 2 documented as of this encounter Additional Source Comments The information contained in this document represents components of the legal health record. It is not the complete legal health record.[facility]
[2025-01-30 08:03] LABS: Alanine Aminotransferase 16 U/L (0-31); Albumin Level 4.3 g/dL (3.5-5.0); Alkaline Phosphatase 69 U/L (39-117); Anion Gap 11 (12-20); Aspartate Amino Transferase 20 U/L (5-31); Blood Urea Nitrogen 13 mg/dL (9-16); Calcium 9.3 mg/dL (8.4-10.2); Carbon Dioxide 26 mmol/L (22-29); Chloride 107 mmol/L (96-108); Cholesterol 274 mg/dL (<200); Estimated Glomerular Filt Rate > 60; HDL Cholesterol 87 mg/dL (>40); Magnesium 2.3 mg/dL (1.6-2.6); Potassium 4.0 mmol/L (3.3-5.1); Sodium 140 mmol/L (135-145); Total Protein 7.2 g/dL (6.5-8.0); Triglycerides 57 mg/dL (<150)
[2025-01-30 08:22] LABS: Folate 12.4 ng/mL (> or = 4.0); Vitamin B12 356 pg/mL (200-900)
[2025-01-30 08:26] LABS: Free T4 (Free Thyroxine) 0.97 ng/dL (0.71-1.85); Thyroid Stimulating Hormone 3.71 uIU/mL (0.32-4.0)
== END 2025-01-30 07:00 | disposition home or self-care (01) ==
LOC: HO.LAB 06:59
PROVIDERS: PCP Internal Medicine; Visit Provider Internal Medicine
DX: E78.00 Pure hypercholesterolemia, unspecified (principal); B37.31 Acute candidiasis of vulva and vagina; Z13.21 Encounter for screening for nutritional disorder
CPT/HCPCS: 36415; 80053; 80061; 82306; 82607; 82746; 83735; 84439; 84443

== ENCOUNTER 2025-02-03 10:25 | Outpatient (REF) | payer MEDICARE, SELFPAY ==
--- OUTSIDE RECORDS SUMMARY | 2025-02-03 12:14 | XMS_ITS | Encounter Summary ---
Author Organization [facility] Address [address] [place] [address] Phone Care Team Providers Care Ground Systems Engineer Name Role Phone Jakceline Bourne CHIEF COMPLIANCE OFFICER Unavailable [phone] PoWillard MD Primary Care Provider [phone] Encounter Details Date Type Department Care Team (Latest Contact Info) Description 07/27/2020 Ancillary Orders Virtual Department [address] [place] [address] Jo Ann Romo NP [address] [address] [email or web address] Pain in both hands; Hx of osteoarthritis [...] osteoarthritis documented in this encounter Care Teams Ground Systems Engineer Relationship Specialty Start Date End Date Justus, Willard Nash MD [address] [place] [address] [place] [phone] PCP - General 12/27/19 Jackeline Bourne NP [address] [place] [phone] Historical LMR Provider 02/15/17 2 documented as of this encounter Additional Source Comments The information contained in this document represents components of the legal health record. It is not the complete legal health record.[facility]
--- OUTSIDE RECORDS SUMMARY | 2025-02-03 12:14 | XMS_ITS | Clinical Summary ---
Author Organization [facility] Address [address] [place] [address] Phone Care Team Providers Care System Dispatcher Name Role Phone Willard Jerome MD Primary Care Provider [phone] Allergies Active Allergy Reactions Criticality Noted Date [...] topic Medical Devices Not on file Insurance [facility] MEDEX SUPPLEMENT MEDICARE PART A & B Member Subscriber Plan / Payer (Ef fective 2020-Present) Name:Keiry Martini Member ID:[id number] Relation to Subscriber:Self Name:Keiry Martini Subscriber ID:[id number] Payer ID:[id number] Group ID:Not on file Type:Medicare Address: [facility] [employer] [facility] [address] [facility] [place] [address] [employer] MEDEX SUPPLEMENT MEDICARE PART A & B [employer] MEDEX SUPPLEMENT MEDICARE PART A & B [employer] MEDEX SUPPLEMENT MEDICARE PART A & B [employer] MEDEX SUPPLEMENT MEDICARE PART A & B [employer] MEDEX SUPPLEMENT MEDICARE PART A & B [employer] MEDEX SUPPLEMENT MEDICARE PART A & B [employer] MEDEX SUPPLEMENT MEDICARE PART A & B [employer] MEDEX SUPPLEMENT MEDICARE PART A & B Care Teams System Dispatcher Relationship Specialty Start Date End Date Willard Jerome MD [address] [place] [address] [place] [phone] PCP - General 12/27/19 Additional Source Comments The information contained in this document represents components of the legal health record. It is not the complete legal health record.[facility]
--- OUTSIDE RECORDS SUMMARY | 2025-02-03 12:14 | XMS_ITS | Encounter Summary ---
Author Organization [facility] Address [address] [place] [address] Phone Care Team Providers Care Correctional Corporal Name Role Phone Jackeline Bourne MEDICAL CODING INSTRUCTOR Unavailable [phone] Willard Jerome MD Primary Care Provider [phone] Encounter Details Date Type Department Care Team (Late st Contact Info) Description 01/16/2020 Ancillary Orders [facility],Outside Imaging [address] [place] [address] System, Provider Not In, [facility] [address] [address] Social History Tobacco Use Types Packs/Day Years [...] on filedocumented in this encounter Care Teams Correctional Corporal Relationship Specialty Start Date End Date Willard Jerome MD [address] [place] [address] PCP - General 12/27/19 Jackeline Bourne NP [address] [place] [phone] Historical LMR Provider 02/15/17 2 documented as of this encounter Additional Source Comments The information contained in this document represents components of the legal health record. It is not the complete legal health record.[facility]
== END 2025-02-03 10:26 | disposition home or self-care (01) ==
LOC: HO.MAMMO 10:25
PROVIDERS: PCP Internal Medicine; Visit Provider Internal Medicine
DX: Z12.31 Encounter for screening mammogram for malignant neoplasm of breast (principal)
CPT/HCPCS: 77063; 77067

== ENCOUNTER → 2025-02-03 10:30 | Outpatient (BNV) | payer MEDICARE, SELFPAY | PROVIDERS: PCP Internal Medicine; Visit Provider Internal Medicine | DX: Z12.31 Encounter for screening mammogram for malignant neoplasm of breast (principal) | CPT/HCPCS: 77063; 77067 ==

== ENCOUNTER → 2025-02-14 10:47 | Outpatient (REF) | payer MEDICARE, SELFPAY ==
--- NOTE | 2025-02-14 10:49 | CA_ITS ---
Transthoracic Echocardiogram Patient (Last, First, Middle): Keiry Martini M Gender: F Date of : 1955 Age: 69 Procedure Date: 02/14/2025 Procedure Type: Transthoracic Echocardiogram Location: OP Height: 162.56 cm Weight: 80.29 kg BSA: 1.86 m2 Heart Rate: bpm BP: 122 / 60 mmHg Frame Straightener: Referring MD: Willard Jerome MD Symptoms: I77.810 - Thoracic aortic ectasia Study Quality: Good ECG Rhythm: Sinus Conclusions: - Normal left ventricular size, thickness, systolic function, and wall motion. The visually estimated ejection fraction is between 60-65%. Diastolic function is normal for age. - Normal right ventricular cavity size and systolic function. - There is mild dilatation of the ascending aorta measuring 3.40 cm. Findings Left Ventricle Normal left ventricular size, thickness, systolic function, and wall motion. The visually estimated ejection fraction is between 60-65%. Diastolic function is normal for age. Right Ventricle Normal right ventricular cavity size and systolic function. Atria The left atrium is normal in size. The right atrium is normal in size. Aortic Valve Normal aortic valve structure and function. There is no aortic valve stenosis. There is no aortic valve regurgitation. Mitral Valve Normal mitral valve structure and function. There is no mitral valve regurgitation. There is no mitral valve stenosis. Pulmonic Valve The pulmonic valve is normal. There is no pulmonic valve regurgitation. Tricuspid Valve Normal tricuspid valve structure. There is no tricuspid valve regurgitation. Normal right atrial pressure. There is no evidence of pulmonary hypertension. Great Vessels There is mild dilatation of the ascending aorta measuring 3.40 cm. The visualized portions of the pulmonary artery and branches are normal. Venous The inferior vena cava is normal in size and collapses greater than 50% with inspiration. Pericardium/Pleural There is no evidence of pericardial effusion. Prior Study Comparison Changes noted compared to prior study dated: 01/12/2023. Mild dilatation of ascending aorta 3.4 cm. Measurements 2D Linear Measurements IVSd: 0.83 0.6-0.9/0.6-1.0 cm LVIDd: 4.28 3.9-5.3/4.2-5.9 cm LVIDd Index: 2.30 2.4-3.2/2.2-3.1 cm/m2 LVIDs: 2.79 2.0-3.6 cm LVPWd: 0.94 0.7-1.1 cm Ao Root: 3.40 2.1-3.5 cm LA Diam: 2.90 2.7-3.8/3.0-4.0 cm LAIDs Index: 1.56 1.5-2.3 cm/m2 LV Mass: 148.88 67-162/88-224 g LV Mass Index: 80.04 43-95/49-115 g/m2 LVOT Diam: 2.10 3.0+(-)1.3 cm 2D Systolic Function EF 4C: 64.20 >55% EF 2C: 74.00 >55% EF BiP: 69.80 >55% Mitral Valve MV Pk E: 0.99 MV PK A: 0.84 MV Decel Time: 224.00 E/A: 1.20 E'Lateral: 8.05 E'Medial: 9.14 E/E' Med: 10.90 E/E' Lat: 12.30 PHT: 66.00 MVA PHT: 3.33 Decel M[place]go: 4.43 Aortic Valve AoV Pk Harris: 1.42 AoV Mn Harris: 0.92 AoV VTI: 0.35 AoV Pk Grad: 8.00 Aov Mn Grad: 4.00 SAEED Cont.VTI: 2.24 LVOT LVOT Pk Harris: 0.91 LVOT Mn Harris: 0.58 LVOT VTI: 0.23 LVOT Pk Grad: 3.00 LVOT Mn Grad: 2.00 LVOT Diam: 2.10 LVOT Area: 3.46 Diastolic Function MV Pk E: 0.99 MV Pk A: 0.84 E/A: 1.20 E'Medial: 9.14 E/E' Med: 10.90 E' Laterial: 8.05 E/E' Lat: 12.30 Right Ventricle TAPSE (mm): 32.00 TVS' Harris: 10.00 Tricuspid Valve TR Pk Harris: 2.15 TR Pk Grad: 18.00 RA Press: 3.00 RVSP: 21.00 Great Vessels Aorta Ao Root-2D: 3.40 2.0-3.7 cm Ao Asc: 3.40 2.1-3.4 cm Pulmonary Veins Pulm Vein S/D 1.10 Pulmonary Valve PV Pk Harris: 0.79 Peak PV Grad: 2.00 Updated in Other Vendor System with Status of Final Ozzy Arroyo MD electronically signed on 02/16/2025 8:00:29 PM with status of Final
== END ==
LOC: HO.CARD 10:47
PROVIDERS: PCP Internal Medicine; Visit Provider Internal Medicine
DX: I77.810 Thoracic aortic ectasia (principal)
CPT/HCPCS: 93306

== ENCOUNTER → 2025-02-14 10:49 | Outpatient (BNV) | payer MEDICARE, SELFPAY | PROVIDERS: PCP Internal Medicine; Visit Provider Internal Medicine Cardiovascular Disease | DX: I77.810 Thoracic aortic ectasia (principal) | CPT/HCPCS: 93306 ==

== ENCOUNTER 2025-02-24 06:53 | Outpatient (REF) | payer MEDICARE, SELFPAY ==
--- OUTSIDE RECORDS SUMMARY | 2025-02-24 06:56 | XMS_ITS | Encounter Summary ---
Author Organization [facility] Address [address] [place] [address] Phone Care Team Providers Care Biodiesel Operations Manager Name Role Phone Jackeline Bourne PICKLING SOLUTION MAKER Unavailable [phone] PoWillard MD Primary Care Provider [phone] Encounter Details Date Type Department Care Team (Latest Contact Info) Description 07/27/2020 Ancillary Orders Virtual Department [address] [place] [address] Jo Ann Romo NP [address] [address] [email or web address] Pain in both hands; Hx of osteoarthritis [...] osteoarthritis documented in this encounter Care Teams Biodiesel Operations Manager Relationship Specialty Start Date End Date Justus, Willard Nash MD [address] [place] [address] [place] [phone] PCP - General 12/27/19 Jackeline Bourne NP [address] [place] [phone] Historical LMR Provider 02/15/17 2 documented as of this encounter Additional Source Comments The information contained in this document represents components of the legal health record. It is not the complete legal health record.[facility]
--- OUTSIDE RECORDS SUMMARY | 2025-02-24 06:56 | XMS_ITS | Encounter Summary ---
Author Organization [facility] Address [address] [address] [address] [place] [address] Phone Care Team Providers Care Field Installer Name Role Phone Jackeline Bourne SUPERINTENDENT NONSELLING Unavailable Willard Jerome MD Primary Care Provider [phone] Encounter Details Date Type Department Care Team (Late st Contact Info) Description 01/16/2020 Ancillary Orders [facility],Outside Imaging 30 [place] [address] System, Provider Not In, [facility] [address] [address] Social History Tobacco Use Types Packs/Day Years [...] on filedocumented in this encounter Care Teams Field Installer Relationship Specialty Start Date End Date Willard Jerome MD [address] [place] [address] PCP - General 12/27/19 Jackeline Bourne NP [address] [place] [phone] Historical LMR Provider 02/15/17 2 documented as of this encounter Additional Source Comments The information contained in this document represents components of the legal health record. It is not the complete legal health record.[facility]
--- OUTSIDE RECORDS SUMMARY | 2025-02-24 06:56 | XMS_ITS | Clinical Summary ---
Author Organization [facility] Address [address] [place] [address] Phone Care Team Providers Care Labeling Specialist Name Role Phone Willard Jerome MD Primary Care Provider [phone] Allergies Active Allergy Reactions Criticality Noted Date [...] 03/01/2023, 02/22/2022, Additional history exists COVID-19 VACCINE (2024-26 season) 2024 02/13/2024, 02/16/2023, 09/02/2022, Additional history [...] topic Medical Devices Not on file Insurance [facility] MEDEX SUPPLEMENT MEDICARE PART A & B [employer] MEDEX SUPPLEMENT MEDICARE PART A & B [employer] MEDEX SUPPLEMENT MEDICARE PART A & B [employer] MEDEX SUPPLEMENT MEDICARE PART A & B [employer] MEDEX SUPPLEMENT MEDICARE PART A & B [employer] MEDEX SUPPLEMENT MEDICARE PART A & B [employer] MEDEX SUPPLEMENT MEDICARE PART A & B [employer] MEDEX SUPPLEMENT MEDICARE PART A & B [employer] MEDEX SUPPLEMENT MEDICARE PART A & B Care Teams Labeling Specialist Relationship Specialty Start Date End Date Willard Jerome MD [address] [place] [address] [place] [phone] PCP - General 12/27/19 Additional Source Comments The information contained in this document represents components of the legal health record. It is not the complete legal health record.[facility]
[2025-02-24 07:09] LABS: MANUAL DIFF FLAG NO
[2025-02-24 07:46] LABS: Hematocrit 37.3 % (37.0-47.0); Hemoglobin 11.8 g/dl (12.0-16.0); Imm Gran Abs Auto 0.02 X10*3/uL (0.00-0.03); Imm Gran Pct Auto 0.3 % (0.0-0.4); Lymphocytes Absolute Auto 1.6 X10*3/uL (1.2-4.9); Mean Corpuscular HGB Conc 31.6 g/dl (31.0-35.0); Mean Corpuscular Hemoglobin 28.2 pg (27.0-33.0); Mean Corpuscular Volume 89.2 fL (80.0-98.0); NRBC Abs Auto 0.000 X10*3/uL (0.0-0.012); NRBC Pct Auto 0.0 /100WBC (0.0-0.2); Platelet Count 251 X10*3/uL (160-400); Red Blood Count 4.18 X10*6/uL (4.20-5.50); White Blood Count 5.7 X10*3/uL (4.8-10.8)
[2025-02-24 07:56] LABS: Appearance Urine Clear; Glucose Urine UA Negative (Negative); PH 8.0 (5.0-9.0); Specific Gravity - Urine 1.015 (1.005-1.025)
[2025-02-24 08:17] LABS: Alanine Aminotransferase 14 U/L (0-31); Albumin Level 4.4 g/dL (3.5-5.0); Alkaline Phosphatase 79 U/L (39-117); Anion Gap 11 (12-20); Aspartate Amino Transferase 19 U/L (5-31); Blood Urea Nitrogen 13 mg/dL (9-16); Calcium 9.2 mg/dL (8.4-10.2); Carbon Dioxide 28 mmol/L (22-29); Chloride 107 mmol/L (96-108); Estimated Glomerular Filt Rate > 60; Magnesium 2.1 mg/dL (1.6-2.6); Potassium 4.2 mmol/L (3.3-5.1); Sodium 142 mmol/L (135-145); Total Protein 7.1 g/dL (6.5-8.0)
[2025-02-24 08:41] LABS: Free T4 (Free Thyroxine) 0.96 ng/dL (0.71-1.85); Thyroid Stimulating Hormone 3.67 uIU/mL (0.32-4.0)
[2025-02-25 09:19] LABS: Lyme Abs Screen <0.90 index
== END 2025-02-24 06:54 | disposition home or self-care (01) ==
LOC: HO.LAB 06:53
PROVIDERS: PCP Internal Medicine; Visit Provider Internal Medicine
DX: R00.2 Palpitations (principal); I77.810 Thoracic aortic ectasia; R06.02 Shortness of breath; R30.0 Dysuria
CPT/HCPCS: 36415; 80053; 81003; 83735; 84439; 84443; 85025; 86617; 86618; 93005; 99212

== ENCOUNTER 2025-02-24 10:44 | Outpatient (AMB) | payer MEDICARE, SELFPAY ==
--- NOTE | 2025-02-24 11:23 | A.OFFVIS_ITS ---
Vital Signs 02/24/25 11:25 Height 5 ft 4 in Weight 178 lb 9.191 oz BMI 30.6 BP 120/72 Blood Pressure Location Lt brachial Position Sitting Pulse 67 Intake Visit Reasons: 1 yr f/up Intake Note: 1 year follow-up [facility] ekg feeling good had echo order by pcp Building Supervisor Required: No Allergies doxycycline (DOXYCYCLINE) Allergy (Severe, Verified 01/23/25 10:01) UNKNOWN, ? hearing problem poison teresa extract (POISON TERESA) Allergy (Severe, Verified 01/23/25 10:01) SEVERE RASH Penicillins (PENICILLINS) Allergy (Unknown, Verified 01/23/25 10:01) RASH Medication List - Last Reconciled 02/24/25 by Duy Esteves MD betamethasone valerate 0.1% 1 appl topical TID PRN calcium carbonate 600 mg PO DAILY cholecalciferol (vitamin D3) 50 mcg PO DAILY estradiol 0.01%(0.1mg/gram) (Estrace) pea sized amount per urethra daily; 30 days famotidine 20 mg PO DAILY fluconazole 100 mg PO DAILY PRN garlic 50 mg PO DAILY inositol 4 tabs PO DAILY mastectomy bra (bra, mastectomy) As Directed mastectomy bra (bra, mastectomy) As Directed nystatin 5 mL PO 3XD [PROBIOTIC 2 caps PO BID] Prosthesis, breast (Breast prosthesis) As Directed [synbiotic ] HPI Comments Details: Keiry comes for follow-up. Overall she has been doing well. She occasionally still feels palpitations and sometimes strong heartbeat but they happens very infrequently. She is not very bothered by the symptoms. She had a recent echocardiogram which showed ascending aorta size at 3.4 cm which was which was reported as mildly dilated although this appears to be within normal limits. She denies any other complaints. She is not able to exercise much because of her left knee issue. However with whatever exertional she does she has no active cardiac symptoms. [facility] Medical History Polyarticular osteoarthritis GERD (gastroesophageal reflux disease) Abdominal pain Yeast infection involving the vagina and surrounding area Esophagitis Epigastric abdominal pain Dysuria Right lower quadrant pain Neck pain Fatigue Osteoarthritis Vitamin B12 deficiency Hypercholesterolemia Overweight (BMI 25.0-29.9) Ascending aorta dilatation Immunodeficiency disorder Irritable bowel syndrome Anxiety Anemia Hx of breast cancer Surgical History History of esophagogastroduodenoscopy (EGD) H/O rotator cuff surgery History of colonoscopy History of arthroscopy of left knee Hx of tubal ligation Hx of section Hx of mastectomy Family History Mother Diabetes Arthritis Father HTN (hypertension) Dementia COPD (chronic obstructive pulmonary disease) Skin cancer Maternal Grandfather Glaucoma Social History Household Members: Spouse Housing: Apartment Are you a primary resident care spec to a significant other at home: No Do you presently have visiting nurse or other home services: No Alcohol intake: current Alcohol intake frequency: holidays/special occasions only Comment: 2x a year 2 drinks Patient Tobacco Use Status: Never used Tobacco Years Smoked: history of marijuana uses e-Cigarette/Vaping Use: Never Used Second Hand Smoke Exposure: No service: No Current occupational status: retired Sexual orientation: Straight/Heterosexual Gender identity: Female Cognitive needs: No Hearing needs: No Vision needs: Yes (glasses) Review of Systems Const Denies chills, Denies fatigue, Denies fever(s), Denies frequent falls, Denies weakness, Denies weight gain and Denies weight loss ENT Denies dizziness Card Denies chest pain, Denies leg edema, Denies lightheadedness, Denies palpitations, Denies dyspnea, Denies dyspnea on exertion, Denies orthopnea and Denies other (loss of consciousness) Resp Denies cough, Denies dyspnea and Denies dyspnea on exertion GI Denies hematochezia and Denies change in stool character Musc Denies abnormal gait, Denies muscle weakness, Denies numbness, Denies radiating pain into limb and Denies tingling Neuro Denies Abnormal speech present, Denies abnormal gait, Denies dizziness, Denies frequent falls, Denies numbness, Denies tingling and Denies weakness Endo Denies fatigue and Denies palpitations Physical Exam Vital Signs: Last Vital Signs Pulse 67 02/24/25 11:25 BP 120/72 02/24/25 11:25 BMI result Body Mass Index 30.6 Const General: cooperative, comfortable, no acute distress, alert and awake Nutritional Appearance: average body habitus Orientation/consciousness: patient oriented x3 Limitations: no limitations HEENT Head: Yes normocephalic and Yes atraumatic Neck Neck: Yes trachea midline, Yes supple and Yes no JVD Resp Effort & Inspection: normal respiratory effort Auscultation: clear to auscultation bilaterally Cardio Jugular venous distension: no JVD Palpation: normal PMI Rate: regular rate Rhythm: regular rhythm Heart sounds: S1 normal heart sound present, S2 normal heart sound present, no click, no gallops, no murmurs and no rubs GI Percussion: Yes normal to percussion Skin General skin exam: no rashes or lesions noted Neuro General: patient oriented x3 and no focal motor deficits Speech: No Abnormal speech present Extrem General: Yes no clubbing, cyanosis or edema Psych Appearance: grossly normal Office Procedures EKG Details: EKG shows normal sinus rhythm with low-voltage QRS with nonspecific T-wave changes [id number], Complete Assessment & Plan Assessment & Plan (1) Palpitations: Code(s): R00.2 - Palpitations Category: Medical Plan: Palpitations with very infrequent episodes. Patient at this point in time has no significant limiting symptoms and would avoid any pharmacotherapy. Most likely related to extra systoles such as PACs and PVCs. Stress mitigation strategies were discussed. Avoidance of stimulants was discussed. (2) Ascending aorta dilatation: Comment: 3.07 July 2018, echo 60-65% June 2019 65-70% grade 1 diastolic dysfunction mild dilatation ascending aorta 3.9 cm stressed negative June 2018, October 2021 3.7 to 3.8 cm Code(s): I77.810 - Thoracic aortic ectasia Category: Medical Plan: Ascending aorta measured at 3.4 cm on this study. This appears to be within normal limits. In the past has been measured at 3.9 cm. It has overall remained stable are within normal limits. At this point time can repeat echocardiogram every 3 years. No restriction to activity level. No medical therapy per se. Will follow up in the clinic in 3 years' time, sooner PRN. Thank you for allowing me to partake in her care Coding Level of Care Code Est Pt Level 3 (46091) Complex EM visit Add On G2211 Diagnoses Palpitations R00.2 Ascending aorta dilatation I77.810 CPT Codes EKG - CPT: 30983-[id number], Complete ([id number])
[2025-02-24 11:25] VITALS: BP 120/72; PULSE 67; BMI 30.6
== END 2025-02-24 11:50 | disposition home or self-care (01) ==
LOC: HO.HCS 10:46
PROVIDERS: PCP Internal Medicine; Visit Provider Internal Medicine Cardiovascular Disease
DX: R00.2 Palpitations (principal); I77.810 Thoracic aortic ectasia
CPT/HCPCS: 93010; 99213; G2211

== ENCOUNTER 2025-03-24 07:03 | Outpatient (AMB) | payer MEDICARE, SELFPAY ==
[2025-03-24 07:08] VITALS: BP 120/80; PULSE 73; TEMP 36.6; O2SAT 99; BMI 30.9
--- NOTE | 2025-03-24 07:08 | AM.OFFWIN_ITS ---
Intake Vital Signs 03/24/25 07:08 Height 5 ft 4 in Weight 180 lb BMI 30.9 BP 120/80 Blood Pressure Location Lt brachial Position Sitting Pulse 73 Pulse Source Pulse Oximeter Temp 98 F Temp Source Oral Pulse Oximetry (%) 99 Oxygen Delivery Method Room Air Intake Visit Reasons: EP-?shingles Intake Note: Patient presents c/o itchy rash on left lower arm & hand x1 week - ? shingles Patient Tobacco Use Status: Never used Tobacco Allergies doxycycline (DOXYCYCLINE) Allergy (Severe, Verified 03/24/25 07:10) UNKNOWN, ? hearing problem poison teresa extract (POISON TERESA) Allergy (Severe, Verified 03/24/25 07:10) SEVERE RASH Penicillins (PENICILLINS) Allergy (Unknown, Verified 03/24/25 07:10) RASH HPI HPI Comments History of Present Illness Details 70-year-old female presents to walk-in [facility] with a very itchy rash on the left arm and hand x 1 week. She describes intense pruritus, burning, and small clear-fluid?filled blisters. No associated systemic symptoms (denies fever, chills, malaise). Denies any new cosmetic products, detergents, medications, or environmental exposures. Her daughter and (both nurses) advised evaluation due to concern for possible shingles. [facility] Medical History (Updated 03/24/25 @ 07:22 by Kristen Quinn NP) Rash and other nonspecific skin eruption Polyarticular osteoarthritis GERD (gastroesophageal reflux disease) Abdominal pain Yeast infection involving the vagina and surrounding area Esophagitis Epigastric abdominal pain Dysuria Right lower quadrant pain Neck pain Fatigue Osteoarthritis Vitamin B12 deficiency Hypercholesterolemia Overweight (BMI 25.0-29.9) Ascending aorta dilatation Immunodeficiency disorder Irritable bowel syndrome Anxiety Anemia Hx of breast cancer Surgical History History of esophagogastroduodenoscopy (EGD) H/O rotator cuff surgery History of colonoscopy History of arthroscopy of left knee Hx of tubal ligation Hx of section Hx of mastectomy Family History Mother Diabetes Arthritis Father HTN (hypertension) Dementia COPD (chronic obstructive pulmonary disease) Skin cancer Maternal Grandfather Glaucoma Social History Household Members: Spouse Housing: Apartment Are you a primary critical care transport nurse to a significant other at home: No Do you presently have visiting nurse or other home services: No Alcohol intake: current Alcohol intake frequency: holidays/special occasions only Comment: 2x a year 2 drinks Patient Tobacco Use Status: Never used Tobacco Years Smoked: history of marijuana uses e-Cigarette/Vaping Use: Never Used Second Hand Smoke Exposure: No service: No Current occupational status: retired Sexual orientation: Straight/Heterosexual Gender identity: Female Cognitive needs: No Hearing needs: No Vision needs: Yes (glasses) Review of Systems Const All systems reviewed & are unremarkable except as noted in HPI and below Physical Exam Vital Signs: Last Vital Signs Temp 98 F 03/24/25 07:08 Pulse 73 03/24/25 07:08 BP 120/80 03/24/25 07:08 Pulse Ox 99 03/24/25 07:08 Oxygen Delivery Method Room Air 03/24/25 07:08 BMI result Body Mass Index 30.9 Const General: no acute distress Orientation/consciousness: patient oriented x3 Skin Other: Skin: Two Small Clustered vesicular lesions on an erythematous base distributed along the left arm/hand. One vesicle intact, other already crusting. No purulence. No surrounding cellulitis. Neuro General: patient oriented x3, gait normal and moves all extremities Psych Speech and movement: Normal speech and movement present Assessment & Plan Assessment & Plan (1) Rash and other nonspecific skin eruption: Code(s): R21 - Rash and other nonspecific skin eruption Plan: DDx: Contact dermatitis, bullous impetigo (less likely), HSV, allergic reaction. Start Valacyclovir 500 mg BID x 5 days. Cautioned Patient that medication might not work due to being more that 72 hours after the initial symptoms. Symptom relief: Calamine, or cool compresses. Avoid scratching; keep lesions clean/dry. Consider Shingrix vaccine in the future after recovery Medications: New valacyclovir 500 mg PO BID 10 tabs 0RF R21 - Rash and other nonspecific skin eruption Coding Level of Care Code Est Pt Level 4 (86071) Diagnoses Rash and other nonspecific skin eruption R21 Time Spent (min) 20
--- OUTSIDE RECORDS SUMMARY | 2025-03-24 07:09 | XMS_ITS | Clinical Summary ---
Author Organization [facility] Address [address] [place] [address] Phone Care Team Providers Care Group Underwriter Name Role Phone Willard Jerome MD Primary Care Provider [phone] Allergies Active Allergy Reactions Criticality Noted Date [...] topic Medical Devices Not on file Insurance [facility] MEDEX SUPPLEMENT MEDICARE PART A & B [employer] MEDEX SUPPLEMENT MEDICARE PART A & B [employer] MEDEX SUPPLEMENT MEDICARE PART A & B [employer] MEDEX SUPPLEMENT MEDICARE PART A & B [employer] MEDEX SUPPLEMENT MEDICARE PART A & B [employer] MEDEX SUPPLEMENT MEDICARE PART A & B [employer] MEDEX SUPPLEMENT MEDICARE PART A & B [employer] MEDEX SUPPLEMENT MEDICARE PART A & B [employer] MEDEX SUPPLEMENT MEDICARE PART A & B Care Teams Group Underwriter Relationship Specialty Start Date End Date Willard Jerome MD [address] [place] [address] [place] [phone] PCP - General 12/27/19 Additional Source Comments The information contained in this document represents components of the legal health record. It is not the complete legal health record.[facility]
--- OUTSIDE RECORDS SUMMARY | 2025-03-24 07:09 | XMS_ITS | Encounter Summary ---
Author Organization [facility] Address [address] [place] [address] Phone Care Team Providers Care Technology Strategist Name Role Phone Jackeline Bourne CLOTH EXAMINER HAND Unavailable [phone] PoWillard MD Primary Care Provider [phone] Encounter Details Date Type Department Care Team (Latest Contact Info) Description 07/27/2020 Ancillary Orders Virtual Department [address] [place] [address] Jo Ann Romo NP [address] [address] [email or web address] Pain in both hands; Hx of osteoarthritis [...] osteoarthritis documented in this encounter Care Teams Technology Strategist Relationship Specialty Start Date End Date Justus, Willard Nash MD [address] [place] [address] [place] [phone] PCP - General 12/27/19 Jackeline Bourne NP [address] [place] [phone] Historical LMR Provider 02/15/17 2 documented as of this encounter Additional Source Comments The information contained in this document represents components of the legal health record. It is not the complete legal health record.[facility]
--- OUTSIDE RECORDS SUMMARY | 2025-03-24 07:09 | XMS_ITS | Encounter Summary ---
Author Organization [facility] Address [address] [place] [address] Phone Care Team Providers Care Clearance Representative Name Role Phone Jackeline Bourne IT INTERN Unavailable [phone] Willard Jerome MD Primary Care Provider [phone] Encounter Details Date Type Department Care Team (Late st Contact Info) Description 01/16/2020 Ancillary Orders [facility],Outside Imaging [address] [place] [address] System, Provider Not In, [facility] [address] [address] Social History Tobacco Use Types Packs/Day Years [...] on filedocumented in this encounter Care Teams Clearance Representative Relationship Specialty Start Date End Date Willard Jerome MD [address] [place] [address] PCP - General 12/27/19 Jackeline Bourne NP [address] [place] [phone] Historical LMR Provider 02/15/17 2 documented as of this encounter Additional Source Comments The information contained in this document represents components of the legal health record. It is not the complete legal health record.[facility]
== END 2025-03-24 08:31 | disposition home or self-care (01) ==
PROVIDERS: PCP Internal Medicine; Visit Provider Nurse Practitioner Family
DX: R21 Rash and other nonspecific skin eruption (principal)

== ENCOUNTER → 2025-03-24 07:03 | Outpatient (BNVA) | payer MEDICARE, SELFPAY | PROVIDERS: PCP Internal Medicine; Visit Provider Nurse Practitioner Family | DX: R21 Rash and other nonspecific skin eruption (principal) | CPT/HCPCS: 99212 ==

== ENCOUNTER 2025-04-12 09:07 | Outpatient (AMB) | payer MEDICARE, SELFPAY ==
--- OUTSIDE RECORDS SUMMARY | 2025-04-12 09:09 | XMS_ITS | Encounter Summary ---
Author Organization [facility] Address [address] [place] [address] Phone Care Team Providers Care Solvent Plant Operator Name Role Phone Jackeline Bourne CREDIT CARD ASSOCIATE Unavailable [phone] Po, Willard Nash MD Primary Care Provider [phone] Encounter Details Date Type Department Care Team (Latest Contact Info) Description 07/27/2020 Ancillary Orders Virtual Department [address] [place] [address] Jo Ann Romo NP [address] [address] [email or web address] Pain in both hands; Hx of osteoarthritis [...] Care Team (Late st Contact Info) Description 04/17/2025 2:30 PM EST Office Visit [facility] & Sports Medicine [address] [place] [address] Genaro Islas PA-C [address] [place] [address] Orthopedics & Sports Medicine, [facility] [place] [address] documented as of this encounter [...] osteoarthritis documented in this encounter Care Teams Solvent Plant Operator Relationship Specialty Start Date End Date Willard Jerome MD 2 [facility] [address] [place] [phone] PCP - General 12/27/19 Jackeline Bourne NP [address] [place] [phone] Historical LMR Provider 02/15/17 2 documented as of this encounter Additional Source Comments The information contained in this document represents components of the legal health record. It is not the complete legal health record.[facility]
--- OUTSIDE RECORDS SUMMARY | 2025-04-12 09:09 | XMS_ITS | Encounter Summary ---
Author Organization [facility] Address [address] [place] [address] Phone Care Team Providers Care Machinery Engineer Name Role Phone Jackeline Bourne REVIEW TRAINER Unavailable [phone] PoWillard MD Primary Care Provider [phone] Encounter Details Date Type Department Care Team (Late Contact Info) Description 01/16/2020 Ancillary Orders [facility],Outside Imaging [address] [place] [address] System, Provider Not In, [facility] [address] [address] Social History Tobacco Use Types Packs/Day Years Used Date Smoking Tobacco: Never Assessed Comments Unknown Sex and Gender Information Value Date Recorded Sex Assigned at Not on file Legal Sex Female 9:55 PM EDT Gender Identity Not on file Sexual Orientation Not on file documented as of this encounter Plan of Treatment Upcoming Encounters Date Type Department Care Team (Late Contact Info) Description 04/17/2025 2:30 PM EST Office Visit [facility] Orthopedics & Sports Medicine [address] [place] [address] Genaro Islas PA-C [address] [place] [address] [facility] [place] [address] documented as of this encounter Results * XR SPINE OUTSIDE(NO INTERPRETATION) (12/19/2019 12:00 AM EDT) Narrative SYSTEMGENERATED, DOCUMENTATION - 01/16/2020 1:50 PM EDT This study is for PACS storage only and not for interpretation. us Provider Not In System PhD IMG OUTSIDE IMAGING W /OUT INTERPRETATION Final Result documented in this encounter Visit Diagnoses Not on filedocumented in this encounter Care Teams Machinery Engineer Relationship Specialty Start Date End Date Willard Jerome MD 2 [facility] [address] [place] [phone] PCP - General 12/27/19 Jackeline Bourne NP [address] [place] [address] Historical LMR Provider 02/15/17 2 documented as of this encounter Additional Source Comments The information contained in this document represents components of the legal health record. It is not the complete legal health record.[facility]
--- OUTSIDE RECORDS SUMMARY | 2025-04-12 09:09 | XMS_ITS | Clinical Summary ---
Author Organization [facility] Address [address] [place] [address] Phone Care Team Providers Care Technical Writer And Editor Name Role Phone Willard Jerome MD Primary Care Provider [phone] Allergies Active Allergy Reactions Criticality Noted Date [...] 09/26/2024 10:02 AM EDT Plan of Treatment Upcoming Encounters Date Type Department Care Team (Late st Contact Info) Description 04/17/2025 2:30 PM EST Office Visit [facility] Orthopedics & Sports Medicine [address] [place] [phone] Genaro Islas PA-C [address] [place] [address] Orthopedics & Sports Medicine, [place] [address] Health Maintenance Due Date Last Done Comments LIPID PANEL 1955 DEPRESSION SCREENING 1967 HEPATITIS C SCREENING 1973 MAMMOGRAM 1995 COLOGUARD 2000 COLONOSCOPY 2000 COLORECTAL CANCER SCREENING 2000 FIT TEST 2000 FOBT 2000 SIGMOIDOSCOPY 2000 VIRTUAL COLONOSCOPY 2000 PNEUMOCOCCAL VACCINES (50+ years) (1 of 1 - PCV) 2005 ZOSTER VACCINES (1 of 2) 2005 OSTEOPOROSIS SCREENING INITIAL (ONE-TIME) 2020 INFLUENZA VACCINE (#1) 2024 , 03/01/2023, 02/22/2022, Additional history exists COVID-19 VACCINE (2024- season) 2024 02/13/2024, 02/16/2023, 09/02/2022, Additional history [...] topic Medical Devices Not on file Insurance [facility] MEDEX SUPPLEMENT MEDICARE PART A & B [employer] MEDEX SUPPLEMENT MEDICARE PART A & B [employer] MEDEX SUPPLEMENT MEDICARE PART A & B Member Subscriber Plan / Payer ( fective 2020-) Name:Keiry Martini Member ID:[id number] Relation to Subscriber:Self Name:Keiry Martini Subscriber ID:[id number] Payer ID:[id number] Group ID:Not on file Type:Medicare Address: [place] [address] [place] [id number] [employer] MEDEX SUPPLEMENT MEDICARE PART A & B [employer] MEDEX SUPPLEMENT MEDICARE PART A & B [place] MED[place] SUPPLEMENT MEDICARE PART A & B [place] MEDEX SUPPLEMENT MEDICARE PART A & B [place] MEDEX SUPPLEMENT MEDICARE PART A & B [place] MEDEX SUPPLEMENT MEDICARE PART A & B Care Teams Technical Writer And Editor Relationship Specialty Start Date End Date Willard Jerome MD [address] [place] [phone] PCP - General 12/27/19 Additional Source Comments The information contained in this document represents components of the legal health record. It is not the complete legal health record.[facility]
[2025-04-12 09:13] VITALS: BP 100/64; PULSE 85; RESP 16; TEMP 36.4; O2SAT 95; BMI 31.1
--- NOTE | 2025-04-12 09:13 | MHC.OFFWIV ---
Intake Vital Signs 04/12/25 09:13 Height 5 ft 4 in Weight 181 lb BMI 31.1 BP 100/64 Blood Pressure Location Lt brachial Position Sitting Respiration 16 Pulse 85 Pulse Source Pulse Oximeter Temp 97.6 F Temp Source Oral Pulse Oximetry (%) 95 Oxygen Delivery Method Room Air Intake Visit Reasons: EP, possible UTI Intake Note: Pt is here today c/o mid back pain, fatigue nausea x3days that she has had similar symptoms in the past from UTI. She also says that she has been diagnosed with fungal infections And was recently treated for one. No diarrhea or constipation no fevers or chills Patient Tobacco Use Status: Never used Tobacco Education Professional Required: No Allergies doxycycline (DOXYCYCLINE) Allergy (Severe, Verified 04/12/25 09:22) UNKNOWN, ? hearing problem poison teresa extract (POISON TERESA) Allergy (Severe, Verified 04/12/25 09:22) SEVERE RASH Penicillins (PENICILLINS) Allergy (Unknown, Verified 04/12/25 09:22) RASH [facility] Medical History (Updated 04/12/25 @ 09:45 by Cristopher Dubois MD) Rash and other nonspecific skin eruption Polyarticular osteoarthritis GERD (gastroesophageal reflux disease) Abdominal pain Yeast infection involving the vagina and surrounding area Esophagitis Epigastric abdominal pain Dysuria Right lower quadrant pain Neck pain Fatigue Osteoarthritis Vitamin B12 deficiency Hypercholesterolemia Overweight (BMI 25.0-29.9) Ascending aorta dilatation Immunodeficiency disorder Irritable bowel syndrome Anxiety Anemia Hx of breast cancer Surgical History History of esophagogastroduodenoscopy (EGD) H/O rotator cuff surgery History of colonoscopy History of arthroscopy of left knee Hx of tubal ligation Hx of section Hx of mastectomy Family History Mother Diabetes Arthritis Father HTN (hypertension) Dementia COPD (chronic obstructive pulmonary disease) Skin cancer Maternal Grandfather Glaucoma Social History Household Members: Spouse Housing: Apartment Are you a primary career development coordinator to a significant other at home: No Do you presently have visiting nurse or other home services: No Alcohol intake: current Alcohol intake frequency: holidays/special occasions only Comment: 2x a year 2 drinks Patient Tobacco Use Status: Never used Tobacco Years Smoked: history of marijuana uses e-Cigarette/Vaping Use: Never Used Second Hand Smoke Exposure: No service: No Current occupational status: retired Sexual orientation: Straight/Heterosexual Gender identity: Female Cognitive needs: No Hearing needs: No Vision needs: Yes (glasses) Review of Systems Const Denies chills, Denies fatigue, Denies fever(s), Denies headache(s) and Denies weakness ENT Denies dizziness and Denies headache(s) Card Denies dyspnea Resp Denies cough, Denies dyspnea, Denies wheezing and Denies other ( shortness of breath) GI Details: mild nausea. no vomiting Details: no dysuria Musc Details: mild bilateral mid back pain Denies numbness and Denies tingling Neuro Denies dizziness, Denies headache(s), Denies numbness, Denies tingling, Denies paresthesias and Denies weakness Psych Denies anxiety and Denies depression Endo Denies fatigue Aller/Immun Denies wheezing Physical Exam Vital Signs: Last Vital Signs Temp 97.6 F 04/12/25 09:13 Pulse 85 04/12/25 09:13 Resp 16 04/12/25 09:13 BP 100/64 04/12/25 09:13 Pulse Ox 95 04/12/25 09:13 Oxygen Delivery Method Room Air 04/12/25 09:13 BMI result Body Mass Index 31.1 Const General: no acute distress and well developed Nutritional Appearance: well nourished Orientation/consciousness: patient oriented x3 HEENT Head: Yes normocephalic and Yes atraumatic Eyes General: appearance normal, both eyes and all related structures Pupils: Equal, round and reactive pupils present EOM: EOMs intact bilaterally Resp Effort & Inspection: normal respiratory effort Auscultation: clear to auscultation bilaterally Cardio Rate: regular rate Rhythm: regular rhythm Heart sounds: S1 normal heart sound present, S2 normal heart sound present, no gallops, no murmurs and no rubs GI Other: normal bowel sounds soft, nontender Other: no suprapubic TTP no CVA tenderness to percussion Neuro General: patient oriented x3 and gait normal Cranial nerves: Yes Equal, round and reactive pupils present Psych Affect: normal affect Results AMB Urinalysis, Automated UA Leukoctes 0 Nikolas/uL Last Edit by Akua Tiwari CMA on 04/12/25 09:21 UA Nitrite Negative Last Edit by Akua Tiwari, [facility] on 04/12/25 09:21 UA Urobilinogen 0.2 mg/dL Last Edit by Akua Tiwari, [facility] on 04/12/25 09:21 UA Protein 0 mg/dL Last Edit by Akua Tiwari, [facility] on 04/12/25 09:21 UA pH 6.5 Last Edit by Akua Tiwari, [facility] on 04/12/25 09:21 UA Blood 0 Marcelo/uL Last Edit by Akua Tiwari, TEACHING FELLOW on 04/12/25 09:21 UA Specific [place] 1.010 Last Edit by Akua Tiwari, [facility] on 04/12/25 09:21 UA Ketone Negative Last Edit by Akua Tiwari, [facility] on 04/12/25 09:21 UA Bilirubin 0 mg/dL Last Edit by Akua Tiwari, [facility] on 04/12/25 09:21 UA Glucose 0 mg/dL Last Edit by Akua Tiwari, [facility] on 04/12/25 09:21 Results Reviewed Results Reviewed: Laboratory Last Values Urine pH (Auto) 6.5 04/12/25 09:14 Specific [place] (Auto) 1.010 04/12/25 09:14 Urine Protein (Auto) 0 mg/dL 04/12/25 09:14 Glucose (UA)(Auto) 0 mg/dL 04/12/25 09:14 Urine Ketones (Auto) Negative 04/12/25 09:14 Urine Blood (Auto) 0 Marcelo/uL 04/12/25 09:14 Urine Nitrite (Auto) Negative 04/12/25 09:14 Urine Bilirubin (Auto) 0 mg/dL 04/12/25 09:14 Urine Urobilinogen (Auto) 0.2 mg/dL 04/12/25 09:14 Leukocyte Esterase (Auto) 0 Nikolas/uL 04/12/25 09:14 Assessment & Plan Assessment & Plan (1) Viral illness: Code(s): B34.9 - Viral infection, unspecified Plan: Likely mild Viral illness There is no antibiotic medication for viruses. They must run their course. Most average 5-7 days but 7-10 days is not uncommon and up to 14 days is still possible. A cough is often the last symptom to resolve and this can last for weeks in some cases. Rest Hydrate well - Drink plenty of fluids. Especially water. Tylenol or ibuprofen for muscle aches, headache, fever/discomfort Can use dsmy-yxs-vqabejw medications for cough such as Delsym or DayQuil. Prescription cough medicines have been shown to be no better. patient remains concerned of urinary tract infection versus yeast infection will send urine off for urinalysis with reflex to culture no indication for an antibiotic at this time hydrate well and get plenty of rest has upcoming appointment and can follow-up with her PCP Orders: Orders AMB Urinalysis Automated Today Z13.9 - Encounter for screening, unspecified UA CC w/rflx Micro + Cult Today M54.9 - Dorsalgia, unspecified Coding Level of Care Code Est Pt Level 3 (36742) Diagnoses Viral illness B34.9
== END 2025-04-12 09:42 | disposition home or self-care (01) ==
PROVIDERS: PCP Internal Medicine; Visit Provider Family Medicine
DX: B34.9 Viral infection, unspecified (principal); Z13.9 Encounter for screening, unspecified

== ENCOUNTER 2025-04-12 09:07 | Outpatient (REF) | payer MEDICARE, SELFPAY ==
[2025-04-12 12:03] LABS: Appearance Urine Clear; Glucose Urine UA Negative (Negative); PH 7.0 (5.0-9.0); Specific Gravity - Urine 1.010 (1.005-1.025)
== END 2025-04-12 09:08 | disposition home or self-care (01) ==
LOC: HO.LNP 09:07
PROVIDERS: Family Medicine; PCP Internal Medicine
DX: M54.9 Dorsalgia, unspecified (principal); Z13.89 Encounter for screening for other disorder
CPT/HCPCS: 81003; 99212

== ENCOUNTER 2025-04-17 09:53 | Outpatient (AMB) | payer MEDICARE, SELFPAY ==
[2025-04-17 10:31] VITALS: BP 120/60; PULSE 94; RESP 18; O2SAT 97; BMI 30.7
--- NOTE | 2025-04-17 10:31 | A.OFFPC_ITS ---
Vital Signs 04/17/25 10:31 Height 5 ft 4 in Weight 179 lb BMI 30.7 BP 120/60 Blood Pressure Location Lt brachial Position Sitting Respiration 18 Pulse 94 Pulse Source Pulse Oximeter Temp Source Temporal Artery Scan Pulse Oximetry (%) 97 Oxygen Delivery Method Room Air Intake Visit Reasons: breast cancer Orthopedic Physician Assistant Required: No Accompanied by: Self / Same As Patient Allergies doxycycline (DOXYCYCLINE) Allergy (Severe, Verified 04/17/25 10:31) UNKNOWN, ? hearing problem poison teresa extract (POISON TERESA) Allergy (Severe, Verified 04/17/25 10:31) SEVERE RASH Penicillins (PENICILLINS) Allergy (Unknown, Verified 04/17/25 10:31) RASH Medication List - Last Reconciled 04/17/25 by Willard Simpson Po, betamethasone valerate 0.1% 1 appl topical TID PRN calcium carbonate 600 mg PO DAILY cholecalciferol (vitamin D3) 50 mcg PO DAILY estradiol 0.01%(0.1mg/gram) (Estrace) pea sized amount per urethra daily; 30 days famotidine 20 mg PO DAILY garlic 50 mg PO DAILY inositol 4 tabs PO DAILY mastectomy bra (bra, mastectomy) As Directed mastectomy bra (bra, mastectomy) As Directed [PROBIOTIC 2 caps PO BID] Prosthesis, breast (Breast prosthesis) As Directed [synbiotic ] valacyclovir 500 mg PO BID Tobacco use date assessed: 04/17/25 Last assessed Fall Risk: 04/17/25 Dental Screening Dental Screen Date: 04/17/25 Did you have a dental visit in the last 12 months?: Yes Did you have a dental problem in the last 6 months where you did not have access to dental care?: No Was dental information given to patient?: Patient has dentist HPI breast cancer HPI Details RUQ pain 2 weeks radiates to back with nausea, states stools are microbiology lab manager, belch a lot. HPI Comments History of Present Illness Details History of Present Illness The patient is a 70-year-old obese female presenting for a follow-up visit and to discuss new-onset abdominal pain. Her medical history is significant for breast cancer diagnosed in March 2010, hypercholesterolemia, and osteopenia. The patient reports the onset of abdominal pain approximately a week and a half ago, which radiates to her back. She has noticed her stools are microbiology lab manager in color and experiences significant belching after meals. The pain is exacerbated by a full stomach and spicy foods. She notes the symptoms began after taking fluconazole. Regarding her musculoskeletal health, she has a diagnosis of osteopenia from a bone density scan in July 2023 and was diagnosed with osteoarthritis by a learning disabled teacher in December. She was advised to take alendronate but prefers to wait for a repeat scan in a year. She also reports knee pain from tendinosis, which interferes with her ability to walk longer distances. She is currently under the care of an loader unloader for evaluation of allergies and is undergoing immune system testing. Recent medical visits include an urgent care visit in March for contact dermatitis, where she was prescribed valacyclovir, and a visit to a walk-in clinic in March for a viral upper respiratory infection. Her last cardiology follow-up was in January, with a recommendation for a repeat echocardiogram in three years. Blood work from February 24 showed mild anemia with a hemoglobin of 11.8, but normal electrolytes, renal function, blood sugar, liver function, and thyroid levels. Her last colonoscopy was in 2018. The patient reports worsening hearing loss, which is more pronounced in her left ear, and requests a referral for a hearing exam. Health Maintenance - Last colonoscopy was in 2018. - Last bone density scan was in August 18, showed osteopenia. - Patient is up-to-date with bone densit y screening. - Last echocardiogram was in December 31. - Follow-up echocardiogram is recommende d in 3 years. - Patient has received her flu and COVID -19 vaccinations. - Discussion regarding the RSV vaccine o ccurred; it was recommended for the patient. - Takes daily supplements including calc ium and vitamin D for bone health. - Referral provided for a hearing evalua tion. - Has a scheduled appointment with a gas troenterologist in June for a possible upper GI procedure. Social History - Exercise: The patient exercises for 40 minutes every day and tries to walk for at least half a mile to a mile. - Functional Status: Reports she cannot sit for long periods and needs to be moving. - Nutrition: Daily intake includes yogur t with fruit. - Nutrition: Tries to avoid sugar and sw eets. - Nutrition: Reports that dark chocolate is hard for her to digest. Results - Labs (February 24): Hemoglobin of 11.8 g/dL, indicating mild anemia. - Labs (February 24): Normal electrolytes , renal function, blood sugar, liver function, and thyroid function. - Bone Density (July 2023): Revealed os teopenia. - Echocardiogram (December 2022): Findi ngs not detailed, but follow-up recommended in 3 years by cardiology. - Allergy Testing: Indicated multiple al lergies; further immune system testing is underway. [facility] Medical History (Updated 04/17/25 @ 10:42 by Willard Jerome MD) Rash and other nonspecific skin eruption Polyarticular osteoarthritis GERD (gastroesophageal reflux disease) Abdominal pain Yeast infection involving the vagina and surrounding area Esophagitis Epigastric abdominal pain Dysuria Right lower quadrant pain Neck pain Fatigue Osteoarthritis Vitamin B12 deficiency Hypercholesterolemia Overweight (BMI 25.0-29.9) Ascending aorta dilatation Immunodeficiency disorder Irritable bowel syndrome Anxiety Anemia Hx of breast cancer Surgical History History of esophagogastroduodenoscopy (EGD) H/O rotator cuff surgery History of colonoscopy History of arthroscopy of left knee Hx of tubal ligation Hx of section Hx of mastectomy Family History Mother Diabetes Arthritis Father HTN (hypertension) Dementia COPD (chronic obstructive pulmonary disease) Skin cancer Maternal Grandfather Glaucoma Social History Household Members: Spouse Housing: Apartment Are you a primary animal care attendant to a significant other at home: No Do you presently have visiting nurse or other home services: No Alcohol intake: current Alcohol intake frequency: holidays/special occasions only Comment: 2x a year 2 drinks Patient Tobacco Use Status: Never used Tobacco Years Smoked: history of marijuana uses e-Cigarette/Vaping Use: Never Used Second Hand Smoke Exposure: No service: No Current occupational status: retired Sexual orientation: Straight/Heterosexual Gender identity: Female Cognitive needs: No Hearing needs: No Vision needs: Yes (glasses) Questionnaire Thrive Questionnaire Date Thrive assessed: 04/17/25 I am a: Patient What is your living situation today?: I have a steady place to live Within the past 12 months, did the food you bought not last and you didn't have the money to get more?: Never true Within the past 12 months, did you worry whether your food would run out before you got money to buy more?: Never true Do you have trouble paying for medicines?: No Do you have trouble getting transportation to medical appointments?: No Do you have trouble paying your heating and electricity bill?: No Do you have trouble taking care of your child, family member or friend?: No Do you have trouble with day-to-day activities such as bathing, preparing meals, shopping, managing finances, etc.?: No Are you currently unemployed and looking for a job?: No Are you interested in more education?: I choose not to answer this question Please select the resources that you would like help with: None Currently or been in a relationship where the following occur: No concerns reported THRIVE Score: 0 FLOWER-7 AMB Questionnaire FLOWER-7 Date FLOWER - 7 assessed: 10/17/24 Source: Developed by Drs. Josh Vivar, Becka Holder, Ernie Aguilera and colleagues, with an educational brigette from [employer]. Review of Systems Narrative Review of Systems - Constitutional: Reports having chills. - Gastrointestinal: Reports abdominal pain for 1.5 weeks that radiates to the back, microbiology lab manager colored stools, and significant belching after eating. - Gastrointestinal: Pain is worse on a full stomach or after eating spicy food. - Gastrointestinal: Reports difficulty digesting dark chocolate. - ENT: Reports hearing loss, worse in the left ear than the right. - ENT: Reports postnasal drip. - ENT: Denies sinus issues. - Musculoskeletal: Reports joint pains and knee pain. - Genitourinary: Reports history of recurrent yeast infections. Physical exam (Primary Care) Vital Signs: Last Vital Signs Pulse 94 04/17/25 10:31 Resp 18 04/17/25 10:31 BP 120/60 04/17/25 10:31 Pulse Ox 97 04/17/25 10:31 Oxygen Delivery Method Room Air 04/17/25 10:31 BMI result Body Mass Index 30.7 Tobacco/Smoking Status: Tobacco use Status Tobacco use date assessed 04/17/25 04/17/25 10:37 Patient Tobacco Use Status Never used Tobacco 04/17/25 10:37 e-Cigarette/Vaping Use Never Used 04/17/25 10:37 Thrive Assessment: Date of Thrive Assessment Date Thrive assessed 04/17/25 04/17/25 10:37 Currently or been in a relationship where the following occur: No concerns reported Narrative Physical Exam - Cardiovascular: Heart auscultated. - Abdomen: Non-tender to palpation in all quadrants. - Abdomen: No Monroy's sign; no pain elicited on palpation of the gallbladder area. Const General: alert; No acute distress Eyes Conjunctivae: conjunctivae normal Resp Auscultation: clear to auscultation bilaterally Cardio Rate: regular rate Rhythm: regular rhythm GI Inspection: Yes normal to inspection Extrem General: Yes normal to inspection and No edema Coding Level of Care Code Est Pt Level 4 (75240) Diagnoses Hx of breast cancer Z85.3 Obesity (BMI 30-39.9) E66.9 Primary osteoarthritis involving multiple joints M89.49 Osteoarthritis location: multiple joints Osteoarthritis type: primary Ascending aorta dilatation I77.810 RUQ abdominal pain R10.11 GERD (gastroesophageal reflux disease) K21.9 Hearing impairment H91.90 Assessment & Plan Assessment & Plan (1) Hx of breast cancer: Comment: March 2010 right modified radical mastectomy 1.5 cm grade 3 infiltrating ductal carcinoma with lymphovascular invasion estrogen and progesterone receptors negative but HER/abraham (+) 1 of 11 axillary nodes positive for Mets adeno CA 4.5 cm identified on MRI Code(s): Z85.3 - Personal history of malignant neoplasm of breast Category: Medical Plan: Continue to monitor (2) Obesity (BMI 30-39.9): Code(s): E66.9 - Obesity, unspecified Category: Medical Plan: Diet and exercise (3) Osteoarthritis: Code(s): M19.90 - Unspecified osteoarthritis, unspecified site Category: Medical Qualifiers: Osteoarthritis location: multiple joints Osteoarthritis type: primary Qualified Code(s): M89.49 - Other hypertrophic osteoarthropathy, multiple sites Plan: Keep active and may use Voltaren gel (4) Ascending aorta dilatation: Comment: 3.07 July 2018, echo 60-65% June 2019 65-70% grade 1 diastolic dysfunction mild dilatation ascending aorta 3.9 cm stressed negative June 2018, October 2021 3.7 to 3.8 cm 2024 Code(s): I77.810 - Thoracic aortic ectasia Category: Medical Plan: Patient has seen Cardiology and repeat echocardiogram in 3 years (5) RUQ abdominal pain: Code(s): R10.11 - Right upper quadrant pain Category: Medical (6) GERD (gastroesophageal reflux disease): Code(s): K21.9 - Gastro-esophageal reflux disease without esophagitis Category: Medical (7) Hearing impairment: Code(s): H91.90 - Unspecified hearing loss, unspecified ear Category: Medical Plan Plan Patient was informed and verbally consented to the use of an ambient scribe for clinic note documentation during this visit. 1. Abdominal Pain The patient presents with new-onset abdominal pain that radiates to the back, is worse after eating, and is associated with belching and microbiology lab manager-colored stools. The differential includes gallbladder disease, pancreatitis, and gastritis. An abdominal ultrasound will be ordered to evaluate the gallbladder, pancreas, and kidneys. The patient is advised to avoid fatty and spicy foods in the interim. She has an upcoming appointment with a home coordinator in June for further evaluation, which may include an upper GI endoscopy. 2. Osteopenia The patient has a known diagnosis of osteopenia confirmed by a bone density scan in July 2023. Although alendronate was recommended by rheumatology, the patient prefers to defer pharmacological treatment at this time. She will continue with calcium and vitamin D supplementation and plans to have a repeat bone density scan in one year to monitor for any progression before reconsidering medication. 3. Allergies The patient is being evaluated by an loader unloader and is undergoing immune system testing, with a follow-up scheduled for Monday. She reports postnasal drip, and the use of a steroid nasal spray was discussed as a local treatment for this symptom. 4. Hearing Loss The patient reports worsening bilateral hearing loss, which is more significant in the left ear. A referral has been provided for a formal hearing evaluation at an audiology clinic. 5. Preventative Care Cardiology follow-up is planned with a repeat echocardiogram in three years. The patient is up to date on her flu and COVID-19 vaccines. The RSV vaccine was recommended given her age and history of breast cancer. Discussion Notes I discussed my assessment of the patient's new-onset abdominal pain, including a differential diagnosis. I explained that we would order an abdominal ultrasound to evaluate her gallbladder, pancreas, and other organs. I advised dietary modifications, such as avoiding fatty and spicy foods, to manage symptoms until a diagnosis is made. We reviewed the management of her osteopenia. I explained the risks and benefits of medications like Fosamax and supported her decision to monitor her condition with a repeat bone density scan in a year before starting pharmacotherapy. I reinforced the importance of calcium and vitamin D from diet and supplements, noting the limited evidence for other vitamin supplements for bone health. I provided a referral for a hearing test to address her concerns about worsening hearing loss. We discussed vaccinations, and I recommended she receive the RSV vaccine given her age and history of breast cancer. I also explained that her reflux symptoms could be managed with lifestyle changes, such as elevating the head of her bed. Patient Instructions - My office will call you to schedule an ultrasound of your abdomen to investigate the cause of your pain. - Avoid fatty, spicy, and very sweet foods, as these may worsen your stomach pain. - Continue taking your calcium and vitamin D supplements for your bone health. - We will plan to check your bone density again in one year before deciding on any new medications. - You have a referral for a hearing test; please schedule this appointment. - It is recommended that you get the RSV vaccine. - Follow up with your pie crust mixer on Monday to review your test results. - Continue your appointment with Dr. Kamara in June for your stomach issues. - To help with acid reflux, try to eat dinner earlier and sleep with your head propped up on several pillows. Orders: Orders US abdomen complete Today R10.11 - Right upper quadrant pain, R79.89 - Other specified abnormal findings of blood chemistry Referrals Speech and Hearing Referral H91.90 - Unspecified hearing loss, unspecified ear
--- OUTSIDE RECORDS SUMMARY | 2025-04-17 12:08 | XMS_ITS | Encounter Summary ---
Author Organization [facility] Address [address] [place] [address] [place] [address] Phone Care Team Providers Care Motor Expert Name Role Phone Jackeline Bourne PHOTOLITH OPERATOR Unavailable [phone] PoWillard MD Primary Care Provider [phone] Encounter Details Date Type Department Care Team (Late Contact Info) Description 01/16/2020 Ancillary Orders [facility],Outside Imaging [address] [place] [address] System, Provider Not In, [facility] [address] [address] Social History Tobacco Use Types Packs/Day Years [...] Care Team (Late st Contact Info) Description 05/06/2025 12:30 PM EST Office Visit [facility] [address] [place] [address] Genaro Islas PA-C [address] [place] [address] Orthopedics & Sports Medicine, [place] [address] documented as of this encounter Results * XR SPINE OUTSIDE(NO INTERPRETATION) (12/19/2019 12:00 AM EDT) Narrative SYSTEMGENERATED, DOCUMENTATION - 01/16/2020 1:50 PM EDT This study is for PACS storage only and not for interpretation. us Provider Not In System PhD IMG OUTSIDE IMAGING W /OUT INTERPRETATION Final Result documented in this encounter Visit Diagnoses Not on filedocumented in this encounter Care Teams Motor Expert Relationship Specialty Start Date End Date Willard Jerome MD [address] [facility] [address] [place] [address] PCP - General 12/27/19 Jackeline Bourne NP [address] [place] [phone] Historical LMR Provider 02/15/17 2 documented as of this encounter Additional Source Comments The information contained in this document represents components of the legal health record. It is not the complete legal health record.[facility]
--- OUTSIDE RECORDS SUMMARY | 2025-04-17 12:08 | XMS_ITS | Clinical Summary ---
Author Organization [facility] Address [address] [place] [address] Phone Care Team Providers Care Aerospace Control [employer] Warning Systems Name Role Phone Willard Jerome MD Primary Care Provider [phone] Allergies Active Allergy Reactions Criticality Noted Date [...] Description 05/06/2025 12:30 PM EST Office Visit [facility] [address] [place] [address] Genaro Islas PA-C [address] [place] [address] Orthopedics & Sports Medicine, [facility] [place] [address] Health Maintenance Due Date Last Done Comments [...] topic Medical Devices Not on file Insurance [facility] MEDEX SUPPLEMENT MEDICARE PART A & B [employer] MED[employer] SUPPLEMENT MEDICARE PART A & B [employer] MED[employer] SUPPLEMENT MEDICARE PART A & B [employer] MED[employer] SUPPLEMENT MEDICARE PART A & B [employer] MED[employer] SUPPLEMENT MEDICARE PART A & B [facility] MEDEX SUPPLEMENT MEDICARE PART A & B [employer]OSS MEDEX SUPPLEMENT MEDICARE PART A & B [employer] MEDEX SUPPLEMENT MEDICARE PART A & B [employer] MEDEX SUPPLEMENT MEDICARE PART A & B Care Teams [employer] Warning [employer] Relationship Specialty Start Date End Date Willard Jerome MD [address] [place] [phone] PCP - General 12/27/19 Additional Source Comments The information contained in this document represents components of the legal health record. It is not the complete legal health record.[facility]
--- OUTSIDE RECORDS SUMMARY | 2025-04-17 12:08 | XMS_ITS | Encounter Summary ---
Author Organization [facility] Address [address] [place] [phone] Phone Care Team Providers Care Call Or Contact Centre Manager Name Role Phone Jackeline Bourne STRIPPER APPRENTICE Unavailable [phone] PoWillard MD Primary Care Provider [phone] Encounter Details Date Type Department Care Team (Latest Contact Info) Description 07/27/2020 Ancillary Orders Virtual Department [address] [place] [address] Jo Ann Romo NP [address] [phone] [email or web address] Pain in both hands; Hx of osteoarthritis [...] Description 05/06/2025 12:30 PM EST Office Visit [facility] [address] [place] [address] Genaro Islas PA-C [address] [place] [address] Orthopedics & Sports Medicine, [facility] [place], [place] [id number] documented as of this encounter Results * [...] Pain in both hands Hx of osteoarthritis Primary localized osteoarthrosis of left lower leg- Primary documented in this encounter Care Teams Call Or Contact Centre Manager Relationship Specialty Start Date End Date Willard Jerome MD [address] [place] [phone] PCP - General 12/27/19 Jackeline Bourne NP [address] [place] [address] [place] [address] Historical LMR Provider 02/15/17 2 documented as of this encounter Additional Source Comments The information contained in this document represents components of the legal health record. It is not the complete legal health record.[facility]
== END 2025-04-17 11:14 | disposition home or self-care (01) ==
LOC: HO.HMCH 09:54
PROVIDERS: PCP Internal Medicine; Visit Provider Internal Medicine
DX: I77.810 Thoracic aortic ectasia (principal); Z85.3 Personal history of malignant neoplasm of breast; E66.9 Obesity, unspecified; Z68.30 Body mass index [BMI] 30.0-30.9, adult; H91.93 Unspecified hearing loss, bilateral; M89.49 Other hypertrophic osteoarthropathy, multiple sites; R10.11 Right upper quadrant pain; K21.9 Gastro-esophageal reflux disease without esophagitis

== ENCOUNTER → 2025-04-17 09:53 | Outpatient (BNVA) | payer MEDICARE, SELFPAY | PROVIDERS: PCP Internal Medicine; Visit Provider Internal Medicine | DX: K21.9 Gastro-esophageal reflux disease without esophagitis (principal); M89.49 Other hypertrophic osteoarthropathy, multiple sites; E66.9 Obesity, unspecified; I77.810 Thoracic aortic ectasia; R10.11 Right upper quadrant pain; H91.90 Unspecified hearing loss, unspecified ear; Z91.09 Other allergy status, other than to drugs and biological substances; Z85.3 Personal history of malignant neoplasm of breast | CPT/HCPCS: 99212 ==

== ENCOUNTER 2025-04-22 17:20 | Emergency (ER) | payer MEDICARE, SELFPAY ==
--- NOTE | ~2025-04-22 | US_ITS ---
CLINICAL HISTORY: Right upper quadrant, gallbladder and CBD please, Limited abdominal ultrasound Comparison: 07/11/23 Findings: The common bile duct is normal in diameter, measuring 0.3 cm. No cholelithiasis. Gallbladder polyp measuring 2 x 2 x 1 mm. No wall thickening or pericholecystic fluid. Negative sonographic Monroy sign. Impression: Negative for acute cholecystitis. This document has been electronically signed by: Kaylie Mock MD on 04/22/2025 19:20:33
--- NOTE | ~2025-04-22 | CT_ITS ---
CLINICAL HISTORY: Right-sided abdominal pain prior breast cancer CT abdomen and pelvis with contrast Comparison: None provided Findings: No consolidation of the imaged lung bases. Multiple low-density lesions of the liver too small to characterize by CT and likely reflect cysts, with left lobe lesion measuring 5 mm. Metastasis not excluded given patient's established history of malignancy and given multiplicity. Mild adrenal hyperplasia. Pancreas and spleen are unremarkable for technique. No hydronephrosis. No suspicious features of small cystic and/or low-density lesions of the kidneys. Small mesenteric and retroperitoneal lymph nodes are nonspecific and likely reactive. No small bowel obstruction. Severe stool burden. Wall thickening of the large intestine is nonspecific and may reflect colitis, including descending colon and sigmoid colon. Imaged appendix within normal limits (466 of series 4). Uterus is anteverted. Multiple densities and/or enhancing nodules of the uterus likely due to fibroids measuring up to 1.[address] No adnexal soft tissue mass by CT. Mild wall thickening of the urinary bladder is nonspecific. Mild-moderate osteoarthritis of the hips. Degenerative changes include imaged pubic symphysis of the imaged SI joints. Degenerative disc changes and facet arthropathy are multifocal. Mild imaged vertebral height losses appear old/chronic. IMPRESSION: 1. Mild wall thickening of the large intestine is nonspecific and may reflect colitis, including descending colon. No small bowel obstruction. 2. Multiple small fibroids in the uterus by CT. 3. Low-density lesions of the liver are nonspecific and measure up to 5 mm. Recommend 3 to six-month follow-up to ensure stability. These are currently below the resolution of PET imaging. This document has been electronically signed by: Dinesh Mosher MD on 04/22/2025 21:16:10
[2025-04-22 17:25] VITALS: BP 142/83; PULSE 86; RESP 20; TEMP 36.9; O2SAT 100; BMI 30.7
--- NOTE | 2025-04-22 17:27 | ECG_ITS ---
Test Reason : Abdominal pain Blood Pressure : */* mmHG Vent. Rate : 80 BPM Atrial Rate : 80 BPM P-R Int : 138 ms QRS Dur : 84 ms QT Int : 380 ms P-R-T Axes : 74 -50 59 degrees QTcB Int : 438 ms Normal sinus rhythm Low voltage QRS Incomplete right bundle branch block Left anterior fascicular block Nonspecific ST and T wave abnormality Abnormal ECG When compared with ECG of 27-Dec-2023 11:32, No significant change was found Referred By: Ruiz Damon Electronically Signed By: ELMER NORMAN MD
--- OUTSIDE RECORDS SUMMARY | 2025-04-22 17:58 | XMS_ITS | Clinical Summary ---
Author Organization [facility] Address [address] [place] [address] Phone Care Team Providers Care Sand Mill Operator Facing Sand Name Role Phone Willard Jerome MD Primary Care Provider [phone] Allergies Active Allergy Reactions Criticality Noted Date [...] Description 05/06/2025 12:30 PM EST Office Visit [facility] [address] [place] [address] Genaro Islas PA-C [address] [place] [address] Orthopedics & Sports Medicine, [facility] [place] [address] Health Maintenance Due Date Last Done Comments [...] MEDEX SUPPLEMENT MEDICARE PART A & B [employer] MEDEX SUPPLEMENT MEDICARE PART A & B [employer] MED[employer] SUPPLEMENT MEDICARE PART A & B [employer] MED[employer] SUPPLEMENT MEDICARE PART A & B [employer] MEDEX SUPPLEMENT MEDICARE PART A & B [facility] MEDEX SUPPLEMENT MEDICARE PART A & B [employer] CROSS MEDEX SUPPLEMENT MEDICARE PART A & B [employer] MEDEX SUPPLEMENT MEDICARE PART A & B [employer] MEDEX SUPPLEMENT MEDICARE PART A & B Care Teams Sand Mill Operator Facing Sand Relationship Specialty Start Date End Date Willard Jerome MD [address] [place] [phone] PCP - General 12/27/19 Additional Source Comments The information contained in this document represents components of the legal health record. It is not the complete legal health record.[facility]
--- OUTSIDE RECORDS SUMMARY | 2025-04-22 17:58 | XMS_ITS | Encounter Summary ---
Author Organization [facility] Address [address] [place] [phone] Phone Care Team Providers Care Professional Employer Consultant Name Role Phone Jackeline Bourne VICE PRESIDENT AND PORTFOLIO MANAGER Unavailable PoWillard MD Primary Care Provider [phone] Encounter Details Date Type Department Care Team (Latest Contact Info) Description 07/27/2020 Ancillary Orders Virtual Department [address] [place] [address] Jo Ann Romo NP [address] [address] [email or web address] Pain in both hands; Hx of osteoarthritis [...] Description 05/06/2025 12:30 PM EST Office Visit [facility] [address] [place] [phone] Genaro Islas PA-C [address] [place] [address] Orthopedics & Sports Medicine, [facility]. [place], [place] [phone] documented as of this encounter Results * [...] Primary documented in this encounter Care Teams Professional Employer Consultant Relationship Specialty Start Date End Date Willard Jerome MD [address] [place] [phone] PCP - General 12/27/19 Jackeline Bourne NP [address] [place] [address] [place] [phone] Historical LMR Provider 02/15/17 2 documented as of this encounter Additional Source Comments The information contained in this document represents components of the legal health record. It is not the complete legal health record.[facility]
--- OUTSIDE RECORDS SUMMARY | 2025-04-22 17:58 | XMS_ITS | Encounter Summary ---
Author Organization [facility] Address [address] [place] [address] [place] [phone] Phone Care Team Providers Care Specialty Manufacturing Supervisor Name Role Phone Jackeline Bourne SANITATION MANAGER Unavailable [phone] PoWillard MD Primary Care Provider [phone] Encounter Details Date Type Department Care Team (Late Contact Info) Description 01/16/2020 Ancillary Orders [facility],Outside Imaging [address] [place] [address] System, Provider Not In, [facility] [address] [address] Social History Tobacco Use Types Packs/Day Years [...] Description 05/06/2025 12:30 PM EST Office Visit [facility] [address] [place] [phone] Genaro Islas PA-C [address] [place] [address] Orthopedics & Sports Medicine, [facility] [place] [address] documented as of this encounter Results * XR SPINE OUTSIDE(NO INTERPRETATION) (12/19/2019 12:00 AM EDT) Narrative SYSTEMGENERATED, DOCUMENTATION - 01/16/2020 1:50 PM EDT This study is for PACS storage only and not for interpretation. us Provider Not In System PhD IMG OUTSIDE IMAGING W /OUT INTERPRETATION Final Result documented in this encounter Visit Diagnoses Not on filedocumented in this encounter Care Teams Specialty Manufacturing Supervisor Relationship Specialty Start Date End Date Willard Jerome MD [address] [facility] [address] [place] [address] PCP - General 12/27/19 Jackeline Bourne NP [address] [place] [phone] Historical LMR Provider 02/15/17 2 documented as of this encounter Additional Source Comments The information contained in this document represents components of the legal health record. It is not the complete legal health record.[facility]
[2025-04-22 18:20] LABS: MANUAL DIFF FLAG NO
[2025-04-22 18:21] LABS: Hematocrit 35.3 % (37.0-47.0); Hemoglobin 11.6 g/dl (12.0-16.0); Imm Gran Abs Auto 0.01 X10*3/uL (0.00-0.03); Imm Gran Pct Auto 0.2 % (0.0-0.4); Lymphocytes Absolute Auto 1.6 X10*3/uL (1.2-4.9); Mean Corpuscular HGB Conc 32.9 g/dl (31.0-35.0); Mean Corpuscular Hemoglobin 28.4 pg (27.0-33.0); Mean Corpuscular Volume 86.3 fL (80.0-98.0); NRBC Abs Auto 0.000 X10*3/uL (0.0-0.012); NRBC Pct Auto 0.0 /100WBC (0.0-0.2); Platelet Count 236 X10*3/uL (160-400); Red Blood Count 4.09 X10*6/uL (4.20-5.50); White Blood Count 5.6 X10*3/uL (4.8-10.8)
--- NOTE | 2025-04-22 18:30 | ED.ABDPAIN ---
HPI - Abdominal Pain General Chief Complaint: Abdominal Pain Stated Complaint: Abdominal pain Time Seen by Provider: 04/22/25 17:58 Source: patient, family and old records reviewed Mode of arrival: ambulatory Limitations: no limitations History of Present Illness ED Provider: SHAD SALAZAR narrative: 7-year-old female with past medical history of Raynaud's disease, osteopenia, prior breast cancer several years ago status post right mastectomy she was HER2 negative, hypercholesterolemia she denies any prior abdominal surgery she notes almost 2 weeks of right upper quadrant pain that is lingering and will go away. She has episodes of nausea as well. Does not seem to be precipitated by eating. She also feels that her stools have been looser some oily texture. She states she was referred by her primary care to get an ultrasound of her gallbladder. She was told by ultrasound staff today she would not be able to be scheduled to June so she came to the ED to figure out what was going on. She denies any fevers or weight loss MD elicited complaint: abdominal pain Pertinent past history: none Onset (ago): week(s) (2) Pain Consistency: colicky Location: RUQ Severity: moderate Quality: aching Radiation: back Migration to: no migration Exacerbating factors: nothing Relieving factors: nothing Associated symptoms: nausea Related Data Home Medications ?Medication ?Instructions ?Recorded ?Confirmed cholecalciferol (vitamin D3) 50 50 mcg PO DAILY 05/14/20 04/17/25 mcg (2,000 unit) capsule inositol 324 mg tablet 4 tab PO DAILY 05/14/20 04/17/25 calcium carbonate 600 mg PO DAILY 06/14/21 04/17/25 PROBIOTIC 2 cap PO BID 08/18/21 04/17/25 garlic 100 mg tablet 50 mg PO DAILY 01/20/22 04/17/25 famotidine 20 mg tablet 20 mg PO DAILY 09/09/24 04/17/25 synbiotic 01/16/25 04/17/25 Previous Rx's ?Medication ?Instructions ?Recorded betamethasone valerate 0.1 % 1 appl topical TID PRN skin 07/12/21 topical cream irritation #45 grams estradiol 0.01% (0.1 mg/gram) See Rx Instructions .Route DAILY 11/05/21 vaginal cream (Estrace) complicated uti 30 days #42.5 grams Prosthesis, breast (Breast #1 ea 07/13/23 prosthesis) mastectomy bra (bra, mastectomy) #6 ea 07/13/23 mastectomy bra (bra, mastectomy) #6 ea 07/13/23 valacyclovir 500 mg tablet 500 mg PO BID #10 tabs 03/24/25 Allergies Allergy/AdvReac Type Severity Reaction Status Date / Time doxycycline (DOXYCYCLINE) Allergy Severe UNKNOWN, ? Verified 04/22/25 17:27 hearing problem poison teresa extract (POISON Allergy Severe SEVERE RASH Verified 04/22/25 17:27 TERESA) Penicillins (PENICILLINS) Allergy Unknown RASH Verified 04/22/25 17:27 Review of Systems Review of Systems Yes all other systems are reviewed and are negative PMFSH Past Medical History Attestation statement: The following information was validated with the patient. Source: old records reviewed Medical History Rash and other nonspecific skin eruption Polyarticular osteoarthritis GERD (gastroesophageal reflux disease) Abdominal pain Yeast infection involving the vagina and surrounding area Esophagitis Epigastric abdominal pain Dysuria Right lower quadrant pain Neck pain Fatigue Osteoarthritis Vitamin B12 deficiency Hypercholesterolemia Overweight (BMI 25.0-29.9) Ascending aorta dilatation Immunodeficiency disorder Irritable bowel syndrome Anxiety Anemia Hx of breast cancer Surgical History History of esophagogastroduodenoscopy (EGD) H/O rotator cuff surgery History of colonoscopy History of arthroscopy of left knee Hx of tubal ligation Hx of section Hx of mastectomy Family History Family History Mother Diabetes Arthritis Father HTN (hypertension) Dementia COPD (chronic obstructive pulmonary disease) Skin cancer Maternal Grandfather Glaucoma Social History Social History Household Members: Spouse Housing: Apartment Are you a primary career development director to a significant other at home: No Do you presently have visiting nurse or other home services: No Alcohol intake: current Alcohol intake frequency: holidays/special occasions only Comment: 2x a year 2 drinks Patient Tobacco Use Status: Never used Tobacco Years Smoked: history of marijuana uses e-Cigarette/Vaping Use: Never Used Second Hand Smoke Exposure: No Advance Directives: No Advance Directives Information Provided: No service: No Current occupational status: retired Sexual orientation: Straight/Heterosexual Gender identity: Female Cognitive needs: No Hearing needs: No Vision needs: Yes (glasses) Physical Exam ED Vital Signs: Vital Signs - 24 hr 04/22/25 17:25 Temperature 98.4 F Pulse Rate 86 Respiratory Rate 20 Blood Pressure 142/83 H Pulse Oximetry 100 Oxygen Delivery Method Room Air BMI result Body Mass Index 30.7 Appearance: Alert. Oriented X3. No acute distress. Eyes: Pupils equal, round and reactive to light. ENT: Pharynx normal. Neck: Normal inspection. Neck supple. CVS: Normal heart rate and rhythm. Pulses normal. Respiratory: No respiratory distress. Breath sounds normal. Abdomen: Soft with mild tenderness to palpation in right upper quadrant, she has negative Monroy's sign Skin: Skin warm and dry. Normal skin color. Normal skin turgor. Extremities: No lower extremity edema. No calf ttp Neuro: Oriented X 3. No motor deficit. No sensory deficit. CN2-12 intact Course Course Course Narrative: 7:52 PM 04/22/2025 (SHAD MOREIRA): Normal ultrasound given her cancer history I am going to obtain a CT scan of the abdomen Medical Decision Making Medical Decision Making [facility] Narrative: 70-year-old female with past medical history of breast cancer status post mastectomy she has HER2 negative, hypercholesterolemia she has been dealing with 2 weeks of intermittent right upper quadrant pain with some nausea and oily stools. She denies any weight loss or fevers. At this time given her age I am going to obtain basic labs, ultrasound to evaluate gallbladder liver, EKG. She is not in any distress and out feel like she needs any IV pain medications at this time. If her ultrasound is negative given her history of cancer I will discuss with her CT scan. Differential Diagnosis Differential Diagnoses: The differential diagnosis associated with the presentation includes Gastritis, biliary colic, pancreatitis, mass Admission/Observation Consideration of admission/observation: Escalation of care including admission/observation considered There is no acute findings on imaging today she can follow up with your primary care doctor Lab Data [facility] Lab Attestation statement: I reviewed the patient's lab results. 04/22/25 18:16 04/22/25 18:16 Labs: Lab Results 04/22/25 Range/Units 18:16 WBC 5.6 (4.8-10.8) X10*3/uL RBC 4.09 L (4.20-5.50) X10*6/uL Hgb 11.6 L (12.0-16.0) g/dl Hct 35.3 L (37.0-47.0) % MCV 86.3 (80.0-98.0) fL MCH 28.4 (27.0-33.0) pg MCHC 32.9 (31.0-35.0) g/dl RDW 13.4 (11.0-16.0) % Plt Count 236 (160-400) X10*3/uL MPV 9.9 (9.4-12.3) fL Immature Gran % (Auto) 0.2 (0.0-0.4) % Neut % (Auto) 56.8 (45-73) % Lymph % (Auto) 29.2 (20-40) % Navarro % (Auto) 11.8 H (2-11) % Eos % (Auto) 1.3 (0-4) % Baso % (Auto) 0.7 (0-2) % Lymph # (Auto) 1.6 (1.2-4.9) X10*3/uL [place] # (Auto) 0.7 (0.1-1.2) X10*3/uL Eos # (Auto) 0.1 (0.0-0.4) X10*3/uL Baso # (Auto) 0.0 (0.0-0.2) X10*3/uL Abs Immat Gran (auto) 0.01 (0.00-0.03) X10*3/uL Absolute Neuts (auto) 3.2 (2.0-8.3) x10*3/uL Absolute Nucleated RBC 0.000 (0.0-0.012) X10*3/uL Nucleated RBC % (auto) 0.0 (0.0-0.2) /100WBC Sodium 143 (135-145) mmol/L Potassium 3.9 (3.3-5.1) mmol/L Chloride 108 (96-108) mmol/L Carbon Dioxide 25 (22-29) mmol/L Anion Gap 14 (12-20) BUN 10 (9-16) mg/dL Creatinine 0.75 (0.5-1.4) mg/dL Estim Creat Clear Calc 71.8 Estimated GFR > 60 Random Glucose 93 (60-115) mg/dL Calcium 9.4 (8.4-10.2) mg/dL Total Bilirubin 0.2 (0.0-1.0) mg/dL AST 18 (5-31) U/L ALT 13 (0-31) U/L Alkaline Phosphatase 79 (39-117) U/L Troponin I High Sens < 2.7 (<3.5-17.0) ng/L Total Protein 7.0 (6.5-8.0) g/dL Albumin 4.5 (3.5-5.0) g/dL Lipase 32 (8-78) U/L Independent Interpretation I performed an independent interpretation of an: EKG, Ultrasound (No cause of her pain) and CT Scan (Liver lesion that needs outpatient follow up) Interpretation: Rate: 80 Rhythm: Normal sinus rhythm [place]: Left Normal P waves. Normal RILEY. Normal QRS complex. Has right ventricular conduction delay ST T wave : Inverted T-waves in V1, no ST-elevation qTC: 438 prior studies: No change from prior The study has been interpreted contemporaneously by me. . Radiology Impression Discussion of test interpretation with radiology: I have reviewed the radiologist's reading. Independent Historian Clinical information obtained from an independent historian. History obtained from or confirmed by: Spouse External Record Review External record reviewed: Outpatient record Medications Administered Discontinued Medications Generic Name Dose Route Start Last Admin Trade Name Freq PRN Reason Stop Dose Admin Iohexol 100 ml 04/22/25 20:31 04/22/25 20:31 Iohexol 350 Mg/Ml 100 Ml Infus..Btl IV 04/22/25 20:32 85 ml ONCE ONE Administration Discharge Plan Discharge Clinical Impression: Abdominal pain, acute, right upper quadrant Patient Disposition: Home, Self-Care Instructions: Abdominal Pain (ED) Additional Instructions: Your labs including your kidney, blood counts, liver, pancreas are all normal There is an incidental gallbladder polyp this can be monitored but this is not the cause of your pain There was also an incidental liver lesion that is too small to characterize You need further imaging in 3 months with your primary care doctor There is a nonspecific mild wall thickening of the intestine this could be a self-limited colitis given the lack of abnormal labs, fever, significant diarrhea I would hold off antibiotics and monitor your symptoms with a bland diet Return for any worsening symptoms or concerns such as fever greater than 100.4, severe pain, bloody stool, any other concerns IMPRESSION: 1. Mild wall thickening of the large intestine is nonspecific and may reflect colitis, including descending colon. No small bowel obstruction. 2. Multiple small fibroids in the uterus by CT. 3. Low-density lesions of the liver are nonspecific and measure up to 5 mm. Recommend 3 to six-month follow-up to ensure stability. These are currently below the resolution of PET imaging. Findings: The common bile duct is normal in diameter, measuring 0.3 cm. No cholelithiasis. Gallbladder polyp measuring 2 x 2 x 1 mm. No wall thickening or pericholecystic fluid. Negative sonographic Monroy sign. Impression: Negative for acute cholecystitis. Prescriptions: No Action betamethasone valerate 0.1 % cream 1 appl topical TID PRN (Reason: skin irritation) Qty: 45 0RF garlic 100 mg Tablet 50 mg PO DAILY (DME) bra, mastectomy Crystals Qty: 6 3RF Rx Instructions: As Directed (DME) Breast prosthesis Kit Qty: 1 0RF Rx Instructions: As Directed (DME) bra, mastectomy Crystals Qty: 6 6RF Rx Instructions: As Directed famotidine 20 mg Tablet 20 mg PO DAILY cholecalciferol (vitamin D3) 50 mcg (2,000 unit) capsule 50 mcg PO DAILY inositol 324 mg tablet 4 tab PO DAILY PROBIOTIC 2 cap PO BID calcium carbonate 600 mg calcium (1,500 mg) tablet 600 mg PO DAILY estradiol [Estrace] 0.01 % (0.1 mg/gram) cream See Rx Instructions .Route DAILY 30 Days Qty: 42.5 0RF Rx Instructions: pea sized amount per urethra daily; valacyclovir 500 mg tablet 500 mg PO BID Qty: 10 0RF (DME) synbiotic 0 .Route .MEDSUPPLY Print Language: Polish
[2025-04-22 18:35] LABS: Alanine Aminotransferase 13 U/L (0-31); Albumin Level 4.5 g/dL (3.5-5.0); Alkaline Phosphatase 79 U/L (39-117); Anion Gap 14 (12-20); Aspartate Amino Transferase 18 U/L (5-31); Blood Urea Nitrogen 10 mg/dL (9-16); Calcium 9.4 mg/dL (8.4-10.2); Carbon Dioxide 25 mmol/L (22-29); Chloride 108 mmol/L (96-108); Creatinine Clr Calc Pharmacy 71.8; Estimated Glomerular Filt Rate > 60; Lipase 32 U/L (8-78); Potassium 3.9 mmol/L (3.3-5.1); Sodium 143 mmol/L (135-145); Total Protein 7.0 g/dL (6.5-8.0)
[2025-04-22 18:44] LABS: Troponin-I High Sensitivity < 2.7 ng/L (<3.5-17.0)
[2025-04-22] MEDS: iohexoL 350 MG/ML 100 ML INFUS..BTL IV (20:31)
[2025-04-22 21:30] VITALS: BP 119/57; PULSE 67; RESP 18; TEMP 36.9; O2SAT 97
[2025-04-22 21:44] VITALS: BP 119/57; PULSE 67; RESP 18; TEMP 36.9; O2SAT 97
== END 2025-04-22 21:44 | disposition home or self-care (01) ==
PROVIDERS: Physician Assistant; Emergency Provider Emergency Medicine; PCP Internal Medicine
DX: R10.11 Right upper quadrant pain (principal); R11.0 Nausea; I45.10 Unspecified right bundle-branch block; Z85.3 Personal history of malignant neoplasm of breast; K21.9 Gastro-esophageal reflux disease without esophagitis
CPT/HCPCS: 36415; 74177; 76705; 80053; 83690; 84484; 85025; 93005; 99283; 99285; Q9967

== ENCOUNTER → 2025-04-22 17:27 | Outpatient (BNV) | payer MEDICARE, SELFPAY | PROVIDERS: Emergency Provider Emergency Medicine; PCP Internal Medicine; Visit Provider Internal Medicine Cardiovascular Disease | DX: I44.4 Left anterior fascicular block (principal); I45.10 Unspecified right bundle-branch block | CPT/HCPCS: 93010 ==

== ENCOUNTER → 2025-04-22 17:58 | Outpatient (BNV) | payer MEDICARE, SELFPAY | PROVIDERS: Emergency Provider Emergency Medicine; PCP Internal Medicine; Visit Provider Radiology Diagnostic Radiology | DX: D25.9 Leiomyoma of uterus, unspecified (principal); R10.11 Right upper quadrant pain | CPT/HCPCS: 74177; 76705 ==